=== PATIENT | female | born 1960 | race Caucasian/White ===

== ENCOUNTER 2023-06-07 20:03 | Emergency (ER) | payer OTHER, SELFPAY ==
[2023-06-07 20:15] VITALS: BP 122/72; PULSE 84; RESP 19; TEMP 36.7; O2SAT 98; BMI 25.2
--- NOTE | 2023-06-07 20:26 | PC.NURSE ---
Rounded on patient, no needs voiced at this time.
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
[2023-06-07] MEDS: CYCLOBENZAPRINE 10MG TABLET 5 MG PO (21:13)
[2023-06-07] MEDS: IBUPROFEN 600 MG TABLET PO (21:13)
[2023-06-07 21:16] VITALS: BP 128/77; PULSE 80; RESP 17; TEMP 36.7; O2SAT 99
== END 2023-06-07 21:20 | disposition home or self-care (01) ==
PROVIDERS: Emergency Provider Student in an Organized Health Care Education/Training Program
DX: S16.1XXA Strain of muscle, fascia and tendon at neck level, initial encounter (principal); M54.6 Pain in thoracic spine; S33.5XXA Sprain of ligaments of lumbar spine, initial encounter; V49.40XA Driver injured in collision with unspecified motor vehicles in traffic accident, initial encounter
CPT/HCPCS: 99283

== ENCOUNTER 2023-07-11 10:51 | Outpatient (RCR) | payer MEDICARE, MEDICAID, SELFPAY ==
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
== END 2023-07-11 12:00 | disposition home or self-care (01) ==
LOC: PT 10:51
PROVIDERS: Visit Provider Internal Medicine
DX: M54.6 Pain in thoracic spine (principal); M54.50 Low back pain, unspecified; R82.90 Unspecified abnormal findings in urine
CPT/HCPCS: 87086; 97163

== ENCOUNTER 2023-08-07 08:38 | Outpatient (CLI) | payer MEDICARE, MEDICAID, SELFPAY ==
--- NOTE | 2023-08-07 08:53 | CT_ITS ---
FINAL REPORT TECHNIQUE: Axial CT images of the chest were obtained without contrast. Low-dose protocol was utilized. This study was performed with techniques to keep radiation doses as low as reasonably achievable (ALARA). Individualized dose reduction techniques using automated exposure control or adjustment of mA and/or kV according to the patient's size were employed. CLINICAL HISTORY: lung cancer screening, smoker COMPARISON: None FINDINGS: CT CHEST WITHOUT, LOW DOSE SCREENING CT Di Vol: 2.90 mGy DLP: 92.73 mGy*cm There are multiple borderline sized mediastinal and axillary nodes which are nonspecific but favored to be reactive. The heart size is normal. There are mild coronary artery calcifications. There is no pleural or pericardial effusion. The lung windows show no suspicious mass or nodule. Limited images of the upper abdomen demonstrate a 4 mm pleural-based nodule in the posterior left lower lobe best seen on image 40. There is a calcified granuloma in the left lung base. There is mild emphysema and mild scarring. IMPRESSION: LR Category 2: 12 month follow-up low-dose chest CT is recommended. Reviewed, Interpreted and Dictated by Renan Qureshi III, MD Transcribed by Lauren Horvath Authenticated and [facility]
--- NOTE | 2023-08-07 08:53 | XR_ITS ---
FINAL REPORT CLINICAL HISTORY: Left foot pain COMPARISON: None FINDINGS: LEFT FOOT: Three views of the left foot were obtained. There is no acute fracture or dislocation. There is a moderate to severe hallux valgus deformity. There is mild degenerative change, greatest at the first MTP. Plantar calcaneal spur is noted. There is no soft tissue abnormality. IMPRESSION: Moderate to severe hallux valgus deformity and mild degenerative changes. No acute bony abnormality. Reviewed, Interpreted and Dictated by Renan Qureshi III, MD Transcribed by Lauren Horvath Authenticated and [facility]
--- NOTE | 2023-08-07 08:53 | XR_ITS ---
FINAL REPORT CLINICAL HISTORY: Back pain, restricted movement COMPARISON: None FINDINGS: LUMBOSACRAL SPINE SERIES Five views of the lumbosacral spine were obtained. There is no fracture present. There is no malalignment. There is moderate degenerative change. Multilevel osteophytes are noted. There is multilevel facet arthropathy. There is mild rightward curvature of the lumbosacral spine. IMPRESSION: Moderate degenerative change without acute process. Reviewed, Interpreted and Dictated by Renan Qureshi III, MD Transcribed by Lauren Horvath Authenticated and [facility]
--- NOTE | 2023-08-07 08:53 | XR_ITS ---
FINAL REPORT CLINICAL HISTORY: back pain, restricted range of motion COMPARISON: None FINDINGS: Two views of the thoracic spine were obtained. There is no fracture present. There is no malalignment. There is moderate degenerative change with multilevel osteophytes. IMPRESSION: Moderate degenerative changes without acute process. Reviewed, Interpreted and Dictated by Renan Qureshi III, MD Transcribed by Lauren Horvath Authenticated and . [facility]
--- NOTE | 2023-08-07 08:53 | XR_ITS ---
FINAL REPORT CLINICAL HISTORY: Right foot pain COMPARISON: None FINDINGS: RIGHT FOOT: Three views of the right foot were obtained. There is no acute fracture or dislocation. There is a moderate to severe hallux valgus deformity. There is mild degenerative change, greatest at the first MTP. Plantar calcaneal spur is noted. There is no soft tissue abnormality. IMPRESSION: Moderate severe hallux valgus deformity and mild degenerative changes. No acute bony abnormality. Reviewed, Interpreted and Dictated by Renan Qureshi III, MD Transcribed by Lauren Horvath Authenticated and . [facility]
== END 2023-08-07 23:59 ==
PROVIDERS: PCP Internal Medicine; Visit Provider Podiatrist
DX: M54.9 Dorsalgia, unspecified (principal); M79.671 Pain in right foot; M79.672 Pain in left foot; F17.210 Nicotine dependence, cigarettes, uncomplicated
CPT/HCPCS: 71271; 72070; 72100; 72110; 73630

== ENCOUNTER 2023-08-22 09:23 | Outpatient (CLI) | payer MEDICARE, MEDICAID, SELFPAY ==
--- NOTE | 2023-08-22 09:24 | XR_ITS ---
FINAL REPORT CLINICAL HISTORY: screening, post menopausal COMPARISON: None FINDINGS: Using L1-4, the bone mineral density of the spine is 1.108 g/cm2, corresponding to T-score of 0.6. Using the left hip, the bone mineral density of the femoral neck is 0.77 g/cm2, corresponding to a T-score of -0.7. Using the right hip, the bone mineral density of the femoral neck is 0.717 g/cm?, corresponding to a T-score of -1.2. NOTE: T-score: Standard deviation compared with peak bone mass of young adult mean. *Following the recommendations of the International Society of Bone densitometry, classification of hip BMD is based on the lower of two T-scores; total hip or femoral neck. IMPRESSION: Normal bone mineral density of the lumbar spine and left femoral neck. Low bone mineral density of the right femoral neck consistent with osteopenia. Reviewed, Interpreted and Dictated by Shun Gregorio MD Transcribed by Zahraa Farah Authenticated and [facility]
--- NOTE | 2023-08-22 09:24 | MM_ITS ---
PROCEDURE INFORMATION: Exam: MG Bilateral Screening 3D Mammography Exam date and time: 08/22/2023 9:30 AM Age: 63 years old Clinical indication: Screening examination TECHNIQUE: Imaging protocol: Bilateral Screening tomosynthesis and 2D mammography including computer-aided detection (CAD) when performed. COMPARISON: 1. MG DMSB DIG MAMM-SCREEN FABIO W/CAD 10/28/2016 6:03 PM 2. MG DMDXUAVR DIG MAMM-DX UNIL ADD VIEWS-RT 07/19/2012 2:58 PM FINDINGS: MAMMOGRAPHY: Breast composition: There are scattered areas of fibroglandular density. Mass: None. Architectural distortion: None. Calcifications: No suspicious calcifications. Asymmetric density: None. Skin thickening: None. Axillary adenopathy: None. IMPRESSION: No mammographic evidence of malignancy. Annual screening is recommended unless otherwise clinically indicated. ASSESSMENT: BI-RADS Category 1: Negative
== END 2023-08-22 23:59 | disposition home or self-care (01) ==
LOC: RAD 09:24
PROVIDERS: PCP Internal Medicine; Visit Provider Internal Medicine
DX: Z78.0 Asymptomatic menopausal state (principal); Z13.820 Encounter for screening for osteoporosis; Z12.31 Encounter for screening mammogram for malignant neoplasm of breast
CPT/HCPCS: 77063; 77067; 77080

== ENCOUNTER 2023-09-12 15:40 | Outpatient (CLI) | payer MEDICARE, MEDICAID, SELFPAY ==
--- NOTE | 2023-09-12 15:41 | MR_ITS ---
FINAL REPORT CLINICAL HISTORY: Metatarsalgia of right foot. FINDINGS: Multiplanar MR imaging of the right foot was performed without contrast. A hallux valgus deformity is seen. Second through fourth hammertoes are noted. There is bone marrow edema in the head of the second metatarsal of uncertain etiology and may be reactive. No well-defined fracture is identified. Soft tissue edema is seen adjacent to the head of the second metatarsal. The flexor and extensor tendons are intact. No ligamentous injury is identified. The musculature is intact. There is thickening of the posterior plantar aponeurosis with some adjacent soft tissue edema. No soft tissue mass or cyst is identified. IMPRESSION: Hallux valgus deformity with mild degenerative change. Bone marrow edema in the head of the second metatarsal with surrounding soft tissue edema of uncertain etiology. This may represent stress reaction, but early osteonecrosis is not entirely excluded. Follow-up MRI may be helpful. Authenticated and [facility]
== END 2023-09-12 23:59 | disposition home or self-care (01) ==
LOC: RAD 15:41
PROVIDERS: PCP Internal Medicine; Visit Provider Podiatrist
DX: M77.41 Metatarsalgia, right foot (principal); M77.42 Metatarsalgia, left foot; R09.89 Other specified symptoms and signs involving the circulatory and respiratory systems; S99.921S Unspecified injury of right foot, sequela
CPT/HCPCS: 73718

== ENCOUNTER 2023-09-14 10:09 | Outpatient (CLI) | payer MEDICARE, MEDICAID, SELFPAY ==
--- NOTE | 2023-09-14 10:14 | US_ITS ---
FINAL REPORT CLINICAL HISTORY: Decreased Pedal Pulses, Smoker, Pre-op clearance for left bunionectomy FINDINGS: BILATERAL ANKLE BRACHIAL INDICES Pressure indices are as follows are: RIGHT LOWER EXTREMITY Ankle brachial pressure index: 1.2 Toe brachial pressure index: 0.8 COMMENTS: Normal LEFT LOWER EXTREMITY Ankle brachial pressure index: 1.2 Toe brachial pressure index: 1.0 COMMENTS: Normal IMPRESSION: No evidence of significant obstructive peripheral vascular disease of the lower extremities. Reviewed, Interpreted and Dictated by Renan Qureshi III, MD Transcribed by Lissa Gibson Authenticated and [facility]
== END 2023-09-14 23:59 | disposition home or self-care (01) ==
LOC: RT 10:09
PROVIDERS: PCP Internal Medicine; Visit Provider Podiatrist
DX: R09.89 Other specified symptoms and signs involving the circulatory and respiratory systems (principal)
CPT/HCPCS: 93923

== ENCOUNTER 2024-01-26 15:12 | Outpatient (CLI) | payer MEDICARE, MEDICAID, SELFPAY ==
[2024-01-26 13:07] LABS: Basophils # 0.1 K/mm3 (0-0.2); Basophils % 0.7 % (0.1-2.0); Eosinophils # 0.1 K/mm3 (0.0-0.4); Eosinophils % 0.7 % (0.1-12.0); Hematocrit 42.7 % (37.0-47.0); Hemoglobin 13.9 g/dL (12.2-16.2); Lymphocytes # 5.8 K/mm3 (0.7-4.5); Lymphocytes % 52.2 % (10-50); Mean Corpuscular HGB Conc 32.7 g/dL (31.8-35.4); Mean Corpuscular Hemoglobin 31.2 pg (27.0-31.2); Mean Corpuscular Volume 95.7 fl (81-99); Monocytes # 0.8 K/mm3 (0.1-1.0); Monocytes % 6.8 % (1.7-9.3); Neutrophils # 4.4 K/mm3 (1.8-7.8); Neutrophils % 39.6 % (37.0-80.0); Platelet Count 414 K/mm3 (142-424); Red Blood Count 4.46 M/mm3 (4.20-5.40); Red Cell Distribution Width 13.8 % (11.5-17.5); White Blood Count 11.1 K/mm3 (4.8-10.8)
[2024-01-26 13:25] LABS: MANUAL DIFFERENTIAL MANUAL DIFFERENTIAL (MANUAL DIFF)
[2024-01-26 13:51] LABS: Hemoglobin A1C 5.7 % (4.0-6.0)
[2024-01-26 14:00] LABS: Alanine Aminotransferase 23 U/L (12-78); Albumin Level 4.4 g/dl (3.5-5.0); Albumin/Globulin Ratio 1.3 (1.1-1.8); Alkaline Phosphatase 63 U/L (38-126); Aspartate Amino Transferase 26 U/L (14-36); Bilirubin,Total 0.5 mg/dl (0.2-1.3); Blood Urea Nitrogen 18 mg/dl (7-17); Calcium 9.4 mg/dl (8.4-10.2); Carbon Dioxide 33 mmol/L (22.0-30.0); Chloride 100 mmol/L (98-107); Chol/HDL Ratio 4.1 (1-3.5); Cholesterol 210 mg/dl (140-200); Estimated Glomerular Filt Rate 72 ml/min (>60); GFR (African American) 87 ML/MIN (>60); Globulin 3.3 g/dL (1.3-3.2); Glucose 73 mg/dl (74-100); HDL Cholesterol 51 mg/dl (40-60); Sodium 135 mmol/L (136-145); Total Protein,Serum 7.7 g/dl (6.3-8.2); Triglycerides 155 mg/dl (30-150); VLDL Cholesterol 31 mg/dL (0-40)
[2024-01-26 14:11] LABS: Direct LDL Cholesterol 130.68 mg/dL (100-129)
[2024-01-26 14:17] LABS: 25-OH Vitamin D, Total 35.9 ng/mL (30-100); Free T4 (Free Thyroxine) 1.27 ng/dl (0.78-2.19)
[2024-01-26 14:25] LABS: Eosinophils % 2 % (0-3); Lymphocytes % 44 % (10-50); Monocytes % 5 % (2-9); Neutrophils % 49 % (42-76); Platelet Estimate Normal; Spherocytes 1+; Total Cells Counted 100
[2024-01-26 14:26] LABS: Polychromasia 1+; Target Cells 1+
[2024-01-26 14:34] LABS: HIV (1&2) Antibody Rapid NONREACTIVE (NONREACTIVE)
== END 2024-01-26 23:59 | disposition home or self-care (01) ==
LOC: LAB.DROPOF 15:12
PROVIDERS: PCP Internal Medicine; Visit Provider Internal Medicine
DX: R53.83 Other fatigue (principal); Z00.00 Encounter for general adult medical examination without abnormal findings; Z13.1 Encounter for screening for diabetes mellitus; Z13.29 Encounter for screening for other suspected endocrine disorder; M85.80 Other specified disorders of bone density and structure, unspecified site; Z13.21 Encounter for screening for nutritional disorder; Z11.59 Encounter for screening for other viral diseases; Z91.89 Other specified personal risk factors, not elsewhere classified; E78.5 Hyperlipidemia, unspecified; Z13.220 Encounter for screening for lipoid disorders; Z11.4 Encounter for screening for human immunodeficiency virus [HIV]
CPT/HCPCS: 80053; 80061; 82306; 83036; 84439; 84443; 85007; 85025; 85027; 87389

== ENCOUNTER 2024-01-30 11:11 | Outpatient (CLI) | payer MEDICARE, MEDICAID, SELFPAY ==
--- NOTE | 2024-01-30 11:15 | XR_ITS ---
FINAL REPORT TECHNIQUE: Chest PA & Lateral CLINICAL HISTORY: pre-operative exam, right foot at the end of january hx copd COMPARISON: None FINDINGS: 2 views of the chest were performed. The heart size is normal. The mediastinum is within normal limits. There is no acute cardiopulmonary process. There are no pleural effusions. There is no pneumothorax. The bony thorax appears intact. IMPRESSION: No acute cardiopulmonary process. Reviewed, Interpreted and Dictated by Shun Gregorio MD Transcribed by Ying Green Authenticated and [facility]
[2024-01-30 12:18] LABS: Basophils # 0.1 K/mm3 (0-0.2); Eosinophils # 0.1 K/mm3 (0.0-0.4); Eosinophils % 0.7 % (0.1-12.0); Hematocrit 42.5 % (37.0-47.0); Hemoglobin 13.9 g/dL (12.2-16.2); Lymphocytes # 6.2 K/mm3 (0.7-4.5); Lymphocytes % 56.1 % (10-50); Mean Corpuscular HGB Conc 32.7 g/dL (31.8-35.4); Mean Corpuscular Volume 97.9 fl (81-99); Mean Platelet Volume 7.1 fl (7.4-10.4); Monocytes # 0.6 K/mm3 (0.1-1.0); Monocytes % 5.9 % (1.7-9.3); Neutrophils % 36.3 % (37.0-80.0); Platelet Count 374 K/mm3 (142-424); Red Blood Count 4.35 M/mm3 (4.20-5.40); Red Cell Distribution Width 14.2 % (11.5-17.5)
[2024-01-30 12:19] LABS: MANUAL DIFFERENTIAL MANUAL DIFFERENTIAL (MANUAL DIFF)
--- NOTE | 2024-01-30 12:21 | ECG_ITS ---
APPROVED REPORT Exam: Resting ECG HR:73 bpm ECG Measurements Heart Rate 73 AXES MS 158 P 55 QRSd 87 QRS 42 QT 355 T 53 QTc 380 Conclusion SINUS RHYTHM NORMAL ECG UNCONFIRMED REPORT Electronically signed by : Markell Zamarripa MD 01/30/2024 20:48:15
[2024-01-30 12:40] LABS: Lymphocytes % 55 % (10-50); Monocytes % 7 % (2-9); Neutrophils % 37 % (42-76); Total Cells Counted 100
[2024-01-30 12:41] LABS: Platelet Estimate Normal; RBC Morphology Normal
[2024-01-30 13:40] LABS: Alanine Aminotransferase 25 U/L (12-78); Albumin Level 4.4 g/dl (3.5-5.0); Albumin/Globulin Ratio 1.3 (1.1-1.8); Alkaline Phosphatase 67 U/L (38-126); Anion Gap 7.4 mEq/L (5-15); Aspartate Amino Transferase 27 U/L (14-36); Bilirubin,Total 0.5 mg/dl (0.2-1.3); Blood Urea Nitrogen 20 mg/dl (7-17); Carbon Dioxide 34 mmol/L (22.0-30.0); Chloride 99 mmol/L (98-107); Estimated Glomerular Filt Rate 63 ml/min (>60); GFR (African American) 76 ML/MIN (>60); Globulin 3.3 g/dL (1.3-3.2); Glucose 108 mg/dl (74-100); Potassium 4.4 mmoL/L (3.5-5.1); Sodium 136 mmol/L (136-145); Total Protein,Serum 7.7 g/dl (6.3-8.2)
[2024-02-02 13:11] LABS: Nicotine 11.5 ng/mL (.)
[2024-02-19 02:09] LABS: 1,25 Dihydroxy Vitamin D 58 pg/mL (.); 1,25-Dihydroxy, Vitamin D-2 <10 pg/mL (.); 1,25-Dihydroxy, Vitamin D-3 58 pg/mL (.)
== END 2024-01-30 23:59 | disposition home or self-care (01) ==
LOC: LAB 11:13
PROVIDERS: PCP Internal Medicine; Visit Provider Podiatrist
DX: Z01.818 Encounter for other preprocedural examination (principal); F11.11 Opioid abuse, in remission
CPT/HCPCS: 36415; 71046; 80053; 80323; 82652; 85007; 85025; 85027; 93005; G0480

== ENCOUNTER 2024-02-21 08:30 | Day surgery (SDC) | payer MEDICARE, MEDICAID, SELFPAY ==
[2024-02-14 12:47] VITALS: BMI 26.5
[2024-02-21] VITALS (9 sets, daily range): BP systolic 113–152; BP diastolic 57–85; PULSE 69–87; RESP 15–18; TEMP 36.2–36.5; O2SAT 96–100
--- NOTE | 2024-02-21 08:48 | P.PNANES_ITS ---
[facility] Disclaimer: The information contained in this section may have been updated after the patient was seen, as this information can be updated by other users. Medical History Herpes zoster Encounter for hepatitis C virus screening test for high risk patient Opiate dependence Alcohol abuse Sleep trouble Acid reflux Gastritis Chronic constipation Bipolar disorder Depression Anxiety COPD (chronic obstructive pulmonary disease) Rheumatoid arthritis Surgical History History of eyelid surgery History of colonoscopy History of tubal ligation Family History Father Cancer Brother Cancer Other Family history of heart disease Social History (Updated 02/21/24 @ 08:47 by Denise Lezama RN) Smoking Status: Current every day smoker tobacco type: cigarettes packs per day: 1 alcohol intake: former year quit: 2009 substance use type: former substance user and opiates current occupational status: disabled Travel in the last 8 weeks: None [facility] Anesthesia Checklist Patient Identification Patient Identification: Arm Band, Family and Verbal (Name & ) Structural Data Admitted From: Home Planned Operative Procedure/s: RT. Bunionectomy + Consent for Planned Operative Procedure(s) Verified: Yes Verified Documents: Surgical Consent and History and Physical NPO Status Verified Time NPO: 23:45 Chart Verification Results Verified: CBC, BMP, ECG and Chest Xray Additional verifications Patient : No Anesthesia Reactions: No Cardiovascular Assessment Heart Sounds: S1 & S2 Pulse Rhythm: Irregular Peripheral Edema: No Airway Assessment Mallampati Score:: Class II C-Spine Mobility Assessed: Yes (FROM) Dentition: Dentures-good fit (Upper. Nothing loose per pt.) Neurological Assessment Level of Consciousness: Awake, Alert, Appropriate and Follows Commands Hx Seizures: No Numbness or tingling in extremities: No Anesthesia Plan Anesthesia Risk discussed: Yes Anesthesia Plan: Verified ASA Class: II Anesthesia Type: General w/block
[2024-02-21] MEDS: LACTATED RINGERS 1000ML 1,000 ML 25 ML IV (09:41)
[2024-02-21] MEDS: CEFAZOLIN SODIUM 2 GM in 0.9 % SODIUM CHLORIDE 100 ML IV (12:30)
--- NOTE | 2024-02-21 14:18 | XR_ITS ---
PROCEDURE INFORMATION: Exam: XR Right Foot Exam date and time: 02/21/2024 2:15 PM Age: 64 years old Clinical indication: Screening exam; Foot in or; Prior surgery; Surgery date: Post-operative (0-2 days); Surgery type: Right foot TECHNIQUE: Imaging protocol: Radiologic exam of the right foot. Views: 1 or 2 views. COMPARISON: SD XR FOOT RT 2V 02/21/2024 2:15 PM FINDINGS: Bones/joints: Intraoperative images of the right foot are obtained. K wires project in the 4th and 5th distal phalanges. Small screws project in the 2nd and 3rd distal phalanges. Plate and screw construct projects over the 1st MTP joint. No displaced osseous fracture is identified. Soft tissues: Normal. IMPRESSION: Intraoperative localization.
--- NOTE | 2024-02-21 14:43 | EXP.ANES.I ---
[facility] Anesthesia Record Part I Anesthesia Record I Intake, IV Amount: 1,600 Hydration: Adequate Estimated blood loss (mL): 30 Urine output (mL): 0 Blood Pressure: 113/57 SaO2: 98 Pulse Rate: 69 Airway Patency: Patent Respiratory Rate: 15 Temperature: 97.1 F Patient is:: Drowsy Stable to PACU at:: 14:40
--- NOTE | 2024-02-21 15:30 | XR_ITS ---
PROCEDURE INFORMATION: Exam: XR Right Foot Exam date and time: 02/21/2024 3:07 PM Age: 64 years old Clinical indication: Condition or disease; Other: Post op surgery; Prior surgery; Surgery date: Post-operative (0-2 days); Surgery type: RT foot surgery; Additional info: Post op 1st mpj fusion, ht repair TECHNIQUE: Imaging protocol: Radiologic exam of the right foot. Views: 3 or more views. COMPARISON: SD XR FOOT RT 2V 02/21/2024 2:15 PM FINDINGS: Bones/joints: No acute fracture or malalignment. K-wires are present and bridging the 4th and 5th proximal, intermediate, and distal phalanges. Also noted are bridging screws across the 2nd and 3rd PIP joints. Plate and screw construct of the 1st MTP joint. No evidence of hardware loosening or fracture. Moderate calcaneal enthesophyte. No worrisome lytic or blastic osseous lesion. No appreciable cortical erosion or periosteal reaction. Scattered mild osteoarthritic changes. Soft tissues: Postop dressing over the forefoot, limiting evaluation of fine bony and soft-tissue detail. IMPRESSION: 1. No acute fracture or malaligment. 2. Status post hardware placement in the forefoot.
--- NOTE | 2024-02-21 16:49 | EXP.OP.NOTE ---
Date of procedure: 02/21/24 Pre-op Diagnosis:: Right hallux valgus Hallux limitus/rigidus Hammertoes 2?5 MPJ capsulitis Metatarsalgia Fifth toe angular deformity, curly toe Tailor's bunionette Post-op Diagnosis:: Same Procedure performed:: Right 1st MTPJ arthrodesis Excision/curettage bone cyst 2-4th hammertoe repair Tailor's bunionectomy/5th metatarsal exostectomy 2nd MPJ capsulotomy Repair 5th angular toe deformity with partial excision phalanx Calcaneal autograft bone harvest Surgeon:: Shana Haas DPM STARS SPECIALIST:: Gloria Ramirez Anesthesia: GETA Estimated blood loss (mL): 30 Clinical Note:: Patient is a 64F who presents with bilateral foot pain, right worse than left. Patient has had recent testing including x-rays, DEXA scan, ABIs, right foot MRI. The patient has tried modification of shoe gear, taping, strapping, inserts, ice elevation, NSAIDs. After a long discussion with the patient in regards to the conservative versus surgical treatment for the bunion deformity, the patient has elected to proceed with surgery because they have failed conservative treatment and continue to have pain and worsening symptoms affecting daily activities. Discussed lapidus and midfoot arthrodesis, possible 1st MTPJ arthrodesis vs implant, 2-3rd hammertoe repair, MPJ capsulotomy, possible plantar plate repair. Due to her advanced imaging findings and social situation: lives alone, early to early WB 1st MTPJ AD would be easier recovery than lapidus. The patient has been instructed on the planned procedure, all risk versus benefits of the procedure to include bleeding, infection, nerve and blood vessel damage, need for further surgery, delay in healing of soft tissue or bone, gangrene secondary to smoking history, failure of bones to heal, non-union, mal-union, prolonged pain and recovery, prolonged swelling, CRPS/RSD, DVT/PE and anesthetic complications including . Discussed increased risk of delayed toe healing, although ABIs were normal. Explained slower healing especially to the toes because of her smoking history. Discussed increased risk of wound healing complications and infection due to smoking history. Smoking cessation given. Also discussed her risk of wound healing, infection and DVT/PE. Patient understands if there is wound complications, it could lead to infection warranting oral or IV antibiotics, gangrene necessitating toe amputation. Would recommend aspirin 81 mg postop. No guarantees were given. All questions answered. Patient verbalized understanding and agreed to proceed with surgery. Written consent obtained. Medical clearance and pain clinic clearance obtained. *Of note patient admitted to history of substance abuse and has been on Suboxone. [facility], her pain clinic did stop her Suboxone last week and gave clearance for me to take over immediate postoperative pain management. After the case, while discussing intraoperative findings with the family, they admitted to the patient recently using meth. Patient had denied this preoperatively. Had a long discussion with the family after surgery about pain control and realistic expectations for pain management given her substance abuse history. Discussed compliance with pain protocols in detail. Operative findings:: Right hallux rigidus with decreased range of motion in both dorsiflexion and plantarflexion. Upon opening the joint there was significant cartilage erosion greater than 70% of the joint involved. Significant synovitic tissue noted at the first MTPJ which was debrided. The articular cartilage was worn down. Cortical erosion and decreased cartilage to both the base of proximal phalanx and metatarsal head. There was a 2 mm round subchondral cyst in the base of the proximal phalanx after joint prep performed. This cystic defect was excised curettaged and then packed with calcaneal autograft bone graft. Preoperatively patient's vitamin D was 58. Plan to start vitamin D 50,000 units once weekly due to the poor bone quality intraoperatively. Minimal vessels were ligated or cauterized as there was some but minimal bleeding noted. The skin quality upon closure of the skin was very stiff and with the patient's history of smoking/substance abuse, decision made to use amniotic graft to help prevent scar tissue contracture and adhesions. Operative note:: On this date and time patient was deemed an appropriate surgical candidate. With informed consent signed, the patient was taken to the operating theater after regional popliteal nerve block by anesthesia. Patient was positioned supine. General anesthesia was induced. IV Ancef given. Tourniquet was applied to the right thigh @250mmHg. The right lower extremity was prepped and draped in normal sterile fashion. Right calcaneal autograft bone harvest: Attention was directed to the lateral calcaneus where small linear incision was mapped out. Dissection was carried down full-thickness to the heel. The bone graft harvest system utilized to take 3mm of bone from the calcaneus. Area was flushed. Nylon used to reapproximate the skin. Right proximal phalanx excision/curettage bone cyst: Once joint was prepared, a subchondral bone cyst was noted on proximal phalanx. It was excised curettage flushed. The calcaneal autograft bone was then packed into the defect prior to joint fusion. Right first MTPJ arthrodesis: Attention was directed to the 1st metatarsophalangeal joint (MPJ), where a dorsal linear incision was mapped out extending proximal from the HIPJ to proximal on the met shaft. The tourniquet was inflated at 250mmHg. Dissection was carried thru skin and subcutaneous tissue with care taken to maintain surgical hemostasis and safely retract neurovascular structures. Dissection was then carried through deep fascia linearly over the 1st MPJ, exposing the met head. There was severe arthritic changes noted with wearing down of the cartilage on both the metatarsal head and proximal phalanx. And there were several large joint osteophyte noted which was removed. Dorsal as well as medial, lateral spurring noted. Sesamoids were also noted to be arthritic. Soft tissue surrounding the first MPJ was released. A McGlamry elevator was used to pass underneath the metatarsal heads releasing more of the contracture. Utilizing hand instrumentation in the form of ronguer, the osteophytes were removed and some of the spurs were resected. Next utilizing reamers the base of the proximal phalanx and the metatarsal head were prepared. The remaining portion of the cartilage was removed. The subchondral plate was fenestrated utilizing 0.062 K wire. Joint was prepped down to the level of good healthy cancellous bleeding bone. Rasp was used to smooth the joint and remaining spurring. The wound was flushed with copious amounts of saline. The calcaneus bone graft was then inserted into the joint. At this point, the joint was reduced and temporary fixation inserted. Position was checked under intra-op fluoroscopy. A 4.0 mm compression lag screw was inserted from distal medial to proximal lateral. Adequate compression noted. Remaining bone graft was then inserted into the joint. Vilex 1st MPJ locking plate was inserted in standard technique. 2.7mm screws x 3 were inserted distally into the proximal phalanx. This was followed by a 2.7mm intra-fragmentary compression screw to the proximal metatarsal, followed by 2 x 2.7mm screws into the metatarsal. Good apposition and position was noted. X-ray confirmed position and hardware stable. 15 blade was used to resect the redundant tissue dorsal medial. A piece of 4x4cm amniotic graft was then inserted to prevent deep adhesions of soft tissue to the plate and try to prevent wound dehiscence. Vicryl was used to close deep and subcutaneous tissue in a running fashion. Nylon used to close skin. Skin cleansed. Right 2nd MPJ capsulotomy: An incision was mapped out over the second MPJ and full-thickness dissection down to level of the joint. Release of the medial and collateral ligaments on the metatarsal head. McGlamery elevator was used to pass under the second met head and plantar adhesions were released. Immediately there was reduction of the contracture at this level. The second metatarsal head was intact with no obvious cortical erosions so decision made not to do a partial metatarsal head resection or met head implant. Hammertoe repair 2?4: Attention was directed to the dorsal PIPJ's of 2?4 where hammertoe contracture noted. Dissection down to the level of the PIPJ. Transverse tenotomy performed releasing the extensor tendon. This did alleviate some contracture. Wound flushed. The head of the proximal phalanx and base of the middle phalanx were resected. The second and third toes were reduced and hammer fused toe implant was inserted in standard technique in accordance with manufacture guidelines. A 2.5 mm implant was utilized on the second toe and a 2.0 mm implant was used on the third toe. Due to the size of the fourth toe, the implant was too large so hammertoe was fixated with a 1.1 mm smooth K wire. 5th angular toe deformity correction: Attention was then directed to the fifth toe which had an angular curly toe adductovarus rotation deformity. A skin flap was removed from the PIPJ. Dissection then performed down to the level of the PIPJ. Transverse tenotomy performed. The head of the proximal phalanx was resected. The toe was derotated and a 1.1 mm smooth K wire was inserted to maintain toe alignment. All wounds were flushed with saline. Extensor tendon reapproximated with Vicryl. Skin reapproximated with nylon. Prior to closure, intraoperative fluoroscopy was utilized to take x-rays. Multiple fluoroscopy views showed adequate compression of the first MTPJ with hardware intact. Hammertoe implants and K wires intact to the 2nd through 5th digits with appropriate alignment and reduction of deformity. Tailor's bunionectomy/5th metatarsal head exostectomy: A separate incision was then made over the fifth metatarsal head dorsal laterally. Full-thickness dissection to the level of the bone. There was a bony prominence noted on the dorsal lateral aspect of the metatarsal head. A saw was used to transect the bone. Next rasp was used to smooth down the bony prominence. Wound flushed. Deep tissue reapproximated with Vicryl and skin reapproximated with nylon. The tourniquet was deflated after 110 mins and immediate hyperemic response was noted to the digits. The wounds were cleansed. Xeroform applied to incisions. Betadine soaked gauze used to splint the toes then a dry sterile dressing was then applied to the right foot. The patient was awoken from anesthesia and transferred to recovery with vital signs stable and neurovascular status intact. Patient appeared to tolerate procedure anesthesia well without complication. Materials: Vilex anatomic 1st MTPJ plate and 2.7mm locking screws x5, 2.7mm non locking screw x1, 4.0mm partially threaded compression screw x 1, Almniomaxx graft x1 (4x4cm), 1.1mm smooth K wire x 2, Vilex Hammerfuze implant x2 Discharge/Plan: D/C home today when ready and vital signs stable. Patient is to maintain dressing clean dry and intact. Ice top of right foot and elevate on two pillows. Polar pack behind knee. NWB to the RLE with fracture boot and walker. Recommend rolling knee scooter. Obtain post op films, right foot, 3 views. Follow up with me in 1 week. Tourniquet time (min): 110 Condition: stable Disposition: same day Complications:: None
--- NOTE | 2024-02-22 07:25 | P.PNANES_ITS ---
[facility] Anesthesia Record Part II Anesthesia Record Part II Discharge Time: 15:10 Destination: Surgical Day Care (OP Surgery) PACU nurse assessment reviewed?: Yes Patient Condition:: Good Anesthesia Complications:: None Swallowing reflex intact?: Yes Airway Patency: Patent Cyanosis?: No Blood Pressure: 150/83 SaO2: 100 Respiratory Rate: 16 Pulse Rate: 76 Temperature: 97.1 F Mental Status: Alert & Oriented Pain level:: 0 Nausea and/or vomitting:: None Intake, IV Amount: 0 Hydration: Adequate
[2024-02-22 07:26] VITALS: BP 150/83; PULSE 76; RESP 16; TEMP 36.2; O2SAT 100
== END 2024-02-21 15:47 | disposition home or self-care (01) ==
PROVIDERS: PCP Internal Medicine; Visit Provider Podiatrist
PROC: (CPT 28108; principal; 2024-02-21 10:15)
DX: M20.11 Hallux valgus (acquired), right foot (principal); M20.41 Other hammer toe(s) (acquired), right foot; M21.621 Bunionette of right foot; M20.5X1 Other deformities of toe(s) (acquired), right foot; M19.071 Primary osteoarthritis, right ankle and foot; M77.41 Metatarsalgia, right foot; F17.210 Nicotine dependence, cigarettes, uncomplicated; Z79.899 Other long term (current) drug therapy; M77.8 Other enthesopathies, not elsewhere classified; M85.471 Solitary bone cyst, right ankle and foot
CPT/HCPCS: 28108; 28285 ×3; 28308; 73620; 73630; 76000; 96374; C1713; C1776; C9144; J0690; J2250; J3010; J7120

== ENCOUNTER 2024-03-07 10:30 | Outpatient (CLI) | payer MEDICARE, MEDICAID, SELFPAY ==
--- NOTE | 2024-03-07 10:37 | CA_ITS ---
FINAL REPORT CLINICAL HISTORY: Resolved pedal edema 2 weeks post op Right foot. Patient denies current leg pain COMPARISON: None FINDINGS: Color Doppler, duplex Doppler and compression sonography of the bilateral lower extremities was performed. There is no evidence of deep venous thrombosis from the level of the groin to the calf. The deep veins are patent and compressible. IMPRESSION: No evidence of deep venous thrombosis bilateral lower extremities. Authenticated and ERN
--- NOTE | 2024-03-07 10:37 | XR_ITS ---
FINAL REPORT CLINICAL HISTORY: .pain COMPARISON: None FINDINGS: RIGHT FOOT: Three views of the right foot were obtained. There are postoperative changes in the right foot. There is an orthopedic plate and screws bridging a fusion of the first MTP joint. There are screws present in the second and third toes bridging the proximal and middle phalanges, and osteotomies appear to have been performed. A K wire bridges the phalanges of the fifth toe, and there appears to have been an osteotomy of the head of the proximal phalanx. There is slight deformity of the fourth digit suggesting prior surgery. There is no acute fracture or dislocation. The joint spaces are otherwise intact. A posterior calcaneal spur is present. IMPRESSION: Extensive postoperative change as described above, with no acute bony abnormality. Reviewed, Interpreted and Dictated by Renan Qureshi III, MD Transcribed by Zahraa Farah Authenticated and . [facility]
== END 2024-03-07 23:59 | disposition home or self-care (01) ==
LOC: RT 10:31
PROVIDERS: PCP Internal Medicine; Visit Provider Podiatrist
DX: I87.2 Venous insufficiency (chronic) (peripheral) (principal); M79.671 Pain in right foot
CPT/HCPCS: 73630; 93970

== ENCOUNTER 2024-03-21 09:57 | Outpatient (CLI) | payer MEDICARE, MEDICAID, SELFPAY ==
--- NOTE | 2024-03-21 10:03 | XR_ITS ---
FINAL REPORT CLINICAL HISTORY: s/p surgery COMPARISON: 03/07/2024 FINDINGS: RIGHT FOOT 3 views of the right foot were obtained. There is a sideplate and screws securing the 1st metatarsal phalangeal joint. An orthopedic screw is seen securing the 2nd and 3rd PIP joints. There is a K-wire securing the 5th phalanx. All hardware is unchanged in position compared to the prior study. There is a moderate plantar spur. Soft tissues are unremarkable. IMPRESSION: Stable exam. Reviewed, Interpreted and Dictated by Shun Gregorio MD Transcribed by Lauren Horvath Authenticated and . [facility]
== END 2024-03-21 23:59 | disposition home or self-care (01) ==
LOC: RAD 09:59
PROVIDERS: PCP Internal Medicine; Visit Provider Podiatrist
DX: Z98.890 Other specified postprocedural states (principal)
CPT/HCPCS: 73630

== ENCOUNTER 2024-04-08 17:59 | Emergency (ER) | payer MEDICARE, MEDICAID, SELFPAY ==
--- NOTE | 2024-04-08 16:59 | ECG_ITS ---
APPROVED REPORT Exam: Resting ECG HR:90 bpm ECG Measurements Heart Rate 90 AXES MT 142 P 77 QRSd 83 QRS 77 QT 332 T 77 QTc 379 Conclusion SINUS RHYTHM MODERATE ST DEPRESSION [0.05+ mV ST DEPRESSION] ABNORMAL ECG UNCONFIRMED REPORT Electronically signed by : FARHAN LOU, 04/09/2024 06:44:39
[2024-04-08 17:59] VITALS: BP 133/80; PULSE 98; RESP 20; TEMP 36.7; O2SAT 96; BMI 26.5
[2024-04-08 18:10] VITALS: PULSE 98
--- NOTE | 2024-04-08 18:12 | XR_ITS ---
PROCEDURE INFORMATION: Exam: XR Chest Exam date and time: 04/08/2024 6:09 PM Age: 64 years old Clinical indication: Other: Chest pain; Additional info: Cp TECHNIQUE: Imaging protocol: Radiologic exam of the chest. Views: 1 view. COMPARISON: CR XR CHEST 2V 01/30/2024 11:36 AM FINDINGS: Tubes, catheters and devices: None. Lungs: Linear density identified within bilateral lower lungs. The lungs appear otherwise clear. Pleural spaces: No pleural effusion. No pneumothorax. Heart/Mediastinum: Mediastinum and bree appear unremarkable. Vasculature: Mild atherosclerotic calcification demonstrated within the aorta. Bones/joints: Mild to moderate generalized bony degenerative changes. Bony structures appear otherwise unremarkable. Other findings: Limited evaluation with patient rotation. IMPRESSION: Linear bilateral lower chest pulmonary atelectasis, or scarring.
--- NOTE | 2024-04-08 18:19 | ED_ITS ---
Discharge Plan Disposition Patient Disposition: Home, Self-Care Condition: Good Prescriptions Prescriptions: No Action valacyclovir 1 gram tablet 1,000 mg PO Q8H Qty: 21 0RF gabapentin 300 mg capsule 300 mg PO TID PRN (Reason: nerve pain) 10 Days Qty: 30 2RF Enbrel SureClick 50 mg/mL (1 mL) pen injector 50 mg SQ WEEKLY Stiolto Respimat 2.5-2.5 mcg/actuation mist 2 inh inhalation DAILY Patient Comments: INHALE 2 PUFFS BY MOUTH DAILY propranolol 10 mg tablet 10 mg PO BID PRN (Reason: Anxiety) Patient Comments: TAKE 1 TABLET BY MOUTH TWICE DAILY. CAN ALSO TAKE 1 TABLET ONCE DAILY NEEDED FOR ANXIETY SYMPTOMS/PANIC ATTACKS. NO MORE THAN 3/DAY diclofenac sodium [Voltaren Arthritis Pain] 1 % gel 4 g topical QID PRN (Reason: pain) 30 Days Qty: 100 2RF Rx Instructions: apply to single knee, ankle, foot; for foot includes sole/toes/top of foot Vraylar 3 mg capsule 3 mg PO DAILY Qty: 90 1RF lamotrigine 150 mg tablet 150 mg PO BID Qty: 180 1RF trazodone 50 mg tablet 50 mg PO DAILY Qty: 90 1RF buprenorphine-naloxone 8-2 mg tablet, sublingual 2 tab sublingual DAILY prochlorperazine maleate 10 mg tablet 10 mg PO TID PRN (Reason: anxiety) Qty: 60 1RF doxycycline hyclate 100 mg capsule 100 mg PO BID 10 Days Qty: 20 0RF fluconazole [Diflucan] 200 mg tablet 200 mg PO DAILY PRN (Reason: yeast) 3 Days Qty: 3 0RF Rx Instructions: Take one tablet daily, max 3 days prn yeast infection oxycodone 5 mg tablet 5 mg PO Q6H PRN (Reason: post op pain) 7 Days Qty: 30 0RF calcium carbonate-vitamin D3 [Calcium 600 with Vitamin D3] 600 mg-12.5 mcg (500 unit) capsule 1 cap PO BID Qty: 60 6RF nystatin 100,000 unit/mL suspension 5 ml buccal QID 14 Days Qty: 280 0RF Rx Instructions: administer 1/2 of dose in each side of the mouth promethazine 25 mg tablet 25 mg PO Q4-6H PRN (Reason: nausea) Qty: 30 2RF cholecalciferol (vitamin D3) 1,250 mcg (50,000 unit) capsule 1,250 mcg PO WEEKLY 84 Days Qty: 12 1RF ibuprofen 600 mg tablet See Rx Instructions .ROUTE .COMPLEX Qty: 30 0RF Dose Instruction: TAKE ONE TABLET BY MOUTH EVERY 8 HOURS NEEDED FOR PAIN Rx Instructions: TAKE ONE TABLET BY MOUTH EVERY 8 HOURS NEEDED FOR PAIN Linzess 145 mcg capsule See Rx Instructions .ROUTE .COMPLEX Qty: 90 0RF Dose Instruction: TAKE ONE CAPSULE BY MOUTH EVERY DAY Rx Instructions: TAKE ONE CAPSULE BY MOUTH EVERY DAY Referrals Follow up/Referrals: Preston Man DO [Primary Care Provider] - See instructions Activity Restrictions/Add. Instructions Additional Instructions/Restrictions: Please follow-up with aircraft servicer and primary care provider return to the emergency department for any chest pain or shortness of breath, please continue with good oral intake with fluids and food. Return to the emergency department for any worsening signs or symptoms. Clinical Impressions Clinical Impression: Chest pain Instructions Patient Instructions: DI for Atypical Chest Pain Print Language Print Language: Frisian Discharge ED Provider: Donovan Campos HPI <MARICARMEN Nova - Last Filed: 04/08/24 22:01> General Chief Complaint: Chest Pain Stated Complaint: Chest Pain Time Seen by Provider: 04/08/24 18:06 Mode of Arrival: Wheelchair Source of Information: Patient and Relative Limitations: No Limitations Description of Symptoms (Recalled from ER Triage Doc. by RN): pt has chest pain that started at 1715 tonight and goes across the front of her chest and into neck, back, and jaw History of Present Illness HPI narrative: 64-year-old female presents to the emergency chest pain that started around 5 PM today, radiates to bilateral arms, at maximal was an 8 out of 10, currently a 6 out of 10, patient's family had a nitroglycerin tablet for which the patient took which provided some relief, she does complain of nausea and shortness of breath, she denies any fever chills, denies any sick contacts, cough or congestion, denies any real abdominal pain, denies urinary type symptomatology, constipation or diarrhea. She is a current everyday smoker, she is currently on Suboxone in Suboxone she admits to recent methamphetamine use yesterday snorted it other past medical history consistent with anxiety/depression, recent foot surgery for foot drop/metatarsalgia and hammertoes, on the right, approximately 6 weeks ago, osteopenia, patient is also taken ibuprofen today with little to no relief of her symptoms. Initial triage vitals are notable for tachycardia otherwise unremarkable. Related Data Home Medications ?Medication ?Instructions ?Recorded ?Confirmed etanercept 50 mg/mL (1 mL) 50 mg SQ WEEKLY 06/21/23 03/21/24 subcutaneous pen injector (Enbrel SureClick) propranolol 10 mg tablet 10 mg PO BID PRN Anxiety 06/21/23 03/21/24 tiotropium 2.5 mcg-olodaterol 2.5 2 inh inhalation DAILY 06/21/23 03/21/24 mcg/actuation mist for inhalation (Stiolto Respimat) buprenorphine 8 mg-naloxone 2 mg 2 tab sublingual DAILY 01/25/24 03/21/24 sublingual tablet Previous Rx's ?Medication ?Instructions ?Recorded trazodone 50 mg tablet 50 mg PO DAILY #90 tabs 07/28/23 diclofenac sodium 1 % topical gel 4 g topical QID PRN pain 30 days 08/22/23 (Voltaren Arthritis Pain) #100 grams calcium 600 mg (as 1 cap PO BID #60 caps 09/01/23 carbonate)-vitamin D3 12.5 mcg (500 unit) capsule (Calcium with Vit D3) cariprazine 3 mg capsule (Vraylar) 3 mg PO DAILY #90 caps 09/12/23 lamotrigine 150 mg tablet 150 mg PO BID #180 tabs 09/12/23 prochlorperazine maleate 10 mg 10 mg PO TID PRN anxiety #60 tabs 01/25/24 tablet valacyclovir 1 gram tablet 1,000 mg PO Q8H #21 tabs 01/31/24 nystatin 100,000 unit/mL oral 5 ml buccal QID 14 days #280 mL 02/08/24 suspension promethazine 25 mg tablet 25 mg PO Q4-6H PRN nausea #30 tabs 02/19/24 cholecalciferol (vitamin D3) 1,250 1,250 mcg PO WEEKLY vit D 12 weeks 02/21/24 mcg (50,000 unit) capsule #12 caps ibuprofen 600 mg tablet See Rx Instructions .Route 02/27/24 .COMPLEX #30 tabs gabapentin 300 mg capsule 300 mg PO TID PRN nerve pain 10 02/29/24 days #30 caps doxycycline hyclate 100 mg capsule 100 mg PO BID 10 days #20 caps 03/07/24 fluconazole 200 mg tablet 200 mg PO DAILY PRN yeast 3 days 03/07/24 (Diflucan) #3 tabs oxycodone 5 mg tablet 5 mg PO Q6H PRN post op pain 1 03/12/24 week #30 tabs linaclotide 145 mcg capsule See Rx Instructions .Route 03/19/24 (Linzess) .COMPLEX #90 caps Allergies Allergy/AdvReac Type Severity Reaction Status Date / Time clarithromycin Allergy Unknown NA-NAUSEA/V Verified 03/21/24 10:56 (CLARITHROMYCIN) OMITING codeine (CODEINE) Allergy Unknown I-ITCHING Verified 03/21/24 10:56 Sulfa (Sulfonamide Allergy Unknown NA-NAUSEA/V Verified 03/21/24 10:56 Antibiotics) (SULFA OMITING (SULFONAMIDE ANTIBIOTICS)) sulfamethoxazole (From Allergy Unknown I-ITCHING Verified 03/21/24 10:56 BACTRIM) trimethoprim (From BACTRIM) Allergy Unknown I-ITCHING Verified 03/21/24 10:56 [facility] <MARICARMEN Nova - Last Filed: 04/08/24 22:01> [facility] Disclaimer: The information contained in this section may have been updated after the patient was seen, as this information can be updated by other users. Medical History Herpes zoster Encounter for hepatitis C virus screening test for high risk patient Opiate dependence stopped in 2015 Alcohol abuse stopped in 2009 Sleep trouble Acid reflux Gastritis Chronic constipation Bipolar disorder Depression Anxiety COPD (chronic obstructive pulmonary disease) Rheumatoid arthritis Surgical History History of eyelid surgery History of colonoscopy History of tubal ligation Family History Father Cancer lung and spread to liver Brother Cancer prostate Other Family history of heart disease Social History (Updated 03/21/24 @ 13:10 by Shana Haas DPM) Smoking Status: Current every day smoker tobacco type: cigarettes packs per day: 1 alcohol intake: former year quit: 2009 substance use type: former substance user and opiates current occupational status: disabled Travel in the last 8 weeks: None Other Medical History Have you received the Pneumonia Vaccine: No <MARICARMEN Nova - Last Filed: 04/08/24 22:01> ROS Obtained: Yes All systems reviewed & no additional complaints except as documented Physical Exam <MARICARMEN Nova - Last Filed: 04/08/24 22:01> General General appearance: alert and in no apparent distress Head Head exam: atraumatic and normocephalic Eye Eye exam: Present normal appearance, PERRL and EOMI Neck Neck exam: Present full ROM; Absent meningismus Chest Chest inspection: Present normal inspection Respiratory Respiratory exam: Absent respiratory distress, wheezes, stridor, accessory muscle use or prolonged expiratory phase Cardiovascular Cardiovascular exam: Present normal rhythm, tachycardia and other (Pulses equal and symmetric in bilateral upper and lower extremities) Abdominal Exam Abdominal exam: Absent distention Extremities Exam Extremities exam: Absent edema Expanded Lower Extremity Exam Right: Foot/toe exam: Present swelling Comment: There is swelling that is observed mild soft tissue pulses intact, the right foot coincide the patient recent right foot surgery. Neurological Exam Neurological exam: Present alert Psychiatric Psychiatric exam: Present normal affect Skin Skin exam: Present warm and dry HEART Score <MARICARMEN Nova - Last Filed: 04/08/24 22:01> HEART Score HEART Score assessment performed?: Yes HEART Score: 3 <Donovan Campos MD - Last Filed: 04/08/24 22:33> HEART Score History (anamnesis): Moderately suspicious ECG: Normal Age: >65 years Risk factors: 3 or more risk factors Troponin: </= normal limit HEART Score: 5 Critical Care <MARICARMEN Nova - Last Filed: 04/08/24 22:01> Critical Care Time Critical Care Time: No Medical Decision Making <MARICARMEN Nova - Last Filed: 04/08/24 22:01> Medical Records Medical records reviewed: Yes I reviewed the patient's medical records. Hermelindo Inquiry Pt receiving controlled substance: No Hermelindo was queried for this patient: No Vital Signs Vital Signs: 04/08/24 17:59 04/08/24 18:10 04/08/24 18:30 Temperature 98.0 F Temperature Source Oral Pulse Rate 98 H 86 Pulse Rate [Left Radial] 98 H Respiratory Rate 20 16 Blood Pressure 112/61 Blood Pressure [Right Arm] 133/80 Blood Pressure Mean 81 Blood Pressure Mean [Right Arm] 97 Blood Pressure Source Blood Pressure Position 02 Sat by Pulse Oximetry 96 97 Oxygen Delivery Method Room Air 04/08/24 19:00 04/08/24 19:30 04/08/24 21:59 Temperature 98.0 F Temperature Source Oral Pulse Rate 96 H 91 H 85 Pulse Rate [Left Radial] Respiratory Rate 16 18 Blood Pressure 126/69 109/57 L 132/66 Blood Pressure [Right Arm] Blood Pressure Mean 88 Blood Pressure Mean [Right Arm] Blood Pressure Source Automatic Cuff Blood Pressure Position Sitting 02 Sat by Pulse Oximetry 97 95 Oxygen Delivery Method Room Air Lab Data Lab results reviewed: Yes I reviewed the patient's lab results. Labs: Lab Results 04/08/24 18:05: WBC 9.5, RBC 4.51, Hgb 14.2, Hct 41.0, MCV 90.8, MCH 31.4 H, MCHC 34.7, RDW 12.9, Plt Count 344, MPV 6.8 L, Neut % (Auto) 63.2, Lymph % (Auto) 28.2, Beauregard % (Auto) 6.2, Eos % (Auto) 1.5, Baso % (Auto) 1.0, Neut # (Auto) 6.0, Lymph # (Auto) 2.7, Beauregard # (Auto) 0.6, Eos # (Auto) 0.1, Baso # (Auto) 0.1, D-Dimer 0.59 H, Sodium 140, Potassium 3.1 L, Chloride 96 L, Carbon Dioxide 38 H, Anion Gap 9.1, BUN 28 H, Creatinine 1.50 H, Estimated Creat Clear 39, Estimated GFR 35 L, Est GFR ( Amer) 42 L, Glucose 107 H, Calcium 9.6, Magnesium 1.8, Total Bilirubin 0.4, AST 38 H, ALT 27, Alkaline Phosphatase 92, Total Creatine Kinase 123, Troponin I < 0.01, NT-Pro-B Natriuret Pep 33.9, Total Protein 8.1, Albumin 4.4, Globulin 3.7 H, Albumin/Globulin Ratio 1.2 04/08/24 21:06: Troponin I < 0.01 04/08/24 18:05 04/08/24 18:05 Response Orders (Tests/Meds): ED MEDICATIONS Discontinued Medications Generic Name Dose Route Start Last Admin Trade Name Sarah PRN Reason Stop Dose Admin Aspirin 325 mg 04/08/24 18:18 04/08/24 18:31 Aspirin 325mg Tablet PO 04/08/24 18:19 325 mg ONCE ONE Administration Sodium Chloride 1,000 mls @ 999 mls/hr 04/08/24 21:02 04/08/24 21:09 Sod Chlor 0.9% 1000ml Bag IV 04/08/24 22:02 999 mls/hr .Q1H1M ONE Administration Iopamidol 60 ml 04/08/24 19:13 04/08/24 19:15 Iopamidol-370 (76%);100ml Bottle IV 04/08/24 19:14 60 ml ONCE ONE Administration Ondansetron HCl 4 mg 04/08/24 18:19 04/08/24 18:31 Ondansetron 4mg/2ml Vial IV 04/08/24 18:20 4 mg ONCE ONE Administration Potassium Chloride 40 meq 04/08/24 19:04 04/08/24 19:12 Potassium Chloride 20meq Tab PO 04/08/24 19:05 40 meq ONCE ONE Administration Sodium Chloride 10 ml 04/08/24 19:13 04/08/24 19:14 Sodium Chloride 0.9% 10ml Syr (Rad Only) IV 04/08/24 19:14 10 ml ONCE ONE Administration Sodium Chloride 50 ml 04/08/24 19:13 04/08/24 19:14 0.9 % Sodium Chloride 50 Ml Vial IV 04/08/24 19:14 50 ml ONCE ONE Administration ORDERS Category Date Time Status CTA Chest [CT angio chest - dissection] Stat Cat Scan 04/08/24 18:45 Completed XR chest portable Stat Exams 04/08/24 18:12 Completed CK [Creatine Kinase] Stat Lab 04/08/24 18:05 Completed Complete Blood Count Auto Diff Stat Lab 04/08/24 18:05 Completed Comprehensive Metabolic Panel Stat Lab 04/08/24 18:05 Completed D-Dimer Stat Lab 04/08/24 18:05 Completed Magnesium Stat Lab 04/08/24 18:05 Completed NT Pro Brain Natriuretic Pep. Stat Lab 04/08/24 18:05 Completed Troponin I Q3H Lab 04/08/24 21:06 Completed Troponin I Stat Lab 04/08/24 18:05 Completed MDM Narrative Medical Decision Narrative: 64-year-old female presents to the emergency department with chest pain shortness of breath, differential diagnose include but limited to ACS, costochondritis, anxiety type reaction, panic attack, GERD, gastritis, pneumonia, PE, cardiac arrhythmia, electrolyte disturbance, COPD exacerbation. I discussed with attending physician Dr. Campos Obtain basic laboratory studies, troponin, proBNP, D-dimer, creatinine kinase, EKG, chest x-ray, will give 4 mg IV Zofran for nausea, will give 324 mg p.o. aspirin for pain. CBC is unremarkable D-dimer is mildly elevated at 0.59. Will add CTA chest with and without contrast for further evaluation of characterization. Reviewed the patient's chest x-ray along the corresponding radiologic report linear bilateral lower chest pulmonary atelectasis or scarring. CMP is notable for minimal hypokalemia at 3.1, BUN is elevated 28, creatinine is elevated at 1.5, opponent within normal notes, proBNP within normal limits, will give 1 L of IV NS for acute kidney injury. 40 mEq p.o. potassium for hypokalemia. I reviewed the patient's CTA chest without contrast along the corresponding radiologic report no visualized pulmonary embolus, linear bilateral lower chest pulmonary atelectasis or scarring no definitive evidence of acute abnormality, chronic findings. Examination of the patient at 9 PM, patient's chest pain is improved she is currently chest pain-free. Examination of the patient at 9:55 PM patient is still chest pain-free, like to be discharged home to self-care, patient given strict ED return precautions return to the the emergency for any worsening signs or symptoms. Patient voiced understanding agreement with current treatment plan/discharge plan. <Donovan Campos MD - Last Filed: 04/08/24 22:33> Vital Signs Vital Signs: 04/08/24 17:59 04/08/24 18:10 04/08/24 18:30 Temperature 98.0 F Temperature Source Oral Pulse Rate 98 H 86 Pulse Rate [Left Radial] 98 H Respiratory Rate 20 16 Blood Pressure 112/61 Blood Pressure [Right Arm] 133/80 Blood Pressure Mean 81 Blood Pressure Mean [Right Arm] 97 Blood Pressure Source Blood Pressure Position 02 Sat by Pulse Oximetry 96 97 Oxygen Delivery Method Room Air 04/08/24 19:00 04/08/24 19:30 04/08/24 21:59 Temperature 98.0 F Temperature Source Oral Pulse Rate 96 H 91 H 85 Pulse Rate [Left Radial] Respiratory Rate 16 18 Blood Pressure 126/69 109/57 L 132/66 Blood Pressure [Right Arm] Blood Pressure Mean 88 Blood Pressure Mean [Right Arm] Blood Pressure Source Automatic Cuff Blood Pressure Position Sitting 02 Sat by Pulse Oximetry 97 95 Oxygen Delivery Method Room Air Lab Data Labs: Lab Results 04/08/24 18:05: WBC 9.5, RBC 4.51, Hgb 14.2, Hct 41.0, MCV 90.8, MCH 31.4 H, MCHC 34.7, RDW 12.9, Plt Count 344, MPV 6.8 L, Neut % (Auto) 63.2, Lymph % (Auto) 28.2, Beauregard % (Auto) 6.2, Eos % (Auto) 1.5, Baso % (Auto) 1.0, Neut # (Auto) 6.0, Lymph # (Auto) 2.7, Beauregard # (Auto) 0.6, Eos # (Auto) 0.1, Baso # (Auto) 0.1, D-Dimer 0.59 H, Sodium 140, Potassium 3.1 L, Chloride 96 L, Carbon Dioxide 38 H, Anion Gap 9.1, BUN 28 H, Creatinine 1.50 H, Estimated Creat Clear 39, Estimated GFR 35 L, Est GFR ( Amer) 42 L, Glucose 107 H, Calcium 9.6, Magnesium 1.8, Total Bilirubin 0.4, AST 38 H, ALT 27, Alkaline Phosphatase 92, Total Creatine Kinase 123, Troponin I < 0.01, NT-Pro-B Natriuret Pep 33.9, Total Protein 8.1, Albumin 4.4, Globulin 3.7 H, Albumin/Globulin Ratio 1.2 04/08/24 21:06: Troponin I < 0.01 Response Orders (Tests/Meds): ED MEDICATIONS Discontinued Medications Generic Name Dose Route Start Last Admin Trade Name Freq PRN Reason Stop Dose Admin Aspirin 325 mg 04/08/24 18:18 04/08/24 18:31 Aspirin 325mg Tablet PO 04/08/24 18:19 325 mg ONCE ONE Administration Sodium Chloride 1,000 mls @ 999 mls/hr 04/08/24 21:02 04/08/24 21:09 Sod Chlor 0.9% 1000ml Bag IV 04/08/24 22:02 999 mls/hr .Q1H1M ONE Administration Iopamidol 60 ml 04/08/24 19:13 04/08/24 19:15 Iopamidol-370 (76%);100ml Bottle IV 04/08/24 19:14 60 ml ONCE ONE Administration Ondansetron HCl 4 mg 04/08/24 18:19 04/08/24 18:31 Ondansetron 4mg/2ml Vial IV 04/08/24 18:20 4 mg ONCE ONE Administration Potassium Chloride 40 meq 04/08/24 19:04 04/08/24 19:12 Potassium Chloride 20meq Tab PO 04/08/24 19:05 40 meq ONCE ONE Administration Sodium Chloride 10 ml 04/08/24 19:13 04/08/24 19:14 Sodium Chloride 0.9% 10ml Syr (Rad Only) IV 04/08/24 19:14 10 ml ONCE ONE Administration Sodium Chloride 50 ml 04/08/24 19:13 04/08/24 19:14 0.9 % Sodium Chloride 50 Ml Vial IV 04/08/24 19:14 50 ml ONCE ONE Administration ORDERS Category Date Time Status CTA Chest [CT angio chest - dissection] Stat Cat Scan 04/08/24 18:45 Completed XR chest portable Stat Exams 04/08/24 18:12 Completed CK [Creatine Kinase] Stat Lab 04/08/24 18:05 Completed Complete Blood Count Auto Diff Stat Lab 04/08/24 18:05 Completed Comprehensive Metabolic Panel Stat Lab 04/08/24 18:05 Completed D-Dimer Stat Lab 04/08/24 18:05 Completed Magnesium Stat Lab 04/08/24 18:05 Completed NT Pro Brain Natriuretic Pep. Stat Lab 04/08/24 18:05 Completed Troponin I Q3H Lab 04/08/24 21:06 Completed Troponin I Stat Lab 04/08/24 18:05 Completed ECG Data Tracing #1: Attestation: I reviewed this ECG and interpreted as documented below: (Sinus rhythm 90 bpm. Patient has mild ST depression inferior lateral leads without reciprocal elevations. ID [id number], QRS 83, QTc 379.) MDM Narrative Medical Decision Narrative: 64-year-old female presents to the emergency department with chest pain shortness of breath, differential diagnose include but limited to ACS, costochondritis, anxiety type reaction, panic attack, GERD, gastritis, pneumonia, PE, cardiac arrhythmia, electrolyte disturbance, COPD exacerbation. I discussed with attending physician Dr. Campos Obtain basic laboratory studies, troponin, proBNP, D-dimer, creatinine kinase, EKG, chest x-ray, will give 4 mg IV Zofran for nausea, will give 324 mg p.o. aspirin for pain. CBC is unremarkable D-dimer is mildly elevated at 0.59. Will add CTA chest with and without contrast for further evaluation of characterization. Reviewed the patient's chest x-ray along the corresponding radiologic report linear bilateral lower chest pulmonary atelectasis or scarring. CMP is notable for minimal hypokalemia at 3.1, BUN is elevated 28, creatinine is elevated at 1.5, opponent within normal notes, proBNP within normal limits, will give 1 L of IV NS for acute kidney injury. 40 mEq p.o. potassium for hypokalemia. I reviewed the patient's CTA chest without contrast along the corresponding radiologic report no visualized pulmonary embolus, linear bilateral lower chest pulmonary atelectasis or scarring no definitive evidence of acute abnormality, chronic findings. Examination of the patient at 9 PM, patient's chest pain is improved she is currently chest pain-free. Examination of the patient at 9:55 PM patient is still chest pain-free, like to be discharged home to self-care, patient given strict ED return precautions return to the the emergency for any worsening signs or symptoms. Patient voiced understanding agreement with current treatment plan/discharge plan. I was consulted by the ALEXI, and we discussed the complexity of the problems being addressed. I approved the treatment and management plan for this patient's care in the Emergency Department, thus performing a substantive portion of the medical decision making. Donovan Campos MD
[2024-04-08 18:22] LABS: Basophils # 0.1 K/mm3 (0-0.2); Eosinophils # 0.1 K/mm3 (0.0-0.4); Eosinophils % 1.5 % (0.1-12.0); Hemoglobin 14.2 g/dL (12.2-16.2); Lymphocytes # 2.7 K/mm3 (0.7-4.5); Lymphocytes % 28.2 % (10-50); Mean Corpuscular HGB Conc 34.7 g/dL (31.8-35.4); Mean Corpuscular Hemoglobin 31.4 pg (27.0-31.2); Mean Corpuscular Volume 90.8 fl (81-99); Mean Platelet Volume 6.8 fl (7.4-10.4); Monocytes # 0.6 K/mm3 (0.1-1.0); Monocytes % 6.2 % (1.7-9.3); Neutrophils % 63.2 % (37.0-80.0); Platelet Count 344 K/mm3 (142-424); Red Blood Count 4.51 M/mm3 (4.20-5.40); Red Cell Distribution Width 12.9 % (11.5-17.5); White Blood Count 9.5 K/mm3 (4.8-10.8)
[2024-04-08 18:30] VITALS: BP 112/61; PULSE 86; RESP 16; O2SAT 97
[2024-04-08] MEDS: ONDANSETRON 4MG/2ML VIAL 4 MG IV (18:31)
[2024-04-08] MEDS: ASPIRIN 325MG TABLET 325 MG PO (18:31)
[2024-04-08 18:34] LABS: Alanine Aminotransferase 27 U/L (12-78); Albumin Level 4.4 g/dl (3.5-5.0); Albumin/Globulin Ratio 1.2 (1.1-1.8); Alkaline Phosphatase 92 U/L (38-126); Anion Gap 9.1 mEq/L (5-15); Aspartate Amino Transferase 38 U/L (14-36); Bilirubin,Total 0.4 mg/dl (0.2-1.3); Blood Urea Nitrogen 28 mg/dl (7-17); Calcium 9.6 mg/dl (8.4-10.2); Carbon Dioxide 38 mmol/L (22.0-30.0); Chloride 96 mmol/L (98-107); Creatine Kinase 123 U/L (30-135); Creatinine Clearance Estimated 39 mL/min (50-200); Estimated Glomerular Filt Rate 35 ml/min (>60); GFR (African American) 42 ML/MIN (>60); Globulin 3.7 g/dL (1.3-3.2); Glucose 107 mg/dl (74-100); Magnesium 1.8 mg/dl (1.6-2.3); Potassium 3.1 mmoL/L (3.5-5.1); Sodium 140 mmol/L (136-145); Total Protein,Serum 8.1 g/dl (6.3-8.2)
[2024-04-08 18:39] LABS: D-Dimer 0.59 ug/mL (0.0-0.5)
[2024-04-08 18:45] LABS: NT Pro Brain Natriuretic Pep. 33.9 pg/mL (0-125)
--- NOTE | 2024-04-08 18:45 | CT_ITS ---
PROCEDURE INFORMATION: Exam: CTA Chest With Contrast Exam date and time: 04/08/2024 7:13 PM Age: 64 years old Clinical indication: Shortness of breath; Additional info: Chest pain, shortness of breath TECHNIQUE: Imaging protocol: Computed tomographic angiography of the chest with contrast. Exam focused on the arteries. 3D rendering (Not supervised by radiologist): MIP and/or 3D reconstructed images were created by the technologist. Radiation optimization: All CT scans at this facility use at least one of these dose optimization techniques: automated exposure control; mA and/or kV adjustment per patient size (includes targeted exams where dose is matched to clinical indication); or iterative reconstruction. Contrast material: ISOVUE 370; Contrast volume: 75 ml; Contrast route: INTRAVENOUS (IV); COMPARISON: CT LUNG SCREENING 08/07/2023 9:18 AM FINDINGS: Pulmonary arteries: No visualized pulmonary emboli. Great vessels off aortic arch: Unremarkable. Aorta: No aortic aneurysm or dissection. Veins: No pulmonary venous congestion is demonstrated within the lungs. Lungs: Evidence for calcified lung granuloma in the left chest. Linear density identified within bilateral lower lungs. Pleural and lung parenchymal linear scarring identified within bilateral apices. The lungs appear otherwise clear. No lung consolidation identified. Pleural spaces: No pleural effusion identified. No pneumothorax identified. Heart: The heart does not appear enlarged. No significant pericardial effusion. Lymph nodes: No evidence for enlarged lymphadenopathy. Spleen: Incidental calcifications noted within the spleen, compatible with old granulomatous disease. Bones/joints: Mild to moderate generalized bony degenerative changes. Bony structures appear otherwise unremarkable. Soft tissues: Unremarkable. Other findings: Limited study with motion artifact. IMPRESSION: 1. No visualized pulmonary embolus. 2. Linear bilateral lower chest pulmonary atelectasis, or scarring. 3. No definite evidence for acute abnormality. 4. Chronic findings.
[2024-04-08 18:58] LABS: Troponin I < 0.01 ng/ml (0.00-0.034)
[2024-04-08 19:00] VITALS: BP 126/69; PULSE 96; RESP 16; O2SAT 97
[2024-04-08] MEDS: POTASSIUM CHLORIDE 20MEQ TAB 40 MEQ PO (19:12)
[2024-04-08] MEDS: SODIUM CHLORIDE 0.9% 10ML SYR (RAD ONLY) 10 ML IV (19:14)
[2024-04-08] MEDS: 0.9 % SODIUM CHLORIDE 50 ML VIAL IV (19:14)
[2024-04-08] MEDS: IOPAMIDOL-370 (76%);100ML BOTTLE 60 ML IV (19:15)
[2024-04-08 19:30] VITALS: BP 109/57; PULSE 91; O2SAT 95
[2024-04-08] MEDS: 0.9 % SODIUM CHLORIDE 1000ML 1,000 ML 999 ML IV (21:09)
[2024-04-08 21:47] LABS: Troponin I < 0.01 ng/ml (0.00-0.034)
[2024-04-08 21:59] VITALS: BP 132/66; PULSE 85; RESP 18; TEMP 36.7; O2SAT 99
== END 2024-04-08 22:06 | disposition home or self-care (01) ==
PROVIDERS: Physician Assistant; Emergency Provider Emergency Medicine; PCP Internal Medicine
DX: R07.9 Chest pain, unspecified (principal); R06.02 Shortness of breath; R11.0 Nausea
CPT/HCPCS: 71045; 71275; 80053; 82550; 83735; 83880; 84484; 85025; 85378; 93005; 96361; 96374; 99285; J2405; J7030; Q9967

== ENCOUNTER 2024-04-18 09:26 | Outpatient (CLI) | payer MEDICARE, MEDICAID, SELFPAY ==
--- NOTE | 2024-04-18 09:34 | XR_ITS ---
FINAL REPORT CLINICAL HISTORY: s/p 1st MPJ surgery pt had callus on bottom of foot, marked with bb on 2nd lateral COMPARISON: 03/21/2024 FINDINGS: Right foot Three views were obtained. There has been interval removal of a pin within the fifth digit. Fixation screws are stable in the second and third digits. There are postoperative changes from fusion of the first digit. There is chronic bony destruction of the fifth metatarsal head. No new site of bony destruction is identified. IMPRESSION: Stable postoperative changes with the exception of removal of fifth digit pin. Reviewed, Interpreted and Dictated by Katina Chapman MD Transcribed by Rosey Cortez Authenticated and [facility]
== END 2024-04-18 23:59 | disposition home or self-care (01) ==
LOC: RAD 09:27
PROVIDERS: PCP Internal Medicine; Visit Provider Podiatrist
DX: Z98.890 Other specified postprocedural states (principal)
CPT/HCPCS: 73630

== ENCOUNTER 2024-04-18 10:30 | Outpatient (CLI) | payer MEDICARE, MEDICAID, SELFPAY | END 2024-04-18 23:59 | disposition home or self-care (01) | LOC: LAB.DROPOF 04-19 10:13 | PROVIDERS: PCP Podiatrist; Visit Provider Podiatrist | DX: L84 Corns and callosities (principal); L03.115 Cellulitis of right lower limb | CPT/HCPCS: 87070; 87077; 87186; 87205 ==

== ENCOUNTER 2024-05-02 15:34 | Outpatient (CLI) | payer MEDICARE, MEDICAID, SELFPAY ==
--- NOTE | 2024-05-02 15:37 | XR_ITS ---
FINAL REPORT CLINICAL HISTORY: Left knee pain FINDINGS: AP, lateral and oblique views of the left knee were obtained. There is no prior exam for comparison. There is no acute osseous abnormality of the left knee. There is tricompartmental degenerative change most pronounced in the medial compartment. The soft tissues are normal. There is a moderate joint effusion. IMPRESSION: Moderate joint effusion and degenerative disease. If symptoms persist, consider MRI. Reviewed, Interpreted and Dictated by Ynes Amezcua MD Transcribed by Lissa Gibson Authenticated and [facility]
== END 2024-05-02 23:59 | disposition home or self-care (01) ==
LOC: RAD 15:35
PROVIDERS: PCP Internal Medicine; Visit Provider Internal Medicine
DX: M25.562 Pain in left knee (principal)
CPT/HCPCS: 73562

== ENCOUNTER 2024-06-12 15:45 | Outpatient (CLI) | payer MEDICARE, MEDICAID, SELFPAY ==
[2024-06-12 16:53] LABS: Coronavirus 19, PCR Not Detected (NotDetected); Human Rhinovirus Not Detected (NotDetected); Influenza B, PCR Not Detected (NotDetected); Respiratory Syncytial Virus Not Detected (NotDetected)
[2024-06-13 00:47] LABS: Influenza A, PCR Detected (NotDetected)
== END 2024-06-12 23:59 | disposition home or self-care (01) ==
LOC: LAB.DROPOF 06-13 12:58
PROVIDERS: PCP Nurse Practitioner Family; Visit Provider Nurse Practitioner Family
DX: R05.9 Cough, unspecified (principal); R06.00 Dyspnea, unspecified
CPT/HCPCS: 87631

== ENCOUNTER 2024-06-20 16:00 | Outpatient (RCR) | payer MEDICARE, MEDICAID, SELFPAY ==
--- NOTE | 2024-06-04 12:01 | HMH.PTOPEV ---
PT Outpatient Evaluation Rehab PT Outpatient Evaluation Start: 06/04/24 10:56 Freq: Status: Active Protocol: Document 06/04/24 10:56 MARIELY (Rec: 06/04/24 12:01 MARIELY [id number]) E-signed By Pratibha Moulton, PT Outpatient Therapy Subjective History Subjective History Pt is a 64 y/o female who reports chronic LBP for years. Pt reports gradual worsening of pain over the last 6 months causing her to walk hunched over leading to mid back pain. Pt reports her back hurts when she tries to stand up straight. Pt also reports pain is aggravated by prolonged standing, prolonged walking, lifting, and housework such as sweeping, mopping and dishes. Pt denies recent imaging of her thoracic or lumbar spine. Pt reports pain mostly occurs across her central low back with tightness of the mid back . Pt denies distal LE symptoms , b/b dysfunction, or paresthesia. Pt does however report L knee pain and states she is scheduled to see an orthopedic doctor for this on . Medical History: Rheumatoid Arthritis, COPD, Acid reflux, Alcohol abuse (stopped in 2009 ), Anxiety, Bipolar disorder, Chronic constipation, Depression, Encounter for hepatitis C virus screening test for high risk patient, Gastritis, Herpes zoster, Opiate dependence (stopped in 2015) Special tests: Negative slump test New diagnosis of cancer in past 12 No months? Chief Complaint Pain,Stiff Symptom Type Ache,Burning Symptoms Relieved By Rest/Positioning Symptoms Aggravated By Standing,Bending/Stooping, Physical Activity,Walking, Lifting Current Functional Limitations Lifting,Housework,Dressing, Standing,Sitting,Squatting, Recreation Activity,Walking, Balance,Bending/Stooping Symptom Description Constant but Variable Level of pain today (0-10) 6 Pain scale - at its best (0-10) 4 Pain scale - at its worst (0-10) 10 Shoulder/Elbow Eval Shoulder Objective Measurements Shoulder MMT Bilateral Lower Trapezius Strength Grade 4- Good- Middle Trapezius Strength Grade 4- Good- Rhomboids Strength Grade 4- Good- Elbow Objective Measurements Lumbopelvic Eval Posture Thoracic Spine Posture Standing Position Increased Kyphosis Lumbar Spine Posture Standing Position Flexed Assistive device Assistive Devices None / NA Gait Observation General Gait Pattern Observation Wide Based Gait Palapation tenderness bilateral lumbar spinal tenderness Yes: L3-S1 paraspinal tenderness Yes: L thoracic PS, B lumbar PS buttock tenderness Yes: B gluteal mm Lumbar/Sacral Palpation Findings Tenderness Lumbar/Sacral Palpation Overall Comment 2/4 TTP Accessory Movement L-spine Vertebrae Accessory Movements Central P/A [place] that Elicit Symptoms L3 bilateral L4 bilateral L5 bilateral S1 bilateral Range of Motion Lumbar Spine Active Flexion Range of 50 Motion (degrees) Lumbar Spine Active Extension Range of 10 Motion (degrees) Left Lumbar Spine Lateral Flexion Active 10 Range of Motion (degrees) Right Lumbar Spine Lateral Flexion 10 Active Range of Motion (degrees) Manual Muscle Test Bilateral Knee Extension Strength Grade 5 Normal Knee Flexion Strength Grade 5 Normal Hip Flexion Strength Grade 4 Good Hip Abduction Strength Grade 4- Good- Hip Adduction Strength Grade 4- Good- Hip Extension Strength Grade 4- Good- Ankle Dorsiflexion Strength Grade 5 Normal Altered Sensation Comment equal and intact to light touch sensation bilaterally Special Tests Hip Juvencio (DESTINEE) Test Positive Left,Positive Right Sciatic Nerve Tension Test Negative Left,Negative Right Unilateral Straight Leg Raise (Lasegue) Negative Left,Negative Right Test Oswestry Index Section 1 Pain Intensity The pain comes and goes and is severe Section 2 Personal Care (Washing,Dresing) increase the pain, but I manage not to change my way of doing it Section 3 Lifting lifting heavy weights off the floor, but I can manage if they are Section 4 Walking I cannot walk more than one mile wihtout increasing pain Section 5 Sitting I can sit in my favorite chair for as long as I like Section 6 Standing I have some pain on standing, but it does not increase with time Section 7 Sleeping I get no pain in bed Section 8 Social Life Pain has restricted my social life and I do not go out often Section 9 Traveling I get extra pain while traveling, but it does not compel me to seek al Section 10 Changing Degreee of Pain My pain is gradually getting worse Score and Risk Level Oswestry Sc 22 Oswestry Risk Level Moderate Disability Outpatient Therapy Assessment Impairments Problems/Impairmments Palpation Tenderness,Impaired Range of Motion,Impaired Strength,Impaired Gait Pattern ,Impaired Walking,Impaired Standing,Impaired Lifting, Impaired Household Care, Impaired Bending,Impaired Balance,Subjective C/O Pain, Impaired Self Care/Self Management Prognosis Rehab Potential Good Clinical Impression Consistent with Diagnosis Yes Short Term Goals Number of Weeks 3 Increase Range of Motion Yes: Improve resting posture from 10 degrees of lumbar flexion to 5 or less Decrease Subjective C/O Pain Yes: Improve pain at worst to 8/10 to improve overall QOL Improve Self Care/Self Management Yes Patient to be Ind w/ HEP Yes Fire Fighting Equipment Specialist Goals Number of Weeks 6 Decreased Palpation Tenderness Yes: 0-1/4 TTP of thoracolumbar PS and L3-S1 SP Increase Range of Motion Yes: Improve lumbar AROM flex to at least 70, ext & LF to at least 15 Increase Strength Yes: Improve hip/scap strength to 4-4+/5 grossly to assist w function/posture Improve Ability For Household Care Yes: perform with pain 6/10 or less to assist with ADL performance Improve Oswestry Score Yes: Improve score to 17 or less to improve overall QOL Decrease Subjective C/O Pain Yes: Improve pain at worst to 6/10 to improve overall QOL Outpatient Therapy Plan of Care Treatment Plan May Include Therapeutic Exercise Including Home Yes Exercise Program Manual Therapy Techniques Yes Neuromuscular Re-education Yes Therapeutic Activities to Return to Yes Previous Functional/Work Level Gait Training Yes ADL/Self Care Education Yes Mechanical Traction Yes Dry Needling Yes Thermal Modalities Yes Electrical Stimulation Yes Ultrasound/Phonophoresis Yes Iontophoresis Yes Massage Yes Group Therapy for Medicare Yes Eval/Re-Eval Yes Frequency Times per week 2 Duration Number of Weeks 4-6 Addendums This patient is a candidate for social No or vocational rehab? Patient/Guardian verbally acknowledges Yes understanding of treatment program and consents to further treatment? Patient/Guardian verbally acknowledges Yes understanding of diagnosis, prognosis and goals for treatment? Eval Complexity PT Charges 24575 - Moderate Complexity PHYSICIAN CERTIFICATION: I certify the specified therapy services for Irlanda Sanon are required, authorized, and reviewed every 30 days.
== END 2024-06-20 23:59 | disposition home or self-care (01) ==
LOC: PT 16:00
PROVIDERS: Visit Provider Internal Medicine
DX: M54.6 Pain in thoracic spine (principal); M54.50 Low back pain, unspecified
CPT/HCPCS: 97014; 97110; 97163; 97530; G0283

== ENCOUNTER 2024-07-04 12:12 | Outpatient (CLI) | payer MEDICARE, MEDICAID, SELFPAY ==
--- NOTE | 2024-07-04 12:18 | XR_ITS ---
FINAL REPORT CLINICAL HISTORY: Postopertive f/u COMPARISON: 04/18/2024 FINDINGS: Three views of the right foot show extensive postoperative changes of the 1st MTP joint, 2nd and 3rd PIP joints, as well as the 5th digit. Osteopenia is noted. There is dorsal dislocation of the 5th PIP joint. No fracture is seen. Calcaneal spurring is noted. IMPRESSION: Extensive postoperative changes in the forefoot. Dorsal dislocation 5th PIP joint. Reviewed, Interpreted and Dictated by Katina Chapman MD Transcribed by Lauren Horvath Authenticated and [facility]
== END 2024-07-04 23:59 | disposition home or self-care (01) ==
LOC: RAD 12:15
PROVIDERS: PCP Internal Medicine; Visit Provider Podiatrist
DX: M79.671 Pain in right foot (principal)
CPT/HCPCS: 73630

== ENCOUNTER 2024-07-05 09:27 | Outpatient (CLI) | payer MEDICARE, MEDICAID, SELFPAY ==
--- NOTE | 2024-07-05 09:30 | XR_ITS ---
FINAL REPORT CLINICAL HISTORY: COPD, URI COMPARISON: 04/08/2024 FINDINGS: CHEST 2 VIEWS PA AND LATERAL The heart is normal in size. There is new airspace opacity in the right lung base obscuring the right diaphragm compatible with pneumonia. Small right effusion is identified. There is no pneumothorax. IMPRESSION: Right lower lobe pneumonia with small right effusion Reviewed, Interpreted and Dictated by Katina Chapman MD Transcribed by Rosey Cortez Authenticated and . [facility]
== END 2024-07-05 23:59 | disposition home or self-care (01) ==
LOC: RAD 09:28
PROVIDERS: PCP Internal Medicine; Visit Provider Internal Medicine
DX: J06.9 Acute upper respiratory infection, unspecified (principal)
CPT/HCPCS: 71046

== ENCOUNTER 2024-08-13 20:40 | Outpatient (CLI) | payer MEDICARE, MEDICAID, SELFPAY | END 2024-08-13 23:59 | disposition home or self-care (01) | LOC: LAB 20:42 | PROVIDERS: PCP Internal Medicine; Visit Provider Internal Medicine | DX: T14.8XXA Other injury of unspecified body region, initial encounter (principal) | CPT/HCPCS: 87070; 87077; 87186; 87205 ==

== ENCOUNTER 2024-08-26 10:54 | Outpatient (CLI) | payer MEDICARE, MEDICAID, SELFPAY ==
--- NOTE | 2024-08-26 11:00 | MM_ITS ---
PROCEDURE INFORMATION: Exam: MG Bilateral Screening 3D Mammography Exam date and time: 08/26/2024 10:58 AM Age: 64 years old Clinical indication: Screening. No family history of breast cancer. TECHNIQUE: Imaging protocol: Bilateral Screening tomosynthesis and 2D mammography including computer-aided detection (CAD) when performed. COMPARISON: 1. MG MM DIG SCREENING MAMM BI W/CAD 08/22/2023 9:30 AM 2. MG DMSB DIG MAMM-SCREEN FABIO W/CAD 10/28/2016 6:03 PM 3. MG DMDXUAVR DIG MAMM-DX UNIL ADD VIEWS-RT 07/19/2012 2:58 PM 4. MG DMSB DIGITAL MAMM-SCREEN BILATERAL 07/10/2012 12:59 PM FINDINGS: MAMMOGRAPHY: Breast composition: There are scattered areas of fibroglandular density. Mass: None. Architectural distortion: None. Calcifications: No suspicious calcifications. Asymmetric density: None. Skin thickening: None. Axillary adenopathy: None. IMPRESSION: No mammographic evidence of malignancy. Annual screening is recommended unless otherwise clinically indicated. ASSESSMENT: BI-RADS Category 1: Negative.
== END 2024-08-26 23:59 | disposition home or self-care (01) ==
LOC: RAD 10:55
PROVIDERS: PCP Internal Medicine; Visit Provider Internal Medicine
DX: Z12.31 Encounter for screening mammogram for malignant neoplasm of breast (principal)
CPT/HCPCS: 77063; 77067

== ENCOUNTER 2024-09-02 08:17 | Outpatient (CLI) | payer MEDICARE, MEDICAID, SELFPAY ==
[2024-09-02 08:48] LABS: Basophils % 0.5 % (0.1-2.0); Eosinophils # 0.2 Kmm3 (0.0-0.4); Eosinophils % 2.5 % (0.1-12.0); Hematocrit 36.9 % (37.0-47.0); Hemoglobin 12.3 g/dL (12.2-16.2); Lymphocytes % 39.3 % (10-50); Mean Corpuscular HGB Conc 33.3 g/dL (31.8-35.4); Mean Corpuscular Hemoglobin 30.8 pg (27.0-31.2); Mean Corpuscular Volume 92.3 fl (81-99); Mean Platelet Volume 8.6 fl (7.4-10.4); Monocytes # 0.9 K/mm3 (0.1-1.0); Neutrophils # 3.6 K/mm3 (1.8-7.8); Neutrophils % 46.4 % (37.0-80.0); Nucleated Red Blood Cells # 0 10^3/uL; Nucleated Red Blood Cells % 0 %; Platelet Count 306 K/mm3 (142-424); Red Cell Distribution Width 13.5 % (11.5-17.5); Red Cell Distribution Width-SD 46.2 fL; White Blood Count 7.7 K/mm3 (4.8-10.8)
[2024-09-02 09:04] LABS: Hemoglobin A1C 5.3 % (4.0-6.0)
[2024-09-02 09:15] LABS: Albumin Level 4.1 g/dl (3.5-5.0); Chloride 105 mmol/L (98-107); Potassium 4.5 mmoL/L (3.5-5.1); Sodium 137 mmol/L (136-145)
[2024-09-02 09:18] LABS: Alanine Aminotransferase 13 U/L (12-78); Albumin/Globulin Ratio 1.3 (1.1-1.8); Alkaline Phosphatase 85 U/L (38-126); Anion Gap 9.5 mEq/L (5-15); Aspartate Amino Transferase 19 U/L (14-36); Bilirubin,Total 0.2 mg/dl (0.2-1.3); Blood Urea Nitrogen 18 mg/dl (7-17); Carbon Dioxide 27 mmol/L (22.0-30.0); Cholesterol 149 mg/dl (140-200); Estimated Glomerular Filt Rate 56 ml/min (>60); GFR (African American) 67 ML/MIN (>60); Globulin 3.1 g/dL (1.3-3.2); Total Protein,Serum 7.2 g/dl (6.3-8.2); Triglycerides 93 mg/dl (30-150); VLDL Cholesterol 19 mg/dL (0-40)
[2024-09-02 09:19] LABS: Calcium 9.8 mg/dl (8.4-10.2); Chol/HDL Ratio 4.1 (1-3.5); Glucose 96 mg/dl (74-100); HDL Cholesterol 36 mg/dl (40-60)
[2024-09-02 09:30] LABS: Direct LDL Cholesterol 90.13 mg/dL (100-129)
[2024-09-02 09:49] LABS: Thyroid Stimulating Hormone 3.36 uIU/mL (0.465-4.68)
--- NOTE | 2024-09-02 10:30 | MR_ITS ---
FINAL REPORT TECHNIQUE: Multiplanar and multisequence imaging of the right knee was obtained without contrast. CLINICAL HISTORY: Lt Knee Pain pain anterior knee going down and behind knee locking up unbearable to walk on COMPARISON: None FINDINGS: Bones: There is no acute fracture. Subchondral edema is noted of the medial femoral condyle and medial tibial plateau, likely degenerative. Grade 2/3 cartilage defects of the medial compartment. Menisci: Tear posterior horn medial meniscus, likely radial type tear extending to involve the meniscal tibial root attachment. There may be a small fragment flipped into the medial gutter. Lateral meniscus intact. Ligaments: Cruciate ligaments intact. MCL sprain. Lateral collateral ligament intact.. Tendons/Muscles: The quadriceps and patellar tendons are within normal limits. The biceps femoris tendon and iliotibial tract are intact. The popliteus tendon is normal. Other: There is a large joint effusion. Popliteal cyst is noted. Mild prepatellar edema.. IMPRESSION: Complex tear medial meniscus with maybe a fragment flipped into the medial gutter. Degenerative joint disease with cartilage loss as above. MCL sprain. Reviewed, Interpreted and Dictated by Ynes Amezcua MD Transcribed by Lauren Horvath Authenticated and . [facility]
== END 2024-09-02 23:59 | disposition home or self-care (01) ==
PROVIDERS: PCP Internal Medicine; Visit Provider Orthopaedic Surgery
DX: M25.462 Effusion, left knee (principal); Z13.1 Encounter for screening for diabetes mellitus; Z13.29 Encounter for screening for other suspected endocrine disorder; Z13.220 Encounter for screening for lipoid disorders
CPT/HCPCS: 36415; 73721; 80053; 80061; 83036; 84443; 85025

== ENCOUNTER 2024-09-24 07:35 | Day surgery (SDC) | payer MEDICARE, MEDICAID, SELFPAY ==
[2024-09-20 11:26] VITALS: BMI 28.3
[2024-09-24] MEDS: PHENYLEPHRINE 2.5% OPHTH SOLN 2ML OP ×3 (08:50→09:00)
[2024-09-24] MEDS: CYCLOPENTOLATE 2% OPHTH SOLN 2ML BOTTLE OP ×3 (08:50→09:00)
[2024-09-24] MEDS: TETRACAINE 0.5% OPTH SOL 15ML OP ×3 (08:50→09:00)
[2024-09-24 09:01] VITALS: BP 142/78; PULSE 79; RESP 20; TEMP 36.3; O2SAT 98
[2024-09-24 09:46] VITALS: BP 134/68; PULSE 75; RESP 16; TEMP 36.6; O2SAT 98
[2024-09-24] MEDS: MIDAZOLAM 2MG/2ML VIAL 1 MG IV (09:46)
[2024-09-24 09:51] VITALS: BP 127/72; PULSE 80; RESP 16; TEMP 36.6; O2SAT 96
[2024-09-24] MEDS: TIMOLOL 0.5% OPTH SOLN 5ML OP (09:54)
[2024-09-24] MEDS: LIDOCAINE 1% PF 2ML AMPULE 2 ML IJ (09:55)
[2024-09-24] MEDS: TRI-MOXI 15MG/1MG/ML 1ML OPHTH VIAL 1 ML OP (09:55)
[2024-09-24 09:56] VITALS: BP 130/73; PULSE 78; RESP 16; TEMP 36.6; O2SAT 99
[2024-09-24] MEDS: SODIUM CHLORIDE 0.9% 10ML FLUSH SYRINGE 10 ML IV (09:56)
[2024-09-24 10:01] VITALS: BP 140/78; PULSE 78; RESP 16; TEMP 36.6; O2SAT 98
[2024-09-24 10:07] VITALS: BP 133/68; PULSE 78; RESP 18; O2SAT 99
--- NOTE | 2024-09-24 12:43 | HMH.PROCNOTE ---
[facility] Procedure Note Date: 09/24/24 Time: 12:43 Procedure Note:: Preoperative Diagnosis: Cataract combined NS Cortical Complex [Right] Eye Postop diagnosis: same Operation: Microscopic phacoemulsification with intraocular lens implant [Right] Eye Specimen: None Blood Loss: None The patient was examined in the office with a complaint of poor vision in the [right] eye. The patient reports that this interferes with ADLs such as reading, watching TV and/or driving or the vision is like looking through a foggy haze and is very troubling. The patient was examined and found to have a visually significant cataract with best corrected vision of [20/400] by refraction and/or glare testing. Treatment options, risks and benefits were explained and the patient elected to have cataract surgery in an attempt to improve their vision. The patient had the eye anesthetized with topical tetracaine, the eye ways prepped and draped in the usual fashion for cataract surgery. A paracentesis and a temporal keratotomy were made. 0.2cc of 1% lidocaine PF was placed into the anterior chamber. And aqueous/viscoelastic exchange was done and a 360 degree capsulorexis was performed. Through hydrodissection and delineation with BSS on a cannula was done. The lens nucleus was phecoemulsified with CDE of [6.79]. Residual cortical material was removed using automated I&A The capsular bag was deepened with viscoelastica and a PCIOL was placed in the capsular bag with good centration and stability. Residual viscoelastic was removed using automated I&A. The keratotomy incision was hydrated with BSS on a cannula. The wound were checked and found to be water tight. IOP was checked digitally and adjusted as needed so as not to be too high. 1 drop of timolol 0.5%, ofloxacin, prednisolone acetate and ketorolac was instilled and eye shield taped over the eye. The patient was taken to recovery in good condition and will be seen postoperatively.
== END 2024-09-24 10:17 | disposition home or self-care (01) ==
PROVIDERS: PCP Internal Medicine; Visit Provider Ophthalmology
PROC: (CPT 66984; principal; 2024-09-24 10:00)
DX: H25.811 Combined forms of age-related cataract, right eye (principal)
CPT/HCPCS: 66984; J2250; V2632

== ENCOUNTER 2024-10-08 07:42 | Day surgery (SDC) | payer MEDICARE, MEDICAID, SELFPAY ==
[2024-10-07 15:15] VITALS: BMI 29.9
[2024-10-08] VITALS (7 sets, daily range): BP systolic 85–139; BP diastolic 50–80; PULSE 76–80; RESP 16–17; TEMP 36.2–36.7; O2SAT 99–100
[2024-10-08] MEDS: TETRACAINE 0.5% OPTH SOL 15ML OP ×3 (08:22→08:30)
[2024-10-08] MEDS: CYCLOPENTOLATE 2% OPHTH SOLN 2ML BOTTLE OP ×3 (08:22→08:30)
[2024-10-08] MEDS: PHENYLEPHRINE 2.5% OPHTH SOLN 2ML OP ×3 (08:23→08:30)
[2024-10-08] MEDS: MIDAZOLAM 2MG/2ML VIAL 1 MG IV (09:34)
[2024-10-08] MEDS: SODIUM CHLORIDE 0.9% 10ML FLUSH SYRINGE 10 ML IV (09:34)
[2024-10-08] MEDS: LIDOCAINE 1% PF 2ML AMPULE 2 ML IJ (09:43)
[2024-10-08] MEDS: TIMOLOL 0.5% OPTH SOLN 5ML OP (09:43)
[2024-10-08] MEDS: TRI-MOXI 15MG/1MG/ML 1ML OPHTH VIAL 1 ML OP (09:44)
--- NOTE | 2024-10-08 10:52 | P.PCN_ITS ---
[facility] Procedure Note Date: 10/08/24 Time: 10:52 Procedure Note:: Preoperative Diagnosis: Complex Cataract combined NS Cortical Complex [Right/Left] Eye Postop diagnosis: same Operation: Complex Microscopic phacoemulsification with intraocular lens implant [Right/Left] Eye Specimen: None Blood Loss: None The patient was examined in the office with a complaint of poor vision in the [left/right] eye. The patient reports that this interferes with ADLs such as reading, watching TV and/or driving or the vision is like looking through a foggy haze and is very troubling. The patient was examined and found to have a visually significant cataract with best corrected vision of [20/400] by refraction and/or glare testing. Treatment options, risks and benefits were explained and the patient elected to have cataract surgery in an attempt to improve their vision. The patient had the eye anesthetized with topical tetracaine, the eye ways prepped and draped in the usual fashion for cataract surgery. A paracentesis and a temporal keratotomy were made. 0.2cc of 1% lidocaine PF was placed into the anterior chamber. And aqueous/viscoelastic exchange was done and a 360 degree capsulorexis was performed. Through hydrodissection and delineation with BSS on a cannula was done. The lens nucleus was phecoemulsified with CDE of [6.00]. Residual cortical material was removed using automated I&A. A 90 degree superior zonular dialysis developed. a capsular tension ring was placed to stabilize the capsule. The capsular bag was deepened with viscoelastic and a PCIOL was placed in the capsular bag with good centration and stability. Residual viscoelastic was removed using automated I&A. The keratotomy incision was hydrated with BSS on a cannula. The wound were checked and found to be water tight. IOP was checked digitally and adjusted as needed so as not to be too high. 1 drop of timolol 0.5%, ofloxacin, prednisolone acetate and ketorolac was instilled and eye shield taped over the eye. The patient was taken to recovery in good condition and will be seen postoperatively.
== END 2024-10-08 10:06 | disposition home or self-care (01) ==
PROVIDERS: PCP Internal Medicine; Visit Provider Ophthalmology
PROC: (CPT 66984; principal; 2024-10-08 09:30)
DX: H25.812 Combined forms of age-related cataract, left eye (principal); M19.90 Unspecified osteoarthritis, unspecified site; J44.9 Chronic obstructive pulmonary disease, unspecified; F32.A Depression, unspecified; Z96.1 Presence of intraocular lens; Z97.3 Presence of spectacles and contact lenses; F11.20 Opioid dependence, uncomplicated; Z88.2 Allergy status to sulfonamides; Z79.899 Other long term (current) drug therapy; F17.210 Nicotine dependence, cigarettes, uncomplicated; Z88.1 Allergy status to other antibiotic agents; Z88.5 Allergy status to narcotic agent; Z88.8 Allergy status to other drugs, medicaments and biological substances; Z79.51 Long term (current) use of inhaled steroids; Z98.41 Cataract extraction status, right eye
CPT/HCPCS: 66984; J2250; V2632

== ENCOUNTER 2024-10-17 15:03 | Outpatient (CLI) | payer MEDICARE, MEDICAID, SELFPAY ==
--- NOTE | 2024-10-17 15:07 | XR_ITS ---
FINAL REPORT TECHNIQUE: Chest PA & Lateral CLINICAL HISTORY: CP, shortness of breath COMPARISON: 07/05/2024 FINDINGS: 2 views of the chest were performed. The heart size is normal. The mediastinum is within normal limits. The previously noted basilar atelectasis has improved. Minimal chronic changes are noted in the lung bases. There are no pleural effusions. There is no pneumothorax. The bony thorax appears intact. IMPRESSION: Improved basilar atelectasis. Reviewed, Interpreted and Dictated by Shun Gregorio MD Transcribed by Lauren Horvath Authenticated and [facility]
--- OUTSIDE RECORDS SUMMARY | 2024-10-17 15:07 | XMS_ITS | Clinical Summary ---
Author Organization [facility] Address [address] [place] [address] Care Team Providers Care Admitting Officer Name Role Phone DonovanPreston yancey Briseyda JENKINS Primary Care Provider [phone] Allergies Active Allergy Reactions Criticality Noted Date Comments Clarithromycin Other - please docum ent in the comment field,Unknown - Patient states they do not know rxn details Low 07/29/2013 Codeine Itching Medium 02/21/2024 Sulfa Drugs Nausea 08/25/2022 Sulfacetamide Other - please docum ent in the comment field,Unknown - Patient states they do not know rxn details Low 07/29/2013 Medications METHADONE HCL PO 65 mg. Act gissell albuterol 108 (90 Base) MCG/ACT inhaler 1 puffs with spacer every 4 hours prn for wheezing and difficulty breathing. Active potassium chloride CR (Klor-Con) 8 MEQ ER tablet TK 1 T PO QD WHILE ON FUROSEMIDE Active lamoTRIgine (LaMICtal) 150 MG tablet Take 1 tablet (150 mg) by mouth 2 (two) times a day. 11/15/19 21 Active fluticasone (Flonase) 50 MCG/ACT nasal spray USE 1 SPRAY IN EACH NOSTRIL ONE TIME DAILY 32 g 1 01/04/20 21 Active furosemide (Lasix) 40 MG tablet if needed. 01/08/20 21 Active ibuprofen 800 MG tablet Take 1 tablet (800 mg) by mouth every 8 (eight) hours if needed. 10/08/19 22 Active pantoprazole (Protonix) 40 MG EC tablet Take 1 tablet (40 mg) by mouth 1 (one) time each day. 10/05/19 22 Active ondansetron ODT (Zofran-ODT) 4 MG disintegrating tablet Take 1 tablet (4 mg total) by mouth every 6 (six) hours if needed for nausea or vomiting. 90 tablet 3 07/15/19 23 Active hydrOXYzine HCl (Atarax) 25 MG tablet Take 1 to 2 tablets by mouth every 6 hours as needed for anxiety 112 tablet 3 07/15/19 23 Active armodafinil (Nuvigil) 50 MG tablet Take 1 tablet (50 mg) by mouth 1 (one) time each day. 08/10/19 23 Active tiotropium-olodate rol (Stiolto Respimat) 2.5-2.5 MCG/ACT aerosol solution inhalerIndications :Chronic obstructive pulmonary disease, unspecified COPD type (CMS/HCC) Inhale 2 Inhalation 1 (one) time each day. 12 g 3 08/25/19 23 Active cefuroxime (Ceftin) 500 MG tablet TAKE 1 TABLET BY MOUTH IN THE MORNING AND 1 TABLET BY MOUTH BEFORE BEDTIME FOR 5 DAYS 08/27/19 23 Active mupirocin (Bactroban) 2 % ointment APPLY 1 APPLICATION TOPICALLY IN THE MORNING AND 1 APPLICATION AT NOON AND 1 APPLICATION IN THE EVENING FOR 10 DAYS 08/27/19 23 Active armodafinil (Nuvigil) 150 MG tablet Take 1 tablet (150 mg) by mouth 1 (one) time each day. 10/19/19 23 Active traZODone (Desyrel) 50 MG tablet Take 1 tablet (50 mg) by mouth if needed. 02/19/20 23 Active doxycycline (Adoxa) 100 MG tablet Take 1 tablet (100 mg) by mouth 2 (two) times a day. 03/14/20 23 Active propranolol (Inderal) 10 MG tablet Take 1 tablet twice daily. Can also take 1 tablet once daily as needed for anxiety symptoms/panic attacks. Do not take more than 3 tablets in one day. 90 tablet 03/17/20 23 Active linaCLOtide (Linzess) 145 MCG capsule Take 1 capsule (145 mcg) by mouth 1 (one) time each day. 90 capsule 3 03/17/20 23 Active doxycycline (Vibra-Tabs) 100 MG tablet Take 1 tablet (100 mg) by mouth 2 (two) times a day. 08/10/19 24 Active methylPREDNISolone (Medrol Dospak) 4 MG tablets follow package directions 08/10/19 24 Active Buprenorphine HCl-Naloxone HCl (Suboxone) 8-2 MG SL film 05/24/19 25 Active Calcium Carb-Cholecalcifer ol 600-10 MG-MCG tablet Take 1 tablet by mouth 2 (two) times a day. 02/05/20 24 Active methocarbamol (Robaxin) 500 MG tablet 03/15/20 24 Active prochlorperazine (Compazine) 10 MG tablet 1 tablet (10 mg). 01/25/20 24 Active promethazine (Phenergan) 25 MG tablet TAKE ONE TABLET BY MOUTH EVERY 4 TO 6 HOURS NEEDED FOR NAUSEA MAY CAUSE DROWSINESS Active Vraylar 3 MG capsule Take 1 capsule (3 mg) by mouth 1 (one) time each day. 04/25/20 24 Active etanercept (Enbrel SureClick) 50 MG/ML injectionIndicatio ns:Seropositive rheumatoid arthritis of multiple sites (CMS/HCC) Inject 1 mL (50 mg) under the skin 1 (one) time per week. 4 mL 6 05/27/19 25 Active Active Problems Problem Noted Date Diagnosed Date Dyspnea on exertion 05/10/2023 Overview (05/10/2023): -most likely related to COPD as she does not have associated angina during exertion, although she is at increased risk of having CAD and an ACS event given her history of smoking and substance use disorder -advised patient to follow up with pulmonology -will obtain stress echo IBS (irritable bowel syndrome) 05/10/2023 Overview (05/10/2023): -increased linzess to 145 mcg daily to to continued constipation Chronic nausea 07/24/2022 Overview (07/24/2022): - Chronic, unclear etiology, has been on Zofran PRN per patient. - Refilled Zofran 06/2022, will discuss in more detail next visit (may need further work-up). Assessment & Plan (07/24/2022 8:43 PM EDT): - Chronic, unclear etiology, has been on Zofran PRN per patient. - Refilled Zofran 06/2022, will discuss in more detail next visit (may need further work-up). Substance use disorder 07/24/2022 Overview (07/24/2022): - In remission, on methadone. Patient intends to wean off methadone and switch to Sublocade in the near future. Alcohol use disorder in remission 07/24/2022 Overview (07/24/2022): - In remission, no cravings. Healthcare maintenance 07/24/2022 Overview (12/02/2022): Healthcare Maintenance Immunizations Immunization History Administered Date(s) Administered Hep A, Adult 10/11/2016, 11/22/2017 Hep A, Unspecified 10/11/2016 Influenza, injectable, MDCK, preservative free, quadrivalent 01/24/2020, 02/10/2022 Influenza, injectable, quadrivalent 02/13/2017 Influenza, injectable, quadrivalent, preservative free 01/18/2018, 01/16/2019 Influenza, seasonal, injectable 02/19/2020 Influenza, seasonal, injectable, preservative free 03/20/2014, 05/19/2016 [employer] COVID-19 Vaccine (Purple Cap) 12+ 06/30/2020, 07/21/2020 Pneumococcal 20-keyana Conj Vaccine 02/10/2022 Pneumococcal Polysaccharide PPV23 08/15/2017, 09/08/2021 Tdap 01/07/2009, 08/08/2018, 08/25/2022 Zoster, Recombinant 09/08/2021, 02/10/2022 Cancer Screenings ? Cervical cancer: Pap smear completed 10/2022 with negative cytology and HPV co-testing, repeat in 5 years (10/2027, can potentially be last pap smear). ? Breast cancer: Last mammogram 06/2021 with BIRADS 1, repeat overdue, scheduled 11/28/2022. ? Colon cancer: underwent colonoscopy 06/2020 with no polyps, repeat 06/2025. ? Lung cancer: Last CT in 08/2022 with LUNGRADS 2, repeat in 1 year (08/2023). Other Screenings ? DEXA: due at 64 Labs ASCVD: Last lipid panel 12/2019: The 10-year ASCVD risk score (Jacobo KOENIG, et al., 2019) is: 8.9% Values used to calculate the score: Age: 62 years Sex: Female Is Non- : No Diabetic: No Tobacco smoker: Yes Systolic Blood Pressure: 124 mmHg Is BP treated: No HDL Cholesterol: 38 mg/dL ? Total Cholesterol: 170 mg/dL ? A1c: Lab Results Component Value Date HGBA1C 5.9 01/20/2020 ? HIV: One time screen negative 05/2022. ? Hepatitis C: History of hepatitis C, PCR negative 05/2022. Referrals ? Dentist: ? Dermatology: ? Ophthalmology: Assessment & Plan (11/17/2022 9:46 AM EDT): Cancer Screenings ? Cervical cancer: Pap smear completed today 10/2022. Pending results. ? Breast cancer: Last mammogram 06/2021 with BIRADS 1, repeat overdue, scheduled 11/28/2022. ? Colon cancer: underwent colonoscopy 06/2020 with no polyps, repeat 06/2025. ? Lung cancer: Last CT in 08/2022 with LUNGRADS 2, repeat in 1 year (08/2023). Other Screenings ? DEXA: due at 64 Labs (Ordered annual labs: CMP, lipid panel, A1c). ASCVD: Last lipid panel 12/2019: The 10-year ASCVD risk score (Jacobo KOENIG, et al., 2019) is: 8.9% Values used to calculate the score: Age: 62 years Sex: Female Is Non- : No Diabetic: No Tobacco smoker: Yes Systolic Blood Pressure: 124 mmHg Is BP treated: No HDL Cholesterol: 38 mg/dL ? Total Cholesterol: 170 mg/dL ? A1c: Lab Results Component Value Date HGBA1C 5.9 01/20/2020 ? HIV: One time screen negative 05/2022. ? Hepatitis C: History of hepatitis C, PCR negative 05/2022. Tobacco use disorder 04/22/2021 Overview (07/24/2022): Ready to quit: No Counseling given: Yes Assessment & Plan (04/22/2021 12:41 PM EST): The patient has been counseled on tobacco cessation: Yes. ocean transportation intermediary effects of continued use such as but not limited to lung cancer, oral cavity cancer, CAD, PAD, ASCVD etc were discussed with the patient. Time spent in counseling was between 3-10 mins ([id number]). The following tobacco cessation resources were provided to patient: none. The following medications were prescribed/suggested to the patient: bupropion - patient previously failed nicotine replacement therapy and Chantix. - referral made to tobacco cessation counseling on 04/22/2021 Primary insomnia 04/22/2021 Overview (07/24/2022): - Chronic, uncontrolled, complicated by hypersomnia during the day and inability to stay asleep at night (wakes up every 1-2 hours at night and falls asleep during the day without warning). - Was started on a stimulant by psychiatrist however she had opposite effect (fell asleep). - Follows with sleep medicine team however patient would like second opinion; referred to [facility] 06/2022. Assessment & Plan (07/24/2022 8:48 PM EDT): - Chronic, uncontrolled, complicated by hypersomnia during the day and inability to stay asleep at night (wakes up every 1-2 hours at night and falls asleep during the day without warning). - Was started on a stimulant by psychiatrist however she had opposite effect (fell asleep). - Follows with [facility] team however patient would like second opinion; referred to [facility] 06/2022. Assessment & Plan (04/22/2021 12:38 PM EST): - patient notes chronic insomnia with approximately 1-2 hours of sleep - patient notes symptoms have been happening for years prior to clinical exam on 04/22/2021 - patient already has CPAP machine but does not follow with Sleep Clinic for adjustment in his settings Today's Plan: - Sleep Clinic referral order 04/22/2021 - consider additional medical management with melatonin/trazodone/doxepin after optimization with Sleep Clinic referral Bipolar disorder 01/17/2020 Overview (07/24/2022): - Chronic, currently in the process of medication adjustments with outside psychiatrist. - Current regimen: Vraylar (began 06/2022), Lamital, hydroxyzine PRN. - Patient is interested in establishing with new psychiatrist. Provided patient with several resources (including [employer]) to help find a new provider. Assessment & Plan (07/24/2022 8:42 PM EDT): - Chronic, currently in the process of medication adjustments with outside psychiatrist. - Current regimen: Vraylar (began 06/2022), Lamital, hydroxyzine PRN. - Patient is interested in establishing with new psychiatrist. Provided patient with several resources (including [employer]) to help find a new provider. TMJ (temporomandibular joint disorder) 0 Hepatic steatosis 04/16/2019 Overview (07/24/2022): - Per chart review, liver US in 2020: Mildly echogenic and coarse liver which could be due to hepatic steatosis and underlying parenchymal disease. Chronic venous insufficiency 03/01/2019 Overview (07/24/2022): - On Lasix chronically, I believe secondary to CVI based on chart review. Is also on potassium supplementation for hypokalemia due to Lasix use. Will discuss in more detail next visit. Chronic obstructive pulmonary disease 09/07/2018 Overview (07/24/2022): - Chronic, well controlled, follows with pulmonary team. Assessment & Plan (04/22/2021 12:35 PM EST): COPD is worsening. Discussed monitoring symptoms and use of quick-relief medications and contacting us early in the course of exacerbations. Warning signs of respiratory distress were reviewed with the patient. Counseled to avoid exposure to cigarette smoke. Current only using Albuterol PRN Plan: - repeat pulmonary function testing ordered 04/22/2021: Pending, previous resultant 2019 indicate obstructive picture with COPD diagnosis post pulmonology, but without FEV1/FVC criteria for gold stage I - consider LABA/LAMA or ICS/LABA with pulmonary function testing is concerning for uncontrolled COPD - stress ECG ordered to rule out cardiac cause of dyspnea on exertion with chest discomfort on 04/22/2021: Pending - echo ordered to rule out cardiac cause of dyspnea on exertion on 04/22/2021: Pending Pulmonary nodule, right 09/07/2018 Overview (07/24/2022): - Follows with pulmonary team. Obstructive sleep apnea 06/26/2018 Overview (07/24/2022): - Follows with sleep medicine at , referred to [facility] 06/2022. Seropositive rheumatoid arthritis of multiple rosie ints 04/27/2018 Overview (07/24/2022): - Seropositive RA: On Enbrel. Follows with rheumatology. Hepatitis C antibody test positive 07/07/2016 Overview (07/24/2022): - PCR negative 05/2022, cleared infection. Resolved Problems Problem Noted Date Diagnosed Date Resolved Date Fall (on) (from) other stair s and steps, subsequent encounter 04/22/2021 07/24/2022 Assessment & Plan (04/22/2021 12:37 PM EST): - notes that the fall on concrete stairs occurred on 04/05/2021 - presented to the emergency department who performed multiple CT scans, initially concerning for possible small intracranial bleed, although ruled out with repeat testing and with consultation with Neurosurgery - patient continues to note acute on chronic musculoskeletal pain following the injury - no concerning neurologic symptoms per history and physical exam requiring additional intracranial imaging Today's Plan: - physical therapy ordered 04/22/2021 - initiate 04/22/2021: Lidocaine transdermal patch for topical relief Immunizations Immunization Administration Dates Next Due Hep A, Adult 11/22/2017,10/11/2016 Hep A, Unspecified 10/11/2016 Influenza, injectable, MDCK, preservative free, quadrivalent 02/10/2022,01/24/2020 Influenza, injectable, quadrivalent 02/13/2017 Influenza, injectable, quadr ivalent, preservative free 03/17/2023,01/16/2019,01/18/2018 Influenza, seasonal, injectable 02/19/2020 Influenza, seasonal, injecta ble, preservative free 05/19/2016,03/20/2014 [employer] COVID-19 Vac cine (Purple Cap) 12+ 07/21/2020,06/30/2020 Pneumococcal 20-keyana Conj Vaccine 02/10/2022 Pneumococcal Polysaccharide PPV23 09/08/2021, Tdap 08/25/2022,08/08/2018,01/07/2009 Zoster, Recombinant 02/10/2022,09/08/2021 Family History Medical History Relation Name Comments Pancreatic cancer Brother Lung cancer Father Colon cancer Other 1 Hyperlipidemia Other 2 Hypertension Other 3 Relation Name Status Comments Brother Alive Father Alive Other 1 Other 2 Other 3 Social History Tobacco Use Types Packs/Day Years Used Date Smoking Tobacco: Every Day Cigarettes 1 50.5 Started: 1974 Passive Smoke Exposure: Past Smokeless Tobacco: Never Tobacco Cessation:Ready to Q uit: Not Asked; Counseling Given: Not Answered Comments:Now down to 1/2 ppd. Alcohol Use Standard Drinks/Week Comments Not Currently 0 (1 standard drink = 0.6 oz pur e alcohol) PHQ-2 Answer Date Recorded Patient Health Questionnaire-2 Score 0 05/27/2024 PHQ-2A Answer Date Recorded Patient Health Questionnaire-2 Score 0 03/17/2023 Comments No Sex and Gender Information Value Date Recorded Sex Assigned at Not on file Legal Sex Female 7:35 PM EDT Gender Identity Not on file Sexual Orientation Not on file Last Filed Vital Signs Vital Sign Reading Time Taken Comments Blood Pressure 124/78 05/27/2024 2:59 PM EST Pulse 86 05/27/2024 2:59 PM EST Temperature 36.3 C (97.4 F) 05/27/2024 2:59 PM EST Respiratory Rate 16 05/27/2024 2:59 PM EST Oxygen Saturation 96% 05/27/2024 2:59 PM EST Inhaled Oxygen Concentration - - Weight 69.5 kg (153 lb 3.5 oz) 05/27/2024 2:59 P M EST Height 158.8 cm (5' 2.5 ) 05/27/2024 2:59 PM EST Body Mass Index 27.58 05/27/2024 2:59 PM EST Plan of Treatment Upcoming Encounters Date Type Department Care Team (Late st Contact Info) Description 11/25/2024 2:00 PM EDT Office Visit [facility] [address] [place] [address] Fletcher, May R, SCALLOP SHUCKER [address] [place] [address] Health Maintenance Due Date Last Done Comments [facility]-Bone Density Scan 1959 [facility]-/Child/Adol SDOH Screenings 1960 [facility]- SDOH Screenings 1977 [facility]-Adult SDOH Screenings 1977 CT Colonography 02/07/2004 [facility]-DNA 02/07/2004 FIT 02/07/2004 FOBT 02/07/2004 Sigmoidoscopy 02/07/2004 [facility]-RSV Vaccine: 60+ Years or (1 - Risk 60-74 years 1-dose series) 2019 [facility]-Breast Cancer Screening 07/17/2023 07/16/2021, 0 07/16/2021 [facility]-Lung Cancer Screening 09/22/20232022, 08/06/2021, 11/20/2019, Additional history exists [facility]-Medicare Annual Wellness (AWV) 11/18/2023 11/17/2022 [id number] Vaccine ( season) 2023 07/21/2020, 06/30/2020 [facility]-Influenza Vaccine (Season Ended) 2024 03/17/2023, 02/10/2022, 02/19/2020, Additional history exists [facility]-Depression Screening 05/27/2025 05/27/2024, 06/30 Colonoscopy 07/24/2025 07/24/2020 [facility]-Colorectal Cancer Screening 07/24/2025 [facility]-Pap Smear 11/17/2025 11/17/2022 [facility]-Cervical Cancer Screening 11/18/2027 [facility]-HPV/Cotest 11/18/2027 11/17/2022 [facility]-DTaP,Tdap,and Td Vaccines (4 - Td or Tdap) 08/25/2032 08/25/2022, 08/08/2018, 01/07/2009 [facility]-Hepatitis A Vaccines Completed 018, 10/11/2016, 10/11/2016 [facility]-Pneumococcal Vaccine: 50+ Years Completed 02/10/2022, 09/08/2021, 08/15/2017 [facility]-Zoster Vaccines Completed 02/10/2022, [facility]-Hepatitis C Screening Completed 2022, 11/04/2018, 07/30/2018, Additional history exists [facility]-Diabetes: Hemoglobin A1C Discontinued 08/14/2023, 01/20/2020, 10/17/2019 [facility]-Obesity Intervention Completed 025, 08/14/2023, 03/17/2023, Additional history exists HPV Vaccines Aged Out No longer eligi ble based on patient's age to complete this topic [facility]-HIB Vaccines Aged Out No longer e ligible based on patient's age to complete this topic [facility]-IPV Vaccines Aged Out No longer e ligible based on patient's age to complete this topic [facility]-Rotavirus Vaccines Aged Out No lo nger eligible based on patient's age to complete this topic Procedures Procedure Name Priority Date/Time Associated Diagnosis Comments HEMOGLOBIN A1C Routine 08/14/2023 10:16 AM EDT Medicare annual wellness visit, subsequent Healthcare maintenance PAP TEST - CYTOLOGY Routine 11/17/2022 9 :27 AM EDT Medicare annual wellness visit, subsequent Healthcare maintenance Encounter for Papanicolaou smear for cervical cancer screening CT CHEST LUNG CANCER SCREENING Routine 09/21/2022 2:30 PM EDT Chronic obstructive pulmonary disease, unspecified COPD type (CMS/HCC) HEPATITIS C ANTIBODY - ED W/REFLEX TO HCV QUANT PCR STAT 05/24/2022 1:18 PM EST MAMMOGRAPHY BREAST SCREENING TOMOSYNTHESIS BILATERAL Routine 07/16/2021 8:13 AM EDT Breast cancer screening by mammogram COLONOSCOPY 07/24/2020 from Last 3 Months or Most Recently Relevant to Health Maintenance Results * (ABNORMAL) Hemoglobin A1c (08/14/2023 10:16 AM EDT) Hemoglobin A1c 5.7(H) <5.7 % 08/14/2023 12:51 PM EDT [facility] Blood Venous blood specimen / Unknown Venipuncture / Unknown 08/14/2023 10:16 AM EDT 08/14/2023 10:16 AM EDT Narrative [facility] - 08/14/2023 12:51 PM EDT HA1C Interpretive Data: Diagnosis of Diabetes: Diabetic > or = 6.5% Pre-diabetic 5.7 to 6.4% Non-diabetic < or = 5.6% Glycemic Targets for Type I and Type II Diabetics: Non- Adults <7.0% Adults <6.0% Children and Adolescents <7.5% Source: [place] [employer]. Standards of medical care in diabetes,2017. Diabetes Care.2017:40 (suppl 1):S1-S135. HbA1c assay performed by an ion-exchange chromatography method that is certified traceable to the DCCT. us Kristal Carpenter DO LAB BLOOD ORDERABLES Final Res [facility] [address] [place] [address] * Pap Test (11/17/2022 9:27 AM EDT) Case Report Cytology Case: [id number] Authorizing Provider: Kristal Carpenter DO Collected: 11/17/2022 0927 Ordering Location: [facility] Received: 11/18/2022 1109 Internal Medicine First Screen: Alberta Quiroz Specimen: ThinPrep Pap Test, Liquid-Based Cervical/Vaginal 11/29/2022 11:35 AM EDT [facility] Interpretation NEGATIVE FOR INTRAEPITHELIAL LESION OR MALIGNANCY 11/29/2022 11:35 AM EDT [facility] at 1135 EDT Specimen Adequacy Satisfactory for evaluation; endocervical/alcantar sformation zone component present. Slide scanned and imaged by ThinPrep Imaging System with manual review of all selected farah. 11/29/2022 11:35 AM EDT [facility] Cervical cytology is a screening test primarily for squamous cancers and precursors and has associated false negative and positive results. New technologies such as liquid based sampling may decrease but will not eliminate all false negative results. Regular screening and follow-up of unexplained clinical signs and symptoms are recommended to minimize false negative results. Please see the ASCCP website (www.asccp.org)fo r followup recommendations. If HPV testing was requested, correlation with the results is suggested (please call Microbiology at [phone] for results). 11/29/2022 11:35 AM EDT [facility] Menstrual Status Post-Menopausal 05/2022 11:35 AM EDT [facility] Contraceptive History Not Applicable 11/29/2022 11:35 AM EDT [facility] Screening Type Routine Screen 2022 11:35 AM EDT [facility] High Risk? No 11/29/2022 11:35 AM EDT [facility] HPV Testing Requested? Request HPV Testing Regardless of Pap Test Findings 11/29/2022 11:35 AM EDT [facility] Previous Cancer History No 11/29/2022 11:35 AM EDT [facility] Clinical Information Z00.00 - Medicare annual wellness visit, subsequent [ICD-10-CM] Z00.00 - Healthcare maintenance [ICD-10-CM] Z12.4 - Encounter for Papanicolaou smear for cervical cancer screening [ICD-10-CM] 11/29/2022 11:35 AM EDT [facility] Swab Vaginal and cervical cytologic material / Unknown Non-blood Collection / Unknown 11/17/2022 9:27 AM EDT 11/18/2022 11:09 AM EDT us Kristal Carpenter DO LAB CYTOLOGY ORDERABLES Final Result [facility] [address] [place] [id number] * CT Chest Lung Cancer Screening (09/21/2022 2:30 PM EDT) Anatomical Region Laterality Modality Chest Computed Tomogra phy Addenda Addendum by Markell Mary MD on 09/27/2022 8:25 AM EDT ADDENDUM: Please note there is a manager copy error in the original Recommendations section that should read as follows: LungRADS 2: Benign appearance or behavior: CT Chest Lung Cancer Screening recommended in 12 months. Modifier: None Drafted by Markell Mary MD on 09/27/2022 8:24 AM Final report signed by Markell Mary MD on 09/27/2022 8:25 AM Impressions 09/21/2022 3:46 PM EDT Negative screening examination. Recommendations: LungRADS 2: Benign appearance or behavior: CT Chest without contrast (low dose) recommended in 2 months. Modifier: None CRITICAL RESULT: No. COMMUNICATION: Per this written report. Drafted by Markell Mary MD on 09/21/2022 3:45 PM Final report signed by Markell Mary MD on 09/21/2022 3:46 PM Narrative 09/21/2022 3:46 PM EDT CLINICAL INDICATION: Lung cancer screening; personal history of tobacco use. TECHNIQUE: Multiple CT helical images were obtained from thoracic inlet through upper abdomen without contrast. A low radiation dose protocol was utilized. Total DLP (Dose-Length Product): 104.06 mGy.cm. Please note: The reported value represents the total of one or more individual components during the CT acquisition on this date and at this time, and as such, the same value may appear in more than one CT report depending on the interpreting/reporting physicians. COMPARISON: August 06, 2021 FINDINGS: Mediastinum and Pleura: No adenopathy. Coronary Calcium: No. Lungs: No suspicious pulmonary nodules. Several tiny nodules are stable. Upper Abdomen: No suspicious lesion in the partially visualized upper abdomen. Please note that the low dose technique utilized for this examination is optimized for pulmonary nodule evaluation and has limited sensitivity for detection of abdominal abnormalities. Musculoskeletal: Mild degenerative changes of the spine. Procedure Note Markell Mary MD - 09/21/2022 CLINICAL INDICATION: Lung cancer screening; personal history of tobacco use. TECHNIQUE: Multiple CT helical images were obtained from thoracic inlet through upperabdomen without contrast. A low radiation dose protocol was utilized. Total DLP (Dose-Length Product): 104.06 mGy.cm. Please note: The reportedvalue represents the total of one or more individual components during theCT acquisition on this date and at this time, and as such, the same valuemay appear in more than one CT report depending on theinterpreting/reporting physicians. COMPARISON: August 06, 2021 FINDINGS: Mediastinum and Pleura: No adenopathy. Coronary Calcium: No. Lungs: No suspicious pulmonary nodules. Several tiny nodules are stable. Upper Abdomen: No suspicious lesion in the partially visualized upperabdomen. Please note that the low dose technique utilized for thisexamination is optimized for pulmonary nodule evaluation and has limitedsensitivity for detection of abdominal abnormalities. Musculoskeletal: Mild degenerative changes of the spine. IMPRESSION: Negative screening examination. Recommendations: LungRADS 2: Benign appearance or behavior: CT Chest without contrast (lowdose) recommended in 2 months. Modifier: None CRITICAL RESULT: No. COMMUNICATION: Per this written report. Drafted by Markell Mary MD on 09/21/2022 3:45 PM Final report signed by Markell Mary MD on 09/21/2022 3:46 PM Anel Valadez MD IMG CT PROCEDURES Edited Result - Final * (ABNORMAL) Hepatitis C Antibody - ED (05/24/2022 1:18 PM EST) Hepatitis C Antibody Positive( A) Negative 05/24/2022 5:38 PM EST [facility] Comment:This specimen is leonel ng sent for confirmation by RT-PCR. Blood Venous blood specimen / Unknown Venipuncture / Unknown 05/24/2022 1:18 PM EST 05/24/2022 1:20 PM EST us Marlen Berry DO LAB BLOOD ORDERABLES Final Re sult [facility] [address] [place] [address] * Mammography Breast Screening Tomosynthesis Bilateral (07/16/2021 8:13 AM EDT) Anatomical Region Laterality Modality Breast Bilateral Mammography Impressions 07/21/2021 1:20 PM EDT No mammographic evidence of malignancy. BI-RADS CATEGORY: Overall: 1 - Negative RECOMMENDATION: - Routine Screening Mammogram in 1 Year. Patient Lifetime Risk Score of Breast Malignancy: 4.5 % This risk assessment is calculated using the Janet Risk Assessment model which may underestimate the lifetime risk of breast malignancy. COMMUNICATION: Computer-aided detection (CAD) and tomosynthesis were utilized by the radiologist in the interpretation of this examination. The results and recommendations will be sent to the patient in a printed lay language version of the imaging report. Narrative 07/21/2021 1:20 PM EDT EXAM: Mammography Breast Screening Tomosynthesis Bilateral REASON FOR EXAM: Screening Mammogram HISTORY: Patient is 61 y.o. Family medical history includes colon cancer in other. COMPARISON STUDIES: Compared to: 01/21/2010 Mammography Outside Images Upload at [facility] 01/27/2011 Mammography Outside Images U[facility] 07/10/2012 Mammography Outside Images U[facility] 07/19/2012 Mammography Outside Images U[facility] 10/28/2016 Mammography Outside Images U[facility] BREAST COMPOSITION: The breasts are almost entirely fatty. FINDINGS: There are no suspicious masses, calcifications, or areas of architectural distortion in either breast. Natalie Anaya MD IMG BI PROCEDURES Final Re sult * COLONOSCOPY (07/24/2020) Anatomical Region Laterality Modality Endoscopy Narrative 07/24/2020 Ordered by an unspecified provider. Historical Provider GI PROCEDURE ORDERABLES F inal Result from Last 3 Months or Most Recently Relevant to Health Maintenance Insurance ANTH MEDICARE [employer] MEDICARE Care Teams Admitting Officer Relationship Specialty Start Date End Date Preston Man DO [address] [place] [address] [place] [address] PCP - General 05/27/24
--- OUTSIDE RECORDS SUMMARY | 2024-10-17 15:07 | XMS_ITS | Encounter Summary ---
Author Organization [facility] Address [address] [place] [address] Care Team Providers Care Intermediate Designer Name Role Phone Sofia Nguyen MD Primary Care Provider [phone] Tk Garg MD Primary Care Provider [phone] Lisseth Palacios APRN Primary Care Provider + Kristal Carpenter DO Primary Care Provider [phone] Preston Man DO Primary Care Provider [phone] Preston Man DO Primary Care Provider Reason for Visit * Reason Onset Date Comments Appointment 10/10/2020 Patient difficul t to keep awake. Encounter Details Date Type Department Care Team (Late st Contact Info) Description 10/10/2020 Refill [facility] [address] , [address] [place] [address] Marlen Owens MD [address] [place] [address] Social History Tobacco Use Types Packs/Day Years Used Date Smoking Tobacco: Every Day Alcohol Use Standard Drinks/Week Comments Yes 0 (1 standard drink = 0.6 oz pur e alcohol) Comments Unknown Sex and Gender Information Value Date Recorded Sex Assigned at Not on file Legal Sex Female 7:35 PM EDT Gender Identity Not on file Sexual Orientation Not on file documented as of this encounter Miscellaneous Notes * Telephone Encounter - Sofia Nguyen - 10/15/2020 3:44 PM EDT Thank you for the update. Please have her go to the ED for evaluation. Thank you * Telephone Encounter - Sophia Alegria LPN - 10/15/2020 3:33 PM EDT Caregiver with the patient in the car coming to an appointment to see Dr. Nguyen stated that the patient was started on a new medicaton and for the past 4-41/2 hours the patient keeps drifting in andout of sleep. forestry professor did not know the name of the medication. Informed the caregiver if the patient is unable to be awake and come in to her appointment she should go to the ER for assistance. The patient came awake and asked why she could not see Dr. Nguyen. Patient was told that if she was not able to come inside the building she should go to the ER. Stated that she would get in the building somehow. Spoke with Dr. Monterroso nurse Carol Dallas LPN and informed her of the situation. * Telephone Encounter - Sofia Nguyen - 10/15/2020 8:06 AM EDT She needs an appointment for further refills. Thank you * Telephone Encounter - Sarkis Wilson - 10/14/2020 8:14 AM EDT Med not on protocol. Per note from pharmacy, med has been d/c'ed. Please review and advise. documented in this encounter Plan of Treatment Upcoming Encounters Date Type Department Care Team (Late st Contact Info) Description 11/25/2024 2:00 PM EDT Office Visit [facility] [address] [place] [address] Hemalatha Bynum R, SENIOR NET ARCHITECT [address] [place] [address] documented as of this encounter Visit Diagnoses Not on filedocumented in this encounter Additional Health Concerns Infection Onset Date Last Indicated Resolved Time COVID-19 Rule-Out 03/27/2021 03/27/2021 03/27/2021 11:29 AM EST COVID-19 Rule-Out 05/24/2022 05/24/2022 05/24/2022 2:20 PM EST COVID 19 (Confirmed) 05/24/2022 05/24/2022 023 5:23 AM EST documented as of this encounter Care Teams Intermediate Designer Relationship Specialty Start Date End Date Sofia Nguyen MD [address] [place] [address] [address] [place] [address] PCP - General 09/11/20 10/15/20 Tk Garg MD [address] [place] [address] PCP - General Family Medicine 10/16/20 03/27/22 Lisseth Palacios, SENIOR NET ARCHITECT [address] [place] [address] PCP - General 03/28/22 07/13/22 Kristal Carpenter DO [address] [place] [id number] PCP - General Internal Medicine 07/14/22 08/13/23 Preston Man DO [address] [place] [address] PCP - General 08/14/23 10/26/23 Preston Man DO [address] [place] [address] PCP - General 05/27/24 documented as of this encounter
--- OUTSIDE RECORDS SUMMARY | 2024-10-17 16:06 | XMS_ITS | CCD ---
Author Name Beny BLANTON, Marci Address [address] [place] [address] Phone Organization [facility] Phone Care Team Providers Care Gusset Maker Name Role Phone Unavailable Primary Care Provider Unavailabl e Unavailable Chronic Care Management Unavaila ble Summary Purpose DataExchange Insurance Providers Payer name Policy type / Coverage type Covered alliance party ID Effective Begin Date Effective End Date ELEVANCE BCBS [facility] [id number] Unknown Unknown Family history Father Diagnosis Age At Onset Cancer Unknown Mother Diagnosis Age At Onset CAD (Coronary Artery Disease) Unknown Social History Social History Element Codes Description Effec tive Dates Marital status Unknown 12/19/2023 Number of children Unknown 2 Living arrangements Unknown Apartment/Condo 12/18 Number of children in household Unknown 0 12/19/2023 Number of adults in household Unknown 1 12/19/2023 Education level Unknown High School Graduate 11/30 Employment 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 Tobacco history Unknown Current User (Co mplete cessation counseling) 12/19/[address]: [id number] Never drinks alco hol 12/19/2023 Illegal/Recreational drug history Unknown *Has never used illegal/recreational drugs 12/19/2023 DNR Order/ Advanced Directive Unknown Full Code 12/19/2023 Allergies, Adverse Reactions, Alerts Substance Reaction Codes Entered Date Inactivated Date Status SULFA(SULFONAMIDE ANTIBIOTICS) Unknown 07/29/2013 No Inactive Date Active *No known food allergies Unknown 12/19/2023 No Inactive Date Active Seasonal *other reaction (specify in notes), Unknown 12/19/2023 No Inactive Date Active Biaxin RxNorm: 843788 07/29/2013 No Inactive Da te Active Problems Condition Codes Effective Dates Condition St atus Patient not seen ICD-10: UXZ.01 ICD-9: UXZ.01 12/22/2023 Active Encounter for general adult medical examination without abnormal findings ICD-10: Z00.00 ICD-9: V70.9 12/19/2023 Active Other ICD-10: U00.00 ICD-9: U00.00 12/25/2023 Active Bipolar 2 disorder ICD-10: F31.81 ICD-9: 296.89 12/19/2023 Active Chronic obstructive pulmonar y disease, unspecified COPD type ICD-10: J44.9 ICD-9: 496 12/19/2023 Active Generalized anxiety disorder ICD-10: F41 .1 ICD-9: 300.02 12/19/2023 Active Opioid dependence in remission ICD-10: F 11.21 ICD-9: 304.03 12/19/2023 Active Osteopenia, unspecified location ICD-10: M85.80 ICD-9: 733.90 12/19/2023 Active Rheumatoid arthritis with po sitive rheumatoid factor, involving unspecified site ICD-10: M05.9 ICD-9: 714.0 12/19/2023 Active Medications Medication Codes Instructions Start Date Stop Date Status Fill Instructions Suboxone 8 mg-2 mg sublingual film RxNorm: 8245604 Take 1 Tablet(s) Sublingual every day 4 01/17/20 24 Inactive Stiolto Respimat 2.5 mcg-2.5 mcg/actuation solution for inhalation RxNorm: 4516842 Inhale 2 Puff(s) Inhalation every day 4 03/17/20 24 Inactive Vraylar 3 mg capsule RxNorm: 7066866 Administer 1 Capsule(s) Oral every day 4 03/17/20 24 Inactive Enbrel 50 mg/mL (1 mL) subcutaneous syringe RxNorm: 869959 Inject 1 Unit(s) Subcutaneous 1 time a week 4 01/17/20 24 Inactive calcium 600 mg-D3 20 mcg-magnesium 40 ij-ppuwez-zcoz-z inc chew tablet RxNorm: Take 1 Tablet(s) Oral two times a day 4 03/17/20 24 Inactive fluticasone (FLONASE) 50 MCG/ACT nasal spray RxNorm: 8715880 nasl 2 No Stop Date Active Ventolin HFA 108 (90 Base) MCG/ACT inhaler RxNorm: 703132 inhl 1 No Stop Date Active lamoTRIgine (LaMICtal) 150 MG tablet RxNorm: 803393 oral 1 No Stop Date Active ibuprofen (ADVIL,MOTRIN) 800 MG tablet RxNorm: 519663 Take 1,600 mg by mouth 2 (Two) Times a Day. 1 No Stop Date Active Medication Administered No Medication Administered data Results Observation Observation Code Item Item Code Result Date Service Location No Orders UA NoOrdersUA NO ORDERS UA 0.00 26/06 024 [facility] [address] [place] [address] Urine Culture and Sensitivity Reflexed from [facility] Urine Culture & Sensitivity SEE COMMENT 024 [facility] [address] [place] [address] URINALYSIS AUTO W/SCOPE 48051 Glucose 2345-7 Negative mg/dL 024 [facility] [address] [place] [address] URINALYSIS AUTO W/SCOPE 68296 Protein Negative mg/dL 024 [facility] [address] [place] [address] URINALYSIS AUTO W/SCOPE 83767 Bilirubin Negative mg/dL 024 [facility] [address] [place] [address] URINALYSIS AUTO W/SCOPE 22001 Urobilinogen Negative mg/dL 024 [facility] [address] [place] [address] URINALYSIS AUTO W/SCOPE 65919 Ph 6.50 024 [facility] [address] [place] [address] URINALYSIS AUTO W/SCOPE 69509 Blood Negative mg/dL 024 [facility] [address] [place] [address] URINALYSIS AUTO W/SCOPE 38117 Ketones Negative mg/dL 024 [facility] [address] [place] [address] URINALYSIS AUTO W/SCOPE 01746 Nitrite Negative 024 [facility] [address] [place] [address] URINALYSIS AUTO W/SCOPE 40960 Leukocytes Negative Praneeth/uL 024 [facility] [address] [place] [address] URINALYSIS AUTO W/SCOPE 14022 Clarity Clear 024 [facility] [address] [place] [address] URINALYSIS AUTO W/SCOPE 30409 Specific Angie 1.019 024 [facility] [address] [place] [address] URINALYSIS AUTO W/SCOPE 83113 Color Light-Yello w 024 [facility] [address] [place] [address] URINALYSIS AUTO W/SCOPE 08444 Red Blood Cell <1 /HPF #/HPF 024 [facility] [address] [place] [address] URINALYSIS AUTO W/SCOPE 84283 SQUAMOUS EPITHELIAL <1 /HPF #/HPF 024 [facility] [address] [place] [address] URINALYSIS AUTO W/SCOPE 20632 White Blood Cell 3 /HPF #/HPF 024 [facility] [address] [place] [address] URINALYSIS AUTO W/SCOPE 22249 Bacteria Trace graded/HPF 024 [facility] [address] [place] [address] URINALYSIS AUTO W/SCOPE 90915 Calcium Oxalate Crystal MANY graded/HPF 024 [facility] [address] [place] [address] URINALYSIS AUTO W/SCOPE 96017 Mucous RARE grades/LPF 024 [facility] [address] [place] [address] Manual Diff MDIFF Neutrophils 07163-9 64.0 % 024 [facility] [address] [place] [address] Manual Diff MDIFF Lymphocytes 17290-5 30.0 % 024 [facility] [address] [place] [address] Manual Diff MDIFF Monocytes 46496-7 3.0 % 024 [facility] [address] [place] [address] Manual Diff MDIFF Eosinophils 91553-0 2.0 % 024 [facility] [address] [place] [address] Manual Diff MDIFF Basophils 25007-3 1.0 % 024 [facility] [address] [place] [address] Manual Diff MDIFF Absolute Neut 40468-2 4416 /ul 11/30 07/31 024 [facility] [address] [place] [address] Manual Diff MDIFF Absolute Lymph 23607-0 2070 /ul 24/06 024 [facility] [address] [place] [address] Manual Diff MDIFF Absolute Bell 21271-3 207 /ul 08/07/31 024 [facility] [address] [place] [address] Manual Diff MDIFF Platelet Estimate 9317-9 Normal 024 [facility] [address] [place] [address] Manual Diff MDIFF Absolute Eos 24241-2 138 /ul 12/22 024 [facility] [address] [place] [address] Manual Diff MDIFF Echinocytes 7790-9 2+ 024 [facility] [address] [place] [address] Manual Diff MDIFF Poikilocytosis 779-9 2+ 24/06 024 [facility] [address] [place] [address] Manual Diff MDIFF Absolute Baso 10389-7 69 /ul 11/30 07/31 024 [facility] [address] [place] [address] COMPLETE CBC W/ DIFF WBC 44049 WBC 6690-2 6.9 K/ul 024 [facility] [address] [place] [address] COMPLETE CBC W/ DIFF WBC 68230 RBC 789-8 4.29 M/uL 024 [facility] [address] [place] [address] COMPLETE CBC W/ DIFF WBC 78440 Hemoglobin 718-7 13.3 g/dL 024 [facility] [address] [place] [address] COMPLETE CBC W/ DIFF WBC 24819 Hematocrit 4544-3 41.0 % 024 [facility] [address] [place] [address] COMPLETE CBC W/ DIFF WBC 87226 MCV 787-2 95.7 fL 024 [facility] [address] [place] [address] COMPLETE CBC W/ DIFF WBC 34674 MCH 785-6 31.1 pg 024 [facility] [address] [place] [address] COMPLETE CBC W/ DIFF WBC 47524 MCHC 786-4 32.5 g/dL 024 [facility] [address] [place] [address] COMPLETE CBC W/ DIFF WBC 84048 RDW 788-0 14.2 % 024 [facility] [address] [place] [address]700 COMPLETE CBC W/ DIFF WBC 18034 Platelet Count 777-3 311 K/uL 024 [facility] [address] [place] [address] 27108 COMPLETE CBC W/ DIFF WBC 95809 MPV 37566-4 8.0 fL 024 [facility] [address] [place] [address] 27096 No Orders No Orders No Orders 0 024 [facility] [address] [place] [address] TRIGLYCERIDES 66755 Triglycerides 2571-8 173 mg/dL 024 [facility] [address] [place] [address]641 TRIGLYCERIDES 74496 VLDL 98434-2 35 mg/dL 0[address] [facility] [address] [place] [address] 14406 VITAMIN D 03577 Vitamin D 87937-9 27.0 ng/mL 0[address] [facility] [address] [place] [address] 41163 MICROALBUMIN (URINE) 59266 Microalbumin 18132-8 2.1 mg/dL 024 [facility] [address] [place] [address] 76694 MICROALBUMIN (URINE) 52180 Microalbumin/Crea tinine Ratio 98414-5 27 MCG/MGCREAT 024 [facility] [address] [place] [address] 89360 MICROALBUMIN (URINE) 81738 Urine Creatinine 2161-8 77.70 mg/dL 024 [facility] [address] [place] [address] 75625 CHOLESTEROL 08652 Cholesterol 2093-3 165 mg/dL 024 [facility] [address] [place] [address] 60524 Direct LDL 10127 LDL-Direct 17100-6 96 mg/dL 024 [facility] [address] [place] [address] 12686 FREE T-4 64365 FT4 3024-7 1.05 ng/dL 024 [facility] [address] [place] [address] 20137 HDL - CHOL 44837 HDL 2085-9 41 mg/dL 024 [facility] [address] [place] [address] 66629 HDL - CHOL 45690 [facility] 72649-6 25 % 024 [facility] [address] [place] [address] U[facility] and [facility] Urine Culture & Sensitivity SEE COMMENT 024 [facility] [address] [place] [address] FREE T-3 70511 FT3 3051-0 2.78 pg/mL 024 [facility] [address] [place] [address] URINALYSIS AUTO W/SCOPE 52933 Glucose 2345-7 NO SPECIMEN RECEIVED mg/dL 024 [facility] [address] [place] [address] URINALYSIS AUTO W/SCOPE 55195 Protein NO SPECIMEN RECEIVED mg/dL 024 [facility] [address] [place] [address] URINALYSIS AUTO W/SCOPE 51225 Bilirubin NO SPECIMEN RECEIVED mg/dL 024 [facility] [address] [place] [address]106 URINALYSIS AUTO W/SCOPE 98268 Urobilinogen NO SPECIMEN RECEIVED mg/dL 024 [facility] [address] [place] [address] 47214 URINALYSIS AUTO W/SCOPE 88981 Ph NO SPECIMEN RECEIVED 024 [facility] [address] [place] [address] 22065 URINALYSIS AUTO W/SCOPE 78710 Blood NO SPECIMEN RECEIVED mg/dL 024 [facility] [address] [place] [address] 13258 URINALYSIS AUTO W/SCOPE 58083 Ketones NO SPECIMEN RECEIVED mg/dL 024 [facility] [address] [place] [address] 66872 URINALYSIS AUTO W/SCOPE 77291 Nitrite NO SPECIMEN RECEIVED 024 [facility] [address] [place] [address] 09349 URINALYSIS AUTO W/SCOPE 87190 Leukocytes NO SPECIMEN RECEIVED Praneeth/uL 024 [facility] [address] [place] [address] 89804 URINALYSIS AUTO W/SCOPE 45087 Clarity NO SPECIMEN RECEIVED 024 [facility] [address] [place] [address] 49685 URINALYSIS AUTO W/SCOPE 10882 Specific Angie NO SPECIMEN RECEIVED 024 [facility] [address] [place] [address] 34280 URINALYSIS AUTO W/SCOPE 38406 Color NO SPECIMEN RECEIVED [facility] [address] [place] [address] 14583 CHEM 14 (METABOLIC PANEL) 14426 Glucose 2345-7 144 mg/dL [facility] [address] [place] [address] 31530 CHEM 14 (METABOLIC PANEL) 93478 BUN 3094-0 13 mg/dL 024 [facility] [address] [place] [address] 35907 CHEM 14 (METABOLIC PANEL) 68393 Creatinine 2160-0 0.9 mg/dL [facility] [address] [place] [address] 51872 CHEM 14 (METABOLIC PANEL) 93575 BUN/Creat Ratio 3097-3 14.1 [facility] [address] [place] [address] 99266 CHEM 14 (METABOLIC PANEL) 71946 GFR Estimated 86979-4 69 mL/min/1.73 m2 [facility] [address] [place] [address] 39187 CHEM 14 (METABOLIC PANEL) 38192 Sodium 2951-2 139 mmol/L [facility] [address] [place] [address] 45390 CHEM 14 (METABOLIC PANEL) 27890 Potassium 2823-3 4.0 mmol/L [facility] [address] [place] [address] 34154 CHEM 14 (METABOLIC PANEL) 66478 Chloride 2075-0 104 mmol/L [facility] [address] [place] [address] 95601 CHEM 14 (METABOLIC PANEL) 21521 Total CO2 2028-9 30 mmol/L [facility] [address] [place] [address] 96382 CHEM 14 (METABOLIC PANEL) 29045 Anion Gap 1863-0 9.0 mEq/L [facility] [address] [place] [address] 61778 CHEM 14 (METABOLIC PANEL) 92936 Calculated Serum Osmolality 55358-9 291 mOsm/kg [facility] [address] [place] [address] 89397 CHEM 14 (METABOLIC PANEL) 73996 Albumin 40597-6 4.0 g/dL [facility] [address] [place] [address] 81059 CHEM 14 (METABOLIC PANEL) 31506 Total Protein 2885-2 7.9 g/dL 024 [facility] [address] [place] [address] CHEM 14 (METABOLIC PANEL) 48701 Globulin 2336-6 3.9 g/dL 024 [facility] [address] [place] [address] CHEM 14 (METABOLIC PANEL) 06131 Albumin/Globulin Ratio 1759-0 1.0 024 [facility] [address] [place] [address] CHEM 14 (METABOLIC PANEL) 22500 ALK PHOS 6768-6 80.00 U/L 024 [facility] [address] [place] [address] CHEM 14 (METABOLIC PANEL) 95006 SGOT/AST 1920-8 17 U/L 024 [facility] [address] [place] [address] CHEM 14 (METABOLIC PANEL) 92072 SGPT/ALT 1743-4 24 U/L 024 [facility] [address] [place] [address] 40186 CHEM 14 (METABOLIC PANEL) 85548 Total Bilirubin 1975-2 0.3 mg/dL 024 [facility] [address] [place] [address] 24340 CHEM 14 (METABOLIC PANEL) 24520 Calcium 05115-5 9.2 mg/dL 024 [facility] [address] [place] [address] CHEM 14 (METABOLIC PANEL) 93766 Corrected Calcium 45254-3 9.4 mg/dL 024 [facility] [address] [place] [address] [id number] BIN 4548-4 Glyco HGB A1C 04013-8 5.7 % 024 [facility] [address] [place] [address] 00714 [id number] BIN 4548-4 eAG 32611-8 117 mg/dL 024 [facility] [address] [place] [address] TSH 18159 TSH 45489-5 2.760 uIU/mL 024 [facility] [address] [place] [address] Procedures Procedure Codes Date Most recent A1c < 7.0% CPT-4: 3044F 5 Most recent A1c < 7.0% CPT-4: 3044F 4 Most recent A1c < 7.0% CPT-4: 3044F 4 MED LIST DOCD IN [facility] CPT-4: 1159F 12/19/2023 RVW MEDS BY RX/DR IN [facility] CPT-4: 1160F 2023 Amnt pain noted; pain prsnt CPT-4: 1125F 11/30 LOW RISK FOR RETINOPATHY CPT-4: 3072F 024 Screening for clinical depre ssion is negative, follow-up plan not required CPT-4: G8510 12/19/2023 [id number] CPT-4: 65984 Unknown Vital Signs Date Vital 12/19/2023 Blood Pressure 1: 120/79 Code: 8480-6 BMI: 25.6 Code: 66272-4 Heart Rate 1: 76 bpm Height: 5'2 Code: 8302-2 Respiratory Rate: 16 bpm SpO2: 95% Temperature: 36.7 (C) / 98.0 (F) Weight: 140 lbs 2 oz Code: 13243-8 Reason For Visit Reason For Visit Effective Dates Notes new patient welcome visit 12/19/2023 Encounters Encounter Performer Location Location Address Codes Date ([id number]) Other Reason/Patient not seen Diagnosis: Patient not seen[ICD10: UXZ.01] [facility] Office [facility] [place] [address] CPT-4: 00225 05/23/2024 (55271) No answer/Patient not seen Diagnosis: Patient not seen[ICD10: UXZ.01] [facility] Office [address] [place] [address] CPT-4: 37428 04/19/2024 (IND) Independent Lab Draw Diagnosis: Patient not seen[ICD10: UXZ.01] [facility] [place] [address] CPT-4: IND 12/22/2023 (02299) Home or Residence Visit HOUSE MOVER - Moderate Level, 60 mins Diagnosis: Encounter for general adult medical examination without abnormal findings[ICD10: Z00.00] Diagnosis: Bipolar 2 disorder[ICD10: F31.81] Diagnosis: Chronic obstructive pulmonary disease, unspecified COPD type[ICD10: J44.9] Diagnosis: Generalized anxiety disorder[ICD10: F41.1] Diagnosis: Opioid dependence in remission[ICD10: F11.21] Diagnosis: Osteopenia, unspecified location[ICD10: M85.80] Diagnosis: Rheumatoid arthritis with positive rheumatoid factor, involving unspecified site[ICD10: M05.9] Marci Hilldeena [facility] [address] [address] CPT-4: 46644 12/19/2023 Plan of Care Planned Activity Notes Codes Status Date Appointment: Marci Swan WPtel: [address] [place], [place] [id number] 05/23/2024 Patient Education: Patient Medication Summary Completed 05/23/2024 Appointment: Beny Marci WPtel: [address] [place], [place] [id number] 04/19/2024 Patient Education: Patient Medication Summary Completed 04/19/2024 Appointment: TERESA, NOTE Follow Up Appointment: TERESA, NOTE [facility] - [facility]erra 12/25/2023 Appointment: TERESA, NOTE Phone Call Patient Education: Patient Medication Summary Completed 12/25/2023 Patient Education: Patient Medication Summary Completed 12/25/2023 Appointment: Office, [place] [address] 12/22/2023 Patient Education: Patient Medication Summary Completed 12/22/2023 Visit Plan: Z00.00-V70.9 Encount er for general adult medical examination without abnormal findings F31.81-296.89 Bipolar 2 disorder J44.9-496 Chronic obstructive pulmonary disease, unspecified COPD type F41.1-300.02 Generalized anxiety disorder F11.21-304.03 Opioid dependence in remission M85.80-733.90 Osteopenia, unspecified location M05.9-714.0 Rheumatoid arthritis with positive rheumatoid factor, involving unspecified site This is a pleasant 63 year old female that presents for her welcome visit. Patient reports that she has a long standing history of bipolar and arthritis. Patent reports that she is having a hammertoe fixed next month. It is causing her some ambilation issues. Her sister is her payer and manages her money. She states that she usually runs out of money by the end of the monthand has issues with purchasing food. She does use a saboxone clinic as she had an opiod addiction in the past. She has found suboxone works the best for her. She has no desire to quit using the subone. She has been using her moedications as prescribed. She does not have a pyschiatrist that she shes for her bipolar. She is asking us to make a referral today for a psychatirist. She also wonders if she can have someone help her with a deep clean of her house. We did draw labs today. We will conact her with the results. We will make a referal to psychiatry for evauatoin of her bipolar and treatments. We did offer a private aid referal but due to possibilty of cost patient is declining at this time. We will reacess at next visit. Patient will take all her medications as prescribed. We did advise patient to contact us with any issues prior to her next exam. Patient verbalized understanding and agreeable to plan of care. 12/19/2023 Appointment: Marci Swan WPtel: [address] [place], [place] [phone] [facility]23 Patient Education: Patient Medication Summary Completed 12/19/2023 Patient Education: Obesity Completed 12/19/2023 Care Plan: eGFR KHE Pending Care Plan: Microalbumin (Urine) KHE Pending 12/19/2023 Referral: Food Insecurity Referral Initiated Referral: [facility] WPtel: [address] [place] [address] Counseling & Psychiatry [address] [place] [address] Order Faxed Instructions Comment Date v. Encounter for general adult medical examination without abnormal findings F31.81-296.89 Bipolar 2 disorder J44.9-496 Chronic obstructive pulmonary disease, unspecified COPD type F41.1-300.02 Generalized anxiety disorder F11.21-304.03 Opioid dependence in remission M85.80-733.90 Osteopenia, unspecified location M05.9-714.0 Rheumatoid arthritis with positive rheumatoid factor, involving unspecified site This is a pleasant 63 year old female that presents for her welcome visit. Patient reports that she has a long standing history of bipolar and arthritis. Patent reports that she is having a hammertoe fixed next month. It is causing her some ambilation issues. Her sister is her payer and manages her money. She states that she usually runs out of money by the end of the monthand has issues with purchasing food. She does use a saboxone clinic as she had an opiod addiction in the past. She has found suboxone works the best for her. She has no desire to quit using the subone. She has been using her moedications as prescribed. She does not have a pyschiatrist that she shes for her bipolar. She is asking us to make a referral today for a psychatirist. She also wonders if she can have someone help her with a deep clean of her house. We did draw labs today. We will conact her with the results. We will make a referal to psychiatry for evauatoin of her bipolar and treatments. We did offer a private aid referal but due to possibilty of cost patient is declining at this time. We will reacess at next visit. Patient will take all her medications as prescribed. We did advise patient to contact us with any issues prior to her next exam. Patient verbalized understanding and agreeable to plan of care. 12/19/2023 Medical Equipment No Medical Equipment data Advance Directives No Advance Directive data
--- OUTSIDE RECORDS SUMMARY | 2024-10-17 16:06 | XMS_ITS | CCD ---
Author Name Beny BLANTON, Marci Address [address] [facility] [address] [place] [address] Phone Organization [facility] Phone Care Team Providers Care Rent Control Office Manager Name Role Phone Unavailable Primary Care Provider Unavailabl e Unavailable Chronic Care Management Unavaila ble Summary Purpose DataExchange Insurance Providers Payer name Policy type / Coverage type Covered constitution party ID Effective Begin Date Effective End Date [employer] [facility] [id number] Unknown Unknown Family history Father Diagnosis Age [...] cessation counseling) 12/19/[address]: 926157337 Never drinks alco hol 12/19/2023 Illegal/Recreational drug [...] 12/19/2023 No Inactive Date Active Biaxin RxNorm: 286852 07/29/2013 No Inactive Da te Active Problems [...] Suboxone 8 mg-2 mg sublingual film RxNorm: 2830305 Take 1 Tablet(s) Sublingual every day 4 01/17/20 24 Inactive Stiolto Respimat 2.5 mcg-2.5 mcg/actuation solution for inhalation RxNorm: 0001156 Inhale 2 Puff(s) Inhalation every day 4 03/17/20 24 Inactive Vraylar 3 mg capsule RxNorm: 4256314 Administer 1 Capsule(s) Oral every day 4 03/17/20 24 Inactive Enbrel 50 mg/mL (1 mL) subcutaneous syringe RxNorm: 303399 Inject 1 Unit(s) Subcutaneous 1 time a week 4 01/17/20 24 Inactive calcium 600 mg-D3 20 mcg-magnesium 40 id-[id number] inc chew tablet RxNorm: Take 1 Tablet(s) Oral two times a day 4 03/17/20 24 Inactive fluticasone (FLONASE) 50 MCG/ACT nasal spray RxNorm: 8359494 nasl 2 No Stop Date Active Ventolin HFA 108 (90 Base) MCG/ACT inhaler RxNorm: 437124 inhl 1 No Stop Date Active lamoTRIgine (LaMICtal) 150 MG tablet RxNorm: 648881 oral 1 No Stop Date Active ibuprofen (ADVIL,MOTRIN) 800 MG tablet RxNorm: 896479 Take 1,600 mg by mouth 2 (Two) Times a Day. 1 No Stop Date Active Medication Administered No Medication Administered data Results Observation Observation Code Item Item Code Result Date Service Location No Orders UA NoOrdersUA NO ORDERS UA 0.00 26/06 024 [facility] [address] [place] [address] URINALYSIS AUTO W/SCOPE 39447 Glucose 2345-7 Negative mg/dL 024 [facility] [address] [place] [address] URINALYSIS AUTO W/SCOPE 04688 Protein Negative mg/dL 024 [facility] [address] [place] [address] URINALYSIS AUTO W/SCOPE 36749 Bilirubin Negative mg/dL 024 [facility] [address] [place] [address] URINALYSIS AUTO W/SCOPE 44839 Urobilinogen Negative mg/dL 024 [facility] [address] [place] [address] URINALYSIS AUTO W/SCOPE 61063 Ph 6.50 024 [facility] [address] [place] [address] 31016 URINALYSIS AUTO W/SCOPE 02431 Blood Negative mg/dL 024 [facility] [address] [place] [address] URINALYSIS AUTO W/SCOPE 59772 Ketones Negative mg/dL 024 [facility] [address] [place] [address] URINALYSIS AUTO W/SCOPE 42669 Nitrite Negative 024 [facility] [address] [place] [address] URINALYSIS AUTO W/SCOPE 92097 Leukocytes Negative Praneeth/uL 024 [facility] [address] [place] [address] 35883 URINALYSIS AUTO W/SCOPE 08767 Clarity Clear 024 [facility] [address] [place] [address] URINALYSIS AUTO W/SCOPE 78374 Specific [place] 1.019 024 [facility] [address] [place] [address] URINALYSIS AUTO W/SCOPE 82299 Color Light-Yello w 024 [facility] [address] [place] [address] URINALYSIS AUTO W/SCOPE 14464 Red Blood Cell <1 /HPF #/HPF 024 [facility] [address] [place] [address] URINALYSIS AUTO W/SCOPE 84878 SQUAMOUS EPITHELIAL <1 /HPF #/HPF 024 [facility] [address] [place] [address] URINALYSIS AUTO W/SCOPE 27620 White Blood Cell 3 /HPF #/HPF 024 [facility] [address] [place] [address] URINALYSIS AUTO W/SCOPE 51564 Bacteria Trace graded/HPF 024 [facility] [address] [place] [address] URINALYSIS AUTO W/SCOPE 33866 Calcium Oxalate Crystal MANY graded/HPF 024 [facility] [address] [place] [address] URINALYSIS AUTO W/SCOPE 14890 Mucous RARE grades/LPF 024 [facility] [address] [place] [address] Urine Culture and Sensitivity Reflexed from [facility] Urine Culture & Sensitivity SEE COMMENT 024 [facility] [address] [place] [address] Manual Diff MDIFF Neutrophils 70538-7 64.0 % 024 [facility] [address] [place] [address] Manual Diff MDIFF Lymphocytes 16461-6 30.0 % 024 [facility] [address] [place] [address] Manual Diff MDIFF Monocytes 05061-9 3.0 % 024 [facility] [address] [place] [address] Manual Diff MDIFF Eosinophils 27311-4 2.0 % 024 [facility] [address] [place] [address] Manual Diff MDIFF Basophils 43477-4 1.0 % 024 [facility] [address] [place] [address] Manual Diff MDIFF Absolute Neut 97885-8 4416 /ul 11/30 07/31 024 [facility] [address] [place] [address] Manual Diff MDIFF Absolute Lymph 61381-5 2070 /ul 24/06 024 [facility] [address] [place] [address] Manual Diff MDIFF Absolute [place] 87939-3 207 /ul 08/07/31 024 [facility] [address] [place] [address] Manual Diff MDIFF Platelet Estimate 9317-9 Normal 024 [facility] [address] [place] [address] Manual Diff MDIFF Absolute Eos 46571-4 138 /ul 12/22 024 [facility] [address] [place] [address] Manual Diff MDIFF Echinocytes 7790-9 2+ 024 [facility] [address] [place] [address] Manual Diff MDIFF Poikilocytosis 779-9 2+ 24/06 024 [facility] [address] [place] [address] Manual Diff MDIFF Absolute Baso 01355-3 69 /ul 11/30 07/31 024 [facility] [address] [place] [address] COMPLETE CBC W/ DIFF WBC 54280 WBC 6690-2 6.9 K/ul 024 [facility] [address] [place] [address] COMPLETE CBC W/ DIFF WBC 68244 RBC 789-8 4.29 M/uL 024 [facility] [address] [place] [address] COMPLETE CBC W/ DIFF WBC 14390 Hemoglobin 718-7 13.3 g/dL 024 [facility] [address] [place] [address] COMPLETE CBC W/ DIFF WBC 30488 Hematocrit 4544-3 41.0 % 024 [facility] [address] [place] [address] COMPLETE CBC W/ DIFF WBC 74160 MCV 787-2 95.7 fL 024 [facility] [address] [place] [address] COMPLETE CBC W/ DIFF WBC 73041 MCH 785-6 31.1 pg 024 [facility] [address] [place] [address] COMPLETE CBC W/ DIFF WBC 54763 MCHC 786-4 32.5 g/dL 024 [facility] [address] [place] [address] COMPLETE CBC W/ DIFF WBC 67547 RDW 788-0 14.2 % 024 [facility] [address] [place] [address] COMPLETE CBC W/ DIFF WBC 96615 Platelet Count 777-3 311 K/uL 024 [facility] [address] [place] [address] COMPLETE CBC W/ DIFF WBC 78781 MPV 51633-0 8.0 fL 024 [facility] [address] [place] [address] 909[address] No Orders No Orders No Orders 0 024 [facility] [address] [place] [address] TRIGLYCERIDES 92820 Triglycerides 2571-8 173 mg/dL 024 [facility] [address] [place] [address] TRIGLYCERIDES 87332 VLDL 03369-1 35 mg/dL 024 [facility] [address] [place] [address] VITAMIN D 29681 Vitamin D 36688-8 27.0 ng/mL 0[address] [facility] [address] [place] [address] 21519 MICROALBUMIN (URINE) 13956 Microalbumin 39328-4 2.1 mg/dL 024 [facility] [address] [place] [address] 55735 MICROALBUMIN (URINE) 92181 Microalbumin/Crea tinine Ratio 83809-1 27 MCG/MGCREAT 024 [facility] [address] [place] [address] 88190 MICROALBUMIN (URINE) 91398 Urine Creatinine 2161-8 77.70 mg/dL 024 [facility] [address] [place] [address] 12661 CHOLESTEROL 67314 Cholesterol 2093-3 165 mg/dL 024 [facility] [address] [place] [address] 73722 Direct LDL 87213 LDL-Direct 92209-3 96 mg/dL 024 [facility] [address] [place] [address] 59568 FREE T-4 13712 FT4 3024-7 1.05 ng/dL 024 [facility] [address] [place] [address] 08713 HDL - CHOL 45911 HDL 2085-9 41 mg/dL 024 [facility] [address] [place] [address] 02781 HDL - CHOL 90178 [facility] 88074-3 25 % 024 [facility] [address] [place] [address] Urine Culture and Sensitivity Reflexed from [facility] Urine Culture & Sensitivity SEE COMMENT 024 [facility] [address] [place] [address] FREE T-3 54393 FT3 3051-0 2.78 pg/mL 024 [facility] [address] [place] [address] URINALYSIS AUTO W/SCOPE 66966 Glucose 2345-7 NO SPECIMEN RECEIVED mg/dL 024 [facility] [address] [place] [address] URINALYSIS AUTO W/SCOPE 98685 Protein NO SPECIMEN RECEIVED mg/dL 024 [facility] [address] [place] [address] URINALYSIS AUTO W/SCOPE 12270 Bilirubin NO SPECIMEN RECEIVED mg/dL 024 [facility] [address] [place] [address] URINALYSIS AUTO W/SCOPE 19237 Urobilinogen NO SPECIMEN RECEIVED mg/dL 024 [facility] [address] [place] [address] 470[address] URINALYSIS AUTO W/SCOPE 37198 Ph NO SPECIMEN RECEIVED 024 [facility] [address] [place] [address] 48457 URINALYSIS AUTO W/SCOPE 86557 Blood NO SPECIMEN RECEIVED mg/dL 024 [facility] [address] [place] [address] 56187 URINALYSIS AUTO W/SCOPE 41133 Ketones NO SPECIMEN RECEIVED mg/dL 024 [facility] [address] [place] [address]702 URINALYSIS AUTO W/SCOPE 48228 Nitrite NO SPECIMEN RECEIVED 024 [facility] [address] [place] [address] 17814 URINALYSIS AUTO W/SCOPE 14529 Leukocytes NO SPECIMEN RECEIVED Praneeth/uL 024 [facility] [address] [place] [address]79[address] URINALYSIS AUTO W/SCOPE 80723 Clarity NO SPECIMEN RECEIVED 024 [facility] [address] [place] [address] URINALYSIS AUTO W/SCOPE 51668 Specific [place] NO SPECIMEN RECEIVED 024 [facility] [address] [place] [address] URINALYSIS AUTO W/SCOPE 36455 Color NO SPECIMEN RECEIVED [facility] [address] [place] [address] 79594 CHEM 14 (METABOLIC PANEL) 09975 Glucose 2345-7 144 mg/dL [facility] [address] [place] [address] 32198 CHEM 14 (METABOLIC PANEL) 69052 BUN 3094-0 13 mg/dL 024 [facility] [address] [place] [address] 59427 CHEM 14 (METABOLIC PANEL) 70181 Creatinine 2160-0 0.9 mg/dL [facility] [address] [place] [address] 31480 CHEM 14 (METABOLIC PANEL) 89468 BUN/Creat Ratio 3097-3 14.1 [facility] [address] [place] [address] 22660 CHEM 14 (METABOLIC PANEL) 90265 GFR Estimated 85134-0 69 mL/min/1.73 m2 [facility] [address] [place] [address] 17360 CHEM 14 (METABOLIC PANEL) 51343 Sodium 2951-2 139 mmol/L [facility] [address] [place] [address] 85697 CHEM 14 (METABOLIC PANEL) 19945 Potassium 2823-3 4.0 mmol/L [facility] [address] [place] [address] 47900 CHEM 14 (METABOLIC PANEL) 13016 Chloride 2075-0 104 mmol/L [facility] [address] [place] [address] 00657 CHEM 14 (METABOLIC PANEL) 47818 Total CO2 2028-9 30 mmol/L [facility] [address] [place] [address] 33803 CHEM 14 (METABOLIC PANEL) 34225 Anion Gap 1863-0 9.0 mEq/L [facility] [address] [place] [address] 80050 CHEM 14 (METABOLIC PANEL) 24865 Calculated Serum Osmolality 02768-6 291 mOsm/kg [facility] [address] [place] [address] 76897 CHEM 14 (METABOLIC PANEL) 98632 Albumin 32187-6 4.0 g/dL [facility] [address] [place] [address] 95319 CHEM 14 (METABOLIC PANEL) 51987 Total Protein 2885-2 7.9 g/dL 024 [facility] [address] [place] [address] CHEM 14 (METABOLIC PANEL) 11470 Globulin 2336-6 3.9 g/dL 024 [facility] [address] [place] [address] CHEM 14 (METABOLIC PANEL) 63965 Albumin/Globulin Ratio 1759-0 1.0 024 [facility] [address] [place] [address] CHEM 14 (METABOLIC PANEL) 58708 ALK PHOS 6768-6 80.00 U/L 024 [facility] [address] [place] [address] CHEM 14 (METABOLIC PANEL) 31137 SGOT/AST 1920-8 17 U/L 024 [facility] [address] [place] [address] CHEM 14 (METABOLIC PANEL) 81448 SGPT/ALT 1743-4 24 U/L 024 [facility] [address] [place] [address] 11604 CHEM 14 (METABOLIC PANEL) 89585 Total Bilirubin 1975-2 0.3 mg/dL 024 [facility] [address] [place] [address] 47887 CHEM 14 (METABOLIC PANEL) 91600 Calcium 98055-6 9.2 mg/dL 024 [facility] [address] [place] [address] CHEM 14 (METABOLIC PANEL) 59992 Corrected Calcium 47142-6 9.4 mg/dL 024 [facility] [address] [place] [address] [id number] BIN 4548-4 Glyco HGB A1C 18645-7 5.7 % 024 [facility] [address] [place] [address] 76616 [id number] BIN 4548-4 eAG 12067-1 117 mg/dL 024 [facility] [address] [place] [address] TSH 28482 TSH 86909-5 2.760 uIU/mL 024 [facility] [address] [place] [address] Procedures Procedure Codes Date Most recent A1c < 7.0% CPT-4: 3044F 5 Most recent A1c < 7.0% CPT-4: 3044F 4 Most recent A1c < 7.0% CPT-4: 3044F 4 MED LIST DOCD IN [facility] CPT-4: 1159F 12/19/2023 RVW MEDS BY RX/DR IN [facility] CPT-4: 1160F 2023 Amnt pain noted; pain prsnt CPT-4: 1125F 11/30 LOW RISK FOR RETINOPATHY CPT-4: 3072F 024 Screening for clinical depre ssion is negative, follow-up plan not required CPT-4: G8510 12/19/2023 [id number] CPT-4: 66065 Unknown Vital Signs Date Vital 12/19/2023 Blood Pressure 1: 120/79 Code: 8480-6 BMI: 25.6 Code: 07961-7 Heart Rate 1: 76 bpm Height: 5'2 Code: 8302-2 Respiratory Rate: 16 bpm SpO2: 95% Temperature: 36.7 (C) / 98.0 (F) Weight: 140 lbs 2 oz Code: 42104-1 Reason For Visit Reason For Visit Effective Dates Notes new patient welcome visit 12/19/2023 Encounters Encounter Performer Location Location Address Codes Date (42265) Other Reason/Patient not seen Diagnosis: Patient not seen[ICD10: UXZ.01] [facility] Office [facility] [place] [address] CPT-4: 29142 05/23/2024 (83850) No answer/Patient not seen Diagnosis: Patient not seen[ICD10: UXZ.01] [facility] Office [address] [place] [address] CPT-4: 07896 04/19/2024 (IND) Independent Lab Draw Diagnosis: Patient not seen[ICD10: UXZ.01] [place] [facility] [place] [facility] [place] [address] CPT-4: IND 12/22/2023 (78157) Home or Residence Visit ARCHITECTURAL MODELER - Moderate Level, 60 mins Diagnosis: Encounter for general adult medical examination without abnormal findings[ICD10: Z00.00] Diagnosis: Bipolar 2 disorder[ICD10: F31.81] Diagnosis: Chronic obstructive pulmonary disease, unspecified COPD type[ICD10: J44.9] Diagnosis: Generalized anxiety disorder[ICD10: F41.1] Diagnosis: Opioid dependence in remission[ICD10: F11.21] Diagnosis: Osteopenia, unspecified location[ICD10: M85.80] Diagnosis: Rheumatoid arthritis with positive rheumatoid factor, involving unspecified site[ICD10: M05.9] Marci Hilldeena [place] [facility] [address] [address] CPT-4: 86703 12/19/2023 Plan of Care Planned Activity Notes Codes Status Date Appointment: Marci Swan WPtel: [address] [place], [place] [id number] 05/23/2024 Patient Education: Patient Medication Summary Completed 05/23/2024 Appointment: Beny Marci WPtel: [address] [place], [place] [id number] 04/19/2024 Patient Education: Patient Medication Summary Completed 04/19/2024 Appointment: TERESA, NOTE Follow Up Appointment: TERESA, NOTE CHW - Referra 12/25/2023 Appointment: TERESA, NOTE Phone Call Patient Education: Patient Medication Summary Completed 12/25/2023 Patient Education: Patient Medication Summary Completed 12/25/2023 Appointment: Office, [place] [address] 12/22/2023 Patient Education: Patient Medication Summary Completed [...] of care. 12/19/2023 Appointment: Marci Swan WPtel: [address] [place], [place] [phone] [facility] 12/19/2023 Patient Education: Patient Medication Summary Completed 12/19/2023 Patient Education: Obesity Completed 12/19/2023 Care Plan: eGFR KHE Pending Care Plan: Microalbumin (Urine) KHE Pending 12/19/2023 Referral: Food Insecurity Referral Initiated Referral: [facility] WPtel: [address] [place] [address] Counseling & Psychiatry [address] [place] [address] Order Faxed Instructions Comment Date v. Encounter [...]
[2024-10-17 16:10] LABS: Basophils % 0.3 % (0.1-2.0); Eosinophils # 0.1 Kmm3 (0.0-0.4); Eosinophils % 1.1 % (0.1-12.0); Hemoglobin 13.1 g/dL (12.2-16.2); Immature Granulocytes # 0.01 10^3uL; Immature Granulocytes % 0.1 %; Lymphocytes # 3.8 K/mm3 (0.7-4.5); Lymphocytes % 41.5 % (10-50); Mean Corpuscular HGB Conc 32.8 g/dL (31.8-35.4); Mean Corpuscular Volume 91.5 fl (81-99); Mean Platelet Volume 8.5 fl (7.4-10.4); Monocytes # 0.8 K/mm3 (0.1-1.0); Neutrophils # 4.4 K/mm3 (1.8-7.8); Nucleated Red Blood Cells # 0 10^3/uL; Nucleated Red Blood Cells % 0 %; Platelet Count 340 K/mm3 (142-424); Red Blood Count 4.37 M/mm3 (4.20-5.40); Red Cell Distribution Width 12.5 % (11.5-17.5); Red Cell Distribution Width-SD 41.9 fL; White Blood Count 9.3 K/mm3 (4.8-10.8)
[2024-10-17 16:19] LABS: D-Dimer 0.57 ug/mL (0.0-0.5)
[2024-10-17 16:26] LABS: Alanine Aminotransferase 17 U/L (12-78); Albumin Level 4.2 g/dl (3.5-5.0); Albumin/Globulin Ratio 1.2 (1.1-1.8); Alkaline Phosphatase 82 U/L (38-126); Anion Gap 7.8 mEq/L (5-15); Aspartate Amino Transferase 24 U/L (14-36); Bilirubin,Total 0.3 mg/dl (0.2-1.3); Blood Urea Nitrogen 16 mg/dl (7-17); Calcium 10.4 mg/dl (8.4-10.2); Carbon Dioxide 30 mmol/L (22.0-30.0); Chloride 101 mmol/L (98-107); Estimated Glomerular Filt Rate 72 ml/min (>60); GFR (African American) 87 ML/MIN (>60); Globulin 3.4 g/dL (1.3-3.2); Glucose 88 mg/dl (74-100); Phosphorous 3.7 mg/dl (2.5-4.5); Potassium 4.8 mmoL/L (3.5-5.1); Sodium 134 mmol/L (136-145); Total Protein,Serum 7.6 g/dl (6.3-8.2)
[2024-10-17 16:42] LABS: 25-OH Vitamin D, Total 48.5 ng/mL (30-100)
[2024-10-17 17:02] LABS: Ferritin 36.4 ng/ml (11.1-264)
[2024-10-17 17:16] LABS: Vitamin B12 397 pg/mL (239-931)
[2024-10-17 17:55] LABS: Iron 72 ug/dL (37-170)
[2024-10-17 18:04] LABS: Total Iron Binding Capacity 366 ug/dL (265-497)
== END 2024-10-17 23:59 | disposition home or self-care (01) ==
LOC: LAB 15:04
PROVIDERS: PCP Internal Medicine; Visit Provider Nurse Practitioner Family
DX: J98.11 Atelectasis (principal); D64.9 Anemia, unspecified; H93.299 Other abnormal auditory perceptions, unspecified ear; Q82.8 Other specified congenital malformations of skin; R41.3 Other amnesia
CPT/HCPCS: 36415; 71046; 80053; 82306; 82607; 82728; 82746; 83540; 83550; 83735; 84100; 85025; 85378

== ENCOUNTER 2024-10-21 13:41 | Outpatient (CLI) | payer MEDICARE, MEDICAID, SELFPAY ==
--- NOTE | 2024-10-21 13:45 | CT_ITS ---
FINAL REPORT TECHNIQUE: Postcontrast axial images of the chest were performed in a CTA protocol. This study was performed with techniques to keep radiation doses as low as reasonably achievable, (ALARA). Individualized dose reduction technique using automated exposure control or adjustment of mA and/or kV according to the patient's size were employed. CLINICAL HISTORY: elevated d-dimer, chest pain COMPARISON: 04/08/2024 FINDINGS: The heart is normal in size. No adenopathy is identified. No pleural or pericardial effusion is identified. The thoracic aorta is normal in caliber with no focal aneurysm or dissection identified. There is no filling defect to suggest pulmonary embolism. No lung infiltrate or mass is identified. The images of the upper abdomen are unremarkable. IMPRESSION: No evidence for PE on this exam. Reviewed, Interpreted and Dictated by Katina Chapman MD Transcribed by She Mayen Authenticated and [facility]
--- OUTSIDE RECORDS SUMMARY | 2024-10-21 13:45 | XMS_ITS | Clinical Summary ---
Author Organization [facility] Address [address] [place] [address] Care Team Providers Care Dowel Pin Man Name Role Phone DonovanPreston yancey Briseyda JENKINS Primary Care Provider [phone] Allergies Active Allergy Reactions Criticality Noted Date [...] Influenza, seasonal, injectable, preservative free 03/20/2014, 05/19/2016 Kongregate COVID-19 Vaccine (Purple Cap) 12+ 06/30/2020, 07/21/2020 [...] has been counseled on tobacco cessation: Yes. rib stiffener and heel dipper effects of continued use such as but not limited to lung cancer, oral cavity cancer, CAD, PAD, ASCVD etc were discussed with the patient. Time spent in counseling was between 3-10 mins (00262). The following tobacco cessation resources were provided [...] patient would like second opinion; referred to [facility] 06/2022. Assessment & Plan (07/24/2022 [...] patient would like second opinion; referred to [facility] 06/2022. Assessment & Plan (04/22/2021 [...] with sleep medicine at , referred to [facility] 06/2022. Seropositive rheumatoid arthritis of multiple rosie [...] Influenza, seasonal, injecta ble, preservative free 05/19/2016,03/20/2014 Kongregate COVID-19 Vac cine (Purple Cap) 12+ 07/21/2020,06/30/2020 [...] Description 11/25/2024 2:00 PM EDT Office Visit [facility] [address] [place] [address] Fletcher, May R, OVERLOCK OPERATOR [address] [place] [address] Health Maintenance Due Date Last [...] exists [facility]-Medicare Annual Wellness (AWV) 11/18/2023 11/17/2022 LGN-WHRII-14 Vaccine ( season) 2023 07/21/2020, 06/30/2020 [facility]-Influenza [...] Adults <6.0% Children and Adolescents <7.5% Source: [place] [employer]. Standards of medical care in diabetes,2017. Diabetes Care.2017:40 (suppl 1):S1-S135. HbA1c assay performed by an ion-exchange chromatography method that is certified traceable to the DCCT. us Kristal Carpenter DO LAB BLOOD ORDERABLES Final Res [facility] [address] [place] [address] * Pap Test (11/17/2022 9:27 AM EDT) Case Report Cytology Case: [id number] Authorizing Provider: Kristal Carpenter DO Collected: 11/17/2022 0927 Ordering Location: [facility] Received: 11/18/2022 1109 Internal Medicine First Screen: Alberta Quiroz Specimen: ThinPrep Pap Test, Liquid-Based Cervical/Vaginal 11/29/2022 11:35 AM EDT [facility] Interpretation NEGATIVE FOR INTRAEPITHELIAL LESION OR MALIGNANCY 11/29/2022 11:35 AM EDT [facility] at 1135 EDT Specimen Adequacy Satisfactory for evaluation; endocervical/alcantar sformation zone component present. Slide scanned and imaged by ThinPrep Imaging System with manual review of all selected farah. 11/29/2022 11:35 AM EDT [facility] Cervical cytology is a screening [...] results is suggested (please call Microbiology at [phone] for results). 11/29/2022 11:35 AM EDT [facility] Menstrual Status Post-Menopausal 05/2022 11:35 AM EDT [facility] Contraceptive History Not Applicable 11/29/2022 11:35 AM EDT [facility] Screening Type Routine Screen 2022 11:35 AM EDT [facility] High Risk? No 11/29/2022 11:35 AM EDT [facility] HPV Testing Requested? Request HPV Testing Regardless of Pap Test Findings 11/29/2022 11:35 AM EDT [facility] Previous Cancer History No 11/29/2022 11:35 AM EDT [facility] Clinical Information Z00.00 - Medicare annual wellness visit, subsequent [ICD-10-CM] Z00.00 - Healthcare maintenance [ICD-10-CM] Z12.4 - Encounter for Papanicolaou smear for cervical cancer screening [ICD-10-CM] 11/29/2022 11:35 AM EDT [facility] Swab Vaginal and cervical cytologic material / Unknown Non-blood Collection / Unknown 11/17/2022 9:27 AM EDT 11/18/2022 11:09 AM EDT us Kristal Carpenter DO LAB CYTOLOGY ORDERABLES Final Result [facility] [address] [place] [address] * CT Chest Lung Cancer Screening (09/21/2022 2:30 PM EDT) Anatomical Region Laterality Modality Chest Computed Tomogra phy Addenda Addendum by Markell Mary MD on 09/27/2022 8:25 AM EDT ADDENDUM: Please note there is a rim buster error in the original Recommendations section that [...] A) Negative 05/24/2022 5:38 PM EST [facility] Comment:This specimen is leonel ng sent for confirmation by RT-PCR. Blood Venous blood specimen / Unknown Venipuncture / Unknown 05/24/2022 1:18 PM EST 05/24/2022 1:20 PM EST us Marlen Berry DO LAB BLOOD ORDERABLES Final Re sult [facility] [address] [place] [address] * Mammography Breast Screening Tomosynthesis Bilateral (07/16/2021 [...] to: 01/21/2010 Mammography Outside Images Upload at [facility] 01/27/2011 Mammography Outside Images Upload at [facility] 07/10/2012 Mammography Outside Images Upload at [facility] 07/19/2012 Mammography Outside Images Upload at [facility] 10/28/2016 Mammography Outside Images Upload at [facility] BREAST COMPOSITION: The breasts are almost entirely [...] Insurance ANTH MEDICARE AETNA MEDICARE Care Teams Dowel Pin Man Relationship Specialty Start Date End Date Preston Man DO [address] [place] [address] [place] [id number] PCP - General 05/27/24
--- OUTSIDE RECORDS SUMMARY | 2024-10-21 13:46 | XMS_ITS | Encounter Summary ---
Author Organization [facility] Address [address] [place] [address] Care Team Providers Care 7Th Grade Teacher Name Role Phone Sofia Nguyen MD Primary Care Provider [phone] Tk Garg MD Primary Care Provider Lisseth Palacios APRN Primary Care Provider + Kristal Carpenter DO Primary Care Provider [phone] Preston Man DO Primary Care Provider [phone] Preston Man DO Primary Care Provider [phone] Reason for Visit * Reason Onset Date Comments Appointment 10/10/2020 Patient difficul t to keep awake. Encounter Details Date Type Department Care Team (Late st Contact Info) Description 10/10/2020 Refill [facility] [address] [place] [address] Marlen Owens MD [address] [place] [address] Social History Tobacco Use Types [...] patient keeps drifting in andout of sleep. 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 did not know the name of the [...] Description 11/25/2024 2:00 PM EDT Office Visit [facility] [address] [place] [address] Hemalatha Bynum R, OPTIMIZATION CONSULTANT [address] [place] [address] documented as of this encounter Visit Diagnoses Not on filedocumented in this encounter Additional Health Concerns Infection Onset Date Last Indicated Resolved Time COVID-19 Rule-Out 03/27/2021 03/27/2021 03/27/2021 11:29 AM EST COVID-19 Rule-Out 05/24/2022 05/24/2022 05/24/2022 2:20 PM EST COVID 19 (Confirmed) 05/24/2022 05/24/2022 023 5:23 AM EST documented as of this encounter Care Teams 7Th Grade Teacher Relationship Specialty Start Date End Date Sofia Nguyen MD [address] [place] [address] [address] [place] [address] PCP - General 09/11/20 10/15/20 Tk Garg MD [address] [place] [address] PCP - General Family Medicine 10/16/20 03/27/22 Lisseth Palacios, OPTIMIZATION CONSULTANT [address] [place] [address] PCP - General 03/28/22 07/13/22 Kristal Carpenter DO [address] [place] [id number] PCP - General Internal Medicine 07/14/22 08/13/23 Preston Man DO [address] [place] [address] [place] [address] PCP - General 08/14/23 10/26/23 Preston Man DO [address] [place] [address] PCP - General 05/27/24 documented as of this encounter
[2024-10-21] MEDS: 0.9 % SODIUM CHLORIDE 50 ML VIAL IV (14:10)
[2024-10-21] MEDS: SODIUM CHLORIDE 0.9% 10ML SYR (RAD ONLY) 10 ML IV (14:10)
[2024-10-21] MEDS: IOPAMIDOL-370 (76%);100ML BOTTLE 85 ML IV (14:10)
--- OUTSIDE RECORDS SUMMARY | 2024-10-21 14:45 | XMS_ITS | CCD ---
Author Name Beny BLANTON, Marci Address [address] [facility] [address] [place] [address] Phone Organization [facility] Phone Care Team Providers Care Major Account Manager Name Role Phone Unavailable Primary Care Provider Unavailabl e Unavailable Chronic Care Management Unavaila ble Summary Purpose DataExchange Insurance Providers Payer name Policy type / Coverage type Covered libertarian ID Effective Begin Date Effective End Date [employer] [facility] [id number] Unknown Unknown Family history Father Diagnosis Age [...] cessation counseling) 12/19/[address]: [id number] Never drinks alco hol 12/19/2023 Illegal/Recreational drug [...] 12/19/2023 No Inactive Date Active Biaxin RxNorm: 873521 07/29/2013 No Inactive Da te Active Problems [...] Suboxone 8 mg-2 mg sublingual film RxNorm: 3772494 Take 1 Tablet(s) Sublingual every day 4 01/17/20 24 Inactive Stiolto Respimat 2.5 mcg-2.5 mcg/actuation solution for inhalation RxNorm: 3806798 Inhale 2 Puff(s) Inhalation every day 4 03/17/20 24 Inactive Vraylar 3 mg capsule RxNorm: 7495220 Administer 1 Capsule(s) Oral every day 4 03/17/20 24 Inactive Enbrel 50 mg/mL (1 mL) subcutaneous syringe RxNorm: 457786 Inject 1 Unit(s) Subcutaneous 1 time a week 4 01/17/20 24 Inactive calcium 600 mg-D3 20 mcg-magnesium 40 go-nadaiz-zrpu-z inc chew tablet RxNorm: Take 1 Tablet(s) Oral two times a day 4 03/17/20 24 Inactive fluticasone (FLONASE) 50 MCG/ACT nasal spray RxNorm: 7202459 nasl 2 No Stop Date Active Ventolin HFA 108 (90 Base) MCG/ACT inhaler RxNorm: 318425 inhl 1 No Stop Date Active lamoTRIgine (LaMICtal) 150 MG tablet RxNorm: 818931 oral 1 No Stop Date Active ibuprofen (ADVIL,MOTRIN) 800 MG tablet RxNorm: 396484 Take 1,600 mg by mouth 2 (Two) Times a Day. 1 No Stop Date Active Medication Administered No Medication Administered data Results Observation Observation Code Item Item Code Result Date Service Location No Orders UA NoOrdersUA NO ORDERS UA 0.00 26/06 024 [facility] [address] [place] [address] Urine Culture and Sensitivity Reflexed from [facility] Urine Culture & Sensitivity SEE COMMENT 024 [facility] [address] [place] [address] URINALYSIS AUTO W/SCOPE 75340 Glucose 2345-7 Negative mg/dL 024 [facility] [address] [place] [address] URINALYSIS AUTO W/SCOPE 13992 Protein Negative mg/dL 024 [facility] [address] [place] [address] URINALYSIS AUTO W/SCOPE 67050 Bilirubin Negative mg/dL 024 [facility] [address] [place] [address] URINALYSIS AUTO W/SCOPE 43303 Urobilinogen Negative mg/dL 024 [facility] [address] [place] [address] URINALYSIS AUTO W/SCOPE 41155 Ph 6.50 024 [facility] [address] [place] [address] URINALYSIS AUTO W/SCOPE 91879 Blood Negative mg/dL 024 [facility] [address] [place] [address] URINALYSIS AUTO W/SCOPE 57295 Ketones Negative mg/dL 024 [facility] [address] [place] [address] URINALYSIS AUTO W/SCOPE 58787 Nitrite Negative 024 [facility] [address] [place] [address] URINALYSIS AUTO W/SCOPE 70803 Leukocytes Negative Praneeth/uL 024 [facility] [address] [place] [address] URINALYSIS AUTO W/SCOPE 17734 Clarity Clear 024 [facility] [address] [place] [address] URINALYSIS AUTO W/SCOPE 36906 Specific [place] 1.019 024 [facility] [address] [place] [address] URINALYSIS AUTO W/SCOPE 43117 Color Light-Yello w 024 [facility] [address] [place] [address] URINALYSIS AUTO W/SCOPE 28934 Red Blood Cell <1 /HPF #/HPF 024 [facility] [address] [place] [address] URINALYSIS AUTO W/SCOPE 06481 SQUAMOUS EPITHELIAL <1 /HPF #/HPF 024 [facility] [address] [place] [address] URINALYSIS AUTO W/SCOPE 72062 White Blood Cell 3 /HPF #/HPF 024 [facility] [address] [place] [address] URINALYSIS AUTO W/SCOPE 45735 Bacteria Trace graded/HPF 024 [facility] [address] [place] [address] URINALYSIS AUTO W/SCOPE 85255 Calcium Oxalate Crystal MANY graded/HPF 024 [facility] [address] [place] [address] URINALYSIS AUTO W/SCOPE 51376 Mucous RARE grades/LPF 024 [facility] [address] [place] [address] Manual Diff MDIFF Neutrophils 03556-9 64.0 % 024 [facility] [address] [place] [address] Manual Diff MDIFF Lymphocytes 75349-2 30.0 % 024 [facility] [address] [place] [address] Manual Diff MDIFF Monocytes 41653-4 3.0 % 024 [facility] [address] [place] [address] Manual Diff MDIFF Eosinophils 77947-2 2.0 % 024 [facility] [address] [place] [address] Manual Diff MDIFF Basophils 03777-9 1.0 % 024 [facility] [address] [place] [address] Manual Diff MDIFF Absolute Neut 30528-8 4416 /ul 11/30 07/31 024 [facility] [address] [place] [address] Manual Diff MDIFF Absolute Lymph 39920-8 2070 /ul 24/06 024 [facility] [address] [place] [address] Manual Diff MDIFF Absolute [place] 47319-5 207 /ul 08/07/31 024 [facility] [address] [place] [address] Manual Diff MDIFF Platelet Estimate 9317-9 Normal 024 [facility] [address] [place] [address] Manual Diff MDIFF Absolute Eos 48903-7 138 /ul 12/22 024 [facility] [address] [place] [address] Manual Diff MDIFF Echinocytes 7790-9 2+ 024 [facility] [address] [place] [address] Manual Diff MDIFF Poikilocytosis 779-9 2+ 24/06 024 [facility] [address] [place] [address] Manual Diff MDIFF Absolute Baso 04146-9 69 /ul 11/30 07/31 024 [facility] [address] [place] [address] COMPLETE CBC W/ DIFF WBC 08258 WBC 6690-2 6.9 K/ul 024 [facility] [address] [place] [address] COMPLETE CBC W/ DIFF WBC 39029 RBC 789-8 4.29 M/uL 024 [facility] [address] [place] [address] COMPLETE CBC W/ DIFF WBC 61399 Hemoglobin 718-7 13.3 g/dL 024 [facility] [address] [place] [address] COMPLETE CBC W/ DIFF WBC 14858 Hematocrit 4544-3 41.0 % 024 [facility] [address] [place] [address] COMPLETE CBC W/ DIFF WBC 25162 MCV 787-2 95.7 fL 024 [facility] [address] [place] [address] COMPLETE CBC W/ DIFF WBC 70867 MCH 785-6 31.1 pg 024 [facility] [address] [place] [address] COMPLETE CBC W/ DIFF WBC 03860 MCHC 786-4 32.5 g/dL 024 [facility] [address] [place] [address] COMPLETE CBC W/ DIFF WBC 23440 RDW 788-0 14.2 % 024 [facility] [address] [place] [address] COMPLETE CBC W/ DIFF WBC 41605 Platelet Count 777-3 311 K/uL 024 [facility] [address] [place] [address] COMPLETE CBC W/ DIFF WBC 58097 MPV 82255-0 8.0 fL 024 [facility] [address] [place] [address] No Orders No Orders No Orders 0 024 [facility] [address] [place] [address] VITAMIN D 56842 Vitamin D 36007-4 27.0 ng/mL 024 [facility] [address] [place] [address] 23323 CHOLESTEROL 05981 Cholesterol 2093-3 165 mg/dL 024 [facility] [address] [place] [address] [facility] Urine Culture & Sensitivity SEE COMMENT 024 [facility] [address] [place] [address] 28019 [id number] BIN 4548-4 Glyco HGB A1C 10050-5 5.7 % 024 [facility] [address] [place] [address] 60093 [id number] BIN 4548-4 eAG 99603-9 117 mg/dL 024 [facility] [address] [place] [address] 78132 MICROALBUMIN (URINE) 33924 Microalbumin 76902-5 2.1 mg/dL 024 [facility] [address] [place] [address] 65173 MICROALBUMIN (URINE) 40937 Microalbumin/Crea tinine Ratio 14883-3 27 MCG/MGCREAT 024 [facility] [address] [place] [address] 14994 MICROALBUMIN (URINE) 07704 Urine Creatinine 2161-8 77.70 mg/dL 024 [facility] [address] [place] [address] 27418 TRIGLYCERIDES 31070 Triglycerides 2571-8 173 mg/dL 024 [facility] [address] [place] [address] 85343 TRIGLYCERIDES 74160 VLDL 41419-0 35 mg/dL 024 [facility] [address] [place] [address] TSH 81392 TSH 03297-1 2.760 uIU/mL [facility] [address] [place] [address] 60082 CHEM 14 (METABOLIC PANEL) 19068 Glucose 2345-7 144 mg/dL 024 [facility] [address] [place] [address] 04010 CHEM 14 (METABOLIC PANEL) 49359 BUN 3094-0 13 mg/dL [facility] [address] [place] [address] 65334 CHEM 14 (METABOLIC PANEL) 41188 Creatinine 2160-0 0.9 mg/dL [facility] [address] [place] [address] CHEM 14 (METABOLIC PANEL) 35163 BUN/Creat Ratio 3097-3 14.1 024 [facility] [address] [place] [address] 29510 CHEM 14 (METABOLIC PANEL) 30262 GFR Estimated 82084-1 69 mL/min/1.73 m2 [facility] [address] [place] [address] 02263 CHEM 14 (METABOLIC PANEL) 53300 Sodium 2951-2 139 mmol/L [facility] [address] [place] [address] 18189 CHEM 14 (METABOLIC PANEL) 78765 Potassium 2823-3 4.0 mmol/L [facility] [address] [place] [address] 18383 CHEM 14 (METABOLIC PANEL) 20905 Chloride 2075-0 104 mmol/L [facility] [address] [place] [address] 85337 CHEM 14 (METABOLIC PANEL) 20661 Total CO2 2028-9 30 mmol/L 024 [facility] [address] [place] [address] 79126 CHEM 14 (METABOLIC PANEL) 72537 Anion Gap 1863-0 9.0 mEq/L [facility] [address] [place] [address] 85513 CHEM 14 (METABOLIC PANEL) 44827 Calculated Serum Osmolality 45609-4 291 mOsm/kg 024 [facility] [address] [place] [address] 89457 CHEM 14 (METABOLIC PANEL) 74031 Albumin 64594-5 4.0 g/dL 024 [facility] [address] [place] [address] 06385 CHEM 14 (METABOLIC PANEL) 48838 Total Protein 2885-2 7.9 g/dL 024 [facility] [address] [place] [address] 81310 CHEM 14 (METABOLIC PANEL) 76636 Globulin 2336-6 3.9 g/dL 024 [facility] [address] [place] [address] 88407 CHEM 14 (METABOLIC PANEL) 75749 Albumin/Globulin Ratio 1759-0 1.0 024 [facility] [address] [place] [address] 35530 CHEM 14 (METABOLIC PANEL) 74927 ALK PHOS 6768-6 80.00 U/L 024 [facility] [address] [place] [address] 07701 CHEM 14 (METABOLIC PANEL) 34999 SGOT/AST 1920-8 17 U/L 024 [facility] [address] [place] [address] 55865 CHEM 14 (METABOLIC PANEL) 20219 SGPT/ALT 1743-4 24 U/L 024 [facility] [address] [place] [address] 61786 CHEM 14 (METABOLIC PANEL) 54150 Total Bilirubin 1975-2 0.3 mg/dL 024 [facility] [address] [place] [address] 15212 CHEM 14 (METABOLIC PANEL) 67760 Calcium 50029-5 9.2 mg/dL 024 [facility] [address] [place] [address] 78316 CHEM 14 (METABOLIC PANEL) 63828 Corrected Calcium 56202-2 9.4 mg/dL 024 [facility] [address] [place] [address] 76547 URINALYSIS AUTO W/SCOPE 40692 Glucose 2345-7 NO SPECIMEN RECEIVED mg/dL 024 [facility] [address] [place] [address] 73587 URINALYSIS AUTO W/SCOPE 17076 Protein NO SPECIMEN RECEIVED mg/dL 024 [facility] [address] [place] [address] 43805 URINALYSIS AUTO W/SCOPE 16129 Bilirubin NO SPECIMEN RECEIVED mg/dL 024 [facility] [address] [place] [address] 41920 URINALYSIS AUTO W/SCOPE 31870 Urobilinogen NO SPECIMEN RECEIVED mg/dL 024 [facility] [address] [place] [address] 29750 URINALYSIS AUTO W/SCOPE 12188 Ph NO SPECIMEN RECEIVED 024 [facility] [address] [place] [address] URINALYSIS AUTO W/SCOPE 81632 Blood NO SPECIMEN RECEIVED mg/dL 024 [facility] [address] [place] [address] URINALYSIS AUTO W/SCOPE 06663 Ketones NO SPECIMEN RECEIVED mg/dL 024 [facility] [address] [place] [address] URINALYSIS AUTO W/SCOPE 00571 Nitrite NO SPECIMEN RECEIVED 024 [facility] [address] [place] [address] URINALYSIS AUTO W/SCOPE 76688 Leukocytes NO SPECIMEN RECEIVED Praneeth/uL 024 [facility] [address] [place] [address] URINALYSIS AUTO W/SCOPE 46562 Clarity NO SPECIMEN RECEIVED 024 [facility] [address] [place] [address] URINALYSIS AUTO W/SCOPE 48803 Specific [place] NO SPECIMEN RECEIVED 024 [facility] [address] [place] [address] 22704 URINALYSIS AUTO W/SCOPE 65902 Color NO SPECIMEN RECEIVED 024 [facility] [address] [place] [address] 51155 FREE T-3 23685 FT3 3051-0 2.78 pg/mL 024 [facility] [address] [place] [address] 92521 HDL - CHOL 57172 HDL 2085-9 41 mg/dL 024 [facility] [address] [place] [address] 17038 HDL - CHOL 62445 CHD 12219-8 25 % 024 [facility] [address] [place] [address] 23229 FREE T-4 40151 FT4 3024-7 1.05 ng/dL 024 [facility] [address] [place] [address] 21348 Direct LDL 89875 LDL-Direct 02980-9 96 mg/dL 024 [facility] [address] [place] [address] 31857 Procedures Procedure Codes Date Most recent A1c < 7.0% CPT-4: 3044F 5 Most recent A1c < 7.0% CPT-4: 3044F 4 Most recent A1c < 7.0% CPT-4: 3044F 4 MED LIST DOCD IN [facility] CPT-4: 1159F 12/19/2023 RVW MEDS BY RX/DR IN [facility] CPT-4: 1160F 2023 Amnt pain noted; pain prsnt CPT-4: 1125F 11/30 LOW RISK FOR RETINOPATHY CPT-4: 3072F 024 Screening for clinical depre ssion is negative, follow-up plan not required CPT-4: G8510 12/19/2023 [id number] CPT-4: 41217 Unknown Vital Signs Date Vital 12/19/2023 Blood Pressure 1: 120/79 Code: 8480-6 BMI: 25.6 Code: 51020-1 Heart Rate 1: 76 bpm Height: 5'2 Code: 8302-2 Respiratory Rate: 16 bpm SpO2: 95% Temperature: 36.7 (C) / 98.0 (F) Weight: 140 lbs 2 oz Code: 83800-5 Reason For Visit Reason For Visit Effective Dates Notes new patient welcome visit 12/19/2023 Encounters Encounter Performer Location Location Address Codes Date (34034) Other Reason/Patient not seen Diagnosis: Patient not seen[ICD10: UXZ.01] [facility] Office [facility] [place] [address] CPT-4: 12824 05/23/2024 (60645) No answer/Patient not seen Diagnosis: Patient not seen[ICD10: UXZ.01] [facility] Office [address] [place] [address] CPT-4: 75041 04/19/2024 (IND) Independent Lab Draw Diagnosis: Patient not seen[ICD10: UXZ.01] [facility] [place] [address] CPT-4: IND 12/22/2023 (47487) Home or Residence Visit PASSENGER AGENT - Moderate Level, 60 mins Diagnosis: Encounter for general adult medical examination without abnormal findings[ICD10: Z00.00] Diagnosis: Bipolar 2 disorder[ICD10: F31.81] Diagnosis: Chronic obstructive pulmonary disease, unspecified COPD type[ICD10: J44.9] Diagnosis: Generalized anxiety disorder[ICD10: F41.1] Diagnosis: Opioid dependence in remission[ICD10: F11.21] Diagnosis: Osteopenia, unspecified location[ICD10: M85.80] Diagnosis: Rheumatoid arthritis with positive rheumatoid factor, involving unspecified site[ICD10: M05.9] Marci Hilldeena [facility] [address] [address] CPT-4: 80697 12/19/2023 Plan of Care Planned Activity Notes Codes Status Date Appointment: Marci Swan WPtel: [address] [place], [place] [id number] E031 05/23/2024 Patient Education: Patient Medication Summary Completed 05/23/2024 Appointment: Beny Marci WPtel: [address] [place], [place] [id number] E031 04/19/2024 Patient Education: Patient Medication Summary Completed 04/19/2024 Appointment: TERESA, NOTE Follow Up Appointment: TERESA, NOTE CHW - Referra 12/25/2023 Appointment: TERESA, NOTE Phone Call Patient Education: Patient Medication Summary Completed 12/25/2023 Patient Education: Patient Medication Summary Completed 12/25/2023 Appointment: Office, [place] [id number] 12/22/2023 Patient Education: Patient Medication Summary Completed [...] of care. 12/19/2023 Appointment: Marci Swan WPtel: [address] [place], [place] [id number] [facility] 12/19/2023 Patient Education: Patient Medication Summary Completed 12/19/2023 Patient Education: Obesity Completed 12/19/2023 Care Plan: eGFR KHE Pending Care Plan: Microalbumin (Urine) KHE Pending 12/19/2023 Referral: Food Insecurity Referral Initiated Referral: [facility] WPtel: [address] [place] [address] Counseling & Psychiatry [address] [place] [address] Order Faxed Instructions Comment Date v. Encounter [...]
--- OUTSIDE RECORDS SUMMARY | 2024-10-21 14:46 | XMS_ITS | CCD ---
Author Name Beny BLANTON, Marci Address [address] [facility] [address] [place] [address] Phone Organization [facility] Phone Care Team Providers Care Sales Apprentice Name Role Phone Unavailable Primary Care Provider Unavailabl e Unavailable Chronic Care Management Unavaila ble Summary Purpose DataExchange Insurance Providers Payer name Policy type / Coverage type Covered libertarian ID Effective Begin Date Effective End Date [employer] [facility] [id number] Unknown Unknown Family history Father Diagnosis Age [...] cessation counseling) 12/19/[address]: [id number] Never drinks alco hol 12/19/2023 Illegal/Recreational drug [...] 12/19/2023 No Inactive Date Active Biaxin RxNorm: 421103 07/29/2013 No Inactive Da te Active Problems [...] Suboxone 8 mg-2 mg sublingual film RxNorm: 7499789 Take 1 Tablet(s) Sublingual every day 4 01/17/20 24 Inactive Stiolto Respimat 2.5 mcg-2.5 mcg/actuation solution for inhalation RxNorm: 4119664 Inhale 2 Puff(s) Inhalation every day 4 03/17/20 24 Inactive Vraylar 3 mg capsule RxNorm: 3160444 Administer 1 Capsule(s) Oral every day 4 03/17/20 24 Inactive Enbrel 50 mg/mL (1 mL) subcutaneous syringe RxNorm: 077140 Inject 1 Unit(s) Subcutaneous 1 time a week 4 01/17/20 24 Inactive calcium 600 mg-D3 20 mcg-magnesium 40 lo-bycsme-ihpq-z inc chew tablet RxNorm: Take 1 Tablet(s) Oral two times a day 4 03/17/20 24 Inactive fluticasone (FLONASE) 50 MCG/ACT nasal spray RxNorm: 5475721 nasl 2 No Stop Date Active Ventolin HFA 108 (90 Base) MCG/ACT inhaler RxNorm: 596959 inhl 1 No Stop Date Active lamoTRIgine (LaMICtal) 150 MG tablet RxNorm: 085264 oral 1 No Stop Date Active ibuprofen (ADVIL,MOTRIN) 800 MG tablet RxNorm: 963195 Take 1,600 mg by mouth 2 (Two) Times a Day. 1 No Stop Date Active Medication Administered No Medication Administered data Results Observation Observation Code Item Item Code Result Date Service Location No Orders UA NoOrdersUA NO ORDERS UA 0.00 26/06 024 [facility] [address] [place] [address] URINALYSIS AUTO W/SCOPE 70050 Glucose 2345-7 Negative mg/dL 024 [facility] [address] [place] [address] URINALYSIS AUTO W/SCOPE 79207 Protein Negative mg/dL 024 [facility] [address] [place] [address] URINALYSIS AUTO W/SCOPE 04192 Bilirubin Negative mg/dL 024 [facility] [address] [place] [address] URINALYSIS AUTO W/SCOPE 22751 Urobilinogen Negative mg/dL 024 [facility] [address] [place] [address] URINALYSIS AUTO W/SCOPE 67613 Ph 6.50 024 [facility] [address] [place] [address] URINALYSIS AUTO W/SCOPE 48900 Blood Negative mg/dL 024 [facility] [address] [place] [address] URINALYSIS AUTO W/SCOPE 26660 Ketones Negative mg/dL 024 [facility] [address] [place] [address] URINALYSIS AUTO W/SCOPE 96398 Nitrite Negative 024 [facility] [address] [place] [address] URINALYSIS AUTO W/SCOPE 78508 Leukocytes Negative Praneeth/uL 024 [facility] [address] [place] [address] URINALYSIS AUTO W/SCOPE 34629 Clarity Clear 024 [facility] [address] [place] [address] URINALYSIS AUTO W/SCOPE 62634 Specific Adell 1.019 024 [facility] [address] [place] [address] URINALYSIS AUTO W/SCOPE 18306 Color Light-Yello w 024 [facility] [address] [place] [address] URINALYSIS AUTO W/SCOPE 40834 Red Blood Cell <1 /HPF #/HPF 024 [facility] [address] [place] [address] URINALYSIS AUTO W/SCOPE 59443 SQUAMOUS EPITHELIAL <1 /HPF #/HPF 024 [facility] [address] [place] [address] URINALYSIS AUTO W/SCOPE 30152 White Blood Cell 3 /HPF #/HPF 024 [facility] [address] [place] [address] URINALYSIS AUTO W/SCOPE 01381 Bacteria Trace graded/HPF 024 [facility] [address] [place] [address] URINALYSIS AUTO W/SCOPE 70937 Calcium Oxalate Crystal MANY graded/HPF 024 [facility] [address] [place] [address] URINALYSIS AUTO W/SCOPE 70135 Mucous RARE grades/LPF 024 [facility] [address] [place] [address] Urine Culture and Sensitivity Reflexed from [facility]R Urine Culture & Sensitivity SEE COMMENT 024 [facility] [address] [place] [address] Manual Diff MDIFF Neutrophils 12133-1 64.0 % 024 [facility] [address] [place] [address] Manual Diff MDIFF Lymphocytes 13445-2 30.0 % 024 [facility] [address] [place] [address] Manual Diff MDIFF Monocytes 30386-8 3.0 % 024 [facility] [address] [place] [address] Manual Diff MDIFF Eosinophils 27945-0 2.0 % 024 [facility] [address] [place] [address] Manual Diff MDIFF Basophils 71418-4 1.0 % 024 [facility] [address] [place] [address] Manual Diff MDIFF Absolute Neut 85771-9 4416 /ul 11/30 07/31 024 [facility] [address] [place] [address] Manual Diff MDIFF Absolute Lymph 16276-3 2070 /ul 24/06 024 [facility] [address] [place] [address] Manual Diff MDIFF Absolute [place] 74700-4 207 /ul 08/07/31 024 [facility] [address] [place] [address] Manual Diff MDIFF Platelet Estimate 9317-9 Normal 024 [facility] [address] [place] [address] Manual Diff MDIFF Absolute Eos 30776-2 138 /ul 12/22 024 [facility] [address] [place] [address] Manual Diff MDIFF Echinocytes 7790-9 2+ 024 [facility] [address] [place] [address] Manual Diff MDIFF Poikilocytosis 779-9 2+ 24/06 024 [facility] [address] [place] [address] Manual Diff MDIFF Absolute Baso 97779-4 69 /ul 11/30 07/31 024 [facility] [address] [place] [address] COMPLETE CBC W/ DIFF WBC 50340 WBC 6690-2 6.9 K/ul 024 [facility] [address] [place] [address] COMPLETE CBC W/ DIFF WBC 79989 RBC 789-8 4.29 M/uL 024 [facility] [address] [place] [address] COMPLETE CBC W/ DIFF WBC 84069 Hemoglobin 718-7 13.3 g/dL 024 [facility] [address] [place] [address] COMPLETE CBC W/ DIFF WBC 31714 Hematocrit 4544-3 41.0 % 024 [facility] [address] [place] [address] COMPLETE CBC W/ DIFF WBC 97925 MCV 787-2 95.7 fL 024 [facility] [address] [place] [address] COMPLETE CBC W/ DIFF WBC 46984 MCH 785-6 31.1 pg 024 [facility] [address] [place] [address] COMPLETE CBC W/ DIFF WBC 27615 MCHC 786-4 32.5 g/dL 024 [facility] [address] [place] [address] COMPLETE CBC W/ DIFF WBC 38942 RDW 788-0 14.2 % 024 [facility] [address] [place] [address] 13566 COMPLETE CBC W/ DIFF WBC 03714 Platelet Count 777-3 311 K/uL 024 [facility] [address] [place] [address] COMPLETE CBC W/ DIFF WBC 78069 MPV 91349-6 8.0 fL 024 [facility] [address] [place] [address] No Orders No Orders No Orders 0 024 [facility] [address] [place] [address] TRIGLYCERIDES 06027 Triglycerides 2571-8 173 mg/dL 024 [facility] [address] [place] [address] TRIGLYCERIDES 71497 VLDL 60201-5 35 mg/dL 024 [facility] [address] [place] [address] VITAMIN D 66875 Vitamin D 34859-0 27.0 ng/mL 024 [facility] [address] [place] [address] 21625 MICROALBUMIN (URINE) 16172 Microalbumin 55015-1 2.1 mg/dL 024 [facility] [address] [place] [address] 80343 MICROALBUMIN (URINE) 07501 Microalbumin/Crea tinine Ratio 34388-8 27 MCG/MGCREAT 024 [facility] [address] [place] [address]7921 MICROALBUMIN (URINE) 10085 Urine Creatinine 2161-8 77.70 mg/dL 024 [facility] [address] [place] [address] 24276 CHOLESTEROL 55174 Cholesterol 2093-3 165 mg/dL 024 [facility] [address] [place] [address]2019 Direct LDL 95171 LDL-Direct 44002-8 96 mg/dL 024 [facility] [address] [place] [address] 16484 FREE T-4 14237 FT4 3024-7 1.05 ng/dL 024 [facility] [address] [place] [address] 25124 HDL - CHOL 31391 HDL 2085-9 41 mg/dL 024 [facility] [address] [place] [address] 10797 HDL - CHOL [address] [facility] 11498-5 25 % 024 [facility] [address] [place] [address] Urine Culture and Sensitivity Reflexed from [facility]R Urine Culture & Sensitivity SEE COMMENT 024 [facility] [address] [place] [address] FREE T-3 18194 FT3 3051-0 2.78 pg/mL 024 [facility] [address] [place] [address] URINALYSIS AUTO W/SCOPE 36953 Glucose 2345-7 NO SPECIMEN RECEIVED mg/dL 024 [facility] [address] [place] [address] URINALYSIS AUTO W/SCOPE 76058 Protein NO SPECIMEN RECEIVED mg/dL 024 [facility] [address] [place] [address] URINALYSIS AUTO W/SCOPE 83180 Bilirubin NO SPECIMEN RECEIVED mg/dL 024 [facility] [address] [place] [address] URINALYSIS AUTO W/SCOPE 37149 Urobilinogen NO SPECIMEN RECEIVED mg/dL 024 [facility] [address] [place] [address] URINALYSIS AUTO W/SCOPE 99994 Ph NO SPECIMEN RECEIVED 024 [facility] [address] [place] [address]67[address] URINALYSIS AUTO W/SCOPE 12086 Blood NO SPECIMEN RECEIVED mg/dL 024 [facility] [address] [place] [address] URINALYSIS AUTO W/SCOPE 53774 Ketones NO SPECIMEN RECEIVED mg/dL 024 [facility] [address] [place] [address]279 URINALYSIS AUTO W/SCOPE 51270 Nitrite NO SPECIMEN RECEIVED 024 [facility] [address] [place] [address] 20765 URINALYSIS AUTO W/SCOPE 17214 Leukocytes NO SPECIMEN RECEIVED Praneeth/uL 024 [facility] [address] [place] [address] URINALYSIS AUTO W/SCOPE 79384 Clarity NO SPECIMEN RECEIVED 024 [facility] [address] [place] [address] URINALYSIS AUTO W/SCOPE 64753 Specific Adell NO SPECIMEN RECEIVED 024 [facility] [address] [place] [address] URINALYSIS AUTO W/SCOPE 58637 Color NO SPECIMEN RECEIVED [facility] [address] [place] [address] 41112 CHEM 14 (METABOLIC PANEL) 98776 Glucose 2345-7 144 mg/dL [facility] [address] [place] [address] 13191 CHEM 14 (METABOLIC PANEL) 85132 BUN 3094-0 13 mg/dL 024 [facility] [address] [place] [address] 62038 CHEM 14 (METABOLIC PANEL) 71428 Creatinine 2160-0 0.9 mg/dL [facility] [address] [place] [address] 43513 CHEM 14 (METABOLIC PANEL) 01175 BUN/Creat Ratio 3097-3 14.1 [facility] [address] [place] [address] 03666 CHEM 14 (METABOLIC PANEL) 02153 GFR Estimated 33207-6 69 mL/min/1.73 m2 [facility] [address] [place] [address] 03238 CHEM 14 (METABOLIC PANEL) 40318 Sodium 2951-2 139 mmol/L [facility] [address] [place] [address] 56661 CHEM 14 (METABOLIC PANEL) 08271 Potassium 2823-3 4.0 mmol/L [facility] [address] [place] [address] 31871 CHEM 14 (METABOLIC PANEL) 32636 Chloride 2075-0 104 mmol/L [facility] [address] [place] [address] 39031 CHEM 14 (METABOLIC PANEL) 13453 Total CO2 2028-9 30 mmol/L [facility] [address] [place] [address] 52962 CHEM 14 (METABOLIC PANEL) 85366 Anion Gap 1863-0 9.0 mEq/L [facility] [address] [place] [address] 53036 CHEM 14 (METABOLIC PANEL) 15658 Calculated Serum Osmolality 72899-5 291 mOsm/kg [facility] [address] [place] [address] 10650 CHEM 14 (METABOLIC PANEL) 40542 Albumin 81129-5 4.0 g/dL [facility] [address] [place] [address] 21087 CHEM 14 (METABOLIC PANEL) 40731 Total Protein 2885-2 7.9 g/dL 024 [facility] [address] [place] [address] CHEM 14 (METABOLIC PANEL) 21727 Globulin 2336-6 3.9 g/dL 024 [facility] [address] [place] [address] CHEM 14 (METABOLIC PANEL) 35396 Albumin/Globulin Ratio 1759-0 1.0 024 [facility] [address] [place] [address] CHEM 14 (METABOLIC PANEL) 09456 ALK PHOS 6768-6 80.00 U/L 024 [facility] [address] [place] [address] CHEM 14 (METABOLIC PANEL) 55320 SGOT/AST 1920-8 17 U/L 024 [facility] [address] [place] [address] CHEM 14 (METABOLIC PANEL) 12927 SGPT/ALT 1743-4 24 U/L 024 [facility] [address] [place] [address] 06102 CHEM 14 (METABOLIC PANEL) 07091 Total Bilirubin 1975-2 0.3 mg/dL 024 [facility] [address] [place] [address] 84063 CHEM 14 (METABOLIC PANEL) 13950 Calcium 15322-7 9.2 mg/dL 024 [facility] [address] [place] [address] CHEM 14 (METABOLIC PANEL) 63494 Corrected Calcium 25413-3 9.4 mg/dL 024 [facility] [address] [place] [address] [id number] BIN 4548-4 Glyco HGB A1C 60736-3 5.7 % 024 [facility] [address] [place] [address] 95129 [id number] BIN 4548-4 eAG 96554-7 117 mg/dL 024 [facility] [address] [place] [address] TSH 38603 TSH 22527-4 2.760 uIU/mL 024 [facility] [address] [place] [address] Procedures Procedure Codes Date Most recent A1c < 7.0% CPT-4: 3044F 5 Most recent A1c < 7.0% CPT-4: 3044F 4 Most recent A1c < 7.0% CPT-4: 3044F 4 MED LIST DOCD IN [facility] CPT-4: 1159F 12/19/2023 RVW MEDS BY RX/DR IN [facility] CPT-4: 1160F 2023 Amnt pain noted; pain prsnt CPT-4: 1125F 11/30 LOW RISK FOR RETINOPATHY CPT-4: 3072F 024 Screening for clinical depre ssion is negative, follow-up plan not required CPT-4: G8510 12/19/2023 [id number] CPT-4: 87894 Unknown Vital Signs Date Vital 12/19/2023 Blood Pressure 1: 120/79 Code: 8480-6 BMI: 25.6 Code: 13830-9 Heart Rate 1: 76 bpm Height: 5'2 Code: 8302-2 Respiratory Rate: 16 bpm SpO2: 95% Temperature: 36.7 (C) / 98.0 (F) Weight: 140 lbs 2 oz Code: 43945-7 Reason For Visit Reason For Visit Effective Dates Notes new patient welcome visit 12/19/2023 Encounters Encounter Performer Location Location Address Codes Date ([id number]) Other Reason/Patient not seen Diagnosis: Patient not seen[ICD10: UXZ.01] [facility] [place] [address] CPT-4: 64031 05/23/2024 ([id number]) No answer/Patient not seen Diagnosis: Patient not seen[ICD10: UXZ.01] [facility] [address] [place] [address] CPT-4: 01891 04/19/2024 (IND) Independent Lab Draw Diagnosis: Patient not seen[ICD10: UXZ.01] [facility] [place] [address] CPT-4: IND 12/22/2023 ([id number]) Home or Residence Visit AQUATIC BIOLOGIST - Moderate Level, 60 mins Diagnosis: Encounter for general adult medical examination without abnormal findings[ICD10: Z00.00] Diagnosis: Bipolar 2 disorder[ICD10: F31.81] Diagnosis: Chronic obstructive pulmonary disease, unspecified COPD type[ICD10: J44.9] Diagnosis: Generalized anxiety disorder[ICD10: F41.1] Diagnosis: Opioid dependence in remission[ICD10: F11.21] Diagnosis: Osteopenia, unspecified location[ICD10: M85.80] Diagnosis: Rheumatoid arthritis with positive rheumatoid factor, involving unspecified site[ICD10: M05.9] Marci Hilldeena [facility] [address] [address] CPT-4: 04586 12/19/2023 Plan of Care Planned Activity Notes Codes Status Date Appointment: Marci Swan WPtel: [address] [place], [place] [id number] 05/23/2024 Patient Education: Patient Medication Summary Completed 05/23/2024 Appointment: Beny Marci WPtel: [address] [place], [place] [id number] 04/19/2024 Patient Education: Patient Medication Summary Completed 04/19/2024 Appointment: TERESA, NOTE Follow Up Appointment: TERESA, NOTE CHW - Referra 12/25/2023 Appointment: TERESA, NOTE Phone Call Patient Education: Patient Medication Summary Completed 12/25/2023 Patient Education: Patient Medication Summary Completed 12/25/2023 Appointment: Office, [place] [address] 12/22/2023 Patient Education: Patient Medication Summary Completed [...] of care. 12/19/2023 Appointment: Marci Swan WPtel: [address] [place], [place] [phone] [facility] 12/19/2023 Patient Education: Patient Medication Summary Completed 12/19/2023 Patient Education: Obesity Completed 12/19/2023 Care Plan: eGFR KHE Pending Care Plan: Microalbumin (Urine) KHE Pending 12/19/2023 Referral: Food Insecurity Referral Initiated Referral: [facility] WPtel: [address] [place] [address] Counseling [address] Psychiatry [address] [place] [address] Order Faxed Instructions Comment Date v. Encounter [...]
== END 2024-10-21 23:59 | disposition home or self-care (01) ==
LOC: RAD 13:42
PROVIDERS: PCP Internal Medicine; Visit Provider Nurse Practitioner Family
DX: R06.00 Dyspnea, unspecified (principal); R07.9 Chest pain, unspecified; R79.89 Other specified abnormal findings of blood chemistry
CPT/HCPCS: 71275; Q9967

== ENCOUNTER 2024-10-30 09:19 | Day surgery (SDC) | payer MEDICARE, MEDICAID, SELFPAY ==
[2024-10-23 15:11] VITALS: BMI 28.7
[2024-10-30 10:22] VITALS: BP 128/68; PULSE 85; RESP 16; TEMP 36.1; O2SAT 98
[2024-10-30] MEDS: LACTATED RINGERS 1000ML 1,000 ML 25 ML IV (10:27)
--- NOTE | 2024-10-30 10:58 | EXP.ANES.CKL ---
[facility] Disclaimer: The information contained in this section may have been updated after the patient was seen, as this information can be updated by other users. Medical History Dysacousis Left otitis media Influenza A URI (upper respiratory infection) Open wound of skin Cataract Herpes zoster Encounter for hepatitis C virus screening test for high risk patient Opiate dependence stopped in 2015 Alcohol abuse stopped in 2009 Sleep trouble Acid reflux Gastritis Chronic constipation Bipolar disorder Depression Anxiety COPD (chronic obstructive pulmonary disease) Rheumatoid arthritis Surgical History Hx of foot surgery RIGHT History of eyelid surgery History of colonoscopy History of tubal ligation Family History Father Cancer lung and spread to liver Brother Cancer prostate Other Family history of heart disease Social History Smoking Status: Current every day smoker tobacco type: cigarettes packs per day: 1 alcohol intake: former year quit: 2009 substance use type: former substance user and opiates current occupational status: disabled Travel in the last 8 weeks?: None caffeine: Yes Have you lived/traveled outside US in past 30 days?: No Contact w/someone who lives/traveled outside US past 30 days?: No Exposure to someone with infectious disease in past 14 days?: No Do you have a fever (greater than 100.4 F or 38 C)?: No Have you tested positive for COVID-19?: No Exposed to someone with COVID-19 in past 14 days?: No Do you have a sore throat?: No Do you have a cough?: No Do you have any weakness?: No Do you have any diarrhea?: No Are you experiencing any unusual bleeding?: No Do you have any muscle aches/pain?: No Do you have any abdominal pain?: No Are you experiencing loss of taste or smell?: No [facility] Anesthesia Checklist Patient Identification Patient Identification: Arm Band Structural Data Admitted From: Home Planned Operative Procedure/s: Colonoscopy Consent for Planned Operative Procedure(s) Verified: Yes Verified Documents: Surgical Consent and History and Physical NPO Status Verified Time NPO: 07:00 (finished prep) Additional verifications Anesthesia Reactions: No Hx Blood Transfusions: No Blood Transfusion Reaction: No Airway Assessment Mallampati Score:: Class II C-Spine Mobility Assessed: Yes TMJ Mobility Assessed: Yes Dentition: Edentulous Neurological Assessment Level of Consciousness: Awake, Alert and Appropriate Anesthesia Plan Anesthesia Risk discussed: Yes Anesthesia Plan: Verified ASA Class: II Anesthesia Type: MAC
--- NOTE | 2024-10-30 11:38 | EXP.HP ---
History of Present Illness *Admission Date: 10/30/24 *Reason for visit:: Screening/personal history of colon polyps *History of present illness: Mrs. Sanon is a 64-year-old female who is here for screening/surveillance colonoscopy secondary to a personal history of colon polyps (unspecified). Her last colonoscopy was 10 years ago. The examination is deemed medically necessary for screening colonoscopy. The patient has been seen, interviewed and examined prior to the procedure by both myself and the anesthesia provider. [facility] Disclaimer: The information contained in this section may have been updated after the patient was seen, as this information can be updated by other users. Medical History Dysacousis Left otitis media Influenza A URI (upper respiratory infection) Open wound of skin Cataract Herpes zoster Encounter for hepatitis C virus screening test for high risk patient Opiate dependence stopped in 2015 Alcohol abuse stopped in 2009 Sleep trouble Acid reflux Gastritis Chronic constipation Bipolar disorder Depression Anxiety COPD (chronic obstructive pulmonary disease) Rheumatoid arthritis Surgical History Hx of foot surgery RIGHT History of eyelid surgery History of colonoscopy History of tubal ligation Family History Father Cancer lung and spread to liver Brother Cancer prostate Other Family history of heart disease Social History Smoking Status: Current every day smoker tobacco type: cigarettes packs per day: 1 alcohol intake: former year quit: 2009 substance use type: former substance user and opiates current occupational status: disabled Travel in the last 8 weeks?: None caffeine: Yes Have you lived/traveled outside US in past 30 days?: No Contact w/someone who lives/traveled outside [place] past 30 days?: No Exposure to someone with infectious disease in past 14 days?: No Do you have a fever (greater than 100.4 F or 38 C)?: No Have you tested positive for COVID-19?: No Exposed to someone with COVID-19 in past 14 days?: No Do you have a sore throat?: No Do you have a cough?: No Do you have any weakness?: No Do you have any diarrhea?: No Are you experiencing any unusual bleeding?: No Do you have any muscle aches/pain?: No Do you have any abdominal pain?: No Are you experiencing loss of taste or smell?: No Other Medical History Have you received the Pneumonia Vaccine: Yes Review of Systems Review of Systems Review of systems (narrative): Negative *Cardiovascular Comments: Negative *Gastrointestinal Comments: Negative *Genitourinary Comments: Negative *Musculoskeletal Comments: Negative *Neurologic Comments: Negative Meds Home Medications and Allergies Home Medications ?Medication ?Instructions ?Recorded ?Confirmed ?Type etanercept 50 mg/mL (1 mL) 50 mg SQ WEEKLY 06/21/23 10/23/24 History subcutaneous pen injector (Enbrel SureClick) propranolol 10 mg tablet 10 mg PO BID PRN Anxiety 06/21/23 10/23/24 History buprenorphine 8 mg-naloxone 2 mg 2 tab sublingual DAILY 01/25/24 10/23/24 History sublingual tablet cariprazine 3 mg capsule (Vraylar) 3 mg PO DAILY #90 caps 07/04/24 10/23/24 Rx lamotrigine 150 mg tablet 150 mg PO BID #180 tabs 07/04/24 10/23/24 Rx trazodone 50 mg tablet 50 mg PO DAILY #90 tabs 07/04/24 10/23/24 Rx albuterol sulfate 90 mcg/actuation 1 inh inhalation QID PRN shortness 07/05/24 10/23/24 Rx aerosol inhaler of breath or wheezing #8.5 grams linaclotide 145 mcg capsule See Rx Instructions .Route 09/27/24 10/23/24 Rx (Linzess) .COMPLEX #90 caps buspirone 10 mg tablet 10 mg PO BID #180 tabs 10/17/24 10/23/24 Rx ibuprofen 800 mg tablet 800 mg PO Q8H #30 tabs 10/17/24 10/23/24 Rx vilazodone 20 mg tablet 20 mg PO DAILY #30 tabs 10/23/24 10/23/24 Rx New Prescriptions to Start Prescriptions: Allergies Allergy/AdvReac Type Severity Reaction Status Date / Time clarithromycin Allergy Unknown NA-NAUSEA/V Verified 10/30/24 10:20 (CLARITHROMYCIN) OMITING codeine (CODEINE) Allergy Unknown I-ITCHING Verified 10/30/24 10:20 Sulfa (Sulfonamide Allergy Unknown NA-NAUSEA/V Verified 10/30/24 10:20 Antibiotics) (SULFA OMITING (SULFONAMIDE ANTIBIOTICS)) sulfamethoxazole (From Allergy Unknown I-ITCHING Verified 10/30/24 10:20 BACTRIM) trimethoprim (From BACTRIM) Allergy Unknown I-ITCHING Verified 10/30/24 10:20 bupropion (From Wellbutrin) AdvReac Severe suicidal Verified 10/30/24 10:20 ideation, nightmares Exam Data for Last 24 hours Vital signs and Labs for Last 24 Hours: Temp Pulse Resp BP Pulse Ox O2 Del Method 97 F L 85 16 128/68 98 Room Air 10/30/24 10:22 10/30/24 10:22 10/30/24 10:22 10/30/24 10:22 10/30/24 10:22 10/30/24 10:22 *Routine HEENT Exam Head: Present normocephalic Eye: Present EOMI and PERRL ENT: Present mucous membranes moist *Routine Neck Exam Neck: Present supple *Routine Respiratory Exam Respiratory: Present CTA bilaterally *Routine Cardiovascular Exam Cardiovascular: Present RRR *Routine Abdominal Exam Abdominal: Present soft and normoactive bowel sounds; Absent tenderness *Routine Rectal Exam Rectal:: deferred *Routine Genitalia Exam Genitalia:: deferred *Routine Extremities Exam Extremities: Absent cyanosis, clubbing or edema *Routine Skin Exam Skin: Present warm; Absent rash *Routine Neurological Exam Neurological: Present alert and oriented X3 Assessment and Plan *Assessment and plan (1) Personal history of colon polyps, unspecified: Status: Acute Category: Medical Code(s): Z86.0100 - Personal history of colon polyps, unspecified (2) Family history of colon cancer: Status: Acute Category: Medical Code(s): Z80.0 - Family history of malignant neoplasm of digestive organs Plan A/P: 1. Personal history of colon polyps (unspecified) and family history of colon cancer (both grandmothers) is the preprocedural diagnosis. Her last colonoscopy was 10 years ago. The patient will be anesthetized/sedated using MAC sedation. The patient has been seen and examined. Cardiac and lung assessment prior to the examination is stable. Proceed with planned screening/surveillance colonoscopy.
--- NOTE | 2024-10-30 11:51 | HMH.PROCNOTE ---
[facility] Procedure Note Date: 10/30/24 Time: 12:15 Procedure Note:: Colonoscopy Procedure Report: Colonoscopy Endoscopist: Checo Ace II, MD Referring physician: Preston Man DO Date of Procedure: October 30, 2024 Equipment: Olympus 190 variable stiffness pediatric colonoscope Sedation: MAC sedation Indication: Mrs. Sanon is a 64-year-old female who is here for screening/surveillance colonoscopy. Her last colonoscopy was approximately 10 years ago and she had polyps removed (unspecified). She does state that both grandmothers had colon cancer at an older age. She reports no rectal bleeding, weight loss or change in bowel habits. She does have some chronic constipation related to Suboxone. She does get some lower abdominal discomfort related to the constipation. Procedure: Prior to the procedure, a history and physical exam was performed, and patient's medications and allergies were reviewed. The risks, benefits and alternatives of the sedation and procedure were discussed with the patient. All questions were answered and informed consent was obtained. The patient was brought to the procedure room. Patient identification and proposed procedure were verified by the physician and the nurse. The patient was placed in a left lateral decubitus position and the scope was passed under direct vision. Throughout the procedure, the patient's blood pressure, pulse, and oxygen saturations were monitored continuously. The colonoscopy was accomplished without difficulty. The patient tolerated the procedure well. Findings: On digital rectal examination there was normal rectal tone. There were no external hemorrhoids. The colonoscope was introduced through the anal canal to the rectum and advanced to the cecum. The ileocecal valve and appendiceal orifice were identified. The scope was advanced a short distance into the ileum which appeared grossly normal. The scope was then withdrawn into the colon. The cecum, ascending and transverse colon and mucosa were grossly normal. There were scattered diverticuli throughout the descending and sigmoid colon (LEFT colon). The rectum itself was normal. Upon retroflexion within the rectum there were grade 1-2 internal hemorrhoids. The preparation was fair throughout with [place] Preparation Score of 7 out of 9. The cecal time was 11 minutes. Impression: 1. Left-sided diverticulosis 2. Grade 1-2 internal hemorrhoids Plan: The patient will not require surveillance colonoscopy again for 10 years by ACS guidelines. I do feel that she would benefit from treatment for her opioid induced chronic constipation (Relistor or Movantik).
[2024-10-30 12:15] VITALS: BP 93/57; PULSE 71; RESP 17; TEMP 36.6; O2SAT 99
[2024-10-30 12:25] VITALS: BP 115/56; PULSE 80; RESP 18; O2SAT 99
[2024-10-30 12:35] VITALS: BP 105/70; PULSE 81; RESP 16; O2SAT 97
[2024-10-30 12:45] VITALS: BP 121/75; PULSE 80; RESP 16; O2SAT 98
== END 2024-10-30 12:53 | disposition home or self-care (01) ==
PROVIDERS: PCP Internal Medicine; Visit Provider Internal Medicine Gastroenterology
PROC: 0DJD8ZZ Inspection of Lower Intestinal Tract, Via Natural or Artificial Opening Endoscopic (ICD-10-PCS; CPT 45378; principal; 2024-10-30 11:00)
DX: Z12.11 Encounter for screening for malignant neoplasm of colon (principal); K57.90 Diverticulosis of intestine, part unspecified, without perforation or abscess without bleeding; K64.0 First degree hemorrhoids; K64.1 Second degree hemorrhoids; K21.9 Gastro-esophageal reflux disease without esophagitis; M06.9 Rheumatoid arthritis, unspecified; F17.210 Nicotine dependence, cigarettes, uncomplicated; Z88.5 Allergy status to narcotic agent; Z88.2 Allergy status to sulfonamides; Z86.0100 Personal history of colon polyps, unspecified; Z80.0 Family history of malignant neoplasm of digestive organs; Z79.899 Other long term (current) drug therapy
CPT/HCPCS: 45378; J2003; J2704; J7120

== ENCOUNTER 2024-11-16 12:37 | Emergency (ER) | payer MEDICARE, MEDICAID, SELFPAY ==
[2024-11-16 12:47] VITALS: BP 122/71; PULSE 93; RESP 16; TEMP 36.8; O2SAT 98; BMI 28.0
--- NOTE | 2024-11-16 12:49 | HMH.EDGENADL ---
Discharge Plan Disposition Patient Disposition: Home, Self-Care Condition: Good Prescriptions Prescriptions: New clindamycin HCl 150 mg capsule 450 mg PO Q8H 5 Days Qty: 45 0RF No Action vilazodone 20 mg tablet 20 mg PO DAILY Qty: 30 2RF Rx Instructions: must administer with a meal/food Enbrel SureClick 50 mg/mL (1 mL) pen injector 50 mg SQ WEEKLY propranolol 10 mg tablet 10 mg PO BID PRN (Reason: Anxiety) Patient Comments: TAKE 1 TABLET BY MOUTH TWICE DAILY. CAN ALSO TAKE 1 TABLET ONCE DAILY NEEDED FOR ANXIETY SYMPTOMS/PANIC ATTACKS. NO MORE THAN 3/DAY buprenorphine-naloxone 8-2 mg tablet, sublingual 2 tab sublingual DAILY buspirone 10 mg tablet 10 mg PO BID Qty: 180 3RF trazodone 50 mg tablet 50 mg PO DAILY Qty: 90 1RF Trelegy Ellipta 100-62.5-25 mcg blister with device 2 inh inhalation DAILY 0RF albuterol sulfate 90 mcg/actuation HFA aerosol inhaler 1 inh inhalation QID PRN (Reason: shortness of breath or wheezing) Qty: 8.5 2RF Linzess 145 mcg capsule See Rx Instructions .ROUTE .COMPLEX Qty: 90 11RF Dose Instruction: TAKE ONE CAPSULE BY MOUTH EVERY DAY Rx Instructions: TAKE ONE CAPSULE BY MOUTH EVERY DAY Vraylar 3 mg capsule 3 mg PO DAILY Qty: 90 1RF ibuprofen 800 mg tablet 800 mg PO Q8H Qty: 30 1RF lamotrigine 150 mg tablet 150 mg PO BID Qty: 180 1RF Movantik 25 mg tablet 25 mg PO DAILY Qty: 30 12RF Rx Instructions: Please take 1 tablet p.o. daily and must be taken on empty stomach; no food 1 hr after or 2-3 hrs before dose Referrals Follow up/Referrals: Preston Man DO [Primary Care Provider, Family Practice] - See instructions Activity Restrictions/Add. Instructions Additional Instructions/Restrictions: Please follow-up with your family physician in the upcoming days, return to the emergency department with any worsening signs or symptoms to include fever chills, please take your antibiotic as prescribed with food. Clinical Impressions Clinical Impression: Cellulitis Instructions Patient Instructions: DI for Cellulitis -- Adult Print Language Print Language: Romansh Discharge ED Provider: Elijah Cleaning Adult HPI <MARICARMEN Nova - Last Filed: 11/16/24 14:54> General Chief complaint: Extremity Injury, Lower Stated complaint: Possible blood clot in L leg Time Seen by Provider: 11/16/24 12:42 Mode of Arrival: Ambulatory Source of Information: Patient Limitations: No Limitations History of Present Illness HPI narrative: 64-year-old female presents emergency department with a 4-day history of left lower extremity pain and swelling, as well as redness, patient denies any trauma or injury per history, does have ongoing left meniscal tear that is being treated conservatively, patient states has been going on for 6 months , patient denies any fever chills chest pain shortness of breath nausea, vomiting, does medicine constipation which somewhat chronic for her, last bowel movement several days ago, denies any urinary denies hematology, patient is currently a smoker, denies any alcohol or drug use, other past medical history consistent with hepatitis C, anemia, fatty liver disease, former drug abuse, in remission, MIGUELINA, MDD, rheumatoid arthritis, osteopenia. Initial triage vitals unremarkable. Onset (ago): day(s) Related Data Home Medications ?Medication ?Instructions ?Recorded ?Confirmed etanercept 50 mg/mL (1 mL) 50 mg SQ WEEKLY 06/21/23 11/12/24 subcutaneous pen injector (Enbrel SureClick) propranolol 10 mg tablet 10 mg PO BID PRN Anxiety 06/21/23 11/12/24 buprenorphine 8 mg-naloxone 2 mg 2 tab sublingual DAILY 01/25/24 11/12/24 sublingual tablet Previous Rx's ?Medication ?Instructions ?Recorded trazodone 50 mg tablet 50 mg PO DAILY #90 tabs 07/04/24 buspirone 10 mg tablet 10 mg PO BID #180 tabs 10/17/24 vilazodone 20 mg tablet 20 mg PO DAILY #30 tabs 10/23/24 Movantik 25 mg tablet (naloxegol) 25 mg PO DAILY #30 tabs 10/30/24 albuterol sulfate 90 mcg/actuation 1 inh inhalation QID PRN shortness 11/14/24 aerosol inhaler of breath or wheezing #8.5 grams cariprazine 3 mg capsule (Vraylar) 3 mg PO DAILY #90 caps 11/14/24 ibuprofen 800 mg tablet 800 mg PO Q8H #30 tabs 11/14/24 lamotrigine 150 mg tablet 150 mg PO BID #180 tabs 11/14/24 linaclotide 145 mcg capsule See Rx Instructions .Route 11/14/24 (Linzess) .COMPLEX #90 caps clindamycin HCl 150 mg capsule 450 mg (3 x 150 mg) PO Q8H 5 days 11/16/24 #45 caps Allergies Allergy/AdvReac Type Severity Reaction Status Date / Time clarithromycin Allergy Unknown NA-NAUSEA/V Verified 11/12/24 10:12 (CLARITHROMYCIN) OMITING codeine (CODEINE) Allergy Unknown I-ITCHING Verified 11/12/24 10:12 Sulfa (Sulfonamide Allergy Unknown NA-NAUSEA/V Verified 11/12/24 10:12 Antibiotics) (SULFA OMITING (SULFONAMIDE ANTIBIOTICS)) sulfamethoxazole (From Allergy Unknown I-ITCHING Verified 11/12/24 10:12 BACTRIM) trimethoprim (From BACTRIM) Allergy Unknown I-ITCHING Verified 11/12/24 10:12 bupropion (From Wellbutrin) AdvReac Severe suicidal Verified 11/12/24 10:12 ideation, nightmares [facility] <MARICARMEN Nova - Last Filed: 11/16/24 14:54> [facility] Disclaimer: The information contained in this section may have been updated after the patient was seen, as this information can be updated by other users. Medical History Dysacousis Left otitis media Influenza A URI (upper respiratory infection) Open wound of skin Cataract Herpes zoster Encounter for hepatitis C virus screening test for high risk patient Opiate dependence stopped in 2015 Alcohol abuse stopped in 2009 Sleep trouble Acid reflux Gastritis Chronic constipation Bipolar disorder Depression Anxiety COPD (chronic obstructive pulmonary disease) Rheumatoid arthritis Surgical History Hx of foot surgery RIGHT History of eyelid surgery History of colonoscopy History of tubal ligation Family History Father Cancer lung and spread to liver Brother Cancer prostate Other Family history of heart disease Social History Smoking Status: Current every day smoker tobacco type: cigarettes packs per day: 1 alcohol intake: former year quit: 2009 substance use type: former substance user and opiates current occupational status: disabled Travel in the last 8 weeks?: None caffeine: Yes Have you lived/traveled outside [place] in past 30 days?: No Contact w/someone who lives/traveled outside [place] past 30 days?: No Exposure to someone with infectious disease in past 14 days?: No Do you have a fever (greater than 100.4 F or 38 C)?: No Have you tested positive for COVID-19?: No Exposed to someone with COVID-19 in past 14 days?: No Do you have a sore throat?: No Do you have a cough?: No Do you have any weakness?: No Do you have any diarrhea?: No Are you experiencing any unusual bleeding?: No Do you have any muscle aches/pain?: No Do you have any abdominal pain?: No Are you experiencing loss of taste or smell?: No Other Medical History Have you received the Pneumonia Vaccine: Yes <MARICARMEN Nova - Last Filed: 11/16/24 14:54> ROS Obtained: Yes All systems reviewed & no additional complaints except as documented Physical Exam <MARICARMEN Nova - Last Filed: 11/16/24 14:54> General General appearance: alert and in no apparent distress Head Head exam: atraumatic and normocephalic Eye Eye exam: Present PERRL and EOMI ENT ENT exam: Present mucous membranes moist Neck Neck exam: Present normal inspection Chest Chest inspection: Present normal inspection and symmetric chest wall rise Respiratory Respiratory exam: Present normal lung sounds bilaterally; Absent respiratory distress Cardiovascular Cardiovascular exam: Present regular rate and normal rhythm Abdominal Exam Abdominal exam: Present soft; Absent tenderness Extremities Exam Extremities exam: Present normal inspection Neurological Exam Neurological exam: Present alert and oriented X3 Psychiatric Psychiatric exam: Present normal affect Skin Skin exam: Present warm, dry, erythema and other (Erythema and hot to touch sensation that is circumferential around the distal tib-fib region, patient is otherwise neurovascular intact, some pain to palpation of the area, no induration or fluctuance could be notable/concerning for abscess formation.) Medical Decision Making <MARICARMEN Nova - Last Filed: 11/16/24 14:54> Medical Records Medical records reviewed: Yes I reviewed the patient's medical records. Screening: Per USPSTF and CDC recommendations, given the prevalence of disease in our region, it is our hospital?s policy to screen for HIV and viral Hepatitis for all patients aged 18 and over and those with ongoing risk factors. [place] Inquiry Pt receiving controlled substance: No [place] was queried for this patient: No Vital Signs: 11/16/24 12:47 11/16/24 13:00 11/16/24 13:30 Temperature 98.2 F Temperature Source Oral Pulse Rate 89 80 Pulse Rate [Right Radial] 93 H Respiratory Rate 16 Blood Pressure 120/68 149/74 H Blood Pressure [Right Arm] 122/71 Blood Pressure Mean [Right Arm] 88 Blood Pressure Source Blood Pressure Source [Right Arm] Automatic Cuff Blood Pressure Position Blood Pressure Position [Right Arm] Supine 02 Sat by Pulse Oximetry 98 99 99 Oxygen Delivery Method Room Air Room Air 11/16/24 14:00 11/16/24 15:00 Temperature 98.2 F Temperature Source Oral Pulse Rate 76 70 Pulse Rate [Right Radial] Respiratory Rate 18 Blood Pressure 117/60 122/75 Blood Pressure [Right Arm] Blood Pressure Mean [Right Arm] Blood Pressure Source Automatic Cuff Blood Pressure Source [Right Arm] Blood Pressure Position Sitting Blood Pressure Position [Right Arm] 02 Sat by Pulse Oximetry 99 Oxygen Delivery Method Room Air Room Air Lab Data Lab results reviewed: Yes I reviewed the patient's lab results. Lab Results 11/16/24 12:48: WBC 6.9, RBC 4.13 L, Hgb 12.7, Hct 38.1, MCV 92.3, MCH 30.8, MCHC 33.3, RDW 12.4, Plt Count 327, MPV 8.4, Neut % (Auto) 45.9, Lymph % (Auto) 41.1, [place] % (Auto) 10.6 H, Eos % (Auto) 1.9, Baso % (Auto) 0.4, Neut # (Auto) 3.1, Lymph # (Auto) 2.8, [place] # (Auto) 0.7, Eos # (Auto) 0.1, Baso # (Auto) 0.0, Sodium 138, Potassium 4.4, Chloride 102, Carbon Dioxide 28, Anion Gap 12.4, BUN 19 H, Creatinine 0.70, Estimated Creat Clear 61, Estimated GFR 84, Est GFR ( Amer) 102, Glucose 109 H, Calcium 10.3 H, Total Bilirubin 0.4, AST 31, ALT 23, Alkaline Phosphatase 79, NT-Pro-B Natriuret Pep < 20.0, Total Protein 8.1, Albumin 4.6, Globulin 3.5 H, Albumin/Globulin Ratio 1.3 11/16/24 12:48 11/16/24 12:48 Orders (Tests/Meds): ORDERS Category Date Time Status Complete Blood Count Auto Diff Stat Lab 11/16/24 12:48 Completed Comprehensive Metabolic Panel Stat Lab 11/16/24 12:48 Completed NT Pro Brain Natriuretic Pep. Stat Lab 11/16/24 12:48 Completed CA venous doppler LE LT Stat Y 11/16/24 12:52 Completed Medical Decision Narrative: 64-year-old female presents emergency department with left lower extremity pain and swelling and redness, differential diagnosis include but not limited to cellulitis, chronic venous insufficiency, chronic venous stasis dermatitis, DVT among others I discussed this patient's case with the attending physician Will obtain basic laboratory studies, proBNP, Doppler ultrasound of the left lower extremity. CBC unremarkable there is no leukocytosis CMP is noted for minimal BUN elevation at 19, otherwise unremarkable I reviewed the patient's DVT/lower extremity duplex ultrasound, no evidence of DVT, however full radiology report is not yet available for my direct interrogation, discussed this with the patient family the bedside, patient's clinical history and clinical exam are concerning for cellulitis, less concerning for DVT with negative ultrasound per my read, patient be treated for cellulitis, will be discharged home to self-care, patient was given strict ED return precautions, prescribe the patient clindamycin 400 mg 3 times daily for 5 days, for cellulitis. Patient and family voiced understanding and agreement with current treatment plan/discharge plan. <Elijah Cleaning MD - Last Filed: 11/17/24 07:01> Vital Signs: 11/16/24 12:47 11/16/24 13:00 11/16/24 13:30 Temperature 98.2 F Temperature Source Oral Pulse Rate 89 80 Pulse Rate [Right Radial] 93 H Respiratory Rate 16 Blood Pressure 120/68 149/74 H Blood Pressure [Right Arm] 122/71 Blood Pressure Mean [Right Arm] 88 Blood Pressure Source Blood Pressure Source [Right Arm] Automatic Cuff Blood Pressure Position Blood Pressure Position [Right Arm] Supine 02 Sat by Pulse Oximetry 98 99 99 Oxygen Delivery Method Room Air Room Air 11/16/24 14:00 11/16/24 15:00 Temperature 98.2 F Temperature Source Oral Pulse Rate 76 70 Pulse Rate [Right Radial] Respiratory Rate 18 Blood Pressure 117/60 122/75 Blood Pressure [Right Arm] Blood Pressure Mean [Right Arm] Blood Pressure Source Automatic Cuff Blood Pressure Source [Right Arm] Blood Pressure Position Sitting Blood Pressure Position [Right Arm] 02 Sat by Pulse Oximetry 99 Oxygen Delivery Method Room Air Room Air Lab Data Lab Results 11/16/24 12:48: WBC 6.9, RBC 4.13 L, Hgb 12.7, Hct 38.1, MCV 92.3, MCH 30.8, MCHC 33.3, RDW 12.4, Plt Count 327, MPV 8.4, Neut % (Auto) 45.9, Lymph % (Auto) 41.1, [place] % (Auto) 10.6 H, Eos % (Auto) 1.9, Baso % (Auto) 0.4, Neut # (Auto) 3.1, Lymph # (Auto) 2.8, [place] # (Auto) 0.7, Eos # (Auto) 0.1, Baso # (Auto) 0.0, Sodium 138, Potassium 4.4, Chloride 102, Carbon Dioxide 28, Anion Gap 12.4, BUN 19 H, Creatinine 0.70, Estimated Creat Clear 61, Estimated GFR 84, Est GFR ( Amer) 102, Glucose 109 H, Calcium 10.3 H, Total Bilirubin 0.4, AST 31, ALT 23, Alkaline Phosphatase 79, NT-Pro-B Natriuret Pep < 20.0, Total Protein 8.1, Albumin 4.6, Globulin 3.5 H, Albumin/Globulin Ratio 1.3 Orders (Tests/Meds): ORDERS Category Date Time Status Complete Blood Count Auto Diff Stat Lab 11/16/24 12:48 Completed Comprehensive Metabolic Panel Stat Lab 11/16/24 12:48 Completed NT Pro Brain Natriuretic Pep. Stat Lab 11/16/24 12:48 Completed CA venous doppler LE LT Stat Y 11/16/24 12:52 Completed Medical Decision Narrative: 64-year-old female presents emergency department with left lower extremity pain and swelling and redness, differential diagnosis include but not limited to cellulitis, chronic venous insufficiency, chronic venous stasis dermatitis, DVT among others I discussed this patient's case with the attending physician Will obtain basic laboratory studies, proBNP, Doppler ultrasound of the left lower extremity. CBC unremarkable there is no leukocytosis CMP is noted for minimal BUN elevation at 19, otherwise unremarkable I reviewed the patient's DVT/lower extremity duplex ultrasound, no evidence of DVT, however full radiology report is not yet available for my direct interrogation, discussed this with the patient family the bedside, patient's clinical history and clinical exam are concerning for cellulitis, less concerning for DVT with negative ultrasound per my read, patient be treated for cellulitis, will be discharged home to self-care, patient was given strict ED return precautions, prescribe the patient clindamycin 400 mg 3 times daily for 5 days, for cellulitis. Patient and family voiced understanding and agreement with current treatment plan/discharge plan. I was consulted by the ALEXI, and we discussed the complexity of the problems being addressed. I approve the treatment and management plan for this patient's care in the emergency department, thus performing a substantive portion of the medical decision making. Elijah Cleaning MD Critical Care <MARICARMEN Nova - Last Filed: 11/16/24 14:54> Critical Care Time Critical Care Time: No
--- NOTE | 2024-11-16 12:52 | CA_ITS ---
FINAL REPORT TECHNIQUE: Compression villegas scale and Doppler evaluation CLINICAL HISTORY: Red, angry warm to touch LLE x 4 days Smoker, meniscal tear x 6months treated conservatively Enlarged groin lymph node. FINDINGS: Femoral and popliteal veins show normal compressibility and flow. Visualized portion of the calf veins are patent by Doppler exam. IMPRESSION: No evidence of left lower extremity deep venous thrombosis Reviewed, Interpreted and Dictated by Katina Chapman MD Transcribed by Rosey Cortez Authenticated and [facility]
--- NOTE | 2024-11-16 12:52 | PC.NURSE ---
RESPIRATORY NOTIFIED TO CALL IN LEARNING MANAGER FOR LEFT LOWER LEG DVT
--- OUTSIDE RECORDS SUMMARY | 2024-11-16 12:52 | XMS_ITS | Clinical Summary ---
Author Organization [facility] Address [address] [place] [address] Care Team Providers Care [employer] Supervisor Name Role Phone DonovanPreston yancey Briseyda JENKINS Primary Care Provider [phone] Allergies Active Allergy Reactions Criticality Noted Date [...] Influenza, seasonal, injectable, preservative free 03/20/2014, 05/19/2016 [employer] COVID-19 Vaccine (Purple Cap) 12+ 06/30/2020, 07/21/2020 [...] has been counseled on tobacco cessation: Yes. intermodal customer service effects of continued use such as but not limited to lung cancer, oral cavity cancer, CAD, PAD, ASCVD etc were discussed with the patient. Time spent in counseling was between 3-10 mins ([id number]). The following tobacco cessation resources were provided [...] patient would like second opinion; referred to [facility] 06/2022. Assessment & Plan (07/24/2022 [...] patient would like second opinion; referred to [facility] 06/2022. Assessment & Plan (04/22/2021 [...] with sleep medicine at , referred to [facility] 06/2022. Seropositive rheumatoid arthritis of multiple rosie [...] Influenza, seasonal, injecta ble, preservative free 05/19/2016,03/20/2014 [employer] COVID-19 Vac cine (Purple Cap) 12+ 07/21/2020,06/30/2020 [...] Description 11/25/2024 2:00 PM EDT [facility] [address] [place] [address] Fletcher, May R, MEDICAL ADVISOR [address] [place] [address] Health Maintenance Due Date Last [...] exists [facility]-Medicare Annual Wellness (AWV) 11/18/2023 11/17/2022 [id number] Vaccine ( season) 2023 07/21/2020, 06/30/2020 [facility]-Influenza Vaccine (#1) 12/30/202403/17, 02/10/2022, 02/19/2020, Additional history exists [facility]-Depression Screening [...] Adults <6.0% Children and Adolescents <7.5% Source: [place] [employer]. Standards of medical care in diabetes,2017. Diabetes Care.2017:40 (suppl 1):S1-S135. HbA1c assay performed by an ion-exchange chromatography method that is certified traceable to the DCCT. us Kristal Carpenter DO LAB BLOOD ORDERABLES Final Res [facility] [address] [place] [address] * Pap Test (11/17/2022 9:27 AM EDT) Case Report Cytology Case: [id number] Authorizing Provider: Kristal Carpenter DO Collected: 11/17/2022 0927 Ordering Location: [facility] Received: 11/18/2022 1109 Internal Medicine First Screen: Alberta Quiroz Specimen: ThinPrep Pap Test, Liquid-Based Cervical/Vaginal 11/29/2022 11:35 AM EDT [facility] Interpretation NEGATIVE FOR INTRAEPITHELIAL LESION OR MALIGNANCY 11/29/2022 11:35 AM EDT [facility] at 1135 EDT Specimen Adequacy Satisfactory for evaluation; endocervical/alcantar sformation zone component present. Slide scanned and imaged by ThinPrep Imaging System with manual review of all selected farah. 11/29/2022 11:35 AM EDT [facility] Cervical cytology is a screening test [...] results is suggested (please call Microbiology at [phone] for results). 11/29/2022 11:35 AM EDT [facility] Menstrual Status Post-Menopausal 05/2022 11:35 AM EDT [facility] Contraceptive History Not Applicable 11/29/2022 11:35 AM EDT [facility] Screening Type Routine Screen 2022 11:35 AM EDT [facility] High Risk? No 11/29/2022 11:35 AM EDT [facility] HPV Testing Requested? Request HPV Testing Regardless of Pap Test Findings 11/29/2022 11:35 AM EDT [facility] Previous Cancer History No 11/29/2022 11:35 AM EDT [facility] Clinical Information Z00.00 - Medicare annual wellness visit, subsequent [ICD-10-CM] Z00.00 - Healthcare maintenance [ICD-10-CM] Z12.4 - Encounter for Papanicolaou smear for cervical cancer screening [ICD-10-CM] 11/29/2022 11:35 AM EDT [facility] Swab Vaginal and cervical cytologic material / Unknown Non-blood Collection / Unknown 11/17/2022 9:27 AM EDT 11/18/2022 11:09 AM EDT us Kristal Carpenter DO LAB CYTOLOGY ORDERABLES Final Result [facility] [address] [place] [id number] * CT Chest Lung Cancer Screening (09/21/2022 2:30 PM EDT) Anatomical Region Laterality Modality Chest Computed Tomogra phy Addenda Addendum by Markell Mary MD on 09/27/2022 8:25 AM EDT ADDENDUM: Please note there is a expenditure requisition clerk error in the original Recommendations section that [...] A) Negative 05/24/2022 5:38 PM EST [facility] Comment:This specimen is leonel ng sent for confirmation by RT-PCR. Blood Venous blood specimen / Unknown Venipuncture / Unknown 05/24/2022 1:18 PM EST 05/24/2022 1:20 PM EST us Marlen Berry DO LAB BLOOD ORDERABLES Final Re sult [facility] [address] [place] [address] * Mammography Breast Screening Tomosynthesis Bilateral (07/16/2021 [...] to: 01/21/2010 Mammography Outside Images Upload at [employer] 01/27/2011 Mammography Outside Images Upload at [employer] [facility] 07/10/2012 Mammography Outside Images Upload at [employer] [facility] 07/19/2012 Mammography Outside Images Upload at [employer] [facility] 10/28/2016 Mammography Outside Images Upload at [employer] [facility] BREAST COMPOSITION: The breasts are almost entirely [...] Most Recently Relevant to Health Maintenance Insurance [employer] MEDICARE Care Teams [employer] Supervisor Relationship Specialty Start Date End Date Preston Man DO [address] [place] [address] [place] [id number] PCP - General 05/27/24
--- OUTSIDE RECORDS SUMMARY | 2024-11-16 12:52 | XMS_ITS | Encounter Summary ---
Author Organization [facility] Address [address] [place] [address] Care Team Providers Care Manager Basketball Name Role Phone Sofia Nguyen MD Primary Care Provider [phone] Tk Garg MD Primary Care Provider [phone] Lisseth Palacios APRN Primary Care Provider + Kristal Carpenter DO Primary Care Provider [phone] Preston Man DO Primary Care Provider [phone] Preston Man DO Primary Care Provider [phone] Reason for Visit * Reason Onset Date Comments Appointment 10/10/2020 Patient difficul t to keep awake. Encounter Details Date Type Department Care Team (Late st Contact Info) Description 10/10/2020 Refill [facility] Medicine [address] , [address] [place] [address] Marlen Owens MD [address] [place] [address] Social History Tobacco Use Types [...] patient keeps drifting in andout of sleep. 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 [...] Description 11/25/2024 2:00 PM EDT Office Visit [facility] [address] [place] [address] Hemalatha Bynum R, CLINICAL LAB SCIENTIST [address] [place] [address] documented as of this encounter Visit Diagnoses Not on filedocumented in this encounter Additional Health Concerns Infection Onset Date Last Indicated Resolved Time COVID-19 Rule-Out 03/27/2021 03/27/2021 03/27/2021 11:29 AM EST COVID-19 Rule-Out 05/24/2022 05/24/2022 05/24/2022 2:20 PM EST COVID 19 (Confirmed) 05/24/2022 05/24/2022 023 5:23 AM EST documented as of this encounter Care Teams Manager Basketball Relationship Specialty Start Date End Date Sofia Nguyen MD [address] [place] [address] [address] [place] [address] PCP - General 09/11/20 10/15/20 Tk Garg MD [address] [place] [address] PCP - General Family Medicine 10/16/20 03/27/22 Lisseth Palacios, CLINICAL LAB SCIENTIST [address] [place] [address] PCP - General 03/28/22 07/13/22 Kristal Carpenter DO [address] [place] [id number] PCP - General Internal Medicine 07/14/22 08/13/23 Preston Man DO [address] [place] [address] [place] [address] PCP - General 08/14/23 10/26/23 Preston Man DO [address] [place] [address] [place] [address] PCP - General 05/27/24 documented as of this encounter
--- OUTSIDE RECORDS SUMMARY | 2024-11-16 12:52 | XMS_ITS | Clinical Summary ---
Author Organization [facility] Address [address] [place] [address] Care Team Providers Care Estate Planning Counselor Name Role Phone System, Provider Not In Primary Care Provider Un available Allergies Active Allergy Reactions Criticality Noted Date Comments Clarithromycin Other (See Comments) ,Unknown (See Comments) Low 07/29/2013 Sulfacetamide Other (See Comments) ,Unknown (See Comments) Low 07/29/2013 Medications venlafaxine 37.5 MG tablet sustained-release 24 hour 24 hr tablet 1 Active Ventolin HFA 108 (90 Base) MCG/ACT inhaler 1 Active Enbrel SureClick 50 MG/ML solution auto-injector 2 Active fluticasone (FLONASE) 50 MCG/ACT nasal spray 05/05/19 2 2 Active furosemide (LASIX) 40 MG tablet 1 Active hydrOXYzine (ATARAX) 25 MG tablet 1 Active ibuprofen (ADVIL,MOTRIN) 800 MG tablet Take 1,600 mg by mouth 2 (Two) Times a Day. 1 Active lamoTRIgine (LaMICtal) 150 MG tablet 1 Active pantoprazole (PROTONIX) 40 MG EC tablet 1 Active Spiriva Respimat 2.5 MCG/ACT aerosol solution inhaler INHALE 2 PUFFS INTO THE LUNGS DAILY 2 Active Lurasidone HCl (LATUDA) 80 MG tablet tablet Take 80 mg by mouth Daily. Active methadone (DOLOPHINE) 10 MG/5ML solution Take by mouth Every 6 (Six) Hours As Needed for Moderate Pain . 50mg in the morning, 25mg at night. Active potassium chloride (K-DUR,KLOR-CON) 20 MEQ CR tablet Take 20 mEq by mouth Daily As Needed. 2 Active ondansetron ODT (ZOFRAN-ODT) 4 MG disintegrating tablet DISSOLVE 1 TABLET ON THE TONGUE EVERY 6 HOURS NEEDED 2 Active ARIPiprazole (ABILIFY) 2 MG tablet Take 2 mg by mouth Daily. 2 Active Social History Tobacco Use Types Packs/Day Years Used Date Smoking Tobacco: Every Day Cigarettes Smokeless Tobacco: Never Comments:40+ years Alcohol Use Standard Drinks/Week Comments Not Currently 0 (1 standard drink = 0.6 oz pur e alcohol) former, quit 6 years ago Abuse Screen Answer Date Recorded Unsafe at Home or Work/School Not on file Feels Threatened by Someone? Not on file 12/2022 Does Anyone Keep You from Co ntacting Others or Doint Things Outside the Home? Not on file 2023 Physical Sign of Abuse Present Not on file 1 Housing Stability Answer Date Recorded Current Living Arrangements Not on file 12/2022 Potentially Unsafe Housing Conditions Not on julia e 2023 Family and Community Support Answer Alejandro e Recorded Help with Day-to-Day Activities Not on file 2023 Lonely or Isolated Not on file 2023 Employment Answer Date Recorded Do you want help finding or keeping work or a rosie b? Not on file 2023 Disabilities Answer Date Recorded Concentrating, Remembering, or Making Decisions Difficulty Not on file 2023 Doing Errands Independently Difficulty Not on fi le 2023 Education Answer Date Recorded Help with school or training? Not on file Preferred Language Not on file 2023 Comments No Sex and Gender Information Value Date Recorded Sex Assigned at Not on file Legal Sex Female 12:14 PM EDT Gender Identity Not on file Sexual Orientation Not on file Last Filed Vital Signs Vital Sign Reading Time Taken Comments Blood Pressure 110/60 09/20/2021 1:05 PM EDT Pulse 80 09/20/2021 1:05 PM EDT Temperature - - Respiratory Rate 16 09/20/2021 1:05 PM EDT Oxygen Saturation 94% 09/20/2021 1:05 PM EDT Inhaled Oxygen Concentration - - Weight 73.9 kg (163 lb) 09/20/2021 1:05 PM EDT Height 157.5 cm (5' 2 ) 09/20/2021 1:05 PM EDT Body Mass Index 29.81 09/20/2021 1:05 PM EDT Plan of Treatment Health Maintenance Due Date Last Done Comments DXA SCAN 1959 COLOGUARD 02/07/2004 COLON CANCER SCREENING 5 YEA R SIGMOIDOSCOPY 02/07/2004 CT COLONOGRAPHY 02/07/2004 FECAL OCCULT BLOOD TEST 02/07/2004 FIT Testing (1 year) 02/07/2004 ANNUAL PHYSICAL 10/25/2016 HEPATITIS C SCREENING 10/25/2016 PT PLAN OF CARE 01/23/2017 10/25/2016 ZOSTER VACCINE (2 of 2) 11/03/2021 09/08/2021 Pneumococcal Vaccine 50+ (2 of 2 - PCV) 09/08/2022 09/08/2021, 08/15/2017 MAMMOGRAM 07/17/2023 07/16/2021, 07/16/2021 COVID-19 Vaccine (3 - 2023-2 5 season) 2023 07/21/2020, 06/30/2020 INFLUENZA VACCINE 01/29/2025 02/19/2020, , 01/16/2019, Additional history exists TDAP/TD VACCINES (3 - Td or Tdap) 08/08/2028 019, 01/07/2009 COLONOSCOPY 07/24/2030 07/24/2020 COLORECTAL CANCER SCREENING 07/24/2030 Insurance MEDICAID [place] [facility] MEDICARE ADVANTAGE Care Teams Estate Planning Counselor Relationship Specialty Start Date End Date System, [place] [address] PCP - General 05/25/21
--- NOTE | 2024-11-16 12:57 | PC.NURSE ---
PT UPDATED ON PLAN OF CARE. CALL LIGHT WITHIN REACH
[2024-11-16 13:00] VITALS: BP 120/68; PULSE 89; O2SAT 99
[2024-11-16 13:08] LABS: Hematocrit 38.1 % (37.0-47.0); Hemoglobin 12.7 g/dL (12.2-16.2); Immature Granulocytes % 0.1 %; Mean Corpuscular HGB Conc 33.3 g/dL (31.8-35.4); Mean Corpuscular Hemoglobin 30.8 pg (27.0-31.2); Mean Corpuscular Volume 92.3 fl (81-99); Nucleated Red Blood Cells % 0 %; Platelet Count 327 K/mm3 (142-424); Red Blood Count 4.13 M/mm3 (4.20-5.40); Red Cell Distribution Width-SD 41.8 fL; White Blood Count 6.9 K/mm3 (4.8-10.8)
[2024-11-16 13:13] LABS: Alanine Aminotransferase 23 U/L (12-78); Albumin Level 4.6 g/dl (3.5-5.0); Albumin/Globulin Ratio 1.3 (1.1-1.8); Alkaline Phosphatase 79 U/L (38-126); Anion Gap 12.4 mEq/L (5-15); Aspartate Amino Transferase 31 U/L (14-36); Bilirubin,Total 0.4 mg/dl (0.2-1.3); Blood Urea Nitrogen 19 mg/dl (7-17); Calcium 10.3 mg/dl (8.4-10.2); Carbon Dioxide 28 mmol/L (22.0-30.0); Chloride 102 mmol/L (98-107); Creatinine Clearance Estimated 61 mL/min (50-200); Creatinine,Serum 0.70 mg/dl (0.52-1.04); Estimated Glomerular Filt Rate 84 ml/min (>60); GFR (African American) 102 ML/MIN (>60); Globulin 3.5 g/dL (1.3-3.2); Glucose 109 mg/dl (74-100); Potassium 4.4 mmoL/L (3.5-5.1); Sodium 138 mmol/L (136-145); Total Protein,Serum 8.1 g/dl (6.3-8.2)
[2024-11-16 13:22] LABS: NT Pro Brain Natriuretic Pep. < 20.0 pg/mL (0-125)
[2024-11-16 13:30] VITALS: BP 149/74; PULSE 80; O2SAT 99
--- NOTE | 2024-11-16 13:50 | PC.NURSE ---
ROUNDED ON PT, NO NEEDS AT THIS TIME
--- OUTSIDE RECORDS SUMMARY | 2024-11-16 13:51 | XMS_ITS | CCD ---
Author Name Beny BLANTON, Marci Address [address] [facility] [address] [place] [address] Phone Organization [facility] Phone Care Team Providers Care Sanding Machine Operator Name Role Phone Unavailable Primary Care Provider Unavailabl e Unavailable Chronic Care Management Unavaila ble Summary Purpose DataExchange Insurance Providers Payer name Policy type / Coverage type Covered alliance party ID Effective Begin Date Effective End Date [employer] [facility] [id number] Unknown Unknown Family history Father Diagnosis Age [...] cessation counseling) 12/19/[address]: [id number] Never drinks alco hol 12/19/2023 Illegal/Recreational drug [...] 12/19/2023 No Inactive Date Active Biaxin RxNorm: 799911 07/29/2013 No Inactive Da te Active Problems [...] Suboxone 8 mg-2 mg sublingual film RxNorm: 5314493 Take 1 Tablet(s) Sublingual every day 4 01/17/20 24 Inactive Stiolto Respimat 2.5 mcg-2.5 mcg/actuation solution for inhalation RxNorm: 2412101 Inhale 2 Puff(s) Inhalation every day 4 03/17/20 24 Inactive Vraylar 3 mg capsule RxNorm: 3685226 Administer 1 Capsule(s) Oral every day 4 03/17/20 24 Inactive Enbrel 50 mg/mL (1 mL) subcutaneous syringe RxNorm: 227866 Inject 1 Unit(s) Subcutaneous 1 time a week 4 01/17/20 24 Inactive calcium 600 mg-D3 20 mcg-magnesium 40 vj-femkrs-beov-z inc chew tablet RxNorm: Take 1 Tablet(s) Oral two times a day 4 03/17/20 24 Inactive fluticasone (FLONASE) 50 MCG/ACT nasal spray RxNorm: 8140449 nasl 2 No Stop Date Active Ventolin HFA 108 (90 Base) MCG/ACT inhaler RxNorm: 072782 inhl 1 No Stop Date Active lamoTRIgine (LaMICtal) 150 MG tablet RxNorm: 511990 oral 1 No Stop Date Active ibuprofen (ADVIL,MOTRIN) 800 MG tablet RxNorm: 776909 Take 1,600 mg by mouth 2 (Two) Times a Day. 1 No Stop Date Active Medication Administered No Medication Administered data Results Observation Observation Code Item Item Code Result Date Service Location No Orders UA NoOrdersUA NO ORDERS UA 0.00 26/06 024 [facility] [address] [place] [address] URINALYSIS AUTO W/SCOPE 25835 Glucose 2345-7 Negative mg/dL 024 [facility] [address] [place] [address] URINALYSIS AUTO W/SCOPE 05101 Protein Negative mg/dL 024 [facility] [address] [place] [address] URINALYSIS AUTO W/SCOPE 29237 Bilirubin Negative mg/dL 024 [facility] [address] [place] [address] URINALYSIS AUTO W/SCOPE 97341 Urobilinogen Negative mg/dL 024 [facility] [address] [place] [address] URINALYSIS AUTO W/SCOPE 79051 Ph 6.50 024 [facility] [address] [place] [address] 11194 URINALYSIS AUTO W/SCOPE 98666 Blood Negative mg/dL 024 [facility] [address] [place] [address] URINALYSIS AUTO W/SCOPE 79723 Ketones Negative mg/dL 024 [facility] [address] [place] [address] URINALYSIS AUTO W/SCOPE 73658 Nitrite Negative 024 [facility] [address] [place] [address] URINALYSIS AUTO W/SCOPE 20610 Leukocytes Negative Praneeth/uL 024 [facility] [address] [place] [address] URINALYSIS AUTO W/SCOPE 52539 Clarity Clear 024 [facility] [address] [place] [address] URINALYSIS AUTO W/SCOPE 92457 Specific Bronte 1.019 024 [facility] [address] [place] [address] URINALYSIS AUTO W/SCOPE 14900 Color Light-Yello w 024 [facility] [address] [place] [address] URINALYSIS AUTO W/SCOPE 02853 Red Blood Cell <1 /HPF #/HPF 024 [facility] [address] [place] [address] URINALYSIS AUTO W/SCOPE 96297 SQUAMOUS EPITHELIAL <1 /HPF #/HPF 024 [facility] [address] [place] [address] URINALYSIS AUTO W/SCOPE 76118 White Blood Cell 3 /HPF #/HPF 024 [facility] [address] [place] [address] URINALYSIS AUTO W/SCOPE 68418 Bacteria Trace graded/HPF 024 [facility] [address] [place] [address] URINALYSIS AUTO W/SCOPE 09064 Calcium Oxalate Crystal MANY graded/HPF 024 [facility] [address] [place] [address] URINALYSIS AUTO W/SCOPE 09477 Mucous RARE grades/LPF 024 [facility] [address] [place] [address] [facility] and [facility] Culture & Sensitivity SEE COMMENT 024 [facility] [address] [place] [address] Manual Diff MDIFF Neutrophils 48249-2 64.0 % 024 [facility] [address] [place] [address] Manual Diff MDIFF Lymphocytes 86263-5 30.0 % 024 [facility] [address] [place] [address] Manual Diff MDIFF Monocytes 59833-5 3.0 % 024 [facility] [address] [place] [address] Manual Diff MDIFF Eosinophils 10720-9 2.0 % 024 [facility] [address] [place] [address] Manual Diff MDIFF Basophils 38583-1 1.0 % 024 [facility] [address] [place] [address] Manual Diff MDIFF Absolute Neut 02904-5 4416 /ul 11/30 07/31 024 [facility] [address] [place] [address] Manual Diff MDIFF Absolute Lymph 09755-6 2070 /ul 24/06 024 [facility] [address] [place] [address] Manual Diff MDIFF Absolute Beadle 87269-0 207 /ul 08/07/31 024 [facility] [address] [place] [address] Manual Diff MDIFF Platelet Estimate 9317-9 Normal 024 [facility] [address] [place] [address] Manual Diff MDIFF Absolute Eos 88185-6 138 /ul 12/22 024 [facility] [address] [place] [address] Manual Diff MDIFF Echinocytes 7790-9 2+ 024 [facility] [address] [place] [address] Manual Diff MDIFF Poikilocytosis 779-9 2+ 24/06 024 [facility] [address] [place] [address] Manual Diff MDIFF Absolute Baso 92889-0 69 /ul 11/30 07/31 024 [facility] [address] [place] [address] COMPLETE CBC W/ DIFF WBC 22723 WBC 6690-2 6.9 K/ul 024 [facility] [address] [place] [address] COMPLETE CBC W/ DIFF WBC 12791 RBC 789-8 4.29 M/uL 024 [facility] [address] [place] [address] COMPLETE CBC W/ DIFF WBC 77377 Hemoglobin 718-7 13.3 g/dL 024 [facility] [address] [place] [address] COMPLETE CBC W/ DIFF WBC 64266 Hematocrit 4544-3 41.0 % 024 [facility] [address] [place] [address] COMPLETE CBC W/ DIFF WBC 72050 MCV 787-2 95.7 fL 024 [facility] [address] [place] [address] COMPLETE CBC W/ DIFF WBC 29498 MCH 785-6 31.1 pg 024 [facility] [address] [place] [address] COMPLETE CBC W/ DIFF WBC 09445 MCHC 786-4 32.5 g/dL 024 [facility] [address] [place] [address] COMPLETE CBC W/ DIFF WBC 03063 RDW 788-0 14.2 % 024 [facility] [address] [place] [address] COMPLETE CBC W/ DIFF WBC 70161 Platelet Count 777-3 311 K/uL 024 [facility] [address] [place] [address] COMPLETE CBC W/ DIFF WBC 12184 MPV 43173-7 8.0 fL 024 [facility] [address] [place] [address] No Orders No Orders No Orders 0 024 [facility] [address] [place] [address] VITAMIN D 85608 Vitamin D 01615-3 27.0 ng/mL 024 [facility] [address] [place] [address]4931 Direct LDL 23099 LDL-Direct 00718-1 96 mg/dL 024 [facility] [address] [place] [address] 91262 HDL - CHOL 93255 HDL 2085-9 41 mg/dL 024 [facility] [address] [place] [address] 56788 HDL - CHOL 39822 CHD 06051-2 25 % 024 [facility] [address] [place] [address] 41843 Urine Culture and Sensitivity Reflexed from [facility] Urine Culture & Sensitivity SEE COMMENT 024 [facility] [address] [place] [address] 93123 FREE T-3 24479 FT3 3051-0 2.78 pg/mL 024 [facility] [address] [place] [address] 40201 [id number] BIN 4548-4 Glyco HGB A1C 84209-7 5.7 % 024 [facility] [address] [place] [address] 20375 [id number] BIN 4548-4 eAG 68314-1 117 mg/dL 024 [facility] [address] [place] [address] 36234 TSH 99036 TSH 02298-9 2.760 uIU/mL 024 [facility] [address] [place] [address] CHEM 14 (METABOLIC PANEL) 08990 Glucose 2345-7 144 mg/dL 024 [facility] [address] [place] [address]679 CHEM 14 (METABOLIC PANEL) 08807 BUN 3094-0 13 mg/dL [facility] [address] [place] [address] 33453 CHEM 14 (METABOLIC PANEL) 00419 Creatinine 2160-0 0.9 mg/dL 024 [facility] [address] [place] [address] CHEM 14 (METABOLIC PANEL) 58928 BUN/Creat Ratio 3097-3 14.1 024 [facility] [address] [place] [address] CHEM 14 (METABOLIC PANEL) 97529 GFR Estimated 65209-2 69 mL/min/1.73 m2 024 [facility] [address] [place] [address] CHEM 14 (METABOLIC PANEL) 71150 Sodium 2951-2 139 mmol/L 024 [facility] [address] [place] [address] 39991 CHEM 14 (METABOLIC PANEL) 99302 Potassium 2823-3 4.0 mmol/L 024 [facility] [address] [place] [address] 65395 CHEM 14 (METABOLIC PANEL) 28398 Chloride 2075-0 104 mmol/L 024 [facility] [address] [place] [address] 52479 CHEM 14 (METABOLIC PANEL) 00943 Total CO2 2028-9 30 mmol/L 024 [facility] [address] [place] [address] 03592 CHEM 14 (METABOLIC PANEL) 44592 Anion Gap 1863-0 9.0 mEq/L 024 [facility] [address] [place] [address] 03135 CHEM 14 (METABOLIC PANEL) 76192 Calculated Serum Osmolality 17877-2 291 mOsm/kg 024 [facility] [address] [place] [address] 06879 CHEM 14 (METABOLIC PANEL) 81127 Albumin 36109-2 4.0 g/dL 024 [facility] [address] [place] [address] 02800 CHEM 14 (METABOLIC PANEL) 89837 Total Protein 2885-2 7.9 g/dL 024 [facility] [address] [place] [address] 40835 CHEM 14 (METABOLIC PANEL) 66572 Globulin 2336-6 3.9 g/dL 024 [facility] [address] [place] [address] 31292 CHEM 14 (METABOLIC PANEL) 13912 Albumin/Globulin Ratio 1759-0 1.0 024 [facility] [address] [place] [address] 56309 CHEM 14 (METABOLIC PANEL) 61359 ALK PHOS 6768-6 80.00 U/L 024 [facility] [address] [place] [address] 87258 CHEM 14 (METABOLIC PANEL) 58461 SGOT/AST 1920-8 17 U/L 024 [facility] [address] [place] [address] CHEM 14 (METABOLIC PANEL) 44637 SGPT/ALT 1743-4 24 U/L 024 [facility] [address] [place] [address] 09120 CHEM 14 (METABOLIC PANEL) 86440 Total Bilirubin 1975-2 0.3 mg/dL 024 [facility] [address] [place] [address] 43390 CHEM 14 (METABOLIC PANEL) 21804 Calcium 74122-0 9.2 mg/dL 024 [facility] [address] [place] [address] 43122 CHEM 14 (METABOLIC PANEL) 91447 Corrected Calcium 66209-9 9.4 mg/dL 024 [facility] [address] [place] [address] 29870 URINALYSIS AUTO W/SCOPE 51323 Glucose 2345-7 NO SPECIMEN RECEIVED mg/dL 024 [facility] [address] [place] [address] 22006 URINALYSIS AUTO W/SCOPE 83451 Protein NO SPECIMEN RECEIVED mg/dL 024 [facility] [address] [place] [address] 61069 URINALYSIS AUTO W/SCOPE 70712 Bilirubin NO SPECIMEN RECEIVED mg/dL 024 [facility] [address] [place] [address] 12819 URINALYSIS AUTO W/SCOPE 93101 Urobilinogen NO SPECIMEN RECEIVED mg/dL 024 [facility] [address] [place] [address] 44602 URINALYSIS AUTO W/SCOPE 64015 Ph NO SPECIMEN RECEIVED 024 [facility] [address] [place] [address] 50644 URINALYSIS AUTO W/SCOPE 03904 Blood NO SPECIMEN RECEIVED mg/dL 024 [facility] [address] [place] [address] 83664 URINALYSIS AUTO W/SCOPE 25604 Ketones NO SPECIMEN RECEIVED mg/dL 024 [facility] [address] [place] [address] URINALYSIS AUTO W/SCOPE 03756 Nitrite NO SPECIMEN RECEIVED 024 [facility] [address] [place] [address] URINALYSIS AUTO W/SCOPE 66622 Leukocytes NO SPECIMEN RECEIVED Praneeth/uL 024 [facility] [address] [place] [address] URINALYSIS AUTO W/SCOPE 77007 Clarity NO SPECIMEN RECEIVED 024 [facility] [address] [place] [address] URINALYSIS AUTO W/SCOPE 51842 Specific Bronte NO SPECIMEN RECEIVED 024 [facility] [address] [place] [address] URINALYSIS AUTO W/SCOPE 50325 Color NO SPECIMEN RECEIVED 024 [facility] [address] [place] [address] 44987 FREE T-4 44881 FT4 3024-7 1.05 ng/dL 024 [facility] [address] [place] [address] 63472 CHOLESTEROL 80052 Cholesterol 2093-3 165 mg/dL 024 [facility] [address] [place] [address] 22379 MICROALBUMIN (URINE) 71249 Microalbumin 37045-4 2.1 mg/dL 024 [facility] [address] [place] [address] 75639 MICROALBUMIN (URINE) 39004 Microalbumin/Crea tinine Ratio 84747-2 27 MCG/MGCREAT 024 [facility] [address] [place] [address] 49906 MICROALBUMIN (URINE) 27227 Urine Creatinine 2161-8 77.70 mg/dL 024 [facility] [address] [place] [address] 62277 TRIGLYCERIDES 69321 Triglycerides 2571-8 173 mg/dL 024 [facility] [address] [place] [address] 24231 TRIGLYCERIDES 90984 VLDL 59720-7 35 mg/dL 024 [facility] [address] [place] [address] 89407 Procedures Procedure Codes Date Most recent A1c < 7.0% CPT-4: 3044F 5 Most recent A1c < 7.0% CPT-4: 3044F 4 Most recent A1c < 7.0% CPT-4: 3044F 4 MED LIST DOCD IN [facility] CPT-4: 1159F 12/19/2023 RVW MEDS BY RX/DR IN [facility] CPT-4: 1160F 2023 Amnt pain noted; pain prsnt CPT-4: 1125F 11/30 LOW RISK FOR RETINOPATHY CPT-4: 3072F 024 Screening for clinical depre ssion is negative, follow-up plan not required CPT-4: G8510 12/19/2023 [id number] CPT-4: 70538 Unknown Vital Signs Date Vital 12/19/2023 Blood Pressure 1: 120/79 Code: 8480-6 BMI: 25.6 Code: 49929-0 Heart Rate 1: 76 bpm Height: 5'2 Code: 8302-2 Respiratory Rate: 16 bpm SpO2: 95% Temperature: 36.7 (C) / 98.0 (F) Weight: 140 lbs 2 oz Code: 52502-4 Reason For Visit Reason For Visit Effective Dates Notes new patient welcome visit 12/19/2023 Encounters Encounter Performer Location Location Address Codes Date (46154) Other Reason/Patient not seen Diagnosis: Patient not seen[ICD10: UXZ.01] [facility] [place] [address] CPT-4: 08194 05/23/2024 (32800) No answer/Patient not seen Diagnosis: Patient not seen[ICD10: UXZ.01] [facility] Office [address] [place] [address] CPT-4: 53449 04/19/2024 (IND) Independent Lab Draw Diagnosis: Patient not seen[ICD10: UXZ.01] [place] [facility] [place] [facility] [place] [address] CPT-4: IND 12/22/2023 (20494) Home or Residence Visit [employer] - Moderate Level, 60 mins Diagnosis: Encounter for general adult medical examination without abnormal findings[ICD10: Z00.00] Diagnosis: Bipolar 2 disorder[ICD10: F31.81] Diagnosis: Chronic obstructive pulmonary disease, unspecified COPD type[ICD10: J44.9] Diagnosis: Generalized anxiety disorder[ICD10: F41.1] Diagnosis: Opioid dependence in remission[ICD10: F11.21] Diagnosis: Osteopenia, unspecified location[ICD10: M85.80] Diagnosis: Rheumatoid arthritis with positive rheumatoid factor, involving unspecified site[ICD10: M05.9] Marci Hilldeena [place] [facility] [address] [address] CPT-4: 12165 12/19/2023 Plan of Care Planned Activity Notes Codes Status Date Appointment: Marci Swan WPtel: [address] [place], [place] [id number] 05/23/2024 Patient Education: Patient Medication Summary Completed 05/23/2024 Appointment: Beny Marci WPtel: [address] [place], [place] [id number] 04/19/2024 Patient Education: Patient Medication Summary Completed 04/19/2024 Appointment: TERESA, NOTE Follow Up Appointment: TERESA, NOTE CHW - Referra 12/25/2023 Appointment: TERESA, NOTE Phone Call Patient Education: Patient Medication Summary Completed 12/25/2023 Patient Education: Patient Medication Summary Completed 12/25/2023 Appointment: Office, [place] [address] 12/22/2023 Patient Education: Patient Medication Summary Completed [...] of care. 12/19/2023 Appointment: Marci Swan WPtel: [address] [place], [place] [phone] [facility] 12/19/2023 Patient Education: Patient Medication Summary Completed 12/19/2023 Patient Education: Obesity Completed 12/19/2023 Care Plan: eGFR KHE Pending Care Plan: Microalbumin (Urine) KHE Pending 12/19/2023 Referral: Food Insecurity Referral Initiated Referral: [facility] WPtel: [address] [place] [address] [facility] [address] [place] [address] Order Faxed Instructions Comment Date v. Encounter [...]
--- OUTSIDE RECORDS SUMMARY | 2024-11-16 13:52 | XMS_ITS | CCD ---
Author Name Bney BLANTON, Marci Address [address] [facility] [address] [place] [address] Phone Organization [facility] Phone Care Team Providers Care Supervisor Publications Name Role Phone Unavailable Primary Care Provider Unavailabl e Unavailable Chronic Care Management Unavaila ble Summary Purpose DataExchange Insurance Providers Payer name Policy type / Coverage type Covered libertarian ID Effective Begin Date Effective End Date [employer] BC[employer] [facility] [id number] Unknown Unknown Family history Father Diagnosis Age [...] cessation counseling) 12/19/[address]: 637785772 Never drinks alco hol 12/19/2023 Illegal/Recreational drug [...] 12/19/2023 No Inactive Date Active Biaxin RxNorm: 820957 07/29/2013 No Inactive Da te Active Problems [...] Suboxone 8 mg-2 mg sublingual film RxNorm: 5893266 Take 1 Tablet(s) Sublingual every day 4 01/17/20 24 Inactive Stiolto Respimat 2.5 mcg-2.5 mcg/actuation solution for inhalation RxNorm: 3663487 Inhale 2 Puff(s) Inhalation every day 4 03/17/20 24 Inactive Vraylar 3 mg capsule RxNorm: 8898818 Administer 1 Capsule(s) Oral every day 4 03/17/20 24 Inactive Enbrel 50 mg/mL (1 mL) subcutaneous syringe RxNorm: 756296 Inject 1 Unit(s) Subcutaneous 1 time a week 4 01/17/20 24 Inactive calcium 600 mg-D3 20 mcg-magnesium 40 ph-tddkxz-vrpu-[id number] inc chew tablet RxNorm: Take 1 Tablet(s) Oral two times a day 4 03/17/20 24 Inactive fluticasone (FLONASE) 50 MCG/ACT nasal spray RxNorm: 8829957 nasl 2 No Stop Date Active Ventolin HFA 108 (90 Base) MCG/ACT inhaler RxNorm: 673734 inhl 1 No Stop Date Active lamoTRIgine (LaMICtal) 150 MG tablet RxNorm: 794136 oral 1 No Stop Date Active ibuprofen (ADVIL,MOTRIN) 800 MG tablet RxNorm: 029806 Take 1,600 mg by mouth 2 (Two) Times a Day. 1 No Stop Date Active Medication Administered No Medication Administered data Results Observation Observation Code Item Item Code Result Date Service Location No Orders UA NoOrdersUA NO ORDERS UA 0.00 26/06 024 [facility] [address] [place] [address] URINALYSIS AUTO W/SCOPE 90093 Glucose 2345-7 Negative mg/dL 024 [facility] [address] [place] [address] URINALYSIS AUTO W/SCOPE 37424 Protein Negative mg/dL 024 [facility] [address] [place] [address] URINALYSIS AUTO W/SCOPE 51805 Bilirubin Negative mg/dL 024 [facility] [address] [place] [address] URINALYSIS AUTO W/SCOPE 11206 Urobilinogen Negative mg/dL 024 [facility] [address] [place] [address] URINALYSIS AUTO W/SCOPE 84623 Ph 6.50 024 [facility] [address] [place] [address] URINALYSIS AUTO W/SCOPE 54884 Blood Negative mg/dL 024 [facility] [address] [place] [address] URINALYSIS AUTO W/SCOPE 10781 Ketones Negative mg/dL 024 [facility] [address] [place] [address] URINALYSIS AUTO W/SCOPE 74684 Nitrite Negative 024 [facility] [address] [place] [address] URINALYSIS AUTO W/SCOPE 75153 Leukocytes Negative Praneeth/uL 024 [facility] [address] [place] [address] 26[address] URINALYSIS AUTO W/SCOPE 41577 Clarity Clear 024 [facility] [address] [place] [address] URINALYSIS AUTO W/SCOPE 96860 Specific [place] 1.019 024 [facility] [address] [place] [address] URINALYSIS AUTO W/SCOPE 20986 Color Light-Yello w 024 [facility] [address] [place] [address] URINALYSIS AUTO W/SCOPE 12943 Red Blood Cell <1 /HPF #/HPF 024 [facility] [address] [place] [address] URINALYSIS AUTO W/SCOPE 02606 SQUAMOUS EPITHELIAL <1 /HPF #/HPF 024 [facility] [address] [place] [address] URINALYSIS AUTO W/SCOPE 26469 White Blood Cell 3 /HPF #/HPF 024 [facility] [address] [place] [address] URINALYSIS AUTO W/SCOPE 17148 Bacteria Trace graded/HPF 024 [facility] [address] [place] [address] URINALYSIS AUTO W/SCOPE 83129 Calcium Oxalate Crystal MANY graded/HPF 024 [facility] [address] [place] [address] URINALYSIS AUTO W/SCOPE 07181 Mucous RARE grades/LPF 024 [facility] [address] [place] [address] Urine Culture and Sensitivity [facility] Urine Culture & Sensitivity SEE COMMENT 024 [facility] [address] [place] [address] Manual Diff MDIFF Neutrophils 68930-4 64.0 % 024 [facility] [address] [place] [address] Manual Diff MDIFF Lymphocytes 17127-0 30.0 % 024 [facility] [address] [place] [address] Manual Diff MDIFF Monocytes 32627-2 3.0 % 024 [facility] [address] [place] [address] Manual Diff MDIFF Eosinophils 64383-4 2.0 % 024 [facility] [address] [place] [address] Manual Diff MDIFF Basophils 78878-1 1.0 % 024 [facility] [address] [place] [address] Manual Diff MDIFF Absolute Neut 85735-2 4416 /ul 11/30 07/31 024 [facility] [address] [place] [address] Manual Diff MDIFF Absolute Lymph 69734-5 2070 /ul 24/06 024 [facility] [address] [place] [address] Manual Diff MDIFF Absolute Hendricks 39120-5 207 /ul 08/07/31 024 [facility] [address] [place] [address] Manual Diff MD[facility] Platelet Estimate 9317-9 Normal 024 [facility] [address] [place] [address] Manual Diff [facility] Absolute Eos 45972-1 138 /ul 12/22 024 [facility] [address] [place] [address] Manual Diff [facility] Echinocytes 7790-9 2+ 024 [facility] [address] [place] [address] Manual Diff MDIFF Poikilocytosis 779-9 2+ 24/06 024 [facility] [address] [place] [address] Manual Diff MDIFF Absolute Baso 74827-1 69 /ul 11/30 07/31 024 [facility] [address] [place] [address] COMPLETE CBC W/ DIFF WBC 66252 WBC 6690-2 6.9 K/ul 024 [facility] [address] [place] [address] COMPLETE CBC W/ DIFF WBC 80210 RBC 789-8 4.29 M/uL 024 [facility] [address] [place] [address] COMPLETE CBC W/ DIFF WBC 13729 Hemoglobin 718-7 13.3 g/dL 024 [facility] [address] [place] [address] COMPLETE CBC W/ DIFF WBC 01755 Hematocrit 4544-3 41.0 % 024 [facility] [address] [place] [address] COMPLETE CBC W/ DIFF WBC 08812 MCV 787-2 95.7 fL 024 [facility] [address] [place] [address] COMPLETE CBC W/ DIFF WBC 70658 MCH 785-6 31.1 pg 024 [facility] [address] [place] [address] COMPLETE CBC W/ DIFF WBC 58296 MCHC 786-4 32.5 g/dL 024 [facility] [address] [place] [address] COMPLETE CBC W/ DIFF WBC 81466 RDW 788-0 14.2 % 024 [facility] [address] [place] [address] COMPLETE CBC W/ DIFF WBC 69172 Platelet Count 777-3 311 K/uL 024 [facility] [address] [place] [address]247 COMPLETE CBC W/ DIFF WBC 48038 MPV 97089-6 8.0 fL 024 [facility] [address] [place] [address] 49353 No Orders No Orders No Orders 0 024 [facility] [address] [place] [address] TRIGLYCERIDES 02643 Triglycerides 2571-8 173 mg/dL 024 [facility] [address] [place] [address] TRIGLYCERIDES 09471 VLDL 10577-3 35 mg/dL 024 [facility] [address] [place] [address]6713 VITAMIN D 08824 Vitamin D 88001-8 27.0 ng/mL 024 [facility] [address] [place] [address] 19884 MICROALBUMIN (URINE) 59266 Microalbumin 22502-2 2.1 mg/dL 024 [facility] [address] [place] [address] 07470 MICROALBUMIN (URINE) 86957 Microalbumin/Crea tinine Ratio 30094-7 27 MCG/MGCREAT 024 [facility] [address] [place] [address] 64110 MICROALBUMIN (URINE) 78935 Urine Creatinine 2161-8 77.70 mg/dL 024 [facility] [address] [place] [address] 01475 CHOLESTEROL 12733 Cholesterol 2093-3 165 mg/dL 024 [facility] [address] [place] [address] 25038 Direct LDL 04976 LDL-Direct 78392-1 96 mg/dL 0[address] [facility] [address] [place] [address] 86736 FREE T-4 92086 FT4 3024-7 1.05 ng/dL 024 [facility] [address] [place] [address] 79532 HDL - CHOL 60849 HDL 2085-9 41 mg/dL 024 [facility] [address] [place] [address] 82668 HDL - CHOL 59206 [facility] 54127-8 25 % 024 [facility] [address] [place] [address] Urine Culture and Sensitivity [facility] Urine Culture & Sensitivity SEE COMMENT 024 [facility] [address] [place] [address] FREE T-3 77939 FT3 3051-0 2.78 pg/mL 024 [facility] [address] [place] [address] URINALYSIS AUTO W/SCOPE 32380 Glucose 2345-7 NO SPECIMEN RECEIVED mg/dL 024 [facility] [address] [place] [address] URINALYSIS AUTO W/SCOPE 14434 Protein NO SPECIMEN RECEIVED mg/dL 024 [facility] [address] [place] [address] URINALYSIS AUTO W/SCOPE 52384 Bilirubin NO SPECIMEN RECEIVED mg/dL 024 [facility] [address] [place] [address] URINALYSIS AUTO W/SCOPE 33864 Urobilinogen NO SPECIMEN RECEIVED mg/dL 024 [facility] [address] [place] [address] 91707 URINALYSIS AUTO W/SCOPE 88667 Ph NO SPECIMEN RECEIVED 024 [facility] [address] [place] [address] 08832 URINALYSIS AUTO W/SCOPE 20840 Blood NO SPECIMEN RECEIVED mg/dL 024 [facility] [address] [place] [address] 69051 URINALYSIS AUTO W/SCOPE 60134 Ketones NO SPECIMEN RECEIVED mg/dL 024 [facility] [address] [place] [address] 49835 URINALYSIS AUTO W/SCOPE 94654 Nitrite NO SPECIMEN RECEIVED 024 [facility] [address] [place] [address] 31932 URINALYSIS AUTO W/SCOPE 69241 Leukocytes NO SPECIMEN RECEIVED Praneeth/uL 024 [facility] [address] [place] [address] 11381 URINALYSIS AUTO W/SCOPE 48928 Clarity NO SPECIMEN RECEIVED 024 [facility] [address] [place] [address] 85259 URINALYSIS AUTO W/SCOPE 13033 Specific [place] NO SPECIMEN RECEIVED 0[address] [facility] [address] [place] [address] 63315 URINALYSIS AUTO W/SCOPE 39285 Color NO SPECIMEN RECEIVED [facility] [address] [place] [address] 99782 CHEM 14 (METABOLIC PANEL) 49138 Glucose 2345-7 144 mg/dL [facility] [address] [place] [address] 95947 CHEM 14 (METABOLIC PANEL) 88924 BUN 3094-0 13 mg/dL 024 [facility] [address] [place] [address] 15687 CHEM 14 (METABOLIC PANEL) 53133 Creatinine 2160-0 0.9 mg/dL [facility] [address] [place] [address] 86908 CHEM 14 (METABOLIC PANEL) 57925 BUN/Creat Ratio 3097-3 14.1 [facility] [address] [place] [address] 95662 CHEM 14 (METABOLIC PANEL) 93752 GFR Estimated 43577-9 69 mL/min/1.73 m2 [facility] [address] [place] [address] 19084 CHEM 14 (METABOLIC PANEL) 17472 Sodium 2951-2 139 mmol/L [facility] [address] [place] [address] 48597 CHEM 14 (METABOLIC PANEL) 95170 Potassium 2823-3 4.0 mmol/L [facility] [address] [place] [address] 06159 CHEM 14 (METABOLIC PANEL) 60051 Chloride 2075-0 104 mmol/L [facility] [address] [place] [address] 38103 CHEM 14 (METABOLIC PANEL) 99697 Total CO2 2028-9 30 mmol/L [facility] [address] [place] [address] 21019 CHEM 14 (METABOLIC PANEL) 63277 Anion Gap 1863-0 9.0 mEq/L [facility] [address] [place] [address] 76779 CHEM 14 (METABOLIC PANEL) 35506 Calculated Serum Osmolality 16000-5 291 mOsm/kg [facility] [address] [place] [address] 21946 CHEM 14 (METABOLIC PANEL) 90348 Albumin 84703-4 4.0 g/dL [facility] [address] [place] [address] 58267 CHEM 14 (METABOLIC PANEL) 87074 Total Protein 2885-2 7.9 g/dL 024 [facility] [address] [place] [address] CHEM 14 (METABOLIC PANEL) 93701 Globulin 2336-6 3.9 g/dL 024 [facility] [address] [place] [address] CHEM 14 (METABOLIC PANEL) 05016 Albumin/Globulin Ratio 1759-0 1.0 024 [facility] [address] [place] [address] CHEM 14 (METABOLIC PANEL) 84567 ALK PHOS 6768-6 80.00 U/L 024 [facility] [address] [place] [address] CHEM 14 (METABOLIC PANEL) 57100 SGOT/AST 1920-8 17 U/L 024 [facility] [address] [place] [address] CHEM 14 (METABOLIC PANEL) 42642 SGPT/ALT 1743-4 24 U/L 024 [facility] [address] [place] [address] 04517 CHEM 14 (METABOLIC PANEL) 77104 Total Bilirubin 1975-2 0.3 mg/dL 024 [facility] [address] [place] [address] 63379 CHEM 14 (METABOLIC PANEL) 94301 Calcium 35471-3 9.2 mg/dL 024 [facility] [address] [place] [address] CHEM 14 (METABOLIC PANEL) 18490 Corrected Calcium 63678-8 9.4 mg/dL 024 [facility] [address] [place] [address] [id number] BIN 4548-4 Glyco HGB A1C 45955-1 5.7 % 024 [facility] [address] [place] [address] 60644 [id number] BIN 4548-4 eAG 23128-6 117 mg/dL 024 [facility] [address] [place] [address] TSH 29710 TSH 52452-3 2.760 uIU/mL 024 [facility] [address] [place] [address] Procedures Procedure Codes Date Most recent A1c < 7.0% CPT-4: 3044F 5 Most recent A1c < 7.0% CPT-4: 3044F 4 Most recent A1c < 7.0% CPT-4: 3044F 4 MED LIST DOCD IN [facility] CPT-4: 1159F 12/19/2023 RVW MEDS BY RX/DR IN [facility] CPT-4: 1160F 2023 Amnt pain noted; pain prsnt CPT-4: 1125F 11/30 LOW RISK FOR RETINOPATHY CPT-4: 3072F 024 Screening for clinical depre ssion is negative, follow-up plan not required CPT-4: G8510 12/19/2023 [id number] CPT-4: 98122 Unknown Vital Signs Date Vital 12/19/2023 Blood Pressure 1: 120/79 Code: 8480-6 BMI: 25.6 Code: 01954-7 Heart Rate 1: 76 bpm Height: 5'2 Code: 8302-2 Respiratory Rate: 16 bpm SpO2: 95% Temperature: 36.7 (C) / 98.0 (F) Weight: 140 lbs 2 oz Code: 84552-1 Reason For Visit Reason For Visit Effective Dates Notes new patient welcome visit 12/19/2023 Encounters Encounter Performer Location Location Address Codes Date (04084) Other Reason/Patient not seen Diagnosis: Patient not seen[ICD10: UXZ.01] [facility] [place] [address] CPT-4: 81213 05/23/2024 (91168) No answer/Patient not seen Diagnosis: Patient not seen[ICD10: UXZ.01] [facility] Office [address] [place] [address] CPT-4: 94050 04/19/2024 (IND) Independent Lab Draw Diagnosis: Patient not seen[ICD10: UXZ.01] [facility] [place] [address] CPT-4: IND 12/22/2023 ([id number]) Home or Residence Visit CHIP SEPARATOR - Moderate Level, 60 mins Diagnosis: Encounter for general adult medical examination without abnormal findings[ICD10: Z00.00] Diagnosis: Bipolar 2 disorder[ICD10: F31.81] Diagnosis: Chronic obstructive pulmonary disease, unspecified COPD type[ICD10: J44.9] Diagnosis: Generalized anxiety disorder[ICD10: F41.1] Diagnosis: Opioid dependence in remission[ICD10: F11.21] Diagnosis: Osteopenia, unspecified location[ICD10: M85.80] Diagnosis: Rheumatoid arthritis with positive rheumatoid factor, involving unspecified site[ICD10: M05.9] [facility] [address] [address] CPT-4: 69707 12/19/2023 Plan of Care Planned Activity Notes Codes Status Date Appointment: Marci Swan WPtel: [address] [place], [place] [id number] 05/23/2024 Patient Education: Patient Medication Summary Completed 05/23/2024 Appointment: Beny Marci WPtel: [address] [place], [place] [id number] 04/19/2024 Patient Education: Patient Medication Summary Completed 04/19/2024 Appointment: TERESA, NOTE Follow Up Appointment: TERESA, NOTE CHW - Referra 12/25/2023 Appointment: TERESA, NOTE Phone Call Patient Education: Patient Medication Summary Completed 12/25/2023 Patient Education: Patient Medication Summary Completed 12/25/2023 Appointment: Office, [place] [address] 12/22/2023 Patient Education: Patient Medication Summary Completed [...] of care. 12/19/2023 Appointment: Marci Swan WPtel: [address] [place], [place] [phone] [facility] 12/19/2023 Patient Education: Patient Medication Summary Completed 12/19/2023 Patient Education: Obesity Completed 12/19/2023 Care Plan: eGFR KHE Pending Care Plan: Microalbumin (Urine) KHE Pending 12/19/2023 Referral: Food Insecurity Referral Initiated Referral: [facility] WPtel: [address] [place] [address] Counseling & Psychiatry [address] [place] [address] Order Faxed Instructions Comment Date v. Encounter [...]
[2024-11-16 14:00] VITALS: BP 117/60; PULSE 76; O2SAT 99
--- NOTE | 2024-11-16 14:32 | PC.NURSE ---
PT TO DOPPLER AT THIS TIME
--- NOTE | 2024-11-16 14:34 | PC.NURSE ---
PT TO CT
[2024-11-16 15:00] VITALS: BP 122/75; PULSE 70; RESP 18; TEMP 36.8; O2SAT 99
== END 2024-11-16 15:00 | disposition home or self-care (01) ==
PROVIDERS: Physician Assistant; Emergency Provider Student in an Organized Health Care Education/Training Program; PCP Internal Medicine
DX: L03.116 Cellulitis of left lower limb (principal); F17.210 Nicotine dependence, cigarettes, uncomplicated
CPT/HCPCS: 80053; 83880; 85025; 93971; 99284

== ENCOUNTER 2024-12-26 10:49 | Outpatient (RCR) | payer MEDICARE, MEDICAID, SELFPAY ==
--- NOTE | 2024-12-26 11:54 | HMH.OPLYMPH ---
Rehab Lymphedema Evaluation Rehab Lymphedema Evaluation Start: 12/26/24 10:56 Freq: Status: Active Protocol: Document 12/26/24 11:44 MISAEL (Rec: 12/26/24 11:54 PHORCHANO [id number]) E-signed By Néstor Cerda, PT Subjective/History History History This is the initial PT lymphedema eval for Irlanda Sanon, 64 yowf who presents with c/o increased L LE edema x ~ 2 mos with insidious onset of symptoms. She reports being diagnosed with cellulitis at the outset of her symptoms and receiving oral abx. She reports symptoms are significantly decreased, but she does continue to have some mild edema and tenderness to touch remaining. She reports PMH of L knee meniscus tear, RA, COPD. Subjective Subjective Current pain is 1/10 in the L lower leg. 2/4 TTP and MODERATE blanchable erythema noted in the L LE gaiter area. 1+ pitting edema noted to L lower leg. Pt does have compression stockings at home currently. Lymphedema Eval Classification of Lymphedema Secondary Lymphedema Yes: CVI and recent cellulitis Stemmer's sign Stemmer's Sign no Stage of Lymphedema Lymphedema stages Stage I (Pitting edema, reduces w/ elevation, no fibrosis) Skin Changes Dry Skin Yes Redness Yes Discoloration of Yes Skin Other Changes Yes Pain Scale Pain Scale (0-10) 1 Affected Extremities Areas Affected by Left Lower Extremity Lymphedema/Edema Lower Extremity Measurements Left MTP Measurement (cm) 21.0 Heel Measurement (cm 30.2 ) 10 cm Proximal to 27.5 Lateral Malleoli Measurement (cm) 20 cm Proximal to 37.0 Lateral Malleoli Measurement (cm) 30 cm Proximal to 41.2 Lateral Malleoli Measurement (cm) 40 cm Proximal to 0 Lateral Malleoli Measurement (cm) 50 cm Proximal to 0 Lateral Malleoli Measurement (cm) 60 cm Proximal to 0 Lateral Malleoli Measurement (cm) Lower Extremity 156.9 Measurement Total ( cm) Wound Problems/Impairments Impairments Problems/ Palpation Tenderness,Impaired Walking,Impaired Impairmments Recreational Activities,Increased Edema,Lymphedema Present,Subjective C/O Pain,Impaired Self Care/Self Management Prognosis Rehab Potential Good Comment Skilled therapy is indicated to aid reduction of overall edema throughout pts L LE in order to aid improved QOL. Clinical Impression Consistent with Yes Diagnosis Lymphedema Patient Goals Lymphedema Patient Goals Lymphedema Short In 2 wks pt will: Term Patient Goals 1) Decrease edema to NO pitting in L lower leg 2) Decrease pain in L LE to 0/10 Lymphedema Technical Adjuster In 4 wks Pt will: Patient Goals 1) Be independent with home lymphedema management via HEP. 2) Show MINIMAL erythema noted to L lower leg Outpatient Therapy Plan of Care Treatment Plan May Include Therapeutic Exercise Yes Including Home Exercise Program Manual Therapy Yes Techniques Neuromuscular Re- Yes education Therapeutic Yes Activities to Return to Previous Functional/Work Level ADL/Self Care Yes Education Orthotics/Bracing/ Yes Splinting Manual Lymphatic Yes Drainage Eval/Re-Eval Yes Frequency Times per week 2 Duration Number of Weeks 4 Addendums This patient is a No candidate for social or vocational rehab ? Patient/Guardian Yes verbally acknowledges understanding of treatment program and consents to further treatment? Patient/Guardian Yes verbally acknowledges understanding of diagnosis, prognosis and goals for treatment? Eval Complexity PT Charges 24369 - Moderate Complexity PHYSICIAN CERTIFICATION: I certify the specified therapy services for Irlanda Sanon are required, authorized, and reviewed every 30 days.
== END 2024-12-26 23:59 | disposition home or self-care (01) ==
LOC: PT 10:49
PROVIDERS: Visit Provider Internal Medicine
DX: I89.0 Lymphedema, not elsewhere classified (principal)
CPT/HCPCS: 97162

== ENCOUNTER 2025-01-24 14:45 | Outpatient (RCR) | payer MEDICARE, MEDICAID, SELFPAY | END 2025-01-24 23:59 | disposition home or self-care (01) | LOC: PT 14:45 | PROVIDERS: Visit Provider Internal Medicine | DX: I89.0 Lymphedema, not elsewhere classified (principal) | CPT/HCPCS: 97140 ==

== ENCOUNTER 2025-02-10 15:36 | Outpatient (CLI) | payer MEDICARE, MEDICAID, SELFPAY ==
--- OUTSIDE RECORDS SUMMARY | 2024-12-11 10:31 | XMS_ITS | Encounter Summary ---
Author Organization Healthcare Address [address] [address] Care Team Providers Care Proof Operator Name Role Phone DonovanPreston yancey Briseyda JENKINS Primary Care Provider [phone] Encounter Details Date Type Department Care Team (Latest Contact Info) Description 12/11/2024 10:31 AM EDT - 12/11/2024 11:59 PM EDT Hospital Encounter [facility] [address], [address] [place] [address] Acute pain of left knee Discharge Disposition: Home or Self Care Social History Tobacco Use Types Packs/Day Years Used Date Smoking Tobacco: Every Day Cigarettes 1 50.8 Started: 1974 Passive Smoke Exposure: Past Smokeless Tobacco: Never Comments:Now down to 1/2 ppd . Alcohol Use Standard Drinks/Week Comments Not Currently 0 (1 standard drink = 0.6 oz pur e alcohol) PHQ-2 Answer Date Recorded Patient Health Questionnaire-2 Score 0 11/25/2024 AUDIT-C Answer Date Recorded Frequency of Alcohol Consumption Not on file 11/25/2024 Q2: How many drinks containi ng alcohol do you have on a typical day when you are drinking? Patient does not drink Frequency of Binge Drinking Not on file 10/30 PHQ-2A Answer Date Recorded Patient Health Questionnaire-2 Score 0 03/17/2023 Comments No Sex and Gender Information Value Date Recorded Sex Assigned at Not on file Legal Sex Female 7:35 PM EDT Gender Identity Not on file Sexual Orientation Not on file documented as of this encounter Medications at Time of Discharge albuterol 108 (90 Base) MCG/ACT inhaler 1 puffs with spacer every 4 hours prn for wheezing and difficulty breathing. armodafinil (Nuvigil) 150 MG tablet Take 1 tablet (150 mg) by mouth 1 (one) time each day. 10/18/2022 armodafinil (Nuvigil) 50 MG tablet Take 1 tablet (50 mg) by mouth 1 (one) time each day. 08/09/2022 Buprenorphine HCl-Naloxone HCl (Suboxone) 8-2 MG SL film 05/24/2024 busPIRone (Buspar) 10 MG tablet Take 1 tablet by mouth 2 times a day. 10/17/2024 Calcium Carb-Cholecalcifero l 600-10 MG-MCG tablet Take 1 tablet by mouth 2 (two) times a day. 02/05/2024 cefuroxime (Ceftin) 500 MG tablet TAKE 1 TABLET BY MOUTH IN THE MORNING AND 1 TABLET BY MOUTH BEFORE BEDTIME FOR 5 DAYS 08/26/2022 clindamycin (Cleocin) 150 MG capsule TAKE THREE CAPSULES BY MOUTH EVERY 8 HOURS FOR 5 DAYS -- FINISH ALL MEDICINE -- 11/16/2024 doxycycline (Adoxa) 100 MG tablet Take 1 tablet (100 mg) by mouth 2 (two) times a day. 03/14/2023 doxycycline (Vibra-Tabs) 100 MG tablet Take 1 tablet (100 mg) by mouth 2 (two) times a day. 08/10/2023 etanercept (Enbrel SureClick) 50 MG/ML injectionIndication s:Seropositive rheumatoid arthritis of multiple sites (CMS/HCC) Inject 1 mL under the skin 1 time per week. 4 mL 6 11/25/2024 fluticasone (Flonase) 50 MCG/ACT nasal spray USE 1 SPRAY IN EACH NOSTRIL ONE TIME DAILY 32 g 1 01/03/2021 furosemide (Lasix) 40 MG tablet if needed. 01/07/2021 hydrOXYzine HCl (Atarax) 25 MG tablet Take 1 to 2 tablets by mouth every 6 hours as needed for anxiety 112 tablet 3 07/14/2022 ibuprofen 800 MG tablet Take 1 tablet (800 mg) by mouth every 8 (eight) hours if needed. 10/07/2021 lamoTRIgine (LaMICtal) 150 MG tablet Take 1 tablet (150 mg) by mouth 2 (two) times a day. 11/14/2020 linaCLOtide (Linzess) 145 MCG capsule Take 1 capsule (145 mcg) by mouth 1 (one) time each day. 90 capsule 3 03/17/2023 METHADONE HCL PO 65 mg. methocarbamol (Robaxin) 500 MG tablet 03/15/2024 methylPREDNISolone (Medrol Dospak) 4 MG tablets follow package directions 08/10/2023 mupirocin (Bactroban) 2 % ointment APPLY 1 APPLICATION TOPICALLY IN THE MORNING AND 1 APPLICATION AT NOON AND 1 APPLICATION IN THE EVENING FOR 10 DAYS 08/26/2022 ondansetron ODT (Zofran-ODT) 4 MG disintegrating tablet Take 1 tablet (4 mg total) by mouth every 6 (six) hours if needed for nausea or vomiting. 90 tablet 3 07/14/2022 pantoprazole (Protonix) 40 MG EC tablet Take 1 tablet (40 mg) by mouth 1 (one) time each day. 10/04/2021 potassium chloride CR (Klor-Con) 8 MEQ ER tablet TK 1 T PO QD WHILE ON FUROSEMIDE prochlorperazine (Compazine) 10 MG tablet 1 tablet (10 mg). 01/25/2024 promethazine (Phenergan) 25 MG tablet TAKE ONE TABLET BY MOUTH EVERY 4 TO 6 HOURS NEEDED FOR NAUSEA MAY CAUSE DROWSINESS propranolol (Inderal) 10 MG tablet Take 1 tablet twice daily. Can also take 1 tablet once daily as needed for anxiety symptoms/panic attacks. Do not take more than 3 tablets in one day. 90 tablet 03/17/2023 tiotropium-olodater ol (Stiolto Respimat) 2.5-2.5 MCG/ACT aerosol solution inhalerIndications: Chronic obstructive pulmonary disease, unspecified COPD type (CMS/HCC) Inhale 2 Inhalation 1 (one) time each day. 12 g 3 08/24/2022 traZODone (Desyrel) 50 MG tablet Take 1 tablet (50 mg) by mouth if needed. 02/18/2023 vilazodone (Viibryd) 20 MG tablet TAKE ONE TABLET BY MOUTH EVERY DAY --TAKE WITH MEALS/FOOD-- 10/23/2024 Vraylar 3 MG capsule Take 1 capsule (3 mg) by mouth 1 (one) time each day. 04/25/2024 documented as of this encounter Plan of Treatment Upcoming Encounters Date Type Department Care Team (Late st Contact Info) Description 05/26/2025 2:00 PM EST Office Visit [facility] [address] [place] [address] Fletcher, May R, HOME IMPROVEMENT INSTALLER [address] [place] [address] documented as of this encounter Procedures Procedure Name Priority Date/Time Associated Diagnosis Comments XR KNEE RIGHT 3 VIEWS Routine 12/11/2024 10:44 AM EDT Acute pain of left knee XR KNEE LEFT 3 VIEWS Routine 12/11/2024 10:44 AM EDT Acute pain of left knee documented in this encounter Results * XR Knee Left 3 Views (12/11/2024 10:44 AM EDT) Anatomical Region Laterality Modality Lower Extremities, Knee Left Digital Radiography Impressions 12/11/2024 11:31 AM EDT 1. Severe osteoarthritis of the left knee. 2. Mild degenerative changes of the right patellofemoral joint. CRITICAL RESULT: No. COMMUNICATION: Per this written report. Drafted by Bartolo Pitt MD on 12/11/2024 11:30 AM Final report signed by Bartolo Pitt MD on 12/11/2024 11:31 AM Narrative 12/11/2024 11:31 AM EDT CLINICAL INDICATION: Left knee pain and right knee for comparison TECHNIQUE: XR KNEE RIGHT 3 VIEWS, XR KNEE LEFT 3 VIEWS COMPARISON: None. FINDINGS: 3 views of the right knee show chondrocalcinosis. Mild degenerative changes of the patellofemoral joint with normal joint space and alignment. No fracture or osteonecrosis. No effusion. 3 views of the left knee show medial compartment joint space narrowing with [id number] articulation and tricompartmental osteophyte formation. Chondrocalcinosis. Moderate effusion. No fracture or osteonecrosis. Procedure Note Bartolo Pitt MD - 12/11/2024 CLINICAL INDICATION: Left knee pain and right knee for comparison TECHNIQUE: XR KNEE RIGHT 3 VIEWS, XR KNEE LEFT 3 VIEWS COMPARISON: None. FINDINGS: 3 views of the right knee show chondrocalcinosis. Mild degenerativechanges of the patellofemoral joint with normal joint space and alignment.No fracture or osteonecrosis. No effusion. 3 views of the left knee show medial compartment joint space narrowingwith [id number] articulation and tricompartmental osteophyte formation.Chondrocalcinosis. Moderate effusion. No fracture or osteonecrosis. IMPRESSION: 1.Severe osteoarthritis of the left knee. 2.Mild degenerative changes of the right patellofemoral joint. CRITICAL RESULT: No. COMMUNICATION: Per this written report. Drafted by Bartolo Pitt MD on 12/11/2024 11:30 AM Final report signed by Bartolo Pitt MD on 12/11/2024 11:31 AM Yoana Whitney MD IMG XR PROCEDURES Final Result * XR Knee Right 3 Views (12/11/2024 10:44 AM EDT) Anatomical Region Laterality Modality Lower Extremities, Knee Right Digital Radiography Impressions 12/11/2024 11:31 AM EDT 1. Severe osteoarthritis of the left knee. 2. Mild degenerative changes of the right patellofemoral joint. CRITICAL RESULT: No. COMMUNICATION: Per this written report. Drafted by Bartolo Pitt MD on 12/11/2024 11:30 AM Final report signed by Bartolo Pitt MD on 12/11/2024 11:31 AM Narrative 12/11/2024 11:31 AM EDT CLINICAL INDICATION: Left knee pain and right knee for comparison TECHNIQUE: XR KNEE RIGHT 3 VIEWS, XR KNEE LEFT 3 VIEWS COMPARISON: None. FINDINGS: 3 views of the right knee show chondrocalcinosis. Mild degenerative changes of the patellofemoral joint with normal joint space and alignment. No fracture or osteonecrosis. No effusion. 3 views of the left knee show medial compartment joint space narrowing with [id number] articulation and tricompartmental osteophyte formation. Chondrocalcinosis. Moderate effusion. No fracture or osteonecrosis. Procedure Note Bartolo Pitt MD - 12/11/2024 CLINICAL INDICATION: Left knee pain and right knee for comparison TECHNIQUE: XR KNEE RIGHT 3 VIEWS, XR KNEE LEFT 3 VIEWS COMPARISON: None. FINDINGS: 3 views of the right knee show chondrocalcinosis. Mild degenerativechanges of the patellofemoral joint with normal joint space and alignment.No fracture or osteonecrosis. No effusion. 3 views of the left knee show medial compartment joint space narrowingwith [id number]-[id number] articulation and tricompartmental osteophyte formation.Chondrocalcinosis. Moderate effusion. No fracture or osteonecrosis. IMPRESSION: 1.Severe osteoarthritis of the left knee. 2.Mild degenerative changes of the right patellofemoral joint. CRITICAL RESULT: No. COMMUNICATION: Per this written report. Drafted by Bartolo Pitt MD on 12/11/2024 11:30 AM Final report signed by Bartolo Pitt MD on 12/11/2024 11:31 AM Yoana Whitney MD IMG XR PROCEDURES Final Result documented in this encounter Visit Diagnoses Diagnosis Acute pain of left knee documented in this encounter Additional Health Concerns Assessment Noted Time A fall risk assessment has been complete d for the patient 12/11/2024 10:26 AM EDT A Body Mass Index follow-up plan has been documented for the patient 12/11/2024 11:47 AM EDT documented as of this encounter Care Teams Proof Operator Relationship Specialty Start Date End Date Preston Man DO [address] [place] [address] [place] [address] PCP - General 05/27/24 documented as of this encounter
--- NOTE | 2025-02-10 15:38 | XR_ITS ---
FINAL REPORT CLINICAL HISTORY: dyspnea COMPARISON: 10/17/2024 FINDINGS: 2 views of the chest were obtained . The heart is normal in size. The mediastinum is within normal limits. There is a vague right upper lobe nodular density. Lungs are otherwise clear. There is no pneumothorax. Osseous structures are unremarkable. IMPRESSION: Right upper lobe nodular density. Consider CT for further evaluation. Reviewed, Interpreted and Dictated by Ynes Amezcua MD Transcribed by She Mayen Authenticated and [facility]
--- OUTSIDE RECORDS SUMMARY | 2025-02-10 15:39 | XMS_ITS | Clinical Summary ---
Author Organization [facility] Address [address] [place] [address] Care Team Providers Care Public Housing Manager Name Role Phone System, Provider Not In [...] 09/08/2022 09/08/2021, 08/15/2017 MAMMOGRAM 07/17/2023 07/16/2021, 07/16/2021 INFLUENZA VACCINE 11/29/2024 02/19/2020, , 01/16/2019, Additional history exists COVID-19 Vaccine (3 - 2024-2 6 season) 2024 07/21/2020, 06/30/2020 TDAP/TD VACCINES (3 - Td or Tdap) 08/08/2028 019, 01/07/2009 COLONOSCOPY 07/24/2030 07/24/2020 COLORECTAL CANCER SCREENING 07/24/2030 Insurance MEDICAID [place] [facility] MEDICARE ADVANTAGE Care Teams Public Housing Manager Relationship Specialty Start Date End Date System, [place] [address] PCP - General 05/25/21
--- OUTSIDE RECORDS SUMMARY | 2025-02-10 15:39 | XMS_ITS | Clinical Summary ---
Author Organization [facility] Address [address] [place] [address] Care Team Providers Care Frit Maker Name Role Phone Preston Man Primary Care Provider [phone] Allergies Active Allergy Reactions Criticality Noted Date [...] every 8 (eight) hours if needed. 10/08/19 Active pantoprazole (Protonix) 40 MG EC tablet Take 1 tablet (40 mg) by mouth 1 (one) time each day. 10/05/19 Active ondansetron ODT (Zofran-ODT) 4 MG disintegrating tablet Take 1 tablet (4 mg total) by mouth every 6 (six) hours if needed for nausea or vomiting. 90 tablet 3 07/15/19 Active hydrOXYzine HCl (Atarax) 25 MG tablet Take 1 to 2 tablets by mouth every 6 hours as needed for anxiety 112 tablet 3 07/15/19 Active armodafinil (Nuvigil) 50 MG tablet Take 1 tablet (50 mg) by mouth 1 (one) time each day. 08/10/19 Active tiotropium-olodate rol (Stiolto Respimat) 2.5-2.5 MCG/ACT aerosol solution inhalerIndications :Chronic obstructive pulmonary disease, unspecified COPD type (CMS/HCC) Inhale 2 Inhalation 1 (one) time each day. 12 g 3 08/25/19 Active cefuroxime (Ceftin) 500 MG tablet TAKE 1 TABLET BY MOUTH IN THE MORNING AND 1 TABLET BY MOUTH BEFORE BEDTIME FOR 5 DAYS 08/27/19 Active mupirocin (Bactroban) 2 % ointment APPLY 1 APPLICATION TOPICALLY IN THE MORNING AND 1 APPLICATION AT NOON AND 1 APPLICATION IN THE EVENING FOR 10 DAYS 08/27/19 Active armodafinil (Nuvigil) 150 MG tablet Take 1 tablet (150 mg) by mouth 1 (one) time each day. 10/19/19 Active traZODone (Desyrel) 50 MG tablet Take 1 tablet (50 mg) by mouth if needed. 02/19/20 Active doxycycline (Adoxa) 100 MG tablet Take 1 tablet (100 mg) by mouth 2 (two) times a day. 03/14/20 Active propranolol (Inderal) 10 MG tablet Take 1 tablet twice daily. Can also take 1 tablet once daily as needed for anxiety symptoms/panic attacks. Do not take more than 3 tablets in one day. 90 tablet 03/17/20 Active linaCLOtide (Linzess) 145 MCG capsule Take 1 capsule (145 mcg) by mouth 1 (one) time each day. 90 capsule 3 11/17/20 23 Active doxycycline (Vibra-Tabs) 100 MG tablet [...] (one) time each day. 04/25/20 24 Active busPIRone (Buspar) 10 MG tablet Take 1 tablet by mouth 2 times a day. 10/18/19 25 Active clindamycin (Cleocin) 150 MG capsule TAKE THREE CAPSULES BY MOUTH EVERY 8 HOURS FOR 5 DAYS -- FINISH ALL MEDICINE -- 11/17/19 25 Active vilazodone (Viibryd) 20 MG tablet TAKE ONE TABLET BY MOUTH EVERY DAY --TAKE WITH MEALS/FOOD-- 10/24/19 25 Active etanercept (Enbrel SureClick) 50 MG/ML injectionIndicatio ns:Seropositive rheumatoid arthritis of multiple sites (CMS/HCC) Inject 1 mL under the skin 1 time per week. 4 mL 6 11/26/19 25 Active Active Problems Problem Noted Date [...] Influenza, seasonal, injectable, preservative free 03/20/2014, 05/19/2016 [facility] COVID-19 Vaccine (Purple Cap) 12+ 06/30/2020, 07/21/2020 [...] spent in counseling was between 3-10 mins (53070). The following tobacco cessation resources were provided [...] 04/22/2021: Lidocaine transdermal patch for topical relief Encounters Date Type Department Care Team Description 12/11/2024 10:31 AM EDT - 12/11/2024 11:59 PM EDT Hospital Encounter [facility] [address] [facility], [address] [place] [address] Acute pain of left knee Discharge Disposition: Home or Self Care 12/11/2024 10:20 AM EDT Office Visit [facility] [address] [facility], [address] [place] [id number] Yoana Whitney MD Acute pain of left knee (Primary Dx) 12/11/2024 Travel 12/04/2024 Travel 11/25/2024 3:02 PM EDT - 11/25/2024 11:59 PM EDT Hospital Encounter [facility] [address] [place] [address] Seropositive rheumatoid arthritis of multiple sites ([facility]/HCC) Discharge Disposition: Home or Self Care 11/25/2024 2:00 PM EDT Office Visit [facility] Specialties [address] [place] [address] Hemalatha Bynum R, FURNACE COMBINATION ANALYST Seropositive rheumatoid arthritis of multiple sites ([facility]) (Primary Dx); High risk medication use; Chronic pain of left knee 11/25/2024 Refill [facility] Medicine Specialties [address] [place] [address] Sandor Guzmán, PharmD Seropositive rheumatoid arthritis of multiple sites ([facility]/HCC) (Primary Dx) 11/25/2024 Travel from Last 3 Months Immunizations Immunization Administration Dates Next Due Hep A, Adult 11/22/2017,10/11/2016 Hep A, Unspecified 10/11/2016 Influenza, injectable, MDCK, preservative free, quadrivalent 02/10/2022,01/24/2020 Influenza, injectable, quadrivalent 02/13/2017 Influenza, injectable, quadr ivalent, preservative free 03/17/2023,01/16/2019,01/18/2018 Influenza, seasonal, injectable 02/19/2020 Influenza, seasonal, injecta ble, preservative free 05/19/2016,03/20/2014 [facility] COVID-19 Vac cine (Purple Cap) 12+ 07/21/2020,06/30/2020 [...] Sign Reading Time Taken Comments Blood Pressure 125/75 12/11/2024 10:27 AM EDT Pulse 91 11/25/2024 1:50 PM EDT Temperature 36.4 C (97.6 F) 11/25/2024 1:50 PM EDT Respiratory Rate 16 11/25/2024 1:50 PM EDT Oxygen Saturation 99% 11/25/2024 1:50 PM EDT Inhaled Oxygen Concentration - - Weight 76.2 kg (168 lb) 12/11/2024 10:27 AM EDT Height 158.8 cm (5' 2.5 ) 12/11/2024 10:27 AM ED T Body Mass Index 30.24 12/11/2024 10:27 AM EDT Plan of Treatment Upcoming Encounters Date Type Department Care Team (Late st Contact Info) Description 05/26/2025 2:00 PM EST Office Visit [facility] [address] [place] [address] Fletcher, May R, [employer]NACE COM[employer] ANALYST [address] [place] [address] Health Maintenance Due Date Last [...] exists [facility]-Medicare Annual Wellness (AWV) 11/18/2023 11/17/2022 [id number] Vaccine ( season) 2024 07/21/2020, 06/30/2020 [facility]-Influenza Vaccine (#1) 12/30/202403/17, 02/10/2022, 02/19/2020, Additional history exists Colonoscopy 07/24/2025 07/24/2020 [facility]-Colorectal Cancer Screening 07/24/2025 [facility]-Depression Screening 11/25/2025 11/25/2024, 06/30 [facility]-DTaP,Tdap,and Td Vaccines (4 - Td or Tdap) 08/25/2032 08/25/2022, 08/08/2018, 01/07/2009 [facility]-Hepatitis A Vaccines Completed 018, 10/11/2016, 10/11/2016 [facility]-Pneumococcal Vaccine: 50+ Years Completed 02/10/2022, 09/08/2021, 08/15/2017 [facility]-Zoster Vaccines Completed 02/10/2022, [facility]-Hepatitis C Screening Completed 2022, 11/04/2018, 07/30/2018, Additional history exists [facility]-Cervical Cancer Screening Discontinued [facility]HPV/Cotest Discontinued 11/17/2022 [facility]-Pap Smear Discontinued 11/17/2022 [facility]-Diabetes: Hemoglobin A1C Discontinued 05/23/2024, 04/19/2024, 12/25/2023, Additional history exists [facility]-Obesity Intervention Completed 025, 11/25/2024, 05/27/2024, Additional history exists HPV Vaccines Aged Out [...] Priority Date/Time Associated Diagnosis Comments XR KNEE LEFT 3 VIEWS Routine 12/11/2024 10:44 AM EDT Acute pain of left knee XR KNEE RIGHT 3 VIEWS Routine 12/11/2024 10:44 AM EDT Acute pain of left knee XR FOOT LEFT 3+ VIEWS Routine 11/25/2024 3:24 PM EDT Seropositive rheumatoid arthritis of multiple sites (CMS/HCC) XR FOOT RIGHT 3+ VIEWS Routine 11/25/2024 3:24 PM EDT Seropositive rheumatoid arthritis of multiple sites (CMS/HCC) XR HAND WRIST BILATERAL 2 VIEWS Routine 11/25/2024 3:24 PM EDT Seropositive rheumatoid arthritis of multiple sites (CMS/HCC) CBC WITH AUTO DIFFERENTIAL Routine 11/25/2024 2:59 PM EDT High risk medication use CREATININE, PLASMA Routine 11/25/2024 2: 59 PM EDT High risk medication use HEPATIC FUNCTION PANEL Routine 11/25/2024 2:59 PM EDT High risk medication use C-REACTIVE PROTEIN, PLASMA Routine 11/25/2024 2:59 PM EDT High risk medication use HEMOGLOBIN A1C Routine 08/14/2023 10:16 AM EDT [...] Recently Relevant to Health Maintenance Results * XR Knee Right 3 Views (12/11/2024 [...] show medial compartment joint space narrowing with [id number]-[id number] articulation and tricompartmental osteophyte formation. Chondrocalcinosis. Moderate [...] knee show medial compartment joint space narrowingwith gcwz-[id number] articulation and tricompartmental osteophyte formation.Chondrocalcinosis. Moderate effusion. [...] XR PROCEDURES Final Result * XR Knee Left 3 Views (12/11/2024 [...] show medial compartment joint space narrowing with hgal-wi-arvm articulation and tricompartmental osteophyte formation. Chondrocalcinosis. Moderate [...] knee show medial compartment joint space narrowingwith mjvl-wr-epmj articulation and tricompartmental osteophyte formation.Chondrocalcinosis. Moderate effusion. [...] IMG XR PROCEDURES Final Result * XR Hand and Wrist Bilateral 2 Views (11/25/2024 3:24 PM EDT) Anatomical Region Laterality Modality Hand, Wrist Bilateral Digital Radiogra phy Impressions 11/25/2024 3:52 PM EDT 1. 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 2. Instrumented mature arthrodesis of the right first MTP joint, hammertoe corrections of the right second and third digit and bunionette resection of the distal lateral aspect of the fifth metatarsal. 3. Left hallux valgus with osseous bunion and hammertoe deformity of the left second through fourth digit. CRITICAL RESULT: No. COMMUNICATION: Per this written report. Drafted by Bartolo Pitt MD on 11/25/2024 3:45 PM Final report signed by Bartolo Pitt MD on 11/25/2024 3:52 PM Narrative 11/25/2024 3:52 PM EDT CLINICAL INDICATION: bilateral foot pain, evaluation for inflammatory changes. TECHNIQUE: XR FOOT RIGHT 3+ VIEWS, XR HAND WRIST BILATERAL 2 VIEWS, XR FOOT LEFT 3+ VIEWS COMPARISON: None. FINDINGS: 2 views of the hand show moderate osteoarthritis of the bilateral triscaphe joint. Degenerative carpal lucency in the bilateral scaphoid waist. Mild degenerative changes of the bilateral first carpometacarpal joint and right index finger DIP joint. No erosive changes. No inflammatory soft tissue swelling. 3 views of the right foot show mature arthrodesis of the first MTP joint spanned by dorsal plate and screw. Intramedullary screw fixation of mature arthrodesis of the second and third toe PIP joint. Findings of bunionette resection in the distal lateral aspect of the fifth metatarsal. Midfoot and hindfoot joint space and alignment are normal. Degenerative plantar calcaneal spur and bone formation in the distal Achilles tendon. No inflammatory bone formation. 3 views of the left foot show hallux valgus with associated osseous bunion. Hammertoe deformity of the second through fourth toe. No erosive changes. Midfoot and hindfoot joint space and alignment are normal. Degenerative plantar calcaneal spur. Procedure Note Bartolo Pitt MD - 11/25/2024 CLINICAL INDICATION: bilateral foot pain, evaluation for inflammatory changes. TECHNIQUE: XR FOOT RIGHT 3+ VIEWS, XR HAND WRIST BILATERAL 2 VIEWS, XR FOOT LEFT 3+VIEWS COMPARISON: None. FINDINGS: 2 views of the hand show moderate osteoarthritis of the bilateraltriscaphe joint. Degenerative carpal lucency in the bilateral scaphoidwaist. Mild degenerative changes of the bilateral first carpometacarpaljoint and right index finger DIP joint. No erosive changes. Noinflammatory soft tissue swelling. 3 views of the right foot show mature arthrodesis of the first MTP jointspanned by dorsal plate and screw. Intramedullary screw fixation of maturearthrodesis of the second and third toe PIP joint. Findings of bunionetteresection in the distal lateral aspect of the fifth metatarsal. Midfootand hindfoot joint space and alignment are normal. Degenerative plantarcalcaneal spur and bone formation in the distal Achilles tendon. Noinflammatory bone formation. 3 views of the left foot show hallux valgus with associated osseousbunion. Hammertoe deformity of the second through fourth toe. No erosivechanges. Midfoot and hindfoot joint space and alignment are normal.Degenerative plantar calcaneal spur. 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 2.Instrumented mature arthrodesis of the right first MTP joint, hammertoecorrections of the right second and third digit and bunionette resectionof the distal lateral aspect of the fifth metatarsal. 3.Left hallux valgus with osseous bunion and hammertoe deformity of theleft second through fourth digit. CRITICAL RESULT: No. COMMUNICATION: Per this written report. Drafted by Bartolo Pitt MD on 11/25/2024 3:45 PM Final report signed by Bartolo Pitt MD on 11/25/2024 3:52 PM May R Fletcher FURNACE COMBINATION ANALYST IMG XR PROCEDURES Final Res ult * XR Foot Right 3+ Views (11/25/2024 3:24 PM EDT) Anatomical Region Laterality Modality Lower Extremities, Foot Right Digital Radiography Impressions 11/25/2024 3:52 PM EDT 1. 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 2. Instrumented mature arthrodesis of the right first MTP joint, hammertoe corrections of the right second and third digit and bunionette resection of the distal lateral aspect of the fifth metatarsal. 3. Left hallux valgus with osseous bunion and hammertoe deformity of the left second through fourth digit. CRITICAL RESULT: No. COMMUNICATION: Per this written report. Drafted by Bartolo Pitt MD on 11/25/2024 3:45 PM Final report signed by Bartolo Pitt MD on 11/25/2024 3:52 PM Narrative 11/25/2024 3:52 PM EDT CLINICAL INDICATION: bilateral foot pain, evaluation for inflammatory changes. TECHNIQUE: XR FOOT RIGHT 3+ VIEWS, XR HAND WRIST BILATERAL 2 VIEWS, XR FOOT LEFT 3+ VIEWS COMPARISON: None. FINDINGS: 2 views of the hand show moderate osteoarthritis of the bilateral triscaphe joint. Degenerative carpal lucency in the bilateral scaphoid waist. Mild degenerative changes of the bilateral first carpometacarpal joint and right index finger DIP joint. No erosive changes. No inflammatory soft tissue swelling. 3 views of the right foot show mature arthrodesis of the first MTP joint spanned by dorsal plate and screw. Intramedullary screw fixation of mature arthrodesis of the second and third toe PIP joint. Findings of bunionette resection in the distal lateral aspect of the fifth metatarsal. Midfoot and hindfoot joint space and alignment are normal. Degenerative plantar calcaneal spur and bone formation in the distal Achilles tendon. No inflammatory bone formation. 3 views of the left foot show hallux valgus with associated osseous bunion. Hammertoe deformity of the second through fourth toe. No erosive changes. Midfoot and hindfoot joint space and alignment are normal. Degenerative plantar calcaneal spur. Procedure Note Bartolo Pitt MD - 11/25/2024 CLINICAL INDICATION: bilateral foot pain, evaluation for inflammatory changes. TECHNIQUE: XR FOOT RIGHT 3+ VIEWS, XR HAND WRIST BILATERAL 2 VIEWS, XR FOOT LEFT 3+VIEWS COMPARISON: None. FINDINGS: 2 views of the hand show moderate osteoarthritis of the bilateraltriscaphe joint. Degenerative carpal lucency in the bilateral scaphoidwaist. Mild degenerative changes of the bilateral first carpometacarpaljoint and right index finger DIP joint. No erosive changes. Noinflammatory soft tissue swelling. 3 views of the right foot show mature arthrodesis of the first MTP jointspanned by dorsal plate and screw. Intramedullary screw fixation of maturearthrodesis of the second and third toe PIP joint. Findings of bunionetteresection in the distal lateral aspect of the fifth metatarsal. Midfootand hindfoot joint space and alignment are normal. Degenerative plantarcalcaneal spur and bone formation in the distal Achilles tendon. Noinflammatory bone formation. 3 views of the left foot show hallux valgus with associated osseousbunion. Hammertoe deformity of the second through fourth toe. No erosivechanges. Midfoot and hindfoot joint space and alignment are normal.Degenerative plantar calcaneal spur. 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 2.Instrumented mature arthrodesis of the right first MTP joint, hammertoecorrections of the right second and third digit and bunionette resectionof the distal lateral aspect of the fifth metatarsal. 3.Left hallux valgus with osseous bunion and hammertoe deformity of theleft second through fourth digit. CRITICAL RESULT: No. COMMUNICATION: Per this written report. Drafted by Bartolo Pitt MD on 11/25/2024 3:45 PM Final report signed by Bartolo Pitt MD on 11/25/2024 3:52 PM May R Fletcher FURNACE COMBINATION ANALYST IMG XR PROCEDURES Final Res ult * XR Foot Left 3+ Views (11/25/2024 3:24 PM EDT) Anatomical Region Laterality Modality Lower Extremities, Foot Left Digital Radiography Impressions 11/25/2024 3:52 PM EDT 1. 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 2. Instrumented mature arthrodesis of the right first MTP joint, hammertoe corrections of the right second and third digit and bunionette resection of the distal lateral aspect of the fifth metatarsal. 3. Left hallux valgus with osseous bunion and hammertoe deformity of the left second through fourth digit. CRITICAL RESULT: No. COMMUNICATION: Per this written report. Drafted by Bartolo Pitt MD on 11/25/2024 3:45 PM Final report signed by Bartolo Pitt MD on 11/25/2024 3:52 PM Narrative 11/25/2024 3:52 PM EDT CLINICAL INDICATION: bilateral foot pain, evaluation for inflammatory changes. TECHNIQUE: XR FOOT RIGHT 3+ VIEWS, XR HAND WRIST BILATERAL 2 VIEWS, XR FOOT LEFT 3+ VIEWS COMPARISON: None. FINDINGS: 2 views of the hand show moderate osteoarthritis of the bilateral triscaphe joint. Degenerative carpal lucency in the bilateral scaphoid waist. Mild degenerative changes of the bilateral first carpometacarpal joint and right index finger DIP joint. No erosive changes. No inflammatory soft tissue swelling. 3 views of the right foot show mature arthrodesis of the first MTP joint spanned by dorsal plate and screw. Intramedullary screw fixation of mature arthrodesis of the second and third toe PIP joint. Findings of bunionette resection in the distal lateral aspect of the fifth metatarsal. Midfoot and hindfoot joint space and alignment are normal. Degenerative plantar calcaneal spur and bone formation in the distal Achilles tendon. No inflammatory bone formation. 3 views of the left foot show hallux valgus with associated osseous bunion. Hammertoe deformity of the second through fourth toe. No erosive changes. Midfoot and hindfoot joint space and alignment are normal. Degenerative plantar calcaneal spur. Procedure Note Bartolo Pitt MD - 11/25/2024 CLINICAL INDICATION: bilateral foot pain, evaluation for inflammatory changes. TECHNIQUE: XR FOOT RIGHT 3+ VIEWS, XR HAND WRIST BILATERAL 2 VIEWS, XR FOOT LEFT 3+VIEWS COMPARISON: None. FINDINGS: 2 views of the hand show moderate osteoarthritis of the bilateraltriscaphe joint. Degenerative carpal lucency in the bilateral scaphoidwaist. Mild degenerative changes of the bilateral first carpometacarpaljoint and right index finger DIP joint. No erosive changes. Noinflammatory soft tissue swelling. 3 views of the right foot show mature arthrodesis of the first MTP jointspanned by dorsal plate and screw. Intramedullary screw fixation of maturearthrodesis of the second and third toe PIP joint. Findings of bunionetteresection in the distal lateral aspect of the fifth metatarsal. Midfootand hindfoot joint space and alignment are normal. Degenerative plantarcalcaneal spur and bone formation in the distal Achilles tendon. Noinflammatory bone formation. 3 views of the left foot show hallux valgus with associated osseousbunion. Hammertoe deformity of the second through fourth toe. No erosivechanges. Midfoot and hindfoot joint space and alignment are normal.Degenerative plantar calcaneal spur. 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 2.Instrumented mature arthrodesis of the right first MTP joint, hammertoecorrections of the right second and third digit and bunionette resectionof the distal lateral aspect of the fifth metatarsal. 3.Left hallux valgus with osseous bunion and hammertoe deformity of theleft second through fourth digit. CRITICAL RESULT: No. COMMUNICATION: Per this written report. Drafted by Bartolo Pitt MD on 11/25/2024 3:45 PM Final report signed by Bartolo Pitt MD on 11/25/2024 3:52 PM May R Fletcher FRAZIER IMG XR PROCEDURES Final Res ult * Creatinine, Plasma (11/25/2024 2:59 PM EDT) Creatinine, Plasma 0.77 0.60 - 1.10 mg/dL 11/25/2024 5:01 PM EDT [facility] eGFRcr 85.7 mL/min/1.7 3m*2 11/25/2024 5:01 PM EDT [facility] Comment:Reported eGFRcr in m L/min/1.73m2 is based the CKD-EPI 2020 equation that does not use a race coefficient. Blood Venous blood specimen / Unknown Venipuncture / Unknown 11/25/2024 2:59 PM EDT 11/25/2024 3:00 PM EDT May R Fletcher FRAZIER LAB BLOOD ORDERABLES Final Result [facility] [address] [place] [address] * (ABNORMAL) CBC and Differential (11/25/2024 2:59 PM EDT) [facility] [address] WBC Count 8.15 3.70 - 10.30 10*3/uL LAB HEMATOLOGY METHOD 11/25/2024 4:05 PM EDT [facility] RBC Count 4.30 3.90 - 5.20 10*6/uL LAB HEMATOLOGY METHOD 11/25/2024 4:05 PM EDT [facility] HGB 13.3 11.2 - 15.7 g/dL LAB HEMATOLOGY METHOD 11/25/2024 4:05 PM EDT [facility] HCT 39.0 34.0 - 45.0 % LAB HEMATOLOGY METHOD 11/25/2024 4:05 PM EDT [facility] Platelet Count 360 155 - 369 10*3/uL LAB HEMATOLOGY METHOD 11/25/2024 4:05 PM EDT [facility] MCV 91 79 - 98 fL LAB HEMATOLOGY METHOD 11/25/2024 4:05 PM EDT [facility] MCH 30.9 26.0 - 32.0 pg LAB HEMATOLOGY METHOD 11/25/2024 4:05 PM EDT [facility] MCHC 34.1 30.7 - 35.5 g/dL LAB HEMATOLOGY METHOD 11/25/2024 4:05 PM EDT [facility] RDW 12.5 11.5 - 14.5 % LAB HEMATOLOGY METHOD 11/25/2024 4:05 PM EDT [facility] MPV 8.7(L) 8.8 - 12.5 fL LAB HEMATOLOGY METHOD 11/25/2024 4:05 PM EDT [facility] nRBC 0.0 <=0.0 per 100 WBCs LAB HEMATOLOGY METHOD 11/25/2024 4:05 PM EDT [facility] Differential Type Automated LAB HEMATOLOGY METHOD 11/25/2024 4:05 PM EDT [facility] Neutrophils % 46 % LAB HEMATOLOGY METHOD 11/25/2024 4:05 PM EDT [facility] Lymphocytes % 43 % LAB HEMATOLOGY METHOD 11/25/2024 4:05 PM EDT [facility] Monocytes % 10 % LAB HEMATOLOGY METHOD 11/25/2024 4:05 PM EDT [facility] Eosinophils % 1 % LAB HEMATOLOGY METHOD 11/25/2024 4:05 PM EDT [facility] Basophils % 0 % LAB HEMATOLOGY METHOD 11/25/2024 4:05 PM EDT [facility] Immature Granulocytes % 0 % LAB HEMATOLOGY METHOD 11/25/2024 4:05 PM EDT [facility] Neutrophils Absolute 3.75 1.60 - 6.10 10*3/uL LAB HEMATOLOGY METHOD 11/25/2024 4:05 PM EDT [facility] Lymphocytes Absolute 3.50 1.20 - 3.90 10*3/uL LAB HEMATOLOGY METHOD 11/25/2024 4:05 PM EDT [facility] Monocytes Absolute 0.78 0.30 - 0.90 10*3/uL LAB HEMATOLOGY METHOD 11/25/2024 4:05 PM EDT [facility] Eosinophils Absolute 0.07 0.00 - 0.50 10*3/uL LAB HEMATOLOGY METHOD 11/25/2024 4:05 PM EDT [facility] Basophils Absolute 0.03 0.00 - 0.10 10*3/uL LAB HEMATOLOGY METHOD 11/25/2024 4:05 PM EDT [facility] Immature Granulocytes Absolute 0.02 0.00 - 0.06 10*3/uL LAB HEMATOLOGY METHOD 11/25/2024 4:05 PM EDT [facility] [facility] Blood Venous blood specimen / Unknown Venipuncture / Unknown 11/25/2024 2:59 PM EDT 11/25/2024 3:00 PM EDT Narrative [facility] - 11/25/2024 4:05 PM EDT Therapeutic decision making should be based on absolute values, rather than percentages. may Fletcher WATERSN LAB BLOOD ORDERABLES Final Result [facility] [address] [place] [address] * C-Reactive Protein, Plasma (11/25/2024 2:59 PM EDT) Pathologist [facility] CRP, Plasma <3.0 <=8.0 mg/L 11/25/2024 5:01 PM EDT [facility] Blood Venous blood specimen / Unknown Venipuncture / Unknown 11/25/2024 2:59 PM EDT 11/25/2024 3:00 PM EDT Narrative [facility] - 11/25/2024 5:01 PM EDT This CRP test is appropriate for assessment of infection, systemic inflammation and/or tissue injury. To assess cardiovascular disease risk order high sensitivity CRP (CRPH). us May Fletcher FURNACE COMBINATION ANALYST LAB BLOOD ORDERABLES Final Result Performing Organization Address City/[facility]/ZIP Co de Phone Number [facility] [address] [place] [address] * (ABNORMAL) Hepatic Function Panel (11/25/2024 2:59 PM EDT) Direct Bilirubin, Plasma <0.2 <=0.3 mg/dL 11/25/2024 5:01 PM EDT [facility] Alkaline Phosphatase, Plasma 102 46 - 142 U/L 11/25/2024 5:01 PM EDT [facility] Total Bilirubin, Plasma 0.2 0.2 - 1.1 mg/dL 11/25/2024 5:01 PM EDT [facility] Albumin, Plasma 4.2 3.5 - 5.2 g/dL 11/25/2024 5:01 PM EDT [facility] Total Protein 8.1(H) 6.3 - 7.9 g/dL 11/25/2024 5:01 PM EDT [facility] ALT, Plasma 18 10 - 35 U/L 11/25/2024 5:01 PM EDT [facility] AST, Plasma 20 10 - 35 U/L 11/25/2024 5:01 PM EDT [facility] Blood Venous blood specimen / Unknown Venipuncture / Unknown 11/25/2024 2:59 PM EDT 11/25/2024 3:00 PM EDT us May Fletcher FURNACE COMBINATION ANALYST LAB BLOOD ORDERABLES Final Result Performing Organization Address City/[facility]/ZIP Co de Phone Number [facility] [address] [place] [address] * (ABNORMAL) Hemoglobin A1c (08/14/2023 10:16 AM EDT) Hemoglobin A1c 5.7(H) <5.7 % 08/14/2023 12:51 PM EDT [facility] Blood Venous blood specimen / Unknown Venipuncture / Unknown 08/14/2023 10:16 AM EDT 08/14/2023 10:16 AM EDT Narrative [facility] - 08/14/2023 12:51 PM EDT HA1C Interpretive Data: Diagnosis of Diabetes: Diabetic > or = 6.5% Pre-diabetic 5.7 to 6.4% Non-diabetic < or = 5.6% Glycemic Targets for Type I and Type II Diabetics: Non- Adults <7.0% Adults <6.0% Children and Adolescents <7.5% Source: [place] [employer]. Standards of medical care in diabetes,2017. Diabetes Care.2017:40 (suppl 1):S1-S135. HbA1c assay performed by an ion-exchange chromatography method that is certified traceable to the DCCT. us Kristal Carpenter DO LAB BLOOD ORDERABLES Final Res ult [facility] [address] [place] [address] * Pap Test (11/17/2022 9:27 AM EDT) Case Report Cytology Case: [id number] Authorizing Provider: Kristal Carpenter DO Collected: 11/17/2022 0927 Ordering Location: [facility] Received: 11/18/2022 1109 Internal Medicine First Screen: Alberta Quiroz Specimen: ThinPrep Pap Test, Liquid-Based Cervical/Vaginal 11/29/2022 11:35 AM EDT [facility] Interpretation NEGATIVE FOR INTRAEPITHELIAL LESION OR MALIGNANCY 11/29/2022 11:35 AM EDT [facility] at 1135 EDT Specimen Adequacy Satisfactory for evaluation; endocervical/alcantar sformation zone component present. Slide scanned and imaged by ThinPrep Imaging System with manual review of all selected farah. 11/29/2022 11:35 AM EDT [facility] Cervical cytology is a screening test [...] results is suggested (please call Microbiology at [phone] for results). 11/29/2022 11:35 AM EDT [facility] Menstrual Status Post-Menopausal 05/2022 11:35 AM EDT [facility] Contraceptive History Not Applicable 11/29/2022 11:35 AM EDT [facility] Screening Type Routine Screen 2022 11:35 AM EDT [facility] High Risk? No 11/29/2022 11:35 AM EDT [facility] HPV Testing Requested? Request HPV Testing Regardless of Pap Test Findings 11/29/2022 11:35 AM EDT [facility] Previous Cancer History No 11/29/2022 11:35 AM EDT [facility] Clinical Information Z00.00 - Medicare annual wellness visit, subsequent [ICD-10-CM] Z00.00 - Healthcare maintenance [ICD-10-CM] Z12.4 - Encounter for Papanicolaou smear for cervical cancer screening [ICD-10-CM] 11/29/2022 11:35 AM EDT [facility] Swab Vaginal and cervical cytologic material / Unknown Non-blood Collection / Unknown 11/17/2022 9:27 AM EDT 11/18/2022 11:09 AM EDT Kristal Carpenter DO LAB CYTOLOGY ORDERABLES Final Result [facility] [address] [place] [address] * CT Chest Lung Cancer Screening (09/21/2022 2:30 PM EDT) Anatomical Region Laterality Modality Chest Computed Tomogra phy Addenda Addendum by Markell Mary MD on 09/27/2022 8:25 AM EDT ADDENDUM: Please note there is a marketing strategist error in the original Recommendations section that [...] Positive( A) Negative 05/24/2022 5:38 PM EST [facility] Comment:This specimen is leonel ng sent for confirmation by RT-PCR. Blood Venous blood specimen / Unknown Venipuncture / Unknown 05/24/2022 1:18 PM EST 05/24/2022 1:20 PM EST us Marlen Berry DO LAB BLOOD ORDERABLES Final Re sult [facility] [address] [place] [id number] * Mammography Breast Screening Tomosynthesis Bilateral (07/16/2021 [...] to: 01/21/2010 Mammography Outside Images Upload at [facility] 01/27/2011 Mammography Outside Images Upload at [facility] 07/10/2012 Mammography Outside Images Upload at [facility] 07/19/2012 Mammography Outside Images Upload at [facility] 10/28/2016 Mammography Outside Images Upload at [facility] BREAST COMPOSITION: The breasts are almost entirely fatty. FINDINGS: There are no suspicious masses, calcifications, or areas of architectural distortion in either breast. Natalie Anaya MD IMG BI PROCEDURES Final Re sult * COLONOSCOPY (07/24/2020) Anatomical Region Laterality Modality Endoscopy Narrative 07/24/2020 Ordered by an unspecified provider. Historical Provider GI PROCEDURE ORDERABLES Anastasia l Result from Last 3 Months or Most Recently Relevant to Health Maintenance Insurance MEDICAID-[place] AET[place] MEDICARE Care Teams Frit Maker Relationship Specialty Start Date End Date Preston Man DO [address] [place] [address] [place] [address] PCP - General 05/27/24
--- OUTSIDE RECORDS SUMMARY | 2025-02-10 15:39 | XMS_ITS | Encounter Summary ---
Author Organization [facility] Address [address] [place] [address] Care Team Providers Care Working Manager Name Role Phone Sofia Nguyen MD Primary Care Provider [phone] Tk Garg MD Primary Care Provider [phone] Lisseth Palacios APRN Primary Care Provider + Kristal Carpenter DO Primary Care Provider [phone] Preston Man DO Primary Care Provider [phone] Preston Man DO Primary Care Provider [phone] Reason for Visit * Reason Onset Date Comments Appointment 10/10/2020 Patient difficul t to keep awake. Encounter Details Date Type Department Care Team (Late st Contact Info) Description 10/10/2020 [facility] [address] , [address] [place] [address] Marlen Owens MD [address] [place] [address] Social History Tobacco Use Types [...] patient keeps drifting in andout of sleep. manager export did not know the name of the [...] Description 05/26/2025 2:00 PM EST Office Visit [facility] [address] [place] [address] Fletcher, May R, PHARMACOLOGIST [address] [place] [address] documented as of this encounter Visit Diagnoses Not on filedocumented in this encounter Additional Health Concerns Infection Onset Date Last Indicated Resolved Time COVID-19 Rule-Out 03/27/2021 03/27/2021 03/27/2021 11:29 AM EST COVID-19 Rule-Out 05/24/2022 05/24/2022 05/24/2022 2:20 PM EST COVID 19 (Confirmed) 05/24/2022 05/24/2022 023 5:23 AM EST documented as of this encounter Care Teams Working Manager Relationship Specialty Start Date End Date Sofia Nguyen MD [address] [facility] [address] [place] [address] PCP - General 09/11/20 10/15/20 Tk Garg MD [address] [place] [address] [address] [place], [place] [id number] PCP - General Family Medicine 10/16/20 03/27/22 Lisseth Palacios S, PHARMACOLOGIST [facility] [place] [address] PCP - General 03/28/22 07/13/22 Kristal Carpenter DO [address] [place] [address] PCP - General Internal Medicine 07/14/22 08/13/23 Preston Man DO [address] [place], [place] [address] PCP - General 08/14/23 10/26/23 Preston Man DO [address] [place] [address] [place], [place] [address] PCP - General 05/27/24 documented as of this encounter
--- OUTSIDE RECORDS SUMMARY | 2025-02-10 15:40 | XMS_ITS | Encounter Summary ---
Author Organization Healthcare Address [address] [place] [address] Care Team Providers Care Train System Operator Name Role Phone DonovanPreston yancey Briseyda JENKINS Primary Care Provider [phone] Encounter Details Date Type Department Care Team (Late Contact Info) Description 09/02/2024 Orders Only External Location [address] [place] [address] Jonas Roper, DO [address] [place] [address] [place] [address] Social History Tobacco Use Types Packs/Day Years [...] on file documented as of this encounter Plan of Treatment Upcoming Encounters Date Type Department Care Team (Late Contact Info) Description 05/26/2025 2:00 PM EST Office Visit [place] [facility] [address] [place] [address] Fletcher, May R, ANTHROPOLOGY DEPARTMENT CHAIR [address] [place] [address] documented as of this encounter Procedures Procedure Name Priority Date/Time Associated Diagnosis Comments MR [facility]K OUTSIDE IMAGES 09/02/2024 10:23 AM EDT documented in this encounter Results * MR [facility]K OUTSIDE IMAGES (09/02/2024 10:23 AM EDT) Anatomical Region Laterality Modality Magnetic Resonan ce 09/02/2024 10:2 3 AM EDT Jonas Roper DO IMG MRI PROCEDURES Final Result documented in this encounter Visit Diagnoses Not on filedocumented in this encounter Additional Health Concerns Assessment Noted Time A fall risk assessment has been complete d for the patient 05/27/2024 3:09 PM EST A Body Mass Index follow-up plan has been documented for the patient 05/27/2024 3:42 PM EST documented as of this encounter Care Teams Train System Operator Relationship Specialty Start Date End Date Preston Man DO [address] [place] [address] PCP - General 05/27/24 documented as of this encounter
--- OUTSIDE RECORDS SUMMARY | 2025-02-10 16:39 | XMS_ITS | CCD ---
Author Name Beny BLANTON, Marci Address [address] [facility] [address] [place] [address] Phone Organization [facility] Phone Care Team Providers Care Riverboat Captain Name Role Phone Unavailable Primary Care Provider Unavailabl e Unavailable Chronic Care Management Unavaila ble Summary Purpose DataExchange Insurance Providers Payer name Policy type / Coverage type Covered republican ID Effective Begin Date Effective End Date [employer] [facility] [id number] Unknown Unknown Family history Father Diagnosis Age [...] cessation counseling) 12/19/[address]: 610274244 Never drinks alco hol 12/19/2023 Illegal/Recreational drug [...] 12/19/2023 No Inactive Date Active Biaxin RxNorm: 196957 07/29/2013 No Inactive Da te Active Problems [...] Suboxone 8 mg-2 mg sublingual film RxNorm: 9842214 Take 1 Tablet(s) Sublingual every day 4 01/17/20 24 Inactive Stiolto Respimat 2.5 mcg-2.5 mcg/actuation solution for inhalation RxNorm: 1677292 Inhale 2 Puff(s) Inhalation every day 4 03/17/20 24 Inactive Vraylar 3 mg capsule RxNorm: 5648508 Administer 1 Capsule(s) Oral every day 4 03/17/20 24 Inactive Enbrel 50 mg/mL (1 mL) subcutaneous syringe RxNorm: 608366 Inject 1 Unit(s) Subcutaneous 1 time a week 4 01/17/20 24 Inactive calcium 600 mg-D3 20 mcg-magnesium 40 [id number]-[id number] inc chew tablet RxNorm: Take 1 Tablet(s) Oral two times a day 4 03/17/20 24 Inactive fluticasone (FLONASE) 50 MCG/ACT nasal spray RxNorm: 2371279 nasl 2 No Stop Date Active Ventolin HFA 108 (90 Base) MCG/ACT inhaler RxNorm: 310655 inhl 1 No Stop Date Active lamoTRIgine (LaMICtal) 150 MG tablet RxNorm: 855061 oral 1 No Stop Date Active ibuprofen (ADVIL,MOTRIN) 800 MG tablet RxNorm: 644104 Take 1,600 mg by mouth 2 (Two) Times a Day. 1 No Stop Date Active Medication Administered No Medication Administered data Results Observation Observation Code Item Item Code Result Date Service Location No Orders UA NoOrdersUA NO ORDERS UA 0.00 26/06 024 [facility] [address] [place] [address] URINALYSIS AUTO W/SCOPE 26262 Glucose 2345-7 Negative mg/dL 024 [facility] [address] [place] [address] URINALYSIS AUTO W/SCOPE 54740 Protein Negative mg/dL 024 [facility] [address] [place] [address] URINALYSIS AUTO W/SCOPE 41739 Bilirubin Negative mg/dL 024 [facility] [address] [place] [address] URINALYSIS AUTO W/SCOPE 63056 Urobilinogen Negative mg/dL 024 [facility] [address] [place] [address] URINALYSIS AUTO W/SCOPE 85604 Ph 6.50 024 [facility] [address] [place] [address] URINALYSIS AUTO W/SCOPE 22847 Blood Negative mg/dL 024 [facility] [address] [place] [address] URINALYSIS AUTO W/SCOPE 09544 Ketones Negative mg/dL 024 [facility] [address] [place] [address] URINALYSIS AUTO W/SCOPE 19619 Nitrite Negative 024 [facility] [address] [place] [address] URINALYSIS AUTO W/SCOPE 00188 Leukocytes Negative Praneeth/uL 024 [facility] [address] [place] [address] URINALYSIS AUTO W/SCOPE 51741 Clarity Clear 024 [facility] [address] [place] [address] URINALYSIS AUTO W/SCOPE 98242 Specific [place] 1.019 024 [facility] [address] [place] [address] URINALYSIS AUTO W/SCOPE 69325 Color Light-Yello w 024 [facility] [address] [place] [address] URINALYSIS AUTO W/SCOPE 53796 Red Blood Cell <1 /HPF #/HPF 024 [facility] [address] [place] [address] URINALYSIS AUTO W/SCOPE 76688 SQUAMOUS EPITHELIAL <1 /HPF #/HPF 024 [facility] [address] [place] [address] URINALYSIS AUTO W/SCOPE 90595 White Blood Cell 3 /HPF #/HPF 024 [facility] [address] [place] [address] URINALYSIS AUTO W/SCOPE 80590 Bacteria Trace graded/HPF 024 [facility] [address] [place] [address] URINALYSIS AUTO W/SCOPE 04570 Calcium Oxalate Crystal MANY graded/HPF 024 [facility] [address] [place] [address] URINALYSIS AUTO W/SCOPE 72499 Mucous RARE grades/LPF 024 [facility] [address] [place] [address] Urine Culture and [facility] Urine Culture & Sensitivity SEE COMMENT 024 [facility] [address] [place] [address] Manual Diff MDIFF Neutrophils 17440-2 64.0 % 024 [facility] [address] [place] [address] Manual Diff MDIFF Lymphocytes 04281-5 30.0 % 024 [facility] [address] [place] [address] Manual Diff MDIFF Monocytes 15231-9 3.0 % 024 [facility] [address] [place] [address] Manual Diff MDIFF Eosinophils 88724-2 2.0 % 024 [facility] [address] [place] [address] Manual Diff MDIFF Basophils 01115-9 1.0 % 024 [facility] [address] [place] [address] Manual Diff MDIFF Absolute Neut 60949-8 4416 /ul 11/30 07/31 024 [facility] [address] [place] [address] Manual Diff MDIFF Absolute Lymph 50407-2 2070 /ul 24/06 024 [facility] [address] [place] [address] Manual Diff MDIFF Absolute Posey 69900-9 207 /ul 11/30 07/31 024 [facility] [address] [place] [address] Manual Diff MDIFF Platelet Estimate 9317-9 Normal 024 [facility] [address] [place] [address] Manual Diff MD[facility] Absolute Eos 12835-7 138 /ul 12/22 024 [facility] [address] [place] [address] Manual Diff MDIFF Poikilocytosis 779-9 2+ 24/06 024 [facility] [address] [place] [address] Manual Diff MDIFF Echinocytes 7790-9 2+ 024 [facility] [address] [place] [address] Manual Diff MDIFF Absolute Baso 33107-6 69 /ul 11/30 07/31 024 [facility] [address] [place] [address] COMPLETE CBC W/ DIFF WBC 57707 WBC 6690-2 6.9 K/ul 024 [facility] [address] [place] [address] COMPLETE CBC W/ DIFF WBC 81305 RBC 789-8 4.29 M/uL 024 [facility] [address] [place] [address] COMPLETE CBC W/ DIFF WBC 35655 Hemoglobin 718-7 13.3 g/dL 024 [facility] [address] [place] [address] 34121 COMPLETE CBC W/ DIFF WBC 60549 Hematocrit 4544-3 41.0 % 024 [facility] [address] [place] [address] COMPLETE CBC W/ DIFF WBC 16738 MCV 787-2 95.7 fL 024 [facility] [address] [place] [address] COMPLETE CBC W/ DIFF WBC 74527 MCH 785-6 31.1 pg 024 [facility] [address] [place] [address] 76004 COMPLETE CBC W/ DIFF WBC 10590 MCHC 786-4 32.5 g/dL 024 [facility] [address] [place] [address]27 COMPLETE CBC W/ DIFF WBC 43260 RDW 788-0 14.2 % 024 [facility] [address] [place] [address] 91544 COMPLETE CBC W/ DIFF WBC 69564 Platelet Count 777-3 311 K/uL 024 [facility] [address] [place] [address] 61371 COMPLETE CBC W/ DIFF WBC 09209 MPV 88005-6 8.0 fL 024 [facility] [address] [place] [address] No Orders No Orders No Orders 0 024 [facility] [address] [place] [address] TRIGLYCERIDES 17905 Triglycerides 2571-8 173 mg/dL 024 [facility] [address] [place] [address] TRIGLYCERIDES 28480 VLDL 56585-5 35 mg/dL 024 [facility] [address] [place] [address] 76906 VITAMIN D 42331 Vitamin D 25482-6 27.0 ng/mL 024 [facility] [address] [place] [address]391 MICROALBUMIN (URINE) 27875 Microalbumin 56660-7 2.1 mg/dL 024 [facility] [address] [place] [address] 36211 MICROALBUMIN (URINE) 25042 Microalbumin/Crea tinine Ratio 75743-0 27 MCG/MGCREAT 024 [facility] [address] [place] [address] 98169 MICROALBUMIN (URINE) 54598 Urine Creatinine 2161-8 77.70 mg/dL 024 [facility] [address] [place] [address] 13910 CHOLESTEROL 16978 Cholesterol 2093-3 165 mg/dL 024 [facility] [address] [place] [address] 46432 Direct LDL 16024 LDL-Direct 72636-0 96 mg/dL 024 [facility] [address] [place] [address] 35236 FREE T-4 91896 FT4 3024-7 1.05 ng/dL 024 [facility] [address] [place] [address] 12989 HDL - CHOL 69951 HDL 2085-9 41 mg/dL 024 [facility] [address] [place] [address] 98020 HDL - CHOL [address] [facility] 48594-2 25 % 024 [facility] [address] [place] [address] Urine Culture and Sensitivity [facility] Urine Culture & Sensitivity SEE COMMENT 024 [facility] [address] [place] [address] FREE T-3 27388 FT3 3051-0 2.78 pg/mL 024 [facility] [address] [place] [address] URINALYSIS AUTO W/SCOPE 87161 Glucose 2345-7 NO SPECIMEN RECEIVED mg/dL 024 [facility] [address] [place] [address] URINALYSIS AUTO W/SCOPE 43406 Protein NO SPECIMEN RECEIVED mg/dL 024 [facility] [address] [place] [address] URINALYSIS AUTO W/SCOPE 44109 Bilirubin NO SPECIMEN RECEIVED mg/dL 024 [facility] [address] [place] [address] URINALYSIS AUTO W/SCOPE 86911 Urobilinogen NO SPECIMEN RECEIVED mg/dL 024 [facility] [address] [place] [address]281 URINALYSIS AUTO W/SCOPE 56386 Ph NO SPECIMEN RECEIVED 024 [facility] [address] [place] [address] 93205 URINALYSIS AUTO W/SCOPE 51069 Blood NO SPECIMEN RECEIVED mg/dL 024 [facility] [address] [place] [address] 14598 URINALYSIS AUTO W/SCOPE 91894 Ketones NO SPECIMEN RECEIVED mg/dL 024 [facility] [address] [place] [address] 84970 URINALYSIS AUTO W/SCOPE 81909 Nitrite NO SPECIMEN RECEIVED 024 [facility] [address] [place] [address] 58115 URINALYSIS AUTO W/SCOPE 83374 Leukocytes NO SPECIMEN RECEIVED Praneeth/uL 024 [facility] [address] [place] [address] URINALYSIS AUTO W/SCOPE 09006 Clarity NO SPECIMEN RECEIVED 024 [facility] [address] [place] [address] 29593 URINALYSIS AUTO W/SCOPE 84982 Specific [place] NO SPECIMEN RECEIVED 024 [facility] [address] [place] [address] 27987 URINALYSIS AUTO W/SCOPE 71063 Color NO SPECIMEN RECEIVED [facility] [address] [place] [address] 20287 CHEM 14 (METABOLIC PANEL) 06425 Glucose 2345-7 144 mg/dL [facility] [address] [place] [address] 50142 CHEM 14 (METABOLIC PANEL) 70671 BUN 3094-0 13 mg/dL 024 [facility] [address] [place] [address] 45521 CHEM 14 (METABOLIC PANEL) 41567 Creatinine 2160-0 0.9 mg/dL [facility] [address] [place] [address] 76039 CHEM 14 (METABOLIC PANEL) 15598 BUN/Creat Ratio 3097-3 14.1 [facility] [address] [place] [address] 09654 CHEM 14 (METABOLIC PANEL) 35823 GFR Estimated 43652-7 69 mL/min/1.73 m2 [facility] [address] [place] [address] 28114 CHEM 14 (METABOLIC PANEL) 90633 Sodium 2951-2 139 mmol/L [facility] [address] [place] [address] 35835 CHEM 14 (METABOLIC PANEL) 65475 Potassium 2823-3 4.0 mmol/L [facility] [address] [place] [address] 10923 CHEM 14 (METABOLIC PANEL) 54224 Chloride 2075-0 104 mmol/L [facility] [address] [place] [address] 53097 CHEM 14 (METABOLIC PANEL) 87046 Total CO2 2028-9 30 mmol/L [facility] [address] [place] [address] 15042 CHEM 14 (METABOLIC PANEL) 92364 Anion Gap 1863-0 9.0 mEq/L [facility] [address] [place] [address] 32530 CHEM 14 (METABOLIC PANEL) 07553 Calculated Serum Osmolality 18044-3 291 mOsm/kg [facility] [address] [place] [address] 58761 CHEM 14 (METABOLIC PANEL) 20411 Albumin 56555-2 4.0 g/dL [facility] [address] [place] [address] 51494 CHEM 14 (METABOLIC PANEL) 56147 Total Protein 2885-2 7.9 g/dL 024 [facility] [address] [place] [address] CHEM 14 (METABOLIC PANEL) 66966 Globulin 2336-6 3.9 g/dL 024 [facility] [address] [place] [address] CHEM 14 (METABOLIC PANEL) 10363 Albumin/Globulin Ratio 1759-0 1.0 024 [facility] [address] [place] [address] CHEM 14 (METABOLIC PANEL) 07347 ALK PHOS 6768-6 80.00 U/L 024 [facility] [address] [place] [address] CHEM 14 (METABOLIC PANEL) 38786 SGOT/AST 1920-8 17 U/L 024 [facility] [address] [place] [address] CHEM 14 (METABOLIC PANEL) 42052 SGPT/ALT 1743-4 24 U/L 024 [facility] [address] [place] [address] 34938 CHEM 14 (METABOLIC PANEL) 33946 Total Bilirubin 1975-2 0.3 mg/dL 024 [facility] [address] [place] [address] 00590 CHEM 14 (METABOLIC PANEL) 41081 Calcium 41215-4 9.2 mg/dL 024 [facility] [address] [place] [address] CHEM 14 (METABOLIC PANEL) 40336 Corrected Calcium 39259-5 9.4 mg/dL 024 [facility] [address] [place] [address] [id number] BIN 4548-4 Glyco HGB A1C 24720-3 5.7 % 024 [facility] [address] [place] [address] 10798 A0P-IOEBYYNQRISI BIN 4548-4 eAG 56609-1 117 mg/dL 024 [facility] [address] [place] [address] TSH 15168 TSH 19734-4 2.760 uIU/mL 024 [facility] [address] [place] [address] Procedures Procedure Codes Date Most recent A1c < 7.0% CPT-4: 3044F 5 Most recent A1c < 7.0% CPT-4: 3044F 4 Most recent A1c < 7.0% CPT-4: 3044F 4 MED LIST DOCD IN [facility] CPT-4: 1159F 12/19/2023 RVW MEDS BY RX/DR IN [facility] CPT-4: 1160F 2023 Amnt pain noted; pain prsnt CPT-4: 1125F 11/30 LOW RISK FOR RETINOPATHY CPT-4: 3072F 024 Screening for clinical depre ssion is negative, follow-up plan not required CPT-4: G8510 12/19/2023 [id number] CPT-4: 92400 Unknown Vital Signs Date Vital 12/19/2023 Blood Pressure 1: 120/79 Code: 8480-6 BMI: 25.6 Code: 13470-9 Heart Rate 1: 76 bpm Height: 5'2 Code: 8302-2 Respiratory Rate: 16 bpm SpO2: 95% Temperature: 36.7 (C) / 98.0 (F) Weight: 140 lbs 2 oz Code: 53613-1 Reason For Visit Reason For Visit Effective Dates Notes new patient welcome visit 12/19/2023 Encounters Encounter Performer Location Location Address Codes Date (08381) Other Reason/Patient not seen Diagnosis: Patient not seen[ICD10: UXZ.01] [facility] [place] [address] CPT-4: 11891 05/23/2024 (19126) No answer/Patient not seen Diagnosis: Patient not seen[ICD10: UXZ.01] [facility] [address] [place] [address] CPT-4: 28813 04/19/2024 (IND) Independent Lab Draw Diagnosis: Patient not seen[ICD10: UXZ.01] [facility] [place] [address] CPT-4: IND 12/22/2023 ([id number]) Home or Residence Visit IT TRAINER - Moderate Level, 60 mins Diagnosis: Encounter for general adult medical examination without abnormal findings[ICD10: Z00.00] Diagnosis: Bipolar 2 disorder[ICD10: F31.81] Diagnosis: Chronic obstructive pulmonary disease, unspecified COPD type[ICD10: J44.9] Diagnosis: Generalized anxiety disorder[ICD10: F41.1] Diagnosis: Opioid dependence in remission[ICD10: F11.21] Diagnosis: Osteopenia, unspecified location[ICD10: M85.80] Diagnosis: Rheumatoid arthritis with positive rheumatoid factor, involving unspecified site[ICD10: M05.9] [facility]ci Hilldeena [facility] [address] [address] CPT-4: 78843 12/19/2023 Plan of Care Planned Activity Notes Codes Status Date Appointment: Marci Swan WPtel: [address] [place], [place] [id number] 05/23/2024 Patient Education: Patient Medication Summary Completed 05/23/2024 Appointment: Beny Marci WPtel: [address] [place], [place] [id number] 04/19/2024 Patient Education: Patient Medication Summary Completed 04/19/2024 Appointment: TERESA, NOTE Follow Up Appointment: TERESA, NOTE CHW - Referra 12/25/2023 Appointment: TERESA, NOTE Phone Call Patient Education: Patient Medication Summary Completed 12/25/2023 Patient Education: Patient Medication Summary Completed 12/25/2023 Appointment: Office, [place] [phone] 12/22/2023 Patient Education: Patient Medication Summary Completed [...] care. 12/19/2023 Appointment: Marci Swan WPtel: [address] [place], [place] [phone] [facility] 12/19/2023 Patient Education: Patient Medication Summary Completed 12/19/2023 Patient Education: Obesity Completed 12/19/2023 Care Plan: eGFR KHE Pending Care Plan: Microalbumin (Urine) KHE Pending 12/19/2023 Referral: Food Insecurity Referral Initiated Referral: [facility] WPtel: [address] [place] [address] Counseling [facility] Psychiatry [address] [place] [address] Order Faxed Instructions Comment Date v. Encounter [...]
--- OUTSIDE RECORDS SUMMARY | 2025-02-10 16:39 | XMS_ITS | CCD ---
Author Name Beny BLANTON, Marci Address [address] [facility] [address] [place] [address] Phone Organization [facility] Phone Care Team Providers Care Clinical Cytogeneticist Scientist Name Role Phone Unavailable Primary Care Provider Unavailabl e Unavailable Chronic Care Management Unavaila ble Summary Purpose DataExchange Insurance Providers Payer name Policy type / Coverage type Covered constitution party ID Effective Begin Date Effective End Date [employer] [facility] [id number] Unknown Unknown Family history Father Diagnosis Age [...] cessation counseling) 12/19/[address]: [id number] Never drinks alco hol 12/19/2023 Illegal/Recreational drug [...] 12/19/2023 No Inactive Date Active Biaxin RxNorm: 216553 07/29/2013 No Inactive Da te Active Problems [...] Suboxone 8 mg-2 mg sublingual film RxNorm: 4422740 Take 1 Tablet(s) Sublingual every day 4 01/17/20 24 Inactive Stiolto Respimat 2.5 mcg-2.5 mcg/actuation solution for inhalation RxNorm: 0476978 Inhale 2 Puff(s) Inhalation every day 4 03/17/20 24 Inactive Vraylar 3 mg capsule RxNorm: 1823547 Administer 1 Capsule(s) Oral every day 4 03/17/20 24 Inactive Enbrel 50 mg/mL (1 mL) subcutaneous syringe RxNorm: 195604 Inject 1 Unit(s) Subcutaneous 1 time a week 4 01/17/20 24 Inactive calcium 600 mg-D3 20 mcg-magnesium 40 dy-ilkazc-zdfg-z inc chew tablet RxNorm: Take 1 Tablet(s) Oral two times a day 4 03/17/20 24 Inactive fluticasone (FLONASE) 50 MCG/ACT nasal spray RxNorm: 8849173 nasl 2 No Stop Date Active Ventolin HFA 108 (90 Base) MCG/ACT inhaler RxNorm: 828553 inhl 1 No Stop Date Active lamoTRIgine (LaMICtal) 150 MG tablet RxNorm: 821960 oral 1 No Stop Date Active ibuprofen (ADVIL,MOTRIN) 800 MG tablet RxNorm: 688595 Take 1,600 mg by mouth 2 (Two) Times a Day. 1 No Stop Date Active Medication Administered No Medication Administered data Results Observation Observation Code Item Item Code Result Date Service Location No Orders UA NoOrdersUA NO ORDERS UA 0.00 26/06 024 [facility] [address] [place] [address] URINALYSIS AUTO W/SCOPE 66490 Glucose 2345-7 Negative mg/dL 024 [facility] [address] [place] [address] URINALYSIS AUTO W/SCOPE 79052 Protein Negative mg/dL 024 [facility] [address] [place] [address] URINALYSIS AUTO W/SCOPE 55049 Bilirubin Negative mg/dL 024 [facility] [address] [place] [address] URINALYSIS AUTO W/SCOPE 83945 Urobilinogen Negative mg/dL 024 [facility] [address] [place] [address] URINALYSIS AUTO W/SCOPE 76956 Ph 6.50 024 [facility] [address] [place] [address] URINALYSIS AUTO W/SCOPE 00714 Blood Negative mg/dL 024 [facility] [address] [place] [address] URINALYSIS AUTO W/SCOPE 95957 Ketones Negative mg/dL 024 [facility] [address] [place] [address] URINALYSIS AUTO W/SCOPE 95381 Nitrite Negative 024 [facility] [address] [place] [address] URINALYSIS AUTO W/SCOPE 48264 Leukocytes Negative Praneeth/uL 024 [facility] [address] [place] [address] URINALYSIS AUTO W/SCOPE 17769 Clarity Clear 024 [facility] [address] [place] [address] URINALYSIS AUTO W/SCOPE 88504 Specific [place] 1.019 024 [facility] [address] [place] [address] URINALYSIS AUTO W/SCOPE 86955 Color Light-Yello w 024 [facility] [address] [place] [address] URINALYSIS AUTO W/SCOPE 31838 Red Blood Cell <1 /HPF #/HPF 024 [facility] [address] [place] [address] URINALYSIS AUTO W/SCOPE 83159 SQUAMOUS EPITHELIAL <1 /HPF #/HPF 024 [facility] [address] [place] [address] URINALYSIS AUTO W/SCOPE 04977 White Blood Cell 3 /HPF #/HPF 024 [facility] [address] [place] [address] URINALYSIS AUTO W/SCOPE 08766 Bacteria Trace graded/HPF 024 [facility] [address] [place] [address] URINALYSIS AUTO W/SCOPE 38284 Calcium Oxalate Crystal MANY graded/HPF 024 [facility] [address] [place] [address] URINALYSIS AUTO W/SCOPE 46562 Mucous RARE grades/LPF 024 [facility] [address] [place] [address] [facility] and [facility] Culture & Sensitivity SEE COMMENT 024 [facility] [address] [place] [address] Manual Diff MDIFF Neutrophils 33213-5 64.0 % 024 [facility] [address] [place] [address] Manual Diff MDIFF Lymphocytes 75374-3 30.0 % 024 [facility] [address] [place] [address] Manual Diff MDIFF Monocytes 78710-6 3.0 % 024 [facility] [address] [place] [address] Manual Diff MDIFF Eosinophils 16151-9 2.0 % 024 [facility] [address] [place] [address] Manual Diff MDIFF Basophils 10702-7 1.0 % 024 [facility] [address] [place] [address] Manual Diff MDIFF Absolute Neut 94708-3 4416 /ul 11/30 07/31 024 [facility] [address] [place] [address] Manual Diff MDIFF Absolute Lymph 17097-6 2070 /ul 24/06 024 [facility] [address] [place] [address] Manual Diff MDIFF Absolute Bay 83048-7 207 /ul 11/30 07/31 024 [facility] [address] [place] [address] Manual Diff MDIFF Platelet Estimate 9317-9 Normal 024 [facility] [address] [place] [address] Manual Diff MDIFF Absolute Eos 83114-0 138 /ul 12/22 024 [facility] [address] [place] [address] Manual Diff MDIFF Poikilocytosis 779-9 2+ 24/06 024 [facility] [address] [place] [address] Manual Diff MDIFF Echinocytes 7790-9 2+ 024 [facility] [address] [place] [address] Manual Diff MDIFF Absolute Baso 18025-3 69 /ul 11/30 07/31 024 [facility] [address] [place] [address] COMPLETE CBC W/ DIFF WBC 32164 WBC 6690-2 6.9 K/ul 024 [facility] [address] [place] [address]91 COMPLETE CBC W/ DIFF WBC 50165 RBC 789-8 4.29 M/uL 024 [facility] [address] [place] [address] COMPLETE CBC W/ DIFF WBC 01868 Hemoglobin 718-7 13.3 g/dL 024 [facility] [address] [place] [address]31 COMPLETE CBC W/ DIFF WBC 03974 Hematocrit 4544-3 41.0 % 024 [facility] [address] [place] [address] COMPLETE CBC W/ DIFF WBC 90978 MCV 787-2 95.7 fL 024 [facility] [address] [place] [address]65 COMPLETE CBC W/ DIFF WBC 43576 MCH 785-6 31.1 pg 024 [facility] [address] [place] [address] COMPLETE CBC W/ DIFF WBC 35112 MCHC 786-4 32.5 g/dL 024 [facility] [address] [place] [address] 10233 COMPLETE CBC W/ DIFF WBC 22241 RDW 788-0 14.2 % 024 [facility] [address] [place] [address] 38475 COMPLETE CBC W/ DIFF WBC 85868 Platelet Count 777-3 311 K/uL 024 [facility] [address] [place] [address] COMPLETE CBC W/ DIFF WBC 56673 MPV 18123-9 8.0 fL 024 [facility] [address] [place] [address]84[address] No Orders No Orders No Orders 0 024 [facility] [address] [place] [address] TRIGLYCERIDES 43777 Triglycerides 2571-8 173 mg/dL 024 [facility] [address] [place] [address]80[address] TRIGLYCERIDES 92682 VLDL 78143-3 35 mg/dL 024 [facility] [address] [place] [address] 88101 VITAMIN D 91223 Vitamin D 83871-7 27.0 ng/mL 024 [facility] [address] [place] [address]50 MICROALBUMIN (URINE) 90817 Microalbumin 02861-6 2.1 mg/dL 024 [facility] [address] [place] [address] 28010 MICROALBUMIN (URINE) 83803 Microalbumin/Crea tinine Ratio 41197-3 27 MCG/MGCREAT 024 [facility] [address] [place] [address] 47285 MICROALBUMIN (URINE) 70762 Urine Creatinine 2161-8 77.70 mg/dL 024 [facility] [address] [place] [address] 68618 CHOLESTEROL 91808 Cholesterol 2093-3 165 mg/dL 024 [facility] [address] [place] [address] 22437 Direct LDL 61184 LDL-Direct 65307-8 96 mg/dL 024 [facility] [address] [place] [address] 43320 FREE T-4 21663 FT4 3024-7 1.05 ng/dL 024 [facility] [address] [place] [address] 04214 HDL - CHOL 57417 HDL 2085-9 41 mg/dL 024 [facility] [address] [place] [address] 23046 HDL - CHOL 97545 [facility] 42734-7 25 % 024 [facility] [address] [place] [address] Urine Culture and Sensitivity [facility] Urine Culture & Sensitivity SEE COMMENT 024 [facility] [address] [place] [address] FREE T-3 60320 FT3 3051-0 2.78 pg/mL 024 [facility] [address] [place] [address] URINALYSIS AUTO W/SCOPE 15685 Glucose 2345-7 NO SPECIMEN RECEIVED mg/dL 024 [facility] [address] [place] [address] URINALYSIS AUTO W/SCOPE 01381 Protein NO SPECIMEN RECEIVED mg/dL 024 [facility] [address] [place] [address] URINALYSIS AUTO W/SCOPE 48399 Bilirubin NO SPECIMEN RECEIVED mg/dL 024 [facility] [address] [place] [address] URINALYSIS AUTO W/SCOPE 79931 Urobilinogen NO SPECIMEN RECEIVED mg/dL 024 [facility] [address] [place] [address] 99131 URINALYSIS AUTO W/SCOPE 10561 Ph NO SPECIMEN RECEIVED 024 [facility] [address] [place] [address] 57766 URINALYSIS AUTO W/SCOPE 23340 Blood NO SPECIMEN RECEIVED mg/dL 024 [facility] [address] [place] [address] 12761 URINALYSIS AUTO W/SCOPE 86852 Ketones NO SPECIMEN RECEIVED mg/dL 024 [facility] [address] [place] [address] 645[address] URINALYSIS AUTO W/SCOPE 71944 Nitrite NO SPECIMEN RECEIVED 024 [facility] [address] [place] [address] 16608 URINALYSIS AUTO W/SCOPE 47755 Leukocytes NO SPECIMEN RECEIVED Praneeth/uL 024 [facility] [address] [place] [address]129 URINALYSIS AUTO W/SCOPE 11093 Clarity NO SPECIMEN RECEIVED 024 [facility] [address] [place] [address] 01168 URINALYSIS AUTO W/SCOPE 04203 Specific [place] NO SPECIMEN RECEIVED 024 [facility] [address] [place] [address] 15726 URINALYSIS AUTO W/SCOPE 13757 Color NO SPECIMEN RECEIVED [facility] [address] [place] [address] 58958 CHEM 14 (METABOLIC PANEL) 65168 Glucose 2345-7 144 mg/dL [facility] [address] [place] [address] 74248 CHEM 14 (METABOLIC PANEL) 22186 BUN 3094-0 13 mg/dL 024 [facility] [address] [place] [address] 20645 CHEM 14 (METABOLIC PANEL) 28044 Creatinine 2160-0 0.9 mg/dL [facility] [address] [place] [address] 05436 CHEM 14 (METABOLIC PANEL) 98142 BUN/Creat Ratio 3097-3 14.1 [facility] [address] [place] [address] 62989 CHEM 14 (METABOLIC PANEL) 78162 GFR Estimated 55437-1 69 mL/min/1.73 m2 [facility] [address] [place] [address] 77517 CHEM 14 (METABOLIC PANEL) 54622 Sodium 2951-2 139 mmol/L [facility] [address] [place] [address] 76998 CHEM 14 (METABOLIC PANEL) 36217 Potassium 2823-3 4.0 mmol/L [facility] [address] [place] [address] 21117 CHEM 14 (METABOLIC PANEL) 68223 Chloride 2075-0 104 mmol/L [facility] [address] [place] [address] 63769 CHEM 14 (METABOLIC PANEL) 18104 Total CO2 2028-9 30 mmol/L [facility] [address] [place] [address] 72052 CHEM 14 (METABOLIC PANEL) 05029 Anion Gap 1863-0 9.0 mEq/L [facility] [address] [place] [address] 24603 CHEM 14 (METABOLIC PANEL) 28562 Calculated Serum Osmolality 92855-2 291 mOsm/kg [facility] [address] [place] [address] 23208 CHEM 14 (METABOLIC PANEL) 87973 Albumin 36582-9 4.0 g/dL [facility] [address] [place] [address] 56666 CHEM 14 (METABOLIC PANEL) 37577 Total Protein 2885-2 7.9 g/dL 024 [facility] [address] [place] [address] CHEM 14 (METABOLIC PANEL) 97887 Globulin 2336-6 3.9 g/dL 024 [facility] [address] [place] [address] CHEM 14 (METABOLIC PANEL) 75922 Albumin/Globulin Ratio 1759-0 1.0 024 [facility] [address] [place] [address] CHEM 14 (METABOLIC PANEL) 97852 ALK PHOS 6768-6 80.00 U/L 024 [facility] [address] [place] [address] CHEM 14 (METABOLIC PANEL) 48483 SGOT/AST 1920-8 17 U/L 024 [facility] [address] [place] [address] CHEM 14 (METABOLIC PANEL) 03318 SGPT/ALT 1743-4 24 U/L 024 [facility] [address] [place] [address] 22649 CHEM 14 (METABOLIC PANEL) 40608 Total Bilirubin 1975-2 0.3 mg/dL 024 [facility] [address] [place] [address] 72655 CHEM 14 (METABOLIC PANEL) 22559 Calcium 76959-9 9.2 mg/dL 024 [facility] [address] [place] [address] CHEM 14 (METABOLIC PANEL) 20531 Corrected Calcium 73367-0 9.4 mg/dL 024 [facility] [address] [place] [address] [id number] BIN 4548-4 Glyco HGB A1C 69835-8 5.7 % 024 [facility] [address] [place] [address] 20128 [id number] BIN 4548-4 eAG 76814-3 117 mg/dL 024 [facility] [address] [place] [address] TSH 54528 TSH 37720-8 2.760 uIU/mL 024 [facility] [address] [place] [address] Procedures Procedure Codes Date Most recent A1c < 7.0% CPT-4: 3044F 5 Most recent A1c < 7.0% CPT-4: 3044F 4 Most recent A1c < 7.0% CPT-4: 3044F 4 MED LIST DOCD IN [facility] CPT-4: 1159F 12/19/2023 RVW MEDS BY RX/DR IN [facility] CPT-4: 1160F 2023 Amnt pain noted; pain prsnt CPT-4: 1125F 11/30 LOW RISK FOR RETINOPATHY CPT-4: 3072F 024 Screening for clinical depre ssion is negative, follow-up plan not required CPT-4: G8510 12/19/2023 [id number] CPT-4: 53383 Unknown Vital Signs Date Vital 12/19/2023 Blood Pressure 1: 120/79 Code: 8480-6 BMI: 25.6 Code: 84161-6 Heart Rate 1: 76 bpm Height: 5'2 Code: 8302-2 Respiratory Rate: 16 bpm SpO2: 95% Temperature: 36.7 (C) / 98.0 (F) Weight: 140 lbs 2 oz Code: 75425-3 Reason For Visit Reason For Visit Effective Dates Notes new patient welcome visit 12/19/2023 Encounters Encounter Performer Location Location Address Codes Date (21128) Other Reason/Patient not seen Diagnosis: Patient not seen[ICD10: UXZ.01] [facility] [place] [address] CPT-4: 98677 05/23/2024 (50785) No answer/Patient not seen Diagnosis: Patient not seen[ICD10: UXZ.01] [facility] Office [address] [place] [address] CPT-4: 42779 04/19/2024 (IND) Independent Lab Draw Diagnosis: Patient not seen[ICD10: UXZ.01] [facility] [place] [address] CPT-4: IND 12/22/2023 (71817) Home or Residence Visit LEARNING SUPPORT SERVICES DIRECTOR - Moderate Level, 60 mins Diagnosis: Encounter for general adult medical examination without abnormal findings[ICD10: Z00.00] Diagnosis: Bipolar 2 disorder[ICD10: F31.81] Diagnosis: Chronic obstructive pulmonary disease, unspecified COPD type[ICD10: J44.9] Diagnosis: Generalized anxiety disorder[ICD10: F41.1] Diagnosis: Opioid dependence in remission[ICD10: F11.21] Diagnosis: Osteopenia, unspecified location[ICD10: M85.80] Diagnosis: Rheumatoid arthritis with positive rheumatoid factor, involving unspecified site[ICD10: M05.9] Marci Hilldeena [facility] [address] [address] CPT-4: 88601 12/19/2023 Plan of Care Planned Activity Notes Codes Status Date Appointment: Marci Swan WPtel: [address] [place], [place] [id number] 05/23/2024 Patient Education: Patient Medication Summary Completed 05/23/2024 Appointment: Beny Marci WPtel: [address] [place], [place] [id number] 04/19/2024 Patient Education: Patient Medication Summary Completed 04/19/2024 Appointment: TERESA, NOTE Follow Up Appointment: TERESA, NOTE CHW - Referra 12/25/2023 Appointment: TERESA, NOTE Phone Call Patient Education: Patient Medication Summary Completed 12/25/2023 Patient Education: Patient Medication Summary Completed 12/25/2023 Appointment: Office, [place] [id number] 12/22/2023 Patient Education: Patient Medication Summary Completed [...] of care. 12/19/2023 Appointment: Marci Swan WPtel: [address] [place], [place] [phone] [facility] 12/19/2023 Patient Education: Patient Medication Summary Completed 12/19/2023 Patient Education: Obesity Completed 12/19/2023 Care Plan: eGFR KHE Pending Care Plan: Microalbumin (Urine) KHE Pending 12/19/2023 Referral: Food Insecurity Referral Initiated Referral: [facility] WPtel: [address] [place] [address] Counseling & Psychiatry [address] [place] [address] Order Faxed Instructions Comment Date v. Encounter [...]
[2025-02-10 17:23] LABS: Coronavirus 19, PCR Not Detected (NotDetected); Influenza A, PCR Not Detected (NotDetected); Influenza B, PCR Not Detected (NotDetected)
== END 2025-02-10 23:59 | disposition home or self-care (01) ==
LOC: RAD 15:37
PROVIDERS: PCP Internal Medicine; Visit Provider Nurse Practitioner Family
DX: B34.8 Other viral infections of unspecified site (principal); R91.8 Other nonspecific abnormal finding of lung field
CPT/HCPCS: 71046; 87631

== ENCOUNTER 2025-02-12 10:30 | Outpatient (CLI) | payer MEDICARE, MEDICAID, SELFPAY ==
--- OUTSIDE RECORDS SUMMARY | 2025-02-13 09:25 | XMS_ITS | Encounter Summary ---
Author Organization [facility] Address [address] [place] [address] Care Team Providers Care Club Attendant Name Role Phone Sofia Nguyen MD Primary Care Provider [phone] Tk Garg MD Primary Care Provider [phone] Lisseth Palacios APRN Primary Care Provider + Kristal Carpenter DO Primary Care Provider [phone] Preston Man DO Primary Care Provider [phone] Preston Man DO Primary Care Provider [phone] Reason for Visit * Reason Onset Date Comments Appointment 10/10/2020 Patient difficul t to keep awake. Encounter Details Date Type Department Care Team (Late st Contact Info) Description 10/10/2020 [facility] [address] [place] [address] Marlen Owens MD [address] [place] [address] Social History Tobacco Use Types [...] patient keeps drifting in andout of sleep. ict teacher did not know the name of the [...] Description 05/26/2025 2:00 PM EST Office Visit [facility] [address] [place] [address] Fletcher, May R, TECHNOLOGY PROJECT MANAGER [address] [place] [address] documented as of this encounter Visit Diagnoses Not on filedocumented in this encounter Additional Health Concerns Infection Onset Date Last Indicated Resolved Time COVID-19 Rule-Out 03/27/2021 03/27/2021 03/27/2021 11:29 AM EST COVID-19 Rule-Out 05/24/2022 05/24/2022 05/24/2022 2:20 PM EST COVID 19 (Confirmed) 05/24/2022 05/24/2022 023 5:23 AM EST documented as of this encounter Care Teams Club Attendant Relationship Specialty Start Date End Date Sofia Nguyen MD [address] [facility] [address] [place] [address] PCP - General 09/11/20 10/15/20 Tk Garg MD [address] [place] [address] [address] [place], [place] [id number] PCP - General Family Medicine 10/16/20 03/27/22 Lisseth Palacios S, TECHNOLOGY PROJECT MANAGER [facility] [place] [address] PCP - General 03/28/22 07/13/22 Kristal Carpenter DO [address] [place] [address] PCP - General Internal Medicine 07/14/22 08/13/23 Preston Man DO [address] [place] [address] [place], [place] [address] PCP - General 08/14/23 10/26/23 Preston Man DO [address] [place] [address], [place] [address] PCP - General 05/27/24 documented as of this encounter
--- OUTSIDE RECORDS SUMMARY | 2025-02-13 09:25 | XMS_ITS | Clinical Summary ---
Author Organization [facility] Address [address] [place] [address] Care Team Providers Care Thermo Cementing Folder Operator Name Role Phone Preston Man Primary Care Provider [phone] Allergies Active Allergy Reactions Criticality Noted Date [...] Influenza, seasonal, injectable, preservative free 03/20/2014, 05/19/2016 [email or web address] COVID-19 Vaccine (Purple Cap) 12+ 06/30/2020, 07/21/2020 [...] has been counseled on tobacco cessation: Yes. predatory animal exterminator effects of continued use such as but not limited to lung cancer, oral cavity cancer, CAD, PAD, ASCVD etc were discussed with the patient. Time spent in counseling was between 3-10 mins (14620). The following tobacco cessation resources were provided [...] patient would like second opinion; referred to [facility] 06/2022. Assessment & Plan (07/24/2022 [...] patient would like second opinion; referred to [facility] 06/2022. Assessment & Plan (04/22/2021 [...] with sleep medicine at , [facility] to [facility]/20[facility]. Seropositive rheumatoid arthritis of multiple rosie [...] - 12/11/2024 11:59 PM EDT Hospital Encounter [facility] X-Ray [address], [address] [place] [address] Acute pain of left knee Discharge Disposition: Home or Self Care 12/11/2024 10:20 AM EDT Office Visit [facility] Orthopaedic Surgery & Sports Medicine [address], [address] [place] [id number] Yoana Whitney MD Acute pain of left knee (Primary Dx) 12/11/2024 Travel 12/04/2024 Travel 11/25/2024 3:02 PM EDT - 11/25/2024 11:59 PM EDT Hospital Encounter [facility] [address], [address] [place] [address] Seropositive rheumatoid arthritis of multiple sites ([facility]/HCC) Discharge Disposition: Home or Self Care 11/25/2024 2:00 PM EDT Office Visit [facility] Medicine Specialties [address], [address] [place] [address] Hemalatha Bynum R, SUBASSEMBLY SUPERVISOR Seropositive rheumatoid arthritis of multiple sites ([facility]) (Primary Dx); High risk medication use; Chronic pain of left knee 11/25/2024 Refill [facility] [address] [place] [address] Sandor Guzmán, PharmD Seropositive rheumatoid arthritis of multiple sites ([facility]/HCC) (Primary Dx) 11/25/2024 Travel from Last 3 Months Immunizations Immunization Administration Dates Next Due Hep A, Adult 11/22/2017,10/11/2016 Hep A, Unspecified 10/11/2016 Influenza, injectable, MDCK, preservative free, quadrivalent 02/10/2022,01/24/2020 Influenza, injectable, quadrivalent 02/13/2017 Influenza, injectable, quadr ivalent, preservative free 03/17/2023,01/16/2019,01/18/2018 Influenza, seasonal, injectable 02/19/2020 Influenza, seasonal, injecta ble, preservative free 05/19/2016,03/20/2014 [email or web address] COVID-19 Vac cine (Purple Cap) 12+ 07/21/2020,06/30/2020 [...] Visit [facility] [address] [place] [address] Fletcher, May R, SUBASSEMBLY SUPERVISOR [address] [place] [address] Health Maintenance Due Date Last [...] exists [facility] Annual Wellness (AWV) 11/18/2023 11/17/2022 [id number] Vaccine ( season) 2024 07/21/2020, 06/30/2020 [facility]-Influenza [...] show medial compartment joint space narrowing with [id number] articulation and tricompartmental osteophyte formation. Chondrocalcinosis. Moderate [...] knee show medial compartment joint space narrowingwith eksq-gj-epis articulation and tricompartmental osteophyte formation.Chondrocalcinosis. Moderate effusion. [...] show medial compartment joint space narrowing with [id number] articulation and tricompartmental osteophyte formation. Chondrocalcinosis. Moderate [...] knee show medial compartment joint space narrowingwith [id number]-pu-[id number] articulation and tricompartmental osteophyte formation.Chondrocalcinosis. Moderate effusion. [...] on 11/25/2024 3:52 PM May R Fletcher SUBASSEMBLY SUPERVISOR IMG XR PROCEDURES Final Res ult * [...] on 11/25/2024 3:52 PM May R Fletcher SUBASSEMBLY SUPERVISOR IMG XR PROCEDURES Final Res ult * [...] - 1.10 mg/dL 11/25/2024 5:01 PM EDT [facility] eGFRcr 85.7 mL/min/1.7 3m*2 11/25/2024 5:01 PM EDT [facility] Comment:Reported eGFRcr in m L/min/1.73m2 is based the CKD-EPI 2020 equation that does not use a race coefficient. Blood Venous blood specimen / Unknown Venipuncture / Unknown 11/25/2024 2:59 PM EDT 11/25/2024 3:00 PM EDT May R Fletcher RFAZIER LAB BLOOD ORDERABLES Final Result [facility] [address] [place] [address] * (ABNORMAL) CBC and Differential (11/25/2024 2:59 PM EDT) [facility] WBC Count 8.15 3.70 - 10.30 10*3/uL LAB HEMATOLOGY METHOD 11/25/2024 4:05 PM EDT [facility] RBC Count 4.30 3.90 - 5.20 10*6/uL LAB HEMATOLOGY METHOD 11/25/2024 4:05 PM EDT [facility] HGB 13.3 11.2 - 15.7 g/dL LAB HEMATOLOGY METHOD 11/25/2024 4:05 PM EDT [facility] HCT 39.0 34.0 - 45.0 % LAB HEMATOLOGY METHOD 11/25/2024 4:05 PM EDT [facility] Platelet Count 360 155 - 369 10*3/uL LAB HEMATOLOGY METHOD 11/25/2024 4:05 PM EDT [facility] MCV 91 79 - 98 fL LAB HEMATOLOGY METHOD 11/25/2024 4:05 PM EDT [facility] MCH 30.9 26.0 - 32.0 pg LAB HEMATOLOGY METHOD 11/25/2024 4:05 PM EDT [facility] MCHC 34.1 30.7 - 35.5 g/dL LAB HEMATOLOGY METHOD 11/25/2024 4:05 PM EDT [facility] RDW 12.5 11.5 - 14.5 % LAB HEMATOLOGY METHOD 11/25/2024 4:05 PM EDT [facility] MPV 8.7(L) 8.8 - 12.5 fL LAB HEMATOLOGY METHOD 11/25/2024 4:05 PM EDT [facility] nRBC 0.0 <=0.0 per 100 WBCs LAB HEMATOLOGY METHOD 11/25/2024 4:05 PM EDT [facility] Differential Type Automated LAB HEMATOLOGY METHOD 11/25/2024 4:05 PM EDT [facility] Neutrophils % 46 % LAB HEMATOLOGY METHOD 11/25/2024 4:05 PM EDT [facility] Lymphocytes % 43 % LAB HEMATOLOGY METHOD 11/25/2024 4:05 PM EDT [facility] Monocytes % 10 % LAB HEMATOLOGY METHOD 11/25/2024 4:05 PM EDT [facility] Eosinophils % 1 % LAB HEMATOLOGY METHOD 11/25/2024 4:05 PM EDT [facility] Basophils % 0 % LAB HEMATOLOGY METHOD 11/25/2024 4:05 PM EDT [facility] Immature Granulocytes % 0 % LAB HEMATOLOGY METHOD 11/25/2024 4:05 PM EDT [facility] Neutrophils Absolute 3.75 1.60 - 6.10 10*3/uL LAB HEMATOLOGY METHOD 11/25/2024 4:05 PM EDT [facility] Lymphocytes Absolute 3.50 1.20 - 3.90 10*3/uL LAB HEMATOLOGY METHOD 11/25/2024 4:05 PM EDT [facility] Monocytes Absolute 0.78 0.30 - 0.90 10*3/uL LAB HEMATOLOGY METHOD 11/25/2024 4:05 PM EDT [facility] Eosinophils Absolute 0.07 0.00 - 0.50 10*3/uL LAB HEMATOLOGY METHOD 11/25/2024 4:05 PM EDT [facility] Basophils Absolute 0.03 0.00 - 0.10 10*3/uL LAB HEMATOLOGY METHOD 11/25/2024 4:05 PM EDT [facility] Immature Granulocytes Absolute 0.02 0.00 - 0.06 10*3/uL LAB HEMATOLOGY METHOD 11/25/2024 4:05 PM EDT [facility] Blood Venous blood specimen / Unknown Venipuncture / Unknown 11/25/2024 2:59 PM EDT 11/25/2024 3:00 PM EDT Narrative [facility] - 11/25/2024 4:05 PM EDT Therapeutic decision making should be based on absolute values, rather than percentages. may Fletcher WATERSN LAB BLOOD ORDERABLES Final Result [facility] [address] [place] [address] * C-Reactive Protein, Plasma (11/25/2024 2:59 PM EDT) Pathologist [facility] CRP, Plasma <3.0 <=8.0 mg/L 11/25/2024 5:01 PM EDT [facility] Blood Venous blood specimen / Unknown Venipuncture / Unknown 11/25/2024 2:59 PM EDT 11/25/2024 3:00 PM EDT Narrative [facility] - 11/25/2024 5:01 PM EDT This CRP test is appropriate for assessment of infection, systemic inflammation and/or tissue injury. To assess cardiovascular disease risk order high sensitivity CRP (CRPH). us May Fletcher SUBASSEMBLY SUPERVISOR LAB BLOOD ORDERABLES Final Result Performing Organization Address City/[facility]/ZIP Co de Phone Number [facility] [address] [place] [address] * (ABNORMAL) Hepatic Function Panel (11/25/2024 2:59 PM EDT) Direct Bilirubin, Plasma <0.2 <=0.3 mg/dL 11/25/2024 5:01 PM EDT [facility] Alkaline Phosphatase, Plasma 102 46 - 142 U/L 11/25/2024 5:01 PM EDT [facility] Total Bilirubin, Plasma 0.2 0.2 - 1.1 mg/dL 11/25/2024 5:01 PM EDT [facility] Albumin, Plasma 4.2 3.5 - 5.2 g/dL 11/25/2024 5:01 PM EDT [facility] Total Protein 8.1(H) 6.3 - 7.9 g/dL 11/25/2024 5:01 PM EDT [facility] ALT, Plasma 18 10 - 35 U/L 11/25/2024 5:01 PM EDT [facility] AST, Plasma 20 10 - 35 U/L 11/25/2024 5:01 PM EDT [facility] Blood Venous blood specimen / Unknown Venipuncture / Unknown 11/25/2024 2:59 PM EDT 11/25/2024 3:00 PM EDT us May Fletcher SUBASSEMBLY SUPERVISOR LAB BLOOD ORDERABLES Final Result Performing Organization Address City/[facility]/ZIP Co de Phone Number [facility] [address] [place] [address] * (ABNORMAL) Hemoglobin A1c (08/14/2023 10:16 AM EDT) Hemoglobin A1c 5.7(H) <5.7 % 08/14/2023 12:51 PM EDT [facility] Blood Venous blood specimen / Unknown [...] Adults <6.0% Children and Adolescents <7.5% Source: [place] [employer]. Standards of medical care in diabetes,2017. Diabetes Care.2017:40 (suppl 1):S1-S135. HbA1c assay performed by an ion-exchange chromatography method that is certified traceable to the DCCT. us Kristal Carpenter DO LAB BLOOD ORDERABLES Final Res ult [facility] [address] [place] [address] * Pap Test (11/17/2022 9:27 AM EDT) Case Report Cytology Case: [id number] Authorizing Provider: Kristal Carpenter DO Collected: 11/17/2022 0927 Ordering Location: [facility] Received: 11/18/2022 1109 Internal Medicine First Screen: Alberta Quiroz Specimen: ThinPrep Pap Test, Liquid-Based Cervical/Vaginal 11/29/2022 11:35 AM EDT [facility] Interpretation NEGATIVE FOR INTRAEPITHELIAL LESION OR MALIGNANCY 11/29/2022 11:35 AM EDT [facility] at 1135 EDT Specimen Adequacy Satisfactory for evaluation; endocervical/alcantar sformation zone component present. Slide scanned and imaged by ThinPrep Imaging System with manual review of all selected farah. 11/29/2022 11:35 AM EDT [facility] Cervical cytology is a screening test [...] results is suggested (please call Microbiology at [phone] for results). 11/29/2022 11:35 AM EDT [facility] Menstrual Status Post-Menopausal 05/2022 11:35 AM EDT [facility] Contraceptive History Not Applicable 11/29/2022 11:35 AM EDT [facility] Screening Type Routine Screen 2022 11:35 AM EDT [facility] High Risk? No 11/29/2022 11:35 AM EDT [facility] HPV Testing Requested? Request HPV Testing Regardless of Pap Test Findings 11/29/2022 11:35 AM EDT [facility] Previous Cancer History No 11/29/2022 11:35 AM EDT [facility] Clinical Information Z00.00 - Medicare annual wellness visit, subsequent [ICD-10-CM] Z00.00 - Healthcare maintenance [ICD-10-CM] Z12.4 - Encounter for Papanicolaou smear for cervical cancer screening [ICD-10-CM] 11/29/2022 11:35 AM EDT [facility] Swab Vaginal and cervical cytologic material / Unknown Non-blood Collection / Unknown 11/17/2022 9:27 AM EDT 11/18/2022 11:09 AM EDT Kristal Carpenter DO LAB CYTOLOGY ORDERABLES Final Result [facility] [address] [place] [address] * CT Chest Lung Cancer Screening (09/21/2022 2:30 PM EDT) Anatomical Region Laterality Modality Chest Computed Tomogra phy Addenda Addendum by Markell Mary MD on 09/27/2022 8:25 AM EDT ADDENDUM: Please note there is a half backer error in the original Recommendations section that [...] Positive( A) Negative 05/24/2022 5:38 PM EST [facility] Comment:This specimen is leonel ng sent for confirmation by RT-PCR. Blood Venous blood specimen / Unknown Venipuncture / Unknown 05/24/2022 1:18 PM EST 05/24/2022 1:20 PM EST us Marlen Berry DO LAB BLOOD ORDERABLES Final Re sult [facility] [address] [place] [id number] * Mammography Breast Screening Tomosynthesis Bilateral (07/16/2021 [...] to: 01/21/2010 Mammography Outside Images Upload at [facility] 01/27/2011 Mammography Outside Images Upload at [facility] 07/10/2012 Mammography Outside Images Upload at [facility] 07/19/2012 Mammography Outside Images Upload at [facility] 10/28/2016 Mammography Outside Images Upload at [facility] BREAST COMPOSITION: The breasts are almost entirely [...] Recently Relevant to Health Maintenance [place] [id number] [employer] MEDICARE Care Teams Thermo Cementing Folder Operator Relationship Specialty Start Date End Date Preston Man DO [address] [place] [address] [place] [address] PCP - General 05/27/24
--- OUTSIDE RECORDS SUMMARY | 2025-02-13 09:25 | XMS_ITS | Encounter Summary ---
Author Organization Healthcare Address [address] [place] [address] Care Team Providers Care Overnight Babysitter Name Role Phone DonovanPreston yancey Briseyda JENKINS Primary Care Provider Encounter Details Date Type Department Care Team (Late Contact Info) Description 09/02/2024 Orders Only External Location [address] [place] [address] Jonas Roper, DO [address] [place] [address] [place] [address] Social History Tobacco Use Types Packs/Day Years [...] Description 05/26/2025 2:00 PM EST Office Visit [facility] [address] [place] [address] Fletcher, May R, GUT SORTER [address] [place] [address] documented as of this encounter [...] documented as of this encounter Care Teams Overnight Babysitter Relationship Specialty Start Date End Date Preston Man DO [address] [place] [address] [place] [address] PCP - General 05/27/24 documented as of this encounter
--- OUTSIDE RECORDS SUMMARY | 2025-02-13 09:25 | XMS_ITS | Clinical Summary ---
Author Organization [facility] Address [address] [place] [address] Care Team Providers Care Paper Cutter Name Role Phone System, Provider Not In [...] COLORECTAL CANCER SCREENING 07/24/2030 Insurance MEDICAID [place] [facility] MEDICARE ADVANTAGE Care Teams Paper Cutter Relationship Specialty Start Date End Date System, [place] [address] PCP - General 05/25/21
== END 2025-02-12 23:59 | disposition home or self-care (01) ==
LOC: LAB.DROPOF 02-13 09:16
PROVIDERS: PCP Obstetrics & Gynecology; Visit Provider Obstetrics & Gynecology
DX: N89.8 Other specified noninflammatory disorders of vagina (principal)
CPT/HCPCS: 87491; 87529; 87591; 87661; 87798; 87801

== ENCOUNTER 2025-02-19 14:14 | Outpatient (CLI) | payer MEDICARE, MEDICAID, SELFPAY ==
[2025-02-19 14:53] LABS: Blood Urea Nitrogen 18 mg/dl (7-17); Creatinine,Serum 1.00 mg/dl (0.52-1.04); Estimated Glomerular Filt Rate 55 ml/min (>60); GFR (African American) 67 ML/MIN (>60)
--- OUTSIDE RECORDS SUMMARY | 2025-02-19 15:01 | XMS_ITS | Clinical Summary ---
Author Organization [facility] Address [address] [place] [address] Care Team Providers Care Ctrs Name Role Phone Preston Man Primary Care Provider [phone] Allergies Active Allergy Reactions Criticality Noted Date [...] Influenza, seasonal, injectable, preservative free 03/20/2014, 05/19/2016 ReplyBuy COVID-19 Vaccine (Purple Cap) 12+ 06/30/2020, 07/21/2020 [...] has been counseled on tobacco cessation: Yes. termite treater helper effects of continued use such as but not limited to lung cancer, oral cavity cancer, CAD, PAD, ASCVD etc were discussed with the patient. Time spent in counseling was between 3-10 mins ([id number]). The following tobacco cessation resources were provided [...] patient would like second opinion; referred to [facility] 06/2022. Assessment & Plan (07/24/2022 [...] patient would like second opinion; referred to [facility] 06/2022. Assessment & Plan (04/22/2021 [...] with sleep medicine at , referred to [facility] 06/2022. Seropositive rheumatoid arthritis of multiple rosie [...] - 12/11/2024 11:59 PM EDT Hospital Encounter [facility] X-Ray [address], [address] [place] [address] Acute pain of left knee Discharge Disposition: Home or Self Care 12/11/2024 10:20 AM EDT Office Visit [facility] Orthopaedic Surgery & Sports Medicine [address], [address] [place] [id number] Yoana Whitney MD Acute pain of left knee (Primary Dx) 12/11/2024 Travel 12/04/2024 Travel 11/25/2024 3:02 PM EDT - 11/25/2024 11:59 PM EDT Hospital Encounter [facility] Radiology [address], 1st [place] [address] Seropositive rheumatoid arthritis of multiple sites ([facility]/HCC) Discharge Disposition: Home or Self Care 11/25/2024 2:00 PM EDT Office Visit [facility] Medicine Specialties [address] [place] [address] Hemalatha Bynum R, CLOTH MEASURER Seropositive rheumatoid arthritis of multiple sites ([facility]) (Primary Dx); High risk medication use; Chronic pain of left knee 11/25/2024 Refill [facility] Medicine Specialties [address] [place] [address] Sandor Guzmán, PharmD Seropositive rheumatoid arthritis of multiple sites ([facility]/HCC) (Primary Dx) 11/25/2024 Travel from Last 3 Months Immunizations Immunization Administration Dates Next Due Hep A, Adult 11/22/2017,10/11/2016 Hep A, Unspecified 10/11/2016 Influenza, injectable, MDCK, preservative free, quadrivalent 02/10/2022,01/24/2020 Influenza, injectable, quadrivalent 02/13/2017 Influenza, injectable, quadr ivalent, preservative free 03/17/2023,01/16/2019,01/18/2018 Influenza, seasonal, injectable 02/19/2020 Influenza, seasonal, injecta ble, preservative free 05/19/2016,03/20/2014 ReplyBuy COVID-19 Vac cine (Purple Cap) 12+ 07/21/2020,06/30/2020 [...] Visit [facility] [address] [place] [address] Fletcher, May R, CLOTH MEASURER [address] [place] [address] Health Maintenance Due Date Last Done Comments [facility]-Bone Density Scan 1959 [facility]-/Child/Adol SDOH Screenings 1959 [facility]- SDOH Screenings 1977 [facility]-Adult SDOH Screenings 1977 CT Colonography 02/07/2004 FIT-DNA 02/07/2004 FIT 02/07/2004 FOBT 02/07/2004 Sigmoidoscopy 02/07/2004 Lung Cancer Screening Shared Decision Making 2009 [facility]-RSV Vaccine: 60+ Years or (1 - Risk 60-74 years 1-dose series) 2019 [facility]-Breast Cancer Screening 07/17/2023 07/16/2021, 0 07/16/2021 [facility]-Lung Cancer Screening 09/22/20232022, 08/06/2021, 11/20/2019, Additional history exists [facility]-Medicare Annual Wellness (AWV) 11/18/2023 11/17/2022 [id number] Vaccine ( season) 2024 07/21/2020, 06/30/2020 [facility]-Influenza [...] show medial compartment joint space narrowing with hjxr-ji-kurd articulation and tricompartmental osteophyte formation. Chondrocalcinosis. Moderate [...] knee show medial compartment joint space narrowingwith [id number]-kj-[id number] articulation and tricompartmental osteophyte formation.Chondrocalcinosis. Moderate effusion. [...] show medial compartment joint space narrowing with zlty-rq-afvb articulation and tricompartmental osteophyte formation. Chondrocalcinosis. Moderate [...] knee show medial compartment joint space narrowingwith fcyv-kt-[id number] articulation and tricompartmental osteophyte formation.Chondrocalcinosis. Moderate effusion. [...] on 11/25/2024 3:52 PM May R Fletcher CLOTH MEASURER IMG XR PROCEDURES Final Res ult * [...] on 11/25/2024 3:52 PM May R Fletcher CLOTH MEASURER IMG XR PROCEDURES Final Res ult * [...] Pitt MD on 11/25/2024 3:52 PM May Fletcher FRAZIER IMG XR PROCEDURES Final Res ult * Creatinine, Plasma (11/25/2024 2:59 PM EDT) Creatinine, Plasma 0.77 0.60 - 1.10 mg/dL 11/25/2024 5:01 PM EDT [facility] eGFRcr 85.7 mL/min/1.7 3m*2 11/25/2024 5:01 PM EDT [facility] Comment:Reported eGFRcr in m L/min/1.73m2 is based the CKD-EPI 2020 equation that does not use a race coefficient. Blood Venous blood specimen / Unknown Venipuncture / Unknown 11/25/2024 2:59 PM EDT 11/25/2024 3:00 PM EDT May Fletcher FRAZIER LAB BLOOD ORDERABLES Final Result [facility] [address] [place] [address] * (ABNORMAL) CBC and Differential (11/25/2024 2:59 PM EDT) WBC Count 8.15 3.70 - 10.30 10*3/uL LAB HEMATOLOGY METHOD 11/25/2024 4:05 PM EDT [facility] RBC Count 4.30 3.90 - 5.20 10*6/uL LAB HEMATOLOGY METHOD 11/25/2024 4:05 PM EDT [facility] HGB 13.3 11.2 - 15.7 g/dL LAB HEMATOLOGY METHOD 11/25/2024 4:05 PM EDT [facility] HCT 39.0 34.0 - 45.0 % LAB HEMATOLOGY METHOD 11/25/2024 4:05 PM EDT [facility] Platelet Count 360 155 - 369 10*3/uL LAB HEMATOLOGY METHOD 11/25/2024 4:05 PM EDT [facility] MCV 91 79 - 98 fL LAB HEMATOLOGY METHOD 11/25/2024 4:05 PM EDT [facility] MCH 30.9 26.0 - 32.0 pg LAB HEMATOLOGY METHOD 11/25/2024 4:05 PM EDT [facility] MCHC 34.1 30.7 - 35.5 g/dL LAB HEMATOLOGY METHOD 11/25/2024 4:05 PM EDT [facility] RDW 12.5 11.5 - 14.5 % LAB HEMATOLOGY METHOD 11/25/2024 4:05 PM EDT [facility] MPV 8.7(L) 8.8 - 12.5 fL LAB HEMATOLOGY METHOD 11/25/2024 4:05 PM EDT [facility] nRBC 0.0 <=0.0 per 100 WBCs LAB HEMATOLOGY METHOD 11/25/2024 4:05 PM EDT [facility] Differential Type Automated LAB HEMATOLOGY METHOD 11/25/2024 4:05 PM EDT [facility] Neutrophils % 46 % LAB HEMATOLOGY METHOD 11/25/2024 4:05 PM EDT [facility] Lymphocytes % 43 % LAB HEMATOLOGY METHOD 11/25/2024 4:05 PM EDT [facility] Monocytes % 10 % LAB HEMATOLOGY METHOD 11/25/2024 4:05 PM EDT [facility] Eosinophils % 1 % LAB HEMATOLOGY METHOD 11/25/2024 4:05 PM EDT [facility] Basophils % 0 % LAB HEMATOLOGY METHOD 11/25/2024 4:05 PM EDT [facility] Immature Granulocytes % 0 % LAB HEMATOLOGY METHOD 11/25/2024 4:05 PM EDT [facility] Neutrophils Absolute 3.75 1.60 - 6.10 10*3/uL LAB HEMATOLOGY METHOD 11/25/2024 4:05 PM EDT [facility] Lymphocytes Absolute 3.50 1.20 - 3.90 10*3/uL LAB HEMATOLOGY METHOD 11/25/2024 4:05 PM EDT [facility] Monocytes Absolute 0.78 0.30 - 0.90 10*3/uL LAB HEMATOLOGY METHOD 11/25/2024 4:05 PM EDT [facility] Eosinophils Absolute 0.07 0.00 - 0.50 10*3/uL LAB HEMATOLOGY METHOD 11/25/2024 4:05 PM EDT [facility] Basophils Absolute 0.03 0.00 - 0.10 10*3/uL LAB HEMATOLOGY METHOD 11/25/2024 4:05 PM EDT [facility] Immature Granulocytes Absolute 0.02 0.00 - 0.06 10*3/uL LAB HEMATOLOGY METHOD 11/25/2024 4:05 PM EDT [facility] Blood Venous blood specimen / Unknown Venipuncture / Unknown 11/25/2024 2:59 PM EDT 11/25/2024 3:00 PM EDT Narrative [facility] - 11/25/2024 4:05 PM EDT Therapeutic decision making should be based on absolute values, rather than percentages. may Fletcher CLOTH MEASURER LAB BLOOD ORDERABLES Final Result [facility] [address] [place] [address] * C-Reactive Protein, Plasma (11/25/2024 2:59 PM EDT) CRP, Plasma <3.0 <=8.0 mg/L 11/25/2024 5:01 PM EDT [facility] Blood Venous blood specimen / Unknown Venipuncture / Unknown 11/25/2024 2:59 PM EDT 11/25/2024 3:00 PM EDT Narrative [facility] - 11/25/2024 5:01 PM EDT This CRP test is appropriate for assessment of infection, systemic inflammation and/or tissue injury. To assess cardiovascular disease risk order high sensitivity CRP (CRPH). us May Fletcher CLOTH MEASURER LAB BLOOD ORDERABLES Final Result [facility] [address] [place] [address] * (ABNORMAL) Hepatic Function Panel (11/25/2024 2:59 PM EDT) Direct Bilirubin, Plasma <0.2 <=0.3 mg/dL 11/25/2024 5:01 PM EDT [facility] Alkaline Phosphatase, Plasma 102 46 - 142 U/L 11/25/2024 5:01 PM EDT [facility] Total Bilirubin, Plasma 0.2 0.2 - 1.1 mg/dL 11/25/2024 5:01 PM EDT [facility] Albumin, Plasma 4.2 3.5 - 5.2 g/dL 11/25/2024 5:01 PM EDT [facility] Total Protein 8.1(H) 6.3 - 7.9 g/dL 11/25/2024 5:01 PM EDT [facility] ALT, Plasma 18 10 - 35 U/L 11/25/2024 5:01 PM EDT [facility] AST, Plasma 20 10 - 35 U/L 11/25/2024 5:01 PM EDT [facility] Blood Venous blood specimen / Unknown Venipuncture / Unknown 11/25/2024 2:59 PM EDT 11/25/2024 3:00 PM EDT us May Fletcher CLOTH MEASURER LAB BLOOD ORDERABLES Final Result Performing Organization Address City/[facility]/ZIP Co de Phone Number [facility] [address] [place] [address] * (ABNORMAL) Hemoglobin A1c (08/14/2023 10:16 AM EDT) Hemoglobin A1c 5.7(H) <5.7 % 08/14/2023 12:51 PM EDT [facility] Blood Venous blood specimen / Unknown [...] Adults <6.0% Children and Adolescents <7.5% Source: [place] [employer]. Standards of medical care in diabetes,2017. Diabetes Care.2017:40 (suppl 1):S1-S135. HbA1c assay performed by an ion-exchange chromatography method that is certified traceable to the DCCT. us Kristal Carpenter DO LAB BLOOD ORDERABLES Final Res ult [facility] [address] [place] [address] * Pap Test (11/17/2022 9:27 AM EDT) Case Report Cytology Case: [id number] Authorizing Provider: Kristal Carpenter DO Collected: 11/17/2022 0927 Ordering Location: [facility] Received: 11/18/2022 1109 Internal Medicine First Screen: Alberta Quiroz Specimen: ThinPrep Pap Test, Liquid-Based Cervical/Vaginal 11/29/2022 11:35 AM EDT [facility] Interpretation NEGATIVE FOR INTRAEPITHELIAL LESION OR MALIGNANCY 11/29/2022 11:35 AM EDT [facility] at 1135 EDT Specimen Adequacy Satisfactory for evaluation; endocervical/alcantar sformation zone component present. Slide scanned and imaged by [employer] System with manual review of all selected farah. 11/29/2022 11:35 AM EDT [facility] Cervical cytology is a screening [...] results is suggested (please call Microbiology at [phone] for results). 11/29/2022 11:35 AM EDT [facility] Menstrual Status Post-Menopausal 05/2022 11:35 AM EDT [facility] Contraceptive History Not Applicable 11/29/2022 11:35 AM EDT [facility] Screening Type Routine Screen 2022 11:35 AM EDT [facility] High Risk? No 11/29/2022 11:35 AM EDT [facility] HPV Testing Requested? Request HPV Testing Regardless of Pap Test Findings 11/29/2022 11:35 AM EDT [facility] Previous Cancer History No 11/29/2022 11:35 AM EDT [facility] Clinical Information Z00.00 - Medicare annual wellness visit, subsequent [ICD-10-CM] Z00.00 - Healthcare maintenance [ICD-10-CM] Z12.4 - Encounter for Papanicolaou smear for cervical cancer screening [ICD-10-CM] 11/29/2022 11:35 AM EDT [facility] Swab Vaginal and cervical cytologic material / Unknown Non-blood Collection / Unknown 11/17/2022 9:27 AM EDT 11/18/2022 11:09 AM EDT us Kristal Carpenter DO LAB CYTOLOGY ORDERABLES Final Result [facility] [address] [place] [address] * CT Chest Lung Cancer Screening (09/21/2022 2:30 PM EDT) Anatomical Region Laterality Modality Chest Computed Tomogra phy Addenda Addendum by Markell Mary MD on 09/27/2022 8:25 AM EDT ADDENDUM: Please note there is a certified emergency vehicle technician error in the original Recommendations section that [...] Per this written report. Drafted by Markell Mayr MD on 09/21/2022 3:45 PM Final report [...] A) Negative 05/24/2022 5:38 PM EST [facility] Comment:This specimen is leonel ng sent for confirmation by RT-PCR. Blood Venous blood specimen / Unknown Venipuncture / Unknown 05/24/2022 1:18 PM EST 05/24/2022 1:20 PM EST us Marlen Berry DO LAB BLOOD ORDERABLES Final Re sult [facility] [address] [place] [address] * Mammography Breast Screening Tomosynthesis Bilateral (07/16/2021 [...] to: 01/21/2010 Mammography Outside Images Upload at [facility] 01/27/2011 Mammography Outside Images Upload at [facility] 07/10/2012 Mammography Outside Images Upload at [facility] 07/19/2012 Mammography Outside Images Upload at [facility] 10/28/2016 Mammography Outside Images Upload at [facility] BREAST COMPOSITION: The breasts are almost entirely [...] Maintenance Insurance [place]ICAID-[place] MEDICARE Care Teams Ctrs Relationship Specialty Start Date End Date Preston Man DO [address] [place] [address] [place] [address] PCP - General 05/27/24
--- OUTSIDE RECORDS SUMMARY | 2025-02-19 15:01 | XMS_ITS | Clinical Summary ---
Author Organization [facility] Address [address] [place] [address] Care Team Providers Care Yeast Supervisor Name Role Phone System, Provider Not In [...] COLORECTAL CANCER SCREENING 07/24/2030 Insurance MEDICAID [facility] [facility] MEDICARE ADVANTAGE Care Teams Yeast Supervisor Relationship Specialty Start Date End Date System, [place] [address] PCP - General 05/25/21
--- OUTSIDE RECORDS SUMMARY | 2025-02-19 15:02 | XMS_ITS | Encounter Summary ---
Author Organization [facility] Address [address] [place] [address] Care Team Providers Care Relocation Director Name Role Phone Sofia Nguyen MD Primary Care Provider [phone] Tk Garg MD Primary Care Provider [phone] Lisseth Palacios APRN Primary Care Provider + Kristal Carpenter DO Primary Care Provider [phone] Preston Man DO Primary Care Provider [phone] Preston Man DO Primary Care Provider [phone] Reason for Visit * Reason Onset Date Comments Appointment 10/10/2020 Patient difficul t to keep awake. Encounter Details Date Type Department Care Team (Late st Contact Info) Description 10/10/2020 [facility] [address] [place] [address] Marlen Owens MD [address] [place] [address] Social History Tobacco Use Types [...] patient keeps drifting in andout of sleep. 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 of the [...] Description 05/26/2025 2:00 PM EST Office Visit [facility] [address] [place] [address] Fletcher, May R, EIGHT ARM OPERATOR [address] [place] [address] documented as of this encounter Visit Diagnoses Not on filedocumented in this encounter Additional Health Concerns Infection Onset Date Last Indicated Resolved Time COVID-19 Rule-Out 03/27/2021 03/27/2021 03/27/2021 11:29 AM EST COVID-19 Rule-Out 05/24/2022 05/24/2022 05/24/2022 2:20 PM EST COVID 19 (Confirmed) 05/24/2022 05/24/2022 023 5:23 AM EST documented as of this encounter Care Teams Relocation Director Relationship Specialty Start Date End Date Sofia Nguyen MD [address] [facility] [address] [place] [address] PCP - General 09/11/20 10/15/20 Tk Garg MD [address] [place] [address] [address] [place], [place] [id number] PCP - General Family Medicine 10/16/20 03/27/22 Lisseth Palacios S, EIGHT ARM OPERATOR [facility] [place] [address] PCP - General 03/28/22 07/13/22 Kristal Carpenter DO [address] [place] [address] PCP - General Internal Medicine 07/14/22 08/13/23 Preston Man DO [address] [place], [place] [address] PCP - General 08/14/23 10/26/23 Preston Man DO [address] [place], [place] [address] PCP - General 05/27/24 documented as of this encounter
--- OUTSIDE RECORDS SUMMARY | 2025-02-19 15:03 | XMS_ITS | Encounter Summary ---
Author Organization [facility] Address [address] [place] [address] Care Team Providers Care Library Attendant Name Role Phone DonovanPreston yancey Briseyda JENKINS Primary Care Provider [phone] Encounter Details Date Type Department Care Team (Late Contact Info) Description 09/02/2024 Orders Only External Location [address] [place] [address] Jonas Roper, DO [address] [place] [address] Social History Tobacco Use Types Packs/Day Years [...] Description 05/26/2025 2:00 PM EST [facility] [address] [place] [address] Fletcher, May R, CEMENT SPRAYER HELPER [address] [place] [address] documented as of this encounter [...] documented as of this encounter Care Teams Library Attendant Relationship Specialty Start Date End Date Preston Man DO [address] [place] [address] PCP - General 05/27/24 documented as of this encounter
--- OUTSIDE RECORDS SUMMARY | 2025-02-19 16:00 | XMS_ITS | CCD ---
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 Name Role Phone Unavailable Primary Care Provider Unavailabl e Unavailable Chronic Care Management Unavaila ble Summary Purpose DataExchange Insurance Providers Payer name Policy type / Coverage type Covered democrat ID Effective Begin Date Effective End Date [employer] [facility] [id number] Unknown Unknown Family history Father Diagnosis Age [...] cessation counseling) 12/19/[address]: 079717973 Never drinks alco hol 12/19/2023 Illegal/Recreational drug [...] 12/19/2023 No Inactive Date Active Biaxin RxNorm: 518263 07/29/2013 No Inactive Da te Active Problems [...] Suboxone 8 mg-2 mg sublingual film RxNorm: 8929799 Take 1 Tablet(s) Sublingual every day 4 01/17/20 24 Inactive Stiolto Respimat 2.5 mcg-2.5 mcg/actuation solution for inhalation RxNorm: 6922496 Inhale 2 Puff(s) Inhalation every day 4 03/17/20 24 Inactive Vraylar 3 mg capsule RxNorm: 6322218 Administer 1 Capsule(s) Oral every day 4 03/17/20 24 Inactive Enbrel 50 mg/mL (1 mL) subcutaneous syringe RxNorm: 881260 Inject 1 Unit(s) Subcutaneous 1 time a week 4 01/17/20 24 Inactive calcium 600 mg-D3 20 mcg-magnesium 40 [id number] inc chew tablet RxNorm: Take 1 Tablet(s) Oral two times a day 4 03/17/20 24 Inactive fluticasone (FLONASE) 50 MCG/ACT nasal spray RxNorm: 3010962 nasl 2 No Stop Date Active Ventolin HFA 108 (90 Base) MCG/ACT inhaler RxNorm: 793503 inhl 1 No Stop Date Active lamoTRIgine (LaMICtal) 150 MG tablet RxNorm: 085501 oral 1 No Stop Date Active ibuprofen (ADVIL,MOTRIN) 800 MG tablet RxNorm: 910073 Take 1,600 mg by mouth 2 (Two) Times a Day. 1 No Stop Date Active Medication Administered No Medication Administered data Results Observation Observation Code Item Item Code Result Date Service Location No Orders UA NoOrdersUA NO ORDERS UA 0.00 26/06 024 [facility] [address] [place] [address] Urine Culture and Sensitivity Reflexed from [facility] Urine Culture & Sensitivity SEE COMMENT 024 [facility] [address] [place] [address] URINALYSIS AUTO W/SCOPE 48099 Glucose 2345-7 Negative mg/dL 024 [facility] [address] [place] [address] URINALYSIS AUTO W/SCOPE 87383 Protein Negative mg/dL 024 [facility] [address] [place] [address] URINALYSIS AUTO W/SCOPE 21065 Bilirubin Negative mg/dL 024 [facility] [address] [place] [address] URINALYSIS AUTO W/SCOPE 79853 Urobilinogen Negative mg/dL 024 [facility] [address] [place] [address] URINALYSIS AUTO W/SCOPE 08102 Ph 6.50 024 [facility] [address] [place] [address] URINALYSIS AUTO W/SCOPE 71833 Blood Negative mg/dL 024 [facility] [address] [place] [address] URINALYSIS AUTO W/SCOPE 47149 Ketones Negative mg/dL 024 [facility] [address] [place] [address] URINALYSIS AUTO W/SCOPE 15215 Nitrite Negative 024 [facility] [address] [place] [address] URINALYSIS AUTO W/SCOPE 47696 Leukocytes Negative Praneeth/uL 024 [facility] [address] [place] [address] URINALYSIS AUTO W/SCOPE 52979 Clarity Clear 024 [facility] [address] [place] [address] URINALYSIS AUTO W/SCOPE 05685 Specific [place] 1.019 024 [facility] [address] [place] [address] URINALYSIS AUTO W/SCOPE 67847 Color Light-Yello w 024 [facility] [address] [place] [address] URINALYSIS AUTO W/SCOPE 88615 Red Blood Cell <1 /HPF #/HPF 024 [facility] [address] [place] [address] URINALYSIS AUTO W/SCOPE 89927 SQUAMOUS EPITHELIAL <1 /HPF #/HPF 024 [facility] [address] [place] [address] URINALYSIS AUTO W/SCOPE 01769 White Blood Cell 3 /HPF #/HPF 024 [facility] [address] [place] [address] URINALYSIS AUTO W/SCOPE 49016 Bacteria Trace graded/HPF 024 [facility] [address] [place] [address] URINALYSIS AUTO W/SCOPE 17002 Calcium Oxalate Crystal MANY graded/HPF 024 [facility] [address] [place] [address] URINALYSIS AUTO W/SCOPE 33720 Mucous RARE grades/LPF 024 [facility] [address] [place] [address] Manual Diff MDIFF Neutrophils 43751-7 64.0 % 024 [facility] [address] [place] [address] Manual Diff MDIFF Lymphocytes 59542-9 30.0 % 024 [facility] [address] [place] [address] Manual Diff MDIFF Monocytes 99802-3 3.0 % 024 [facility] [address] [place] [address] Manual Diff MDIFF Eosinophils 82509-7 2.0 % 024 [facility] [address] [place] [address] Manual Diff MDIFF Basophils 74147-0 1.0 % 024 [facility] [address] [place] [address] Manual Diff MDIFF Absolute Neut 44742-6 4416 /ul 11/30 07/31 024 [facility] [address] [place] [address] Manual Diff MDIFF Absolute Lymph 89694-2 2070 /ul 24/06 024 [facility] [address] [place] [address] Manual Diff MDIFF Absolute [place] 44768-4 207 /ul 08/07/31 024 [facility] [address] [place] [address] Manual Diff MDIFF Platelet Estimate 9317-9 Normal 024 [facility] [address] [place] [address] Manual Diff MDIFF Absolute Eos 98919-6 138 /ul 12/22 024 [facility] [address] [place] [address] Manual Diff MDIFF Echinocytes 7790-9 2+ 024 [facility] [address] [place] [address] Manual Diff MDIFF Poikilocytosis 779-9 2+ 24/06 024 [facility] [address] [place] [address] Manual Diff MDIFF Absolute Baso 57294-3 69 /ul 11/30 07/31 024 [facility] [address] [place] [address] COMPLETE CBC W/ DIFF WBC 90728 WBC 6690-2 6.9 K/ul 024 [facility] [address] [place] [address] COMPLETE CBC W/ DIFF WBC 63928 RBC 789-8 4.29 M/uL 024 [facility] [address] [place] [address] COMPLETE CBC W/ DIFF WBC 33338 Hemoglobin 718-7 13.3 g/dL 024 [facility] [address] [place] [address] COMPLETE CBC W/ DIFF WBC 07605 Hematocrit 4544-3 41.0 % 024 [facility] [address] [place] [address] COMPLETE CBC W/ DIFF WBC 82136 MCV 787-2 95.7 fL 024 [facility] [address] [place] [address] COMPLETE CBC W/ DIFF WBC 12210 MCH 785-6 31.1 pg 024 [facility] [address] [place] [address] COMPLETE CBC W/ DIFF WBC 38701 MCHC 786-4 32.5 g/dL 024 [facility] [address] [place] [address] COMPLETE CBC W/ DIFF WBC 44044 RDW 788-0 14.2 % 024 [facility] [address] [place] [address] COMPLETE CBC W/ DIFF WBC 38437 Platelet Count 777-3 311 K/uL 024 [facility] [address] [place] [address] COMPLETE CBC W/ DIFF WBC 67771 MPV 89422-0 8.0 fL 024 [facility] [address] [place] [address] No Orders No Orders No Orders 0 024 [facility] [address] [place] [address] TRIGLYCERIDES 51252 Triglycerides 2571-8 173 mg/dL 024 [facility] [address] [place] [address] TRIGLYCERIDES 81326 VLDL 12008-3 35 mg/dL 024 [facility] [address] [place] [address] 33349 VITAMIN D 09044 Vitamin D 12933-2 27.0 ng/mL [facility] [address] [place] [address]251 CHOLESTEROL 52859 Cholesterol 2093-3 165 mg/dL 024 [facility] [address] [place] [address] 46413 Direct LDL 15874 LDL-Direct 35145-5 96 mg/dL [facility] [address] [place] [address] 40928 FREE T-4 57553 FT4 3024-7 1.05 ng/dL 024 [facility] [address] [place] [address] 33705 HDL - CHOL 06449 HDL 2085-9 41 mg/dL 024 [facility] [address] [place] [address] 94906 HDL - CHOL 32149 CHD 84176-1 25 % 024 [facility] [address] [place] [address] Urine Culture and Sensitivity Reflexed from [facility] Urine Culture & Sensitivity SEE COMMENT 024 [facility] [address] [place] [address] 49328 FREE T-3 96104 FT3 3051-0 2.78 pg/mL 024 [facility] [address] [place] [address] URINALYSIS AUTO W/SCOPE 14426 Glucose 2345-7 NO SPECIMEN RECEIVED mg/dL 024 [facility] [address] [place] [address] URINALYSIS AUTO W/SCOPE 16238 Protein NO SPECIMEN RECEIVED mg/dL 024 [facility] [address] [place] [address] URINALYSIS AUTO W/SCOPE 83470 Bilirubin NO SPECIMEN RECEIVED mg/dL 024 [facility] [address] [place] [address] URINALYSIS AUTO W/SCOPE 27110 Urobilinogen NO SPECIMEN RECEIVED mg/dL 024 [facility] [address] [place] [address] URINALYSIS AUTO W/SCOPE 08396 Ph NO SPECIMEN RECEIVED 024 [facility] [address] [place] [address] URINALYSIS AUTO W/SCOPE 11664 Blood NO SPECIMEN RECEIVED mg/dL 024 [facility] [address] [place] [address] URINALYSIS AUTO W/SCOPE 48847 Ketones NO SPECIMEN RECEIVED mg/dL 024 [facility] [address] [place] [address] URINALYSIS AUTO W/SCOPE 87723 Nitrite NO SPECIMEN RECEIVED 024 [facility] [address] [place] [address] URINALYSIS AUTO W/SCOPE 01448 Leukocytes NO SPECIMEN RECEIVED Praneeth/uL 024 [facility] [address] [place] [address]83[address] URINALYSIS AUTO W/SCOPE 17671 Clarity NO SPECIMEN RECEIVED 024 [facility] [address] [place] [address] URINALYSIS AUTO W/SCOPE 40167 Specific [place] NO SPECIMEN RECEIVED 024 [facility] [address] [place] [address] URINALYSIS AUTO W/SCOPE 05380 Color NO SPECIMEN RECEIVED 024 [facility] [address] [place] [address] CHEM 14 (METABOLIC PANEL) 65160 Glucose 2345-7 144 mg/dL 024 [facility] [address] [place] [address] CHEM 14 (METABOLIC PANEL) 04642 BUN 3094-0 13 mg/dL 024 [facility] [address] [place] [address] CHEM 14 (METABOLIC PANEL) 14437 Creatinine 2160-0 0.9 mg/dL 024 [facility] [address] [place] [address]671 CHEM 14 (METABOLIC PANEL) 19128 BUN/Creat Ratio 3097-3 14.1 024 [facility] [address] [place] [address] CHEM 14 (METABOLIC PANEL) 57122 GFR Estimated 25388-8 69 mL/min/1.73 m2 024 [facility] [address] [place] [address] CHEM 14 (METABOLIC PANEL) 97646 Sodium 2951-2 139 mmol/L 024 [facility] [address] [place] [address] CHEM 14 (METABOLIC PANEL) 75435 Potassium 2823-3 4.0 mmol/L [facility] [address] [place] [address] CHEM 14 (METABOLIC PANEL) 95614 Chloride 2075-0 104 mmol/L 024 [facility] [address] [place] [address] CHEM 14 (METABOLIC PANEL) 34853 Total CO2 2028-9 30 mmol/L [facility] [address] [place] [address] CHEM 14 (METABOLIC PANEL) 26505 Anion Gap 1863-0 9.0 mEq/L 024 [facility] [address] [place] [address] 28333 CHEM 14 (METABOLIC PANEL) 40933 Calculated Serum Osmolality 90661-5 291 mOsm/kg 024 [facility] [address] [place] [address]607 CHEM 14 (METABOLIC PANEL) 45236 Albumin 88274-0 4.0 g/dL 024 [facility] [address] [place] [address] 56750 CHEM 14 (METABOLIC PANEL) 33553 Total Protein 2885-2 7.9 g/dL 024 [facility] [address] [place] [address]113 CHEM 14 (METABOLIC PANEL) 66640 Globulin 2336-6 3.9 g/dL 024 [facility] [address] [place] [address] CHEM 14 (METABOLIC PANEL) 30863 Albumin/Globulin Ratio 1759-0 1.0 024 [facility] [address] [place] [address]507 CHEM 14 (METABOLIC PANEL) 94856 ALK PHOS 6768-6 80.00 U/L 024 [facility] [address] [place] [address] CHEM 14 (METABOLIC PANEL) 39155 SGOT/AST 1920-8 17 U/L 024 [facility] [address] [place] [address] CHEM 14 (METABOLIC PANEL) 08184 SGPT/ALT 1743-4 24 U/L 024 [facility] [address] [place] [address] CHEM 14 (METABOLIC PANEL) 22202 Total Bilirubin 1975-2 0.3 mg/dL 024 [facility] [address] [place] [address] CHEM 14 (METABOLIC PANEL) 32499 Calcium 32838-7 9.2 mg/dL 024 [facility] [address] [place] [address] CHEM 14 (METABOLIC PANEL) 14351 Corrected Calcium 10570-6 9.4 mg/dL 024 [facility] [address] [place] [address] [id number] BIN 4548-4 Glyco HGB A1C 20510-2 5.7 % 024 [facility] [address] [place] [address] [id number] BIN 4548-4 eAG 10649-9 117 mg/dL 024 [facility] [address] [place] [address] TSH 28584 TSH 48552-9 2.760 uIU/mL 024 [facility] [address] [place] [address] 41517 MICROALBUMIN (URINE) 82220 Microalbumin 69472-4 2.1 mg/dL 024 [facility] [address] [place] [address] 37680 MICROALBUMIN (URINE) 00212 Microalbumin/Crea tinine Ratio 50185-6 27 MCG/MGCREAT 024 [facility] [address] [place] [address] 98210 MICROALBUMIN (URINE) 07176 Urine Creatinine 2161-8 77.70 mg/dL 024 [facility] [address] [place] [address]4629 Procedures Procedure Codes Date Most recent A1c < 7.0% CPT-4: 3044F 5 Most recent A1c < 7.0% CPT-4: 3044F 4 Most recent A1c < 7.0% CPT-4: 3044F 4 MED LIST DOCD IN [facility] CPT-4: 1159F 12/19/2023 RVW MEDS BY RX/DR IN [facility] CPT-4: 1160F 2023 Amnt pain noted; pain prsnt CPT-4: 1125F 11/30 LOW RISK FOR RETINOPATHY CPT-4: 3072F 024 Screening for clinical depre ssion is negative, follow-up plan not required CPT-4: G8510 12/19/2023 [id number] CPT-4: 96711 Unknown Vital Signs Date Vital 12/19/2023 Blood Pressure 1: 120/79 Code: 8480-6 BMI: 25.6 Code: 39036-7 Heart Rate 1: 76 bpm Height: 5'2 Code: 8302-2 Respiratory Rate: 16 bpm SpO2: 95% Temperature: 36.7 (C) / 98.0 (F) Weight: 140 lbs 2 oz Code: 69134-5 Reason For Visit Reason For Visit Effective Dates Notes new patient welcome visit 12/19/2023 Encounters Encounter Performer Location Location Address Codes Date (61089) Other Reason/Patient not seen Diagnosis: Patient not seen[ICD10: UXZ.01] [facility] [place] [address] CPT-4: 01181 05/23/2024 (07376) No answer/Patient not seen Diagnosis: Patient not seen[ICD10: UXZ.01] [facility] Office [address] [place] [address] CPT-4: 77894 04/19/2024 (IND) Independent Lab Draw Diagnosis: Patient not seen[ICD10: UXZ.01] [facility] [place] [address] CPT-4: IND 12/22/2023 (17245) Home or Residence Visit SALESPERSON BOOKS - Moderate Level, 60 mins Diagnosis: Encounter for general adult medical examination without abnormal findings[ICD10: Z00.00] Diagnosis: Bipolar 2 disorder[ICD10: F31.81] Diagnosis: Chronic obstructive pulmonary disease, unspecified COPD type[ICD10: J44.9] Diagnosis: Generalized anxiety disorder[ICD10: F41.1] Diagnosis: Opioid dependence in remission[ICD10: F11.21] Diagnosis: Osteopenia, unspecified location[ICD10: M85.80] Diagnosis: Rheumatoid arthritis with positive rheumatoid factor, involving unspecified site[ICD10: M05.9] Marci Hilldeena [facility] [address] [address] CPT-4: 49737 12/19/2023 Plan of Care Planned Activity Notes Codes Status Date Appointment: Marci Swan WPtel: [address] [place], [place] [id number] 05/23/2024 Patient Education: Patient Medication Summary Completed 05/23/2024 Appointment: Beny Marci WPtel: [address] [place], [place] [id number] 04/19/2024 Patient Education: Patient Medication Summary Completed 04/19/2024 Appointment: TERESA, NOTE Follow Up Appointment: TERESA, NOTE CHW - Referra 12/25/2023 Appointment: TERESA, NOTE Phone Call Patient Education: Patient Medication Summary Completed 12/25/2023 Patient Education: Patient Medication Summary Completed 12/25/2023 Appointment: Office, [place] [address] 12/22/2023 Patient Education: Patient Medication Summary Completed [...] care. 12/19/2023 Appointment: Marci Swan WPtel: [address] [place], [place] [id number] [facility] 12/19/2023 Patient Education: Patient Medication Summary Completed 12/19/2023 Patient Education: Obesity Completed 12/19/2023 Care Plan: eGFR KHE Pending Care Plan: Microalbumin (Urine) KHE Pending 12/19/2023 Referral: Food Insecurity Referral Initiated Referral: [facility] W[facility]el: [address] [place] [address] Counseling & Psychiatry [address] [place] [address] Order Faxed Instructions Comment Date v. Encounter [...]
== END 2025-02-19 23:59 | disposition home or self-care (01) ==
LOC: LAB 14:15
PROVIDERS: PCP Internal Medicine; Visit Provider Nurse Practitioner Family
DX: R93.89 Abnormal findings on diagnostic imaging of other specified body structures (principal); R91.1 Solitary pulmonary nodule
CPT/HCPCS: 36415; 82565; 84520

== ENCOUNTER 2025-02-19 15:00 | Outpatient (RCR) | payer MEDICARE, MEDICAID, SELFPAY | END 2025-02-26 15:00 | disposition home or self-care (01) | LOC: PT 15:00 | PROVIDERS: Visit Provider Orthopaedic Surgery | DX: M25.562 Pain in left knee (principal) | CPT/HCPCS: 97110; 97163 ==

== ENCOUNTER 2025-02-26 13:00 | Outpatient (RCR) | payer MEDICARE, MEDICAID, SELFPAY ==
--- NOTE | 2025-02-21 16:31 | HMH.RHREAS ---
Rehab Reassessment Rehab OP Re-assessment Start: 01/29/25 13:36 Freq: Status: Active Protocol: Document 02/21/25 16:21 PHORNE (Rec: 02/21/25 16:31 PHORNE [id number]) E-signed By Néstor Cerda, PT Rehab Re-assessment Subjective Subjective Pt reports she continues to have significant pain from her L knee which limits her ability to exercise and ambulate. She does report feels some decreased edema, but she remains tender to palpation in the L lower leg. It feels so much better when I get the treatment for this swelling like this. Objective Objective Notes Circumferential measurements: L LE total is 151.4 cm which is -5.5 cm since IE. TTP: 2/4 L lower leg Erythema: Moderate erythema noted to L lower leg in the gaiter area. Edema: 1+ pitting edema noted to L lower leg from mid- calf distally. LLIS score: 49 Assessment Progress Assessment Progressing as Expected Assessment Notes Pt has been present for 3 treatment session since her initial evaluation was performed. She has shown significant overall edema reduction in the L LE despite pain from her L knee that limits her mobility. Skilled therapy services are indicated in order to aid improvement of discomfort and improve edema in order to aid pt improvement in overall QOL and performance of all ADLs. Lymphedema Patient Goals Lymphedema Short In 2 wks pt will: (All goals remain active at this time Term Patient Goals .) 1) Decrease edema to NO pitting in L lower leg 2) Decrease pain in L LE to 0/10 Lymphedema Development Chemist In 4 wks Pt will: (All goals remain active at this time Patient Goals , goal #3 is a new goal this date.) 1) Be independent with home lymphedema management via HEP. 2) Show MINIMAL erythema noted to L lower leg 3) Decrease total circumferential measurements in L LE by 10 cm. Plan Plan Updated POC sent to provider for their continued input and approval. Continued pt treatment may include any or all of the following interventions in order to improve functional outcomes and aid pt improvement in QOL: Frequency of Therapy 2 x/wk Duration of Therapy 4 wks Therapeutic Exercise Yes Including Home Exercise Program Manual Therapy Yes Techniques Neuromuscular Re- Yes education Therapeutic Yes Activities to Return to Previous Functional/Work Level ADL/Self Care Yes Education Manual Lymphatic Yes Drainage Eval/Re-Eval Yes Time and Billing Re-Eval Time 16 Re-Eval Billing 0 Units Charge for PT No reassessment? PHYSICIAN CERTIFICATION: I certify the specified therapy services for Irlanda Rios Fab are required, authorized, and reviewed every 30 days.
== END 2025-02-26 23:59 | disposition home or self-care (01) ==
LOC: PT 13:00
PROVIDERS: Visit Provider Internal Medicine
DX: I89.0 Lymphedema, not elsewhere classified (principal)
CPT/HCPCS: 97140

== ENCOUNTER 2025-02-27 12:57 | Outpatient (CLI) | payer MEDICARE, MEDICAID, SELFPAY ==
--- NOTE | 2025-02-27 13:00 | CT_ITS ---
FINAL REPORT CLINICAL HISTORY: abnormal cxr COMPARISON: Chest x-ray dated 02/10/2025, chest CT dated 10/21/2024 FINDINGS: CT CHEST WITH AND WITHOUT CONTRAST TECHNIQUE: Axial images through the chest were performed by computed tomography before and after the administration of IV contrast. This study was performed with techniques to keep radiation doses as low as reasonably achievable, (ALARA). Individualized dose reduction techniques using automated exposure control or adjustment of mA and/or kV according to the patient's size were employed. FINDINGS: Precontrast imaging demonstrate calcified granulomas in the left lower lobe. Postcontrast images demonstrate mediastinal mass or adenopathy. There is no pulmonary artery filling defect. The heart size is normal. There is no pericardial or pleural effusion. Lung windows demonstrate no significant pulmonary mass. There is scarring in the right midlung and lingula. Limited images of the upper abdomen are unremarkable. IMPRESSION: Scarring in the right midlung and lingula. Reviewed, Interpreted and Dictated by Shun Gregorio MD Transcribed by Lissa Gibson Authenticated and [facility]
--- OUTSIDE RECORDS SUMMARY | 2025-02-27 13:04 | XMS_ITS | Clinical Summary ---
Author Organization [facility] Address [address] [place] [address] Care Team Providers Care Driver Starting Gate Name Role Phone Preston Man Primary Care Provider Allergies Active Allergy Reactions Criticality Noted Date [...] Influenza, seasonal, injectable, preservative free 03/20/2014, 05/19/2016 [employer] COVID-19 Vaccine (Purple Cap) 12+ 06/30/2020, 07/21/2020 [...] has been counseled on tobacco cessation: Yes. network associate effects of continued use such as but not limited to lung cancer, oral cavity cancer, CAD, PAD, ASCVD etc were discussed with the patient. Time spent in counseling was between 3-10 mins ([id number]). The following tobacco cessation resources were provided [...] patient would like second opinion; referred to [facility] 06/2022. Assessment & Plan (07/24/2022 [...] patient would like second opinion; referred to [facility] 06/2022. Assessment & Plan (04/22/2021 [...] with sleep medicine at , referred to [facility] 06/2022. Seropositive rheumatoid arthritis of multiple rosie [...] - 12/11/2024 11:59 PM EDT Hospital Encounter [facility] [address], [address] [place] [address] Acute pain of left knee Discharge Disposition: Home or Self Care 12/11/2024 10:20 AM EDT Office Visit [facility] [address], [address] [place] [address] Yoana Whitney MD Acute pain of left knee (Primary Dx) 12/11/2024 Travel 12/04/2024 Travel from Last 3 Months Immunizations Immunization Administration Dates Next Due Hep A, Adult 11/22/2017,10/11/2016 Hep A, Unspecified 10/11/2016 Influenza, injectable, MDCK, preservative free, quadrivalent 02/10/2022,01/24/2020 Influenza, injectable, quadrivalent 02/13/2017 Influenza, injectable, quadr ivalent, preservative free 03/17/2023,01/16/2019,01/18/2018 Influenza, seasonal, injectable 02/19/2020 Influenza, seasonal, injecta ble, preservative free 05/19/2016,03/20/2014 [employer] COVID-19 Vac cine (Purple Cap) 12+ 07/21/2020,06/30/2020 Pneumococcal 20-ekyana Conj Vaccine 02/10/2022 Pneumococcal Polysaccharide PPV23 09/08/2021, [...] Description 05/26/2025 2:00 PM EST [facility] Visit [facility] [address] [place] [address] Fletcher, May R, STEAM FITTER SUPERVISOR MAINTENANCE [address] [place] [address] Health Maintenance Due Date Last Done Comments [...] exists [facility] Annual Wellness (AWV) 11/18/2023 11/17/2022 [id number] Vaccine ( season) 2024 07/21/2020, 06/30/2020 [facility]-Influenza [...] AM EDT Acute pain of left knee HEMOGLOBIN A1C Routine 08/14/2023 10:16 AM EDT [...] show medial compartment joint space narrowing with vodn-sz-cbal articulation and tricompartmental osteophyte formation. Chondrocalcinosis. Moderate [...] knee show medial compartment joint space narrowingwith gorr-yl-pnjw articulation and tricompartmental osteophyte formation.Chondrocalcinosis. Moderate effusion. [...] show medial compartment joint space narrowing with zoyz-cm-owik articulation and tricompartmental osteophyte formation. Chondrocalcinosis. Moderate [...] knee show medial compartment joint space narrowingwith gujz-iz-gcrt articulation and tricompartmental osteophyte formation.Chondrocalcinosis. Moderate effusion. No fracture or osteonecrosis. IMPRESSION: 1.Severe osteoarthritis of the left knee. 2.Mild degenerative changes of the right patellofemoral joint. CRITICAL RESULT: No. COMMUNICATION: Per this written report. Drafted by Bartolo Pitt MD on 12/11/2024 11:30 AM Final report signed by Bartolo Pitt MD on 12/11/2024 11:31 AM Yoana Whitney MD IMG XR PROCEDURES Final Result * (ABNORMAL) Hemoglobin A1c (08/14/2023 10:16 AM EDT) Hemoglobin A1c 5.7(H) <5.7 % 08/14/2023 12:51 PM EDT [facility] Blood Venous blood specimen / Unknown Venipuncture / Unknown 08/14/2023 10:16 AM EDT 08/14/2023 10:16 AM EDT Narrative [facility] - 08/14/2023 12:51 PM EDT HA1C Interpretive Data: Diagnosis of Diabetes: Diabetic > or = 6.5% Pre-diabetic 5.7 to 6.4% Non-diabetic < or = 5.6% Glycemic Targets for Type I and Type II Diabetics: Non- Adults <7.0% Adults <6.0% Children and Adolescents <7.5% Source: [place] [employer]. Standards of medical care in diabetes,2017. Diabetes Care.2017:40 (suppl 1):S1-S135. HbA1c assay performed by an ion-exchange chromatography method that is certified traceable to the DCCT. us Kristal Carpenter DO LAB BLOOD ORDERABLES Final Res ult [facility] [address] [place] [address] * Pap Test (11/17/2022 9:27 AM EDT) Case Report Cytology Case: [id number] Authorizing Provider: Kristal Carpenter DO Collected: 11/17/2022 0927 Ordering Location: [facility] Received: 11/18/2022 1109 Internal Medicine First Screen: Alberta Quiroz Specimen: ThinPrep Pap Test, Liquid-Based Cervical/Vaginal 11/29/2022 11:35 AM EDT [facility] Interpretation NEGATIVE FOR INTRAEPITHELIAL LESION OR MALIGNANCY 11/29/2022 11:35 AM EDT [facility] at 1135 EDT Specimen Adequacy Satisfactory for evaluation; endocervical/alcantar sformation zone component present. Slide scanned and imaged by [employer] System with manual review of all selected farah. 11/29/2022 11:35 AM EDT [facility] Cervical cytology is a screening test [...] results is suggested (please call Microbiology at [phone] for results). 11/29/2022 11:35 AM EDT [facility] Menstrual Status Post-Menopausal 05/2022 11:35 AM EDT [facility] Contraceptive History Not Applicable 11/29/2022 11:35 AM EDT [facility] Screening Type Routine Screen 2022 11:35 AM EDT [facility] High Risk? No 11/29/2022 11:35 AM EDT [facility] HPV Testing Requested? Request HPV Testing Regardless of Pap Test Findings 11/29/2022 11:35 AM EDT [facility] Previous Cancer History No 11/29/2022 11:35 AM EDT [facility] Clinical Information Z00.00 - Medicare annual wellness visit, subsequent [ICD-10-CM] Z00.00 - Healthcare maintenance [ICD-10-CM] Z12.4 - Encounter for Papanicolaou smear for cervical cancer screening [ICD-10-CM] 11/29/2022 11:35 AM EDT [facility] Swab Vaginal and cervical cytologic material / Unknown Non-blood Collection / Unknown 11/17/2022 9:27 AM EDT 11/18/2022 11:09 AM EDT Kristal Carpenter DO LAB CYTOLOGY ORDERABLES Final Result [facility] [address] [place] [address] * CT Chest Lung Cancer Screening (09/21/2022 2:30 PM EDT) Anatomical Region Laterality Modality Chest Computed Tomogra phy Addenda Addendum by Markell Mary MD on 09/27/2022 8:25 AM EDT ADDENDUM: Please note there is a rap artist error in the original Recommendations section that [...] Positive( A) Negative 05/24/2022 5:38 PM EST [facility] Comment:This specimen is leonel ng sent for confirmation by RT-PCR. Blood Venous blood specimen / Unknown Venipuncture / Unknown 05/24/2022 1:18 PM EST 05/24/2022 1:20 PM EST Marlen Berry DO LAB BLOOD ORDERABLES Final Re sult [facility] [address] [place] [address] * Mammography Breast Screening Tomosynthesis Bilateral (07/16/2021 [...] to: 01/21/2010 Mammography Outside Images Upload at [facility] 01/27/2011 Mammography Outside Images Upload at [facility] 07/10/2012 Mammography Outside Images Upload at [facility] 07/19/2012 Mammography Outside Images Upload at [facility] 10/28/2016 Mammography Outside Images Upload at [facility] BREAST COMPOSITION: The breasts are almost entirely [...] Recently Relevant to Health Maintenance Insurance [place] Care Teams Driver Starting Gate Relationship Specialty Start Date End Date Preston Man DO [address] [place] [address] [place] [address] PCP - General 05/27/24
--- OUTSIDE RECORDS SUMMARY | 2025-02-27 13:04 | XMS_ITS | Encounter Summary ---
Author Organization [facility] Address [address] [place] [address] Care Team Providers Care Interpreter Name Role Phone DonovanPreston yancey Briseyda JENKINS Primary Care Provider [phone] Encounter Details Date Type Department Care Team (Late Contact Info) Description 09/02/2024 Orders Only External Location [address] [place] [address] Jonas Roper, DO [address] [place] [address] Social History Tobacco Use Types Packs/Day Years [...] Description 05/26/2025 2:00 PM EST Office Visit [facility] [address] [place] [address] Fletcher, May R, VETERINARY TOXICOLOGIST [address] [place] [address] documented as of this encounter [...] documented as of this encounter Care Teams Interpreter Relationship Specialty Start Date End Date Preston Man DO [address] [place] [address] PCP - General 05/27/24 documented as of this encounter
--- OUTSIDE RECORDS SUMMARY | 2025-02-27 13:04 | XMS_ITS | Encounter Summary ---
Author Organization [facility] Address [address] [place] [address] Care Team Providers Care Degreasing Wheel Operator Name Role Phone Sofia Nguyen MD Primary Care Provider [phone] Tk Garg MD Primary Care Provider [phone] Lisseth Palacios APRN Primary Care Provider + Kristal Carpenter DO Primary Care Provider [phone] Preston Man DO Primary Care Provider [phone] Preston Man DO Primary Care Provider [phone] Reason for Visit * Reason Onset Date Comments Appointment 10/10/2020 Patient difficul t to keep awake. Encounter Details Date Type Department Care Team (Late st Contact Info) Description 10/10/2020 [facility] [address] [place] [address] Marlen Owens MD [address] [place] [address] Social History Tobacco Use Types [...] patient keeps drifting in andout of sleep. 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 [...] Description 05/26/2025 2:00 PM EST Office Visit [place] [facility] [address] [place] [address] Fletcher, May R, VENEER CLIPPER HELPER [address] [place] [address] documented as of this encounter Visit Diagnoses Not on filedocumented in this encounter Additional Health Concerns Infection Onset Date Last Indicated Resolved Time COVID-19 Rule-Out 03/27/2021 03/27/2021 03/27/2021 11:29 AM EST COVID-19 Rule-Out 05/24/2022 05/24/2022 05/24/2022 2:20 PM EST COVID 19 (Confirmed) 05/24/2022 05/24/2022 023 5:23 AM EST documented as of this encounter Care Teams Degreasing Wheel Operator Relationship Specialty Start Date End Date Sofia Nguyen MD [address] [facility] [address] [place] [address] PCP - General 09/11/20 10/15/20 Tk Garg MD [address] [place] [address] [address] [place], [place] [id number] PCP - General Family Medicine 10/16/20 03/27/22 Lisseth Palacios S, VENEER CLIPPER HELPER [facility] [place] [address] PCP - General 03/28/22 07/13/22 Kristal Carpenter DO [address] [place] [address] PCP - General Internal Medicine 07/14/22 08/13/23 Preston Man DO [address] [place], [place] [address] PCP - General 08/14/23 10/26/23 Preston Man DO [address] [place], [place] [address] PCP - General 05/27/24 documented as of this encounter
--- OUTSIDE RECORDS SUMMARY | 2025-02-27 13:04 | XMS_ITS | Clinical Summary ---
Author Organization [facility] Address [address] [place] [address] Care Team Providers Care Adhesive Sprayer Name Role Phone System, Provider Not In [...] SCREENING 07/24/2030 Insurance MEDICAID [place] [facility] MEDICARE ADVANTAGE Care Teams Adhesive Sprayer Relationship Specialty Start Date End Date System, [place] [address] PCP - General 05/25/21
--- OUTSIDE RECORDS SUMMARY | 2025-02-27 14:03 | XMS_ITS | CCD ---
Author Name Beny BLANTON, Marci Address [address] [facility] [address] [place] [address] Phone Organization [facility] Phone Care Team Providers Care Pump Tester Name Role Phone Unavailable Primary Care Provider Unavailabl e Unavailable Chronic Care Management Unavaila ble Summary Purpose DataExchange Insurance Providers Payer name Policy type / Coverage type Covered democrat ID Effective Begin Date Effective End Date [employer] [facility] [id number] Unknown Unknown Family history Father Diagnosis Age [...] cessation counseling) 12/19/[address]: 318119561 Never drinks alco hol 12/19/2023 Illegal/Recreational drug [...] 12/19/2023 No Inactive Date Active Biaxin RxNorm: 192099 07/29/2013 No Inactive Da te Active Problems [...] Suboxone 8 mg-2 mg sublingual film RxNorm: 9187958 Take 1 Tablet(s) Sublingual every day 4 01/17/20 24 Inactive Stiolto Respimat 2.5 mcg-2.5 mcg/actuation solution for inhalation RxNorm: 3087867 Inhale 2 Puff(s) Inhalation every day 4 03/17/20 24 Inactive Vraylar 3 mg capsule RxNorm: 1983971 Administer 1 Capsule(s) Oral every day 4 03/17/20 24 Inactive Enbrel 50 mg/mL (1 mL) subcutaneous syringe RxNorm: 536406 Inject 1 Unit(s) Subcutaneous 1 time a week 4 01/17/20 24 Inactive calcium 600 mg-D3 20 mcg-magnesium 40 pm-oqwlwc-osek-z inc chew tablet RxNorm: Take 1 Tablet(s) Oral two times a day 4 03/17/20 24 Inactive fluticasone (FLONASE) 50 MCG/ACT nasal spray RxNorm: 7414493 nasl 2 No Stop Date Active Ventolin HFA 108 (90 Base) MCG/ACT inhaler RxNorm: 132027 inhl 1 No Stop Date Active lamoTRIgine (LaMICtal) 150 MG tablet RxNorm: 803976 oral 1 No Stop Date Active ibuprofen (ADVIL,MOTRIN) 800 MG tablet RxNorm: 677246 Take 1,600 mg by mouth 2 (Two) Times a Day. 1 No Stop Date Active Medication Administered No Medication Administered data Results Observation Observation Code Item Item Code Result Date Service Location No Orders UA NoOrdersUA NO ORDERS UA 0.00 26/06 024 [facility] [address] [place] [address] URINALYSIS AUTO W/SCOPE 51735 Glucose 2345-7 Negative mg/dL 024 [facility] [address] [place] [address] URINALYSIS AUTO W/SCOPE 67422 Protein Negative mg/dL 024 [facility] [address] [place] [address] URINALYSIS AUTO W/SCOPE 54077 Bilirubin Negative mg/dL 024 [facility] [address] [place] [address] URINALYSIS AUTO W/SCOPE 11881 Urobilinogen Negative mg/dL 024 [facility] [address] [place] [address] URINALYSIS AUTO W/SCOPE 70545 Ph 6.50 024 [facility] [address] [place] [address] 15927 URINALYSIS AUTO W/SCOPE 91319 Blood Negative mg/dL 024 [facility] [address] [place] [address] URINALYSIS AUTO W/SCOPE 09423 Ketones Negative mg/dL 024 [facility] [address] [place] [address] URINALYSIS AUTO W/SCOPE 59073 Nitrite Negative 024 [facility] [address] [place] [address] URINALYSIS AUTO W/SCOPE 90573 Leukocytes Negative Praneeth/uL 024 [facility] [address] [place] [address] URINALYSIS AUTO W/SCOPE 32807 Clarity Clear 024 [facility] [address] [place] [address] URINALYSIS AUTO W/SCOPE 05353 Specific [place] 1.019 024 [facility] [address] [place] [address] URINALYSIS AUTO W/SCOPE 85374 Color Light-Yello w 024 [facility] [address] [place] [address] URINALYSIS AUTO W/SCOPE 56971 Red Blood Cell <1 /HPF #/HPF 024 [facility] [address] [place] [address] URINALYSIS AUTO W/SCOPE 84913 SQUAMOUS EPITHELIAL <1 /HPF #/HPF 024 [facility] [address] [place] [address] URINALYSIS AUTO W/SCOPE 78362 White Blood Cell 3 /HPF #/HPF 024 [facility] [address] [place] [address] URINALYSIS AUTO W/SCOPE 41637 Bacteria Trace graded/HPF 024 [facility] [address] [place] [address] URINALYSIS AUTO W/SCOPE 78311 Calcium Oxalate Crystal MANY graded/HPF 024 [facility] [address] [place] [address] URINALYSIS AUTO W/SCOPE 03473 Mucous RARE grades/LPF 024 [facility] [address] [place] [address] [facility] and [facility] Culture & Sensitivity SEE COMMENT 024 [facility] [address] [place] [address] Manual Diff MDIFF Neutrophils 57432-1 64.0 % 024 [facility] [address] [place] [address] Manual Diff MDIFF Lymphocytes 49109-0 30.0 % 024 [facility] [address] [place] [address] Manual Diff MDIFF Monocytes 87510-6 3.0 % 024 [facility] [address] [place] [address] Manual Diff MDIFF Eosinophils 68284-9 2.0 % 024 [facility] [address] [place] [address] Manual Diff MDIFF Basophils 35482-6 1.0 % 024 [facility] [address] [place] [address] Manual Diff MDIFF Absolute Neut 23727-8 4416 /ul 11/30 07/31 024 [facility] [address] [place] [address] Manual Diff MDIFF Absolute Lymph 29056-3 2070 /ul 24/06 024 [facility] [address] [place] [address] Manual Diff MDIFF Absolute Ward 64677-9 207 /ul 08/07/31 024 [facility] [address] [place] [address] Manual Diff MDIFF Platelet Estimate 9317-9 Normal 024 [facility] [address] [place] [address] Manual Diff MDIFF Absolute Eos 25545-6 138 /ul 12/22 024 [facility] [address] [place] [address] Manual Diff MDIFF Echinocytes 7790-9 2+ 024 [facility] [address] [place] [address] Manual Diff MDIFF Poikilocytosis 779-9 2+ 24/06 024 [facility] [address] [place] [address] Manual Diff MDIFF Absolute Baso 66053-7 69 /ul 11/30 07/31 024 [facility] [address] [place] [address] COMPLETE CBC W/ DIFF WBC 52141 WBC 6690-2 6.9 K/ul 024 [facility] [address] [place] [address] COMPLETE CBC W/ DIFF WBC 09466 RBC 789-8 4.29 M/uL 024 [facility] [address] [place] [address] COMPLETE CBC W/ DIFF WBC 90711 Hemoglobin 718-7 13.3 g/dL 024 [facility] [address] [place] [address] COMPLETE CBC W/ DIFF WBC 83556 Hematocrit 4544-3 41.0 % 024 [facility] [address] [place] [address] COMPLETE CBC W/ DIFF WBC 99737 MCV 787-2 95.7 fL 024 [facility] [address] [place] [address] COMPLETE CBC W/ DIFF WBC 61462 MCH 785-6 31.1 pg 024 [facility] [address] [place] [address] COMPLETE CBC W/ DIFF WBC 84456 MCHC 786-4 32.5 g/dL 024 [facility] [address] [place] [address] COMPLETE CBC W/ DIFF WBC 46680 RDW 788-0 14.2 % 024 [facility] [address] [place] [address] COMPLETE CBC W/ DIFF WBC 51013 Platelet Count 777-3 311 K/uL 024 [facility] [address] [place] [address] COMPLETE CBC W/ DIFF WBC 54003 MPV 65162-7 8.0 fL 024 [facility] [address] [place] [address] 17274 No Orders No Orders No Orders 0 024 [facility] [address] [place] [address] TRIGLYCERIDES 61593 Triglycerides 2571-8 173 mg/dL 024 [facility] [address] [place] [address] TRIGLYCERIDES 29389 VLDL 28443-9 35 mg/dL 024 [facility] [address] [place] [address] VITAMIN D 85746 Vitamin D 16462-4 27.0 ng/mL 0[address] [facility] [address] [place] [address] MICROALBUMIN (URINE) 76625 Microalbumin 72873-4 2.1 mg/dL 024 [facility] [address] [place] [address] 91118 MICROALBUMIN (URINE) 06693 Microalbumin/Crea tinine Ratio 29715-8 27 MCG/MGCREAT 024 [facility] [address] [place] [address] 22736 MICROALBUMIN (URINE) 20352 Urine Creatinine 2161-8 77.70 mg/dL 024 [facility] [address] [place] [address] 58143 CHOLESTEROL 18908 Cholesterol 2093-3 165 mg/dL 024 [facility] [address] [place] [address] 28666 Direct LDL 39450 LDL-Direct 07142-5 96 mg/dL 024 [facility] [address] [place] [address] 02896 FREE T-4 47289 FT4 3024-7 1.05 ng/dL 024 [facility] [address] [place] [address] 42562 HDL - CHOL 30817 HDL 2085-9 41 mg/dL 024 [facility] [address] [place] [address] 35160 HDL - CHOL 66995 [facility] 67026-5 25 % 024 [facility] [address] [place] [address] Urine Culture and Sensitivity [facility] Urine Culture & Sensitivity SEE COMMENT 024 [facility] [address] [place] [address] FREE T-3 01126 FT3 3051-0 2.78 pg/mL 024 [facility] [address] [place] [address] URINALYSIS AUTO W/SCOPE 43667 Glucose 2345-7 NO SPECIMEN RECEIVED mg/dL 024 [facility] [address] [place] [address] URINALYSIS AUTO W/SCOPE 08520 Protein NO SPECIMEN RECEIVED mg/dL 024 [facility] [address] [place] [address] URINALYSIS AUTO W/SCOPE 72589 Bilirubin NO SPECIMEN RECEIVED mg/dL 024 [facility] [address] [place] [address] URINALYSIS AUTO W/SCOPE 62006 Urobilinogen NO SPECIMEN RECEIVED mg/dL 024 [facility] [address] [place] [address] URINALYSIS AUTO W/SCOPE 42670 Ph NO SPECIMEN RECEIVED 024 [facility] [address] [place] [address] 184[address] URINALYSIS AUTO W/SCOPE 32139 Blood NO SPECIMEN RECEIVED mg/dL 024 [facility] [address] [place] [address] URINALYSIS AUTO W/SCOPE 71038 Ketones NO SPECIMEN RECEIVED mg/dL 024 [facility] [address] [place] [address] 265[address] URINALYSIS AUTO W/SCOPE 08614 Nitrite NO SPECIMEN RECEIVED 024 [facility] [address] [place] [address] URINALYSIS AUTO W/SCOPE 58422 Leukocytes NO SPECIMEN RECEIVED Praneeth/uL 024 [facility] [address] [place] [address] URINALYSIS AUTO W/SCOPE 47402 Clarity NO SPECIMEN RECEIVED 024 [facility] [address] [place] [address] URINALYSIS AUTO W/SCOPE 19525 Specific [place] NO SPECIMEN RECEIVED 024 [facility] [address] [place] [address] URINALYSIS AUTO W/SCOPE 39357 Color NO SPECIMEN RECEIVED [facility] [address] [place] [address] 56359 CHEM 14 (METABOLIC PANEL) 18818 Glucose 2345-7 144 mg/dL [facility] [address] [place] [address] 43713 CHEM 14 (METABOLIC PANEL) 99922 BUN 3094-0 13 mg/dL 024 [facility] [address] [place] [address] 77181 CHEM 14 (METABOLIC PANEL) 37064 Creatinine 2160-0 0.9 mg/dL [facility] [address] [place] [address] 51828 CHEM 14 (METABOLIC PANEL) 60858 BUN/Creat Ratio 3097-3 14.1 [facility] [address] [place] [address] 23290 CHEM 14 (METABOLIC PANEL) 36435 GFR Estimated 47161-0 69 mL/min/1.73 m2 [facility] [address] [place] [address] 60107 CHEM 14 (METABOLIC PANEL) 26881 Sodium 2951-2 139 mmol/L [facility] [address] [place] [address] 86105 CHEM 14 (METABOLIC PANEL) 70040 Potassium 2823-3 4.0 mmol/L [facility] [address] [place] [address] 15354 CHEM 14 (METABOLIC PANEL) 43274 Chloride 2075-0 104 mmol/L [facility] [address] [place] [address] 11238 CHEM 14 (METABOLIC PANEL) 34639 Total CO2 2028-9 30 mmol/L [facility] [address] [place] [address] 58547 CHEM 14 (METABOLIC PANEL) 01300 Anion Gap 1863-0 9.0 mEq/L [facility] [address] [place] [address] 34689 CHEM 14 (METABOLIC PANEL) 54781 Calculated Serum Osmolality 71445-5 291 mOsm/kg [facility] [address] [place] [address] 08048 CHEM 14 (METABOLIC PANEL) 75344 Albumin 33161-3 4.0 g/dL [facility] [address] [place] [address] 75430 CHEM 14 (METABOLIC PANEL) 60169 Total Protein 2885-2 7.9 g/dL 024 [facility] [address] [place] [address] CHEM 14 (METABOLIC PANEL) 02650 Globulin 2336-6 3.9 g/dL 024 [facility] [address] [place] [address] CHEM 14 (METABOLIC PANEL) 96073 Albumin/Globulin Ratio 1759-0 1.0 024 [facility] [address] [place] [address] CHEM 14 (METABOLIC PANEL) 45341 ALK PHOS 6768-6 80.00 U/L 024 [facility] [address] [place] [address] CHEM 14 (METABOLIC PANEL) 75916 SGOT/AST 1920-8 17 U/L 024 [facility] [address] [place] [address] CHEM 14 (METABOLIC PANEL) 81287 SGPT/ALT 1743-4 24 U/L 024 [facility] [address] [place] [address] 44029 CHEM 14 (METABOLIC PANEL) 02632 Total Bilirubin 1975-2 0.3 mg/dL 024 [facility] [address] [place] [address] 63509 CHEM 14 (METABOLIC PANEL) 57139 Calcium 36804-7 9.2 mg/dL 024 [facility] [address] [place] [address] CHEM 14 (METABOLIC PANEL) 17732 Corrected Calcium 56190-8 9.4 mg/dL 024 [facility] [address] [place] [address] [id number] BIN 4548-4 Glyco HGB A1C 45108-0 5.7 % 024 [facility] [address] [place] [address] 21876 [id number] BIN 4548-4 eAG 26325-3 117 mg/dL 024 [facility] [address] [place] [address] TSH 93934 TSH 87480-9 2.760 uIU/mL 024 [facility] [address] [place] [address] Procedures Procedure Codes Date Most recent A1c < 7.0% CPT-4: 3044F 5 Most recent A1c < 7.0% CPT-4: 3044F 4 Most recent A1c < 7.0% CPT-4: 3044F 4 MED LIST DOCD IN [facility] CPT-4: 1159F 12/19/2023 RVW MEDS BY RX/DR IN [facility] CPT-4: 1160F 2023 Amnt pain noted; pain prsnt CPT-4: 1125F 11/30 LOW RISK FOR RETINOPATHY CPT-4: 3072F 024 Screening for clinical depre ssion is negative, follow-up plan not required CPT-4: G8510 12/19/2023 [id number] CPT-4: 18856 Unknown Vital Signs Date Vital 12/19/2023 Blood Pressure 1: 120/79 Code: 8480-6 BMI: 25.6 Code: 56704-1 Heart Rate 1: 76 bpm Height: 5'2 Code: 8302-2 Respiratory Rate: 16 bpm SpO2: 95% Temperature: 36.7 (C) / 98.0 (F) Weight: 140 lbs 2 oz Code: 89847-8 Reason For Visit Reason For Visit Effective Dates Notes new patient welcome visit 12/19/2023 Encounters Encounter Performer Location Location Address Codes Date (60436) Other Reason/Patient not seen Diagnosis: Patient not seen[ICD10: UXZ.01] [facility] [place] [address] CPT-4: 41443 05/23/2024 ([id number]) No answer/Patient not seen Diagnosis: Patient not seen[ICD10: UXZ.01] [facility] [address] [place] [address] CPT-4: 60575 04/19/2024 (IND) Independent Lab Draw Diagnosis: Patient not seen[ICD10: UXZ.01] [facility] [place] [address] CPT-4: IND 12/22/2023 ([id number]) Home or Residence Visit DOCTOR OF RADIOLOGY - Moderate Level, 60 mins Diagnosis: Encounter for general adult medical examination without abnormal findings[ICD10: Z00.00] Diagnosis: Bipolar 2 disorder[ICD10: F31.81] Diagnosis: Chronic obstructive pulmonary disease, unspecified COPD type[ICD10: J44.9] Diagnosis: Generalized anxiety disorder[ICD10: F41.1] Diagnosis: Opioid dependence in remission[ICD10: F11.21] Diagnosis: Osteopenia, unspecified location[ICD10: M85.80] Diagnosis: Rheumatoid arthritis with positive rheumatoid factor, involving unspecified site[ICD10: M05.9] Marci Hilldeena [facility] [address] [address] CPT-4: 36434 12/19/2023 Plan of Care Planned Activity Notes Codes Status Date Appointment: Marci Swan WPtel: [address] [place], [place] [id number] 05/23/2024 Patient Education: Patient Medication Summary Completed 05/23/2024 Appointment: Beny Marci WPtel: [address] [place], [place] [id number] 04/19/2024 Patient Education: Patient Medication Summary Completed 04/19/2024 Appointment: TERESA, NOTE Follow Up Appointment: TERESA, NOTE CHW - Referra 12/25/2023 Appointment: TERESA, NOTE Phone Call Patient Education: Patient Medication Summary Completed 12/25/2023 Patient Education: Patient Medication Summary Completed 12/25/2023 Appointment: Office, [place] [id number] 12/22/2023 Patient Education: Patient Medication Summary Completed [...] of care. 12/19/2023 Appointment: Marci Swan WPtel: [address] [place], [place] [phone] [facility] 12/19/2023 Patient Education: Patient Medication Summary Completed 12/19/2023 Patient Education: Obesity Completed 12/19/2023 Care Plan: eGFR KHE Pending Care Plan: Microalbumin (Urine) KHE Pending 12/19/2023 Referral: Food Insecurity Referral Initiated Referral: [facility] WPtel: [address] [place] [address] Counseling [facility] Psych[facility] [address] [place] [address] Order Faxed Instructions Comment Date v. Encounter [...]
--- OUTSIDE RECORDS SUMMARY | 2025-02-27 14:04 | XMS_ITS | CCD ---
Author Name Beny BLANTON, Marci Address [address] [facility] [address] [place] [address] Phone Organization [facility] Phone Care Team Providers Care Deputy Felony Clerk Name Role Phone Unavailable Primary Care Provider Unavailabl e Unavailable Chronic Care Management Unavaila ble Summary Purpose DataExchange Insurance Providers Payer name Policy type / Coverage type Covered libertarian ID Effective Begin Date Effective End Date [employer] [facility] [id number] Unknown Unknown Family history Father Diagnosis Age [...] cessation counseling) 12/19/[address]: [id number] Never drinks alco hol 12/19/2023 Illegal/Recreational drug [...] 12/19/2023 No Inactive Date Active Biaxin RxNorm: 126644 07/29/2013 No Inactive Da te Active Problems [...] Suboxone 8 mg-2 mg sublingual film RxNorm: 0560948 Take 1 Tablet(s) Sublingual every day 4 01/17/20 24 Inactive Stiolto Respimat 2.5 mcg-2.5 mcg/actuation solution for inhalation RxNorm: 5065193 Inhale 2 Puff(s) Inhalation every day 4 03/17/20 24 Inactive Vraylar 3 mg capsule RxNorm: 1339017 Administer 1 Capsule(s) Oral every day 4 03/17/20 24 Inactive Enbrel 50 mg/mL (1 mL) subcutaneous syringe RxNorm: 235663 Inject 1 Unit(s) Subcutaneous 1 time a week 4 01/17/20 24 Inactive calcium 600 mg-D3 20 mcg-magnesium 40 yt-rucmca-opxk-z inc chew tablet RxNorm: Take 1 Tablet(s) Oral two times a day 4 03/17/20 24 Inactive fluticasone (FLONASE) 50 MCG/ACT nasal spray RxNorm: 0657515 nasl 2 No Stop Date Active Ventolin HFA 108 (90 Base) MCG/ACT inhaler RxNorm: 964967 inhl 1 No Stop Date Active lamoTRIgine (LaMICtal) 150 MG tablet RxNorm: 063641 oral 1 No Stop Date Active ibuprofen (ADVIL,MOTRIN) 800 MG tablet RxNorm: 951400 Take 1,600 mg by mouth 2 (Two) Times a Day. 1 No Stop Date Active Medication Administered No Medication Administered data Results Observation Observation Code Item Item Code Result Date Service Location No Orders UA NoOrdersUA NO ORDERS UA 0.00 26/06 024 [facility] [address] [place] [address] URINALYSIS AUTO W/SCOPE 91677 Glucose 2345-7 Negative mg/dL 024 [facility] [address] [place] [address] URINALYSIS AUTO W/SCOPE 79284 Protein Negative mg/dL 024 [facility] [address] [place] [address] URINALYSIS AUTO W/SCOPE 57162 Bilirubin Negative mg/dL 024 [facility] [address] [place] [address] URINALYSIS AUTO W/SCOPE 53174 Urobilinogen Negative mg/dL 024 [facility] [address] [place] [address]40[address] URINALYSIS AUTO W/SCOPE 34819 Ph 6.50 024 [facility] [address] [place] [address] 24057 URINALYSIS AUTO W/SCOPE 45127 Blood Negative mg/dL 024 [facility] [address] [place] [address] URINALYSIS AUTO W/SCOPE 45033 Ketones Negative mg/dL 024 [facility] [address] [place] [address] URINALYSIS AUTO W/SCOPE 18070 Nitrite Negative 024 [facility] [address] [place] [address] URINALYSIS AUTO W/SCOPE 88286 Leukocytes Negative Praneeth/uL 024 [facility] [address] [place] [address] 624[address] URINALYSIS AUTO W/SCOPE 32193 Clarity Clear 024 [facility] [address] [place] [address] URINALYSIS AUTO W/SCOPE 40477 Specific Headrick 1.019 024 [facility] [address] [place] [address] URINALYSIS AUTO W/SCOPE 16651 Color Light-Yello w 024 [facility] [address] [place] [address] URINALYSIS AUTO W/SCOPE 12953 Red Blood Cell <1 /HPF #/HPF 024 [facility] [address] [place] [address] URINALYSIS AUTO W/SCOPE 15729 SQUAMOUS EPITHELIAL <1 /HPF #/HPF 024 [facility] [address] [place] [address] URINALYSIS AUTO W/SCOPE 18495 White Blood Cell 3 /HPF #/HPF 024 [facility] [address] [place] [address] URINALYSIS AUTO W/SCOPE 71899 Bacteria Trace graded/HPF 024 [facility] [address] [place] [address] URINALYSIS AUTO W/SCOPE 68334 Calcium Oxalate Crystal MANY graded/HPF 024 [facility] [address] [place] [address] URINALYSIS AUTO W/SCOPE 80962 Mucous RARE grades/LPF 024 [facility] [address] [place] [address] Urine Culture and Sensitivity [facility] Urine Culture & Sensitivity SEE COMMENT 024 [facility] [address] [place] [address] Manual Diff MDIFF Neutrophils 67511-6 64.0 % 024 [facility] [address] [place] [address] Manual Diff MDIFF Lymphocytes 05933-7 30.0 % 024 [facility] [address] [place] [address] Manual Diff MDIFF Monocytes 85998-3 3.0 % 024 [facility] [address] [place] [address] Manual Diff MDIFF Eosinophils 58569-8 2.0 % 024 [facility] [address] [place] [address] Manual Diff MDIFF Basophils 07167-4 1.0 % 024 [facility] [address] [place] [address] Manual Diff MDIFF Absolute Neut 12509-6 4416 /ul 11/30 07/31 024 [facility] [address] [place] [address] Manual Diff MDIFF Absolute Lymph 52081-9 2070 /ul 24/06 024 [facility] [address] [place] [address] Manual Diff MDIFF Absolute [place] 59895-8 207 /ul 08/07/31 024 [facility] [address] [place] [address] Manual Diff MDIFF Platelet Estimate 9317-9 Normal 024 [facility] [address] [place] [address] Manual Diff MDIFF Absolute Eos 50369-3 138 /ul 12/22 024 [facility] [address] [place] [address] Manual Diff MDIFF Echinocytes 7790-9 2+ 024 [facility] [address] [place] [address] Manual Diff MDIFF Poikilocytosis 779-9 2+ 24/06 024 [facility] [address] [place] [address] Manual Diff MDIFF Absolute Baso 93690-8 69 /ul 11/30 07/31 024 [facility] [address] [place] [address] COMPLETE CBC W/ DIFF WBC 87571 WBC 6690-2 6.9 K/ul 024 [facility] [address] [place] [address] COMPLETE CBC W/ DIFF WBC 58769 RBC 789-8 4.29 M/uL 024 [facility] [address] [place] [address] COMPLETE CBC W/ DIFF WBC 00470 Hemoglobin 718-7 13.3 g/dL 024 [facility] [address] [place] [address] COMPLETE CBC W/ DIFF WBC 48940 Hematocrit 4544-3 41.0 % 024 [facility] [address] [place] [address] COMPLETE CBC W/ DIFF WBC 19596 MCV 787-2 95.7 fL 024 [facility] [address] [place] [address] COMPLETE CBC W/ DIFF WBC 60182 MCH 785-6 31.1 pg 024 [facility] [address] [place] [address] COMPLETE CBC W/ DIFF WBC 53829 MCHC 786-4 32.5 g/dL 024 [facility] [address] [place] [address] COMPLETE CBC W/ DIFF WBC 95066 RDW 788-0 14.2 % 024 [facility] [address] [place] [address] COMPLETE CBC W/ DIFF WBC 56508 Platelet Count 777-3 311 K/uL 024 [facility] [address] [place] [address] 52689 COMPLETE CBC W/ DIFF WBC 14865 MPV 29096-5 8.0 fL 024 [facility] [address] [place] [address] 99183 No Orders No Orders No Orders 0 024 [facility] [address] [place] [address] TRIGLYCERIDES 67974 Triglycerides 2571-8 173 mg/dL 024 [facility] [address] [place] [address] TRIGLYCERIDES 37977 VLDL 35551-8 35 mg/dL 024 [facility] [address] [place] [address] 89437 VITAMIN D 45089 Vitamin D 60205-8 27.0 ng/mL 024 [facility] [address] [place] [address] 81820 MICROALBUMIN (URINE) 65597 Microalbumin 52818-1 2.1 mg/dL 024 [facility] [address] [place] [address] 34476 MICROALBUMIN (URINE) 40494 Microalbumin/Crea tinine Ratio 04875-4 27 MCG/MGCREAT 024 [facility] [address] [place] [address] 76315 MICROALBUMIN (URINE) 05026 Urine Creatinine 2161-8 77.70 mg/dL 024 [facility] [address] [place] [address] 79881 CHOLESTEROL 99558 Cholesterol 2093-3 165 mg/dL 024 [facility] [address] [place] [address] 41072 Direct LDL 24061 LDL-Direct 01698-2 96 mg/dL 024 [facility] [address] [place] [address] 78896 FREE T-4 41803 FT4 3024-7 1.05 ng/dL 024 [facility] [address] [place] [address] 86097 HDL - CHOL 79141 HDL 2085-9 41 mg/dL 024 [facility] [address] [place] [address] 62528 HDL - CHOL 25779 [facility] 87362-4 25 % 024 [facility] [address] [place] [address] Urine Culture and Sensitivity Reflexed from [facility] Urine Culture & Sensitivity SEE COMMENT 024 [facility] [address] [place] [address] FREE T-3 77944 FT3 3051-0 2.78 pg/mL 024 [facility] [address] [place] [address] URINALYSIS AUTO W/SCOPE 84244 Glucose 2345-7 NO SPECIMEN RECEIVED mg/dL 024 [facility] [address] [place] [address] URINALYSIS AUTO W/SCOPE 64638 Protein NO SPECIMEN RECEIVED mg/dL 024 [facility] [address] [place] [address] URINALYSIS AUTO W/SCOPE 54794 Bilirubin NO SPECIMEN RECEIVED mg/dL 024 [facility] [address] [place] [address] 239[address] URINALYSIS AUTO W/SCOPE 60894 Urobilinogen NO SPECIMEN RECEIVED mg/dL 024 [facility] [address] [place] [address] 75379 URINALYSIS AUTO W/SCOPE 69131 Ph NO SPECIMEN RECEIVED 024 [facility] [address] [place] [address] 08803 URINALYSIS AUTO W/SCOPE 69929 Blood NO SPECIMEN RECEIVED mg/dL 024 [facility] [address] [place] [address] 23935 URINALYSIS AUTO W/SCOPE 14739 Ketones NO SPECIMEN RECEIVED mg/dL 024 [facility] [address] [place] [address] 20029 URINALYSIS AUTO W/SCOPE 71871 Nitrite NO SPECIMEN RECEIVED 024 [facility] [address] [place] [address] 09651 URINALYSIS AUTO W/SCOPE 58433 Leukocytes NO SPECIMEN RECEIVED Praneeth/uL 024 [facility] [address] [place] [address] 50104 URINALYSIS AUTO W/SCOPE 56094 Clarity NO SPECIMEN RECEIVED 024 [facility] [address] [place] [address] URINALYSIS AUTO W/SCOPE 20748 Specific Headrick NO SPECIMEN RECEIVED 024 [facility] [address] [place] [address] 518[address] URINALYSIS AUTO W/SCOPE 23244 Color NO SPECIMEN RECEIVED [facility] [address] [place] [address] 29848 CHEM 14 (METABOLIC PANEL) 46367 Glucose 2345-7 144 mg/dL [facility] [address] [place] [address] 33519 CHEM 14 (METABOLIC PANEL) 25945 BUN 3094-0 13 mg/dL 024 [facility] [address] [place] [address] 63858 CHEM 14 (METABOLIC PANEL) 61134 Creatinine 2160-0 0.9 mg/dL [facility] [address] [place] [address] 09727 CHEM 14 (METABOLIC PANEL) 78565 BUN/Creat Ratio 3097-3 14.1 [facility] [address] [place] [address] 42834 CHEM 14 (METABOLIC PANEL) 28465 GFR Estimated 66681-5 69 mL/min/1.73 m2 [facility] [address] [place] [address] 48078 CHEM 14 (METABOLIC PANEL) 26417 Sodium 2951-2 139 mmol/L [facility] [address] [place] [address] 65258 CHEM 14 (METABOLIC PANEL) 46090 Potassium 2823-3 4.0 mmol/L [facility] [address] [place] [address] 98481 CHEM 14 (METABOLIC PANEL) 77477 Chloride 2075-0 104 mmol/L [facility] [address] [place] [address] 91882 CHEM 14 (METABOLIC PANEL) 83348 Total CO2 2028-9 30 mmol/L [facility] [address] [place] [address] 65337 CHEM 14 (METABOLIC PANEL) 53691 Anion Gap 1863-0 9.0 mEq/L [facility] [address] [place] [address] 52129 CHEM 14 (METABOLIC PANEL) 35166 Calculated Serum Osmolality 06265-8 291 mOsm/kg [facility] [address] [place] [address] 42684 CHEM 14 (METABOLIC PANEL) 28056 Albumin 67362-4 4.0 g/dL [facility] [address] [place] [address] 27941 CHEM 14 (METABOLIC PANEL) 57252 Total Protein 2885-2 7.9 g/dL 024 [facility] [address] [place] [address] CHEM 14 (METABOLIC PANEL) 30661 Globulin 2336-6 3.9 g/dL 024 [facility] [address] [place] [address] CHEM 14 (METABOLIC PANEL) 17585 Albumin/Globulin Ratio 1759-0 1.0 024 [facility] [address] [place] [address] CHEM 14 (METABOLIC PANEL) 42834 ALK PHOS 6768-6 80.00 U/L 024 [facility] [address] [place] [address] CHEM 14 (METABOLIC PANEL) 30586 SGOT/AST 1920-8 17 U/L 024 [facility] [address] [place] [address] CHEM 14 (METABOLIC PANEL) 04664 SGPT/ALT 1743-4 24 U/L 024 [facility] [address] [place] [address] 47718 CHEM 14 (METABOLIC PANEL) 81935 Total Bilirubin 1975-2 0.3 mg/dL 024 [facility] [address] [place] [address] 06060 CHEM 14 (METABOLIC PANEL) 07408 Calcium 60768-4 9.2 mg/dL 024 [facility] [address] [place] [address] CHEM 14 (METABOLIC PANEL) 62021 Corrected Calcium 81653-8 9.4 mg/dL 024 [facility] [address] [place] [address] [id number] BIN 4548-4 Glyco HGB A1C 62913-9 5.7 % 024 [facility] [address] [place] [address] 92769 [id number] BIN 4548-4 eAG 33505-5 117 mg/dL 024 [facility] [address] [place] [address] TSH 26653 TSH 00631-3 2.760 uIU/mL 024 [facility] [address] [place] [address] Procedures Procedure Codes Date Most recent A1c < 7.0% CPT-4: 3044F 5 Most recent A1c < 7.0% CPT-4: 3044F 4 Most recent A1c < 7.0% CPT-4: 3044F 4 MED LIST DOCD IN [facility] CPT-4: 1159F 12/19/2023 RVW MEDS BY RX/DR IN [facility] CPT-4: 1160F 2023 Amnt pain noted; pain prsnt CPT-4: 1125F 11/30 LOW RISK FOR RETINOPATHY CPT-4: 3072F 024 Screening for clinical depre ssion is negative, follow-up plan not required CPT-4: G8510 12/19/2023 [id number] CPT-4: 11603 Unknown Vital Signs Date Vital 12/19/2023 Blood Pressure 1: 120/79 Code: 8480-6 BMI: 25.6 Code: 64968-9 Heart Rate 1: 76 bpm Height: 5'2 Code: 8302-2 Respiratory Rate: 16 bpm SpO2: 95% Temperature: 36.7 (C) / 98.0 (F) Weight: 140 lbs 2 oz Code: 57496-5 Reason For Visit Reason For Visit Effective Dates Notes new patient welcome visit 12/19/2023 Encounters Encounter Performer Location Location Address Codes Date ([id number]) Other Reason/Patient not seen Diagnosis: Patient not seen[ICD10: UXZ.01] [facility] [place] [address] CPT-4: 99391 05/23/2024 (87663) No answer/Patient not seen Diagnosis: Patient not seen[ICD10: UXZ.01] [facility] Office [address] [place] [address] CPT-4: 54108 04/19/2024 (IND) Independent Lab Draw Diagnosis: Patient not seen[ICD10: UXZ.01] [facility] [place] [address] CPT-4: IND 12/22/2023 ([id number]) Home or Residence Visit [employer] - Moderate Level, 60 mins Diagnosis: Encounter for general adult medical examination without abnormal findings[ICD10: Z00.00] Diagnosis: Bipolar 2 disorder[ICD10: F31.81] Diagnosis: Chronic obstructive pulmonary disease, unspecified COPD type[ICD10: J44.9] Diagnosis: Generalized anxiety disorder[ICD10: F41.1] Diagnosis: Opioid dependence in remission[ICD10: F11.21] Diagnosis: Osteopenia, unspecified location[ICD10: M85.80] Diagnosis: Rheumatoid arthritis with positive rheumatoid factor, involving unspecified site[ICD10: M05.9] Marci Hilldeena [facility] [address] [address] CPT-4: 61898 12/19/2023 Plan of Care Planned Activity Notes Codes Status Date Appointment: Marci Swan WPtel: [address] [place], [place] [id number] 05/23/2024 Patient Education: Patient Medication Summary Completed 05/23/2024 Appointment: Beny Marci WPtel: [address] [place], [place] [id number] 04/19/2024 Patient Education: Patient Medication Summary Completed 04/19/2024 Appointment: TERESA, NOTE Follow Up Appointment: TERESA, NOTE CHW - Referra 12/25/2023 Appointment: TERESA, NOTE Phone Call Patient Education: Patient Medication Summary Completed 12/25/2023 Patient Education: Patient Medication Summary Completed 12/25/2023 Appointment: Office, [place] [address] 12/22/2023 Patient Education: Patient Medication Summary Completed [...] of care. 12/19/2023 Appointment: Marci Swan WPtel: [address] [place], [place] [phone] [facility] 12/19/2023 Patient Education: Patient Medication Summary Completed 12/19/2023 Patient Education: Obesity Completed 12/19/2023 Care Plan: eGFR KHE Pending Care Plan: Microalbumin (Urine) KHE Pending 12/19/2023 Referral: Food Insecurity Referral Initiated Referral: [facility] WPtel: [address] [place] [address] Counseling & Psychiatry [address] [place] [address] Order Faxed Instructions Comment Date v. Encounter [...]
== END 2025-02-27 23:59 | disposition home or self-care (01) ==
LOC: RAD 12:57
PROVIDERS: PCP Internal Medicine; Visit Provider Nurse Practitioner Family
DX: J98.4 Other disorders of lung (principal); R93.89 Abnormal findings on diagnostic imaging of other specified body structures; R91.1 Solitary pulmonary nodule
CPT/HCPCS: 71270

== ENCOUNTER 2025-03-05 12:51 | Outpatient (RCR) | payer MEDICARE, MEDICAID, SELFPAY | END 2025-03-05 23:59 | disposition home or self-care (01) | LOC: PT 12:51 | PROVIDERS: PCP Internal Medicine; Visit Provider Internal Medicine | DX: I89.0 Lymphedema, not elsewhere classified (principal); M25.562 Pain in left knee; M54.50 Low back pain, unspecified; M54.6 Pain in thoracic spine | CPT/HCPCS: 97140 ==

== ENCOUNTER 2025-03-07 07:52 | Outpatient (CLI) | payer MEDICARE, MEDICAID, SELFPAY ==
--- OUTSIDE RECORDS SUMMARY | 2025-03-07 07:54 | XMS_ITS | Clinical Summary ---
Author Organization [facility] Address [address] [place] [address] Care Team Providers Care Field Supervisor Name Role Phone Preston Man Primary Care Provider [phone] Allergies Active Allergy Reactions Criticality Noted Date [...] Influenza, seasonal, injectable, preservative free 03/20/2014, 05/19/2016 Kleo COVID-19 Vaccine (Purple Cap) 12+ 06/30/2020, 07/21/2020 [...] has been counseled on tobacco cessation: Yes. superintendent terminal effects of continued use such as but not limited to lung cancer, oral cavity cancer, CAD, PAD, ASCVD etc were discussed with the patient. Time spent in counseling was between 3-10 mins (29305). The following tobacco cessation resources were provided [...] - 12/11/2024 11:59 PM EDT Hospital Encounter [facility] X-[facility] [address], [address] [place] [address] Acute pain of left knee Discharge Disposition: Home or Self Care 12/11/2024 10:20 AM EDT Office Visit [facility] [address], [address] [place] [address] Yoana Whitney MD Acute pain of left knee (Primary Dx) 12/11/2024 Travel from Last 3 Months Immunizations Immunization Administration Dates Next Due Hep A, Adult 11/22/2017,10/11/2016 Hep A, Unspecified 10/11/2016 Influenza, injectable, MDCK, preservative free, quadrivalent 02/10/2022,01/24/2020 Influenza, injectable, quadrivalent 02/13/2017 Influenza, injectable, quadr ivalent, preservative free 03/17/2023,01/16/2019,01/18/2018 Influenza, seasonal, injectable 02/19/2020 Influenza, seasonal, injecta ble, preservative free 05/19/2016,03/20/2014 [employer] COVID-19 Vac cine (Purple Cap) 12+ 07/21/2020,06/30/2020 [...] Visit [facility] [address] [place] [id number] Fletcher, May R, 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 Chondrocalcinosis. Moderate [...] knee show medial compartment joint space narrowingwith dbzw-ss-bhnk articulation and tricompartmental osteophyte formation.Chondrocalcinosis. Moderate effusion. [...] show medial compartment joint space narrowing with nnaj-yv-yspb articulation and tricompartmental osteophyte formation. Chondrocalcinosis. Moderate [...] knee show medial compartment joint space narrowingwith kbfw-ns-uoxz articulation and tricompartmental osteophyte formation.Chondrocalcinosis. Moderate effusion. [...] Adults <6.0% Children and Adolescents <7.5% Source: [place] [employer]. Standards of medical care in diabetes,2017. Diabetes Care.2017:40 (suppl 1):S1-S135. HbA1c assay performed by an ion-exchange chromatography method that is certified traceable to the DCCT. us Kristal Carpenter DO LAB BLOOD ORDERABLES Final Res ult [facility] [address] [place] [address] * Pap Test (11/17/2022 9:27 AM EDT) Case Report Cytology Case: [id number] Authorizing Provider: Kristal Carpenter DO Collected: 11/17/2022 0927 Ordering Location: [facility] Received: 11/18/2022 1109 Internal Medicine First Screen: Alberta Quiroz Specimen: ThinPrep Pap Test, Liquid-Based Cervical/Vaginal 11/29/2022 11:35 AM EDT [facility] Interpretation NEGATIVE FOR INTRAEPITHELIAL LESION OR MALIGNANCY 11/29/2022 11:35 AM EDT [facility] at 1135 EDT Specimen Adequacy Satisfactory for evaluation; endocervical/alcantar sformation zone component present. Slide scanned and imaged by ThinPrep Imaging System with manual review of all selected farah. 11/29/2022 11:35 AM EDT [facility] Cervical cytology is a screening [...] results is suggested (please call Microbiology at [phone] for results). 11/29/2022 11:35 AM EDT [facility] Menstrual Status Post-Menopausal 05/2022 11:35 AM EDT [facility] Contraceptive History Not Applicable 11/29/2022 11:35 AM EDT [facility] Screening Type Routine Screen 2022 11:35 AM EDT [facility] High Risk? No 11/29/2022 11:35 AM EDT [facility] HPV Testing Requested? Request HPV Testing Regardless of Pap Test Findings 11/29/2022 11:35 AM EDT [facility] Previous Cancer History No 11/29/2022 11:35 AM EDT [facility] Clinical Information Z00.00 - Medicare annual wellness visit, subsequent [ICD-10-CM] Z00.00 - Healthcare maintenance [ICD-10-CM] Z12.4 - Encounter for Papanicolaou smear for cervical cancer screening [ICD-10-CM] 11/29/2022 11:35 AM EDT [facility] Swab Vaginal and cervical cytologic material / Unknown Non-blood Collection / Unknown 11/17/2022 9:27 AM EDT 11/18/2022 11:09 AM EDT Kristal Carpenter DO LAB CYTOLOGY ORDERABLES Final Result [facility] [address] [place] [address] * CT Chest Lung Cancer Screening (09/21/2022 2:30 PM EDT) Anatomical Region Laterality Modality Chest Computed Tomogra phy Addenda Addendum by Markell Mary MD on 09/27/2022 8:25 AM EDT ADDENDUM: Please note there is a biofuels production associate error in the original Recommendations section that [...] Positive( A) Negative 05/24/2022 5:38 PM EST [facility] Comment:This specimen is leonel ng sent for confirmation by RT-PCR. Blood Venous blood specimen / Unknown Venipuncture / Unknown 05/24/2022 1:18 PM EST 05/24/2022 1:20 PM EST us Marlen Berry DO LAB BLOOD ORDERABLES Final Re sult [facility] [address] [place] [address] * Mammography Breast Screening Tomosynthesis Bilateral (07/16/2021 [...] to: 01/21/2010 Mammography Outside Images Upload at [employer] 01/27/2011 Mammography Outside Images Upload at [facility] 07/10/2012 Mammography Outside Images Upload at [facility] 07/19/2012 Mammography Outside Images Upload at [facility] 10/28/2016 Mammography Outside Images Upload at [facility] BREAST COMPOSITION: The breasts are almost entirely [...] Maintenance Insurance [place]ICAID[place]ET[place] MEDICARE Care Teams Field Supervisor Relationship Specialty Start Date End Date Preston Man DO [address] [place] [address] [place] [address] PCP - General 05/27/24
--- OUTSIDE RECORDS SUMMARY | 2025-03-07 07:54 | XMS_ITS | Clinical Summary ---
Author Organization [facility] Address [address] [place] [address] Care Team Providers Care Document Imaging Manager Name Role Phone System, Provider Not [...] COLORECTAL CANCER SCREENING 07/24/2030 Insurance MEDICAID [place] [facility] MEDICARE ADVANTAGE Care Teams Document Imaging Manager Relationship Specialty Start Date End Date System, [place] [address] PCP - General 05/25/21
--- OUTSIDE RECORDS SUMMARY | 2025-03-07 07:54 | XMS_ITS | CCD ---
Author Name Beny BLANTON, Marci Address [address] [place] [address] Phone Organization [facility] Phone Care Team Providers Care Industrial/Organizational Psychologist Name Role Phone Unavailable Primary Care Provider Unavailabl e Unavailable Chronic Care Management Unavaila ble Summary Purpose DataExchange Insurance Providers Payer name Policy type / Coverage type Covered democrat ID Effective Begin Date Effective End Date ELEVANCE BCBS [facility] [id number] Unknown Unknown Family history Father Diagnosis Age [...] cessation counseling) 12/19/[address]: 106921170 Never drinks alco hol 12/19/2023 Illegal/Recreational drug [...] 12/19/2023 No Inactive Date Active Biaxin RxNorm: 282225 07/29/2013 No Inactive Da te Active Problems [...] Suboxone 8 mg-2 mg sublingual film RxNorm: 1166118 Take 1 Tablet(s) Sublingual every day 4 01/17/20 24 Inactive Stiolto Respimat 2.5 mcg-2.5 mcg/actuation solution for inhalation RxNorm: 0877412 Inhale 2 Puff(s) Inhalation every day 4 03/17/20 24 Inactive Vraylar 3 mg capsule RxNorm: 2274132 Administer 1 Capsule(s) Oral every day 4 03/17/20 24 Inactive Enbrel 50 mg/mL (1 mL) subcutaneous syringe RxNorm: 606453 Inject 1 Unit(s) Subcutaneous 1 time a week 4 01/17/20 24 Inactive calcium 600 mg-D3 20 mcg-magnesium 40 nz-sojmhd-iczb-[id number] inc chew tablet RxNorm: Take 1 Tablet(s) Oral two times a day 4 03/17/20 24 Inactive fluticasone (FLONASE) 50 MCG/ACT nasal spray RxNorm: 1194298 nasl 2 No Stop Date Active Ventolin HFA 108 (90 Base) MCG/ACT inhaler RxNorm: 955563 inhl 1 No Stop Date Active lamoTRIgine (LaMICtal) 150 MG tablet RxNorm: 590273 oral 1 No Stop Date Active ibuprofen (ADVIL,MOTRIN) 800 MG tablet RxNorm: 147414 Take 1,600 mg by mouth 2 (Two) Times a Day. 1 No Stop Date Active Medication Administered No Medication Administered data Results Observation Observation Code Item Item Code Result Date Service Location No Orders UA NoOrdersUA NO ORDERS UA 0.00 26/06 024 [facility] [address] [place] [address] URINALYSIS AUTO W/SCOPE 93146 Glucose 2345-7 Negative mg/dL 024 [facility] [address] [place] [address] URINALYSIS AUTO W/SCOPE 72798 Protein Negative mg/dL 024 [facility] [address] [place] [address] URINALYSIS AUTO W/SCOPE 09174 Bilirubin Negative mg/dL 024 [facility] [address] [place] [address] URINALYSIS AUTO W/SCOPE 53828 Urobilinogen Negative mg/dL 024 [facility] [address] [place] [address] URINALYSIS AUTO W/SCOPE 91764 Ph 6.50 024 [facility] [address] [place] [address] URINALYSIS AUTO W/SCOPE 76901 Blood Negative mg/dL 024 [facility] [address] [place] [address] URINALYSIS AUTO W/SCOPE 16759 Ketones Negative mg/dL 024 [facility] [address] [place] [address] URINALYSIS AUTO W/SCOPE 08374 Nitrite Negative 024 [facility] [address] [place] [address] URINALYSIS AUTO W/SCOPE 40071 Leukocytes Negative Praneeth/uL 024 [facility] [address] [place] [address] URINALYSIS AUTO W/SCOPE 52698 Clarity Clear 024 [facility] [address] [place] [address] URINALYSIS AUTO W/SCOPE 22330 Specific [place] 1.019 024 [facility] [address] [place] [address] URINALYSIS AUTO W/SCOPE 44924 Color Light-Yello w 024 [facility] [address] [place] [address] URINALYSIS AUTO W/SCOPE 09102 Red Blood Cell <1 /HPF #/HPF 024 [facility] [address] [place] [address] URINALYSIS AUTO W/SCOPE 33325 White Blood Cell 3 /HPF #/HPF 024 [facility] [address] [place] [address] URINALYSIS AUTO W/SCOPE 96680 SQUAMOUS EPITHELIAL <1 /HPF #/HPF 024 [facility] [address] [place] [address] URINALYSIS AUTO W/SCOPE 16092 Bacteria Trace graded/HPF 024 [facility] [address] [place] [address] URINALYSIS AUTO W/SCOPE 45295 Calcium Oxalate Crystal MANY graded/HPF 024 [facility] [address] [place] [address] URINALYSIS AUTO W/SCOPE 37572 Mucous RARE grades/LPF 024 [facility] [address] [place] [address] [facility] and [facility] Culture & Sensitivity SEE COMMENT 024 [facility] [address] [place] [address] Manual Diff MDIFF Neutrophils 48230-0 64.0 % 024 [facility] [address] [place] [address] Manual Diff MDIFF Lymphocytes 72590-3 30.0 % 024 [facility] [address] [place] [address] Manual Diff MDIFF Monocytes 55382-8 3.0 % 024 [facility] [address] [place] [address] Manual Diff MDIFF Eosinophils 90949-5 2.0 % 024 [facility] [address] [place] [address] Manual Diff MDIFF Basophils 88382-1 1.0 % 024 [facility] [address] [place] [address] Manual Diff MDIFF Absolute Neut 76938-3 4416 /ul 11/30 07/31 024 [facility] [address] [place] [address] Manual Diff MDIFF Absolute Lymph 85818-7 2070 /ul 24/06 024 [facility] [address] [place] [address] Manual Diff MDIFF Absolute Hemphill 61770-8 207 /ul 11/30 07/31 024 [facility] [address] [place] [address] Manual Diff MDIFF Platelet Estimate 9317-9 Normal 024 [facility] [address] [place] [address] Manual Diff MDIFF Absolute Eos 24377-0 138 /ul 12/22 024 [facility] [address] [place] [address] Manual Diff MDIFF Poikilocytosis 779-9 2+ 24/06 024 [facility] [address] [place] [address] Manual Diff MDIFF Echinocytes 7790-9 2+ 024 [facility] [address] [place] [address] Manual Diff MDIFF Absolute Baso 34476-3 69 /ul 11/30 07/31 024 [facility] [address] [place] [address] COMPLETE CBC W/ DIFF WBC 26187 WBC 6690-2 6.9 K/ul 024 [facility] [address] [place] [address] COMPLETE CBC W/ DIFF WBC 65782 RBC 789-8 4.29 M/uL 024 [facility] [address] [place] [address] 22049 COMPLETE CBC W/ DIFF WBC 49250 Hemoglobin 718-7 13.3 g/dL 024 [facility] [address] [place] [address] 25471 COMPLETE CBC W/ DIFF WBC 56352 Hematocrit 4544-3 41.0 % 024 [facility] [address] [place] [address] COMPLETE CBC W/ DIFF WBC 84550 MCV 787-2 95.7 fL 024 [facility] [address] [place] [address] COMPLETE CBC W/ DIFF WBC 04339 MCH 785-6 31.1 pg 024 [facility] [address] [place] [address] 15469 COMPLETE CBC W/ DIFF WBC 00132 MCHC 786-4 32.5 g/dL 024 [facility] [address] [place] [address] 16159 COMPLETE CBC W/ DIFF WBC 30517 RDW 788-0 14.2 % 024 [facility] [address] [place] [address] 16626 COMPLETE CBC W/ DIFF WBC 97051 Platelet Count 777-3 311 K/uL 024 [facility] [address] [place] [address] 98077 COMPLETE CBC W/ DIFF WBC 41725 MPV 93852-1 8.0 fL 024 [facility] [address] [place] [address] 44620 No Orders No Orders No Orders 0 024 [facility] [address] [place] [address] TRIGLYCERIDES 45019 Triglycerides 2571-8 173 mg/dL 024 [facility] [address] [place] [address] TRIGLYCERIDES 93971 VLDL 41391-6 35 mg/dL 024 [facility] [address] [place] [address] 13133 VITAMIN D 53765 Vitamin D 38187-5 27.0 ng/mL 024 [facility] [address] [place] [address] 57547 MICROALBUMIN (URINE) 13318 Microalbumin 41898-9 2.1 mg/dL 024 [facility] [address] [place] [address] 47827 MICROALBUMIN (URINE) 39543 Microalbumin/Crea tinine Ratio 46219-2 27 MCG/MGCREAT 024 [facility] [address] [place] [address] 55727 MICROALBUMIN (URINE) 76817 Urine Creatinine 2161-8 77.70 mg/dL 024 [facility] [address] [place] [address] 89413 CHOLESTEROL 51530 Cholesterol 2093-3 165 mg/dL 024 [facility] [address] [place] [address] 38988 Direct LDL 42860 LDL-Direct 94554-2 96 mg/dL 024 [facility] [address] [place] [address] 15112 FREE T-4 55887 FT4 3024-7 1.05 ng/dL 024 [facility] [address] [place] [address] 35653 HDL - CHOL 89815 HDL 2085-9 41 mg/dL 024 [facility] [address] [place] [address] 44613 HDL - CHOL 35886 [facility] 90650-0 25 % 024 [facility] [address] [place] [address] Urine Culture and Sensitivity [facility] Urine Culture & Sensitivity SEE COMMENT 024 [facility] [address] [place] [address] FREE T-3 89670 FT3 3051-0 2.78 pg/mL 024 [facility] [address] [place] [address] URINALYSIS AUTO W/SCOPE 92391 Glucose 2345-7 NO SPECIMEN RECEIVED mg/dL 024 [facility] [address] [place] [address] URINALYSIS AUTO W/SCOPE 46306 Protein NO SPECIMEN RECEIVED mg/dL 024 [facility] [address] [place] [address] URINALYSIS AUTO W/SCOPE 79075 Bilirubin NO SPECIMEN RECEIVED mg/dL 024 [facility] [address] [place] [address] URINALYSIS AUTO W/SCOPE 61578 Urobilinogen NO SPECIMEN RECEIVED mg/dL 024 [facility] [address] [place] [address] 67512 URINALYSIS AUTO W/SCOPE 97501 Ph NO SPECIMEN RECEIVED 024 [facility] [address] [place] [address]57[address] URINALYSIS AUTO W/SCOPE 79977 Blood NO SPECIMEN RECEIVED mg/dL 024 [facility] [address] [place] [address]09[address] URINALYSIS AUTO W/SCOPE 96814 Ketones NO SPECIMEN RECEIVED mg/dL 024 [facility] [address] [place] [address] 64266 URINALYSIS AUTO W/SCOPE 81158 Nitrite NO SPECIMEN RECEIVED 024 [facility] [address] [place] [address] 48820 URINALYSIS AUTO W/SCOPE 08301 Leukocytes NO SPECIMEN RECEIVED Praneeth/uL 024 [facility] [address] [place] [address] 17016 URINALYSIS AUTO W/SCOPE 30004 Clarity NO SPECIMEN RECEIVED 024 [facility] [address] [place] [address]26[address] URINALYSIS AUTO W/SCOPE 23967 Specific [place] NO SPECIMEN RECEIVED 024 [facility] [address] [place] [address] URINALYSIS AUTO W/SCOPE 13893 Color NO SPECIMEN RECEIVED [facility] [address] [place] [address] 58974 CHEM 14 (METABOLIC PANEL) 39926 Glucose 2345-7 144 mg/dL [facility] [address] [place] [address] 86475 CHEM 14 (METABOLIC PANEL) 50867 BUN 3094-0 13 mg/dL 024 [facility] [address] [place] [address] 71533 CHEM 14 (METABOLIC PANEL) 13320 Creatinine 2160-0 0.9 mg/dL [facility] [address] [place] [address] 30915 CHEM 14 (METABOLIC PANEL) 63959 BUN/Creat Ratio 3097-3 14.1 [facility] [address] [place] [address] 92468 CHEM 14 (METABOLIC PANEL) 01239 GFR Estimated 00993-2 69 mL/min/1.73 m2 [facility] [address] [place] [address] 18371 CHEM 14 (METABOLIC PANEL) 50905 Sodium 2951-2 139 mmol/L [facility] [address] [place] [address] 34965 CHEM 14 (METABOLIC PANEL) 47662 Potassium 2823-3 4.0 mmol/L [facility] [address] [place] [address] 09487 CHEM 14 (METABOLIC PANEL) 82288 Chloride 2075-0 104 mmol/L [facility] [address] [place] [address] 92965 CHEM 14 (METABOLIC PANEL) 68535 Total CO2 2028-9 30 mmol/L [facility] [address] [place] [address] 08695 CHEM 14 (METABOLIC PANEL) 68382 Anion Gap 1863-0 9.0 mEq/L [facility] [address] [place] [address] 45614 CHEM 14 (METABOLIC PANEL) 00400 Calculated Serum Osmolality 27190-4 291 mOsm/kg [facility] [address] [place] [address] 04129 CHEM 14 (METABOLIC PANEL) 48176 Albumin 06742-1 4.0 g/dL [facility] [address] [place] [address] 85008 CHEM 14 (METABOLIC PANEL) 64437 Total Protein 2885-2 7.9 g/dL 024 [facility] [address] [place] [address] CHEM 14 (METABOLIC PANEL) 08404 Globulin 2336-6 3.9 g/dL 024 [facility] [address] [place] [address] CHEM 14 (METABOLIC PANEL) 58922 Albumin/Globulin Ratio 1759-0 1.0 024 [facility] [address] [place] [address] CHEM 14 (METABOLIC PANEL) 73620 ALK PHOS 6768-6 80.00 U/L 024 [facility] [address] [place] [address] CHEM 14 (METABOLIC PANEL) 65691 SGOT/AST 1920-8 17 U/L 024 [facility] [address] [place] [address] CHEM 14 (METABOLIC PANEL) 65255 SGPT/ALT 1743-4 24 U/L 024 [facility] [address] [place] [address] 43747 CHEM 14 (METABOLIC PANEL) 49585 Total Bilirubin 1975-2 0.3 mg/dL 024 [facility] [address] [place] [address] 91580 CHEM 14 (METABOLIC PANEL) 03483 Calcium 41456-7 9.2 mg/dL 024 [facility] [address] [place] [address] CHEM 14 (METABOLIC PANEL) 35700 Corrected Calcium 31592-1 9.4 mg/dL 024 [facility] [address] [place] [address] [id number] BIN 4548-4 Glyco HGB A1C 49969-9 5.7 % 024 [facility] [address] [place] [address] 39994 [id number] BIN 4548-4 eAG 48667-8 117 mg/dL 024 [facility] [address] [place] [address] TSH 36817 TSH 88329-2 2.760 uIU/mL 024 [facility] [address] [place] [address] Procedures Procedure Codes Date Most recent A1c < 7.0% CPT-4: 3044F 5 Most recent A1c < 7.0% CPT-4: 3044F 4 Most recent A1c < 7.0% CPT-4: 3044F 4 MED LIST DOCD IN [facility] CPT-4: 1159F 12/19/2023 RVW MEDS BY RX/DR IN [facility] CPT-4: 1160F 2023 Amnt pain noted; pain prsnt CPT-4: 1125F 11/30 LOW RISK FOR RETINOPATHY CPT-4: 3072F 024 Screening for clinical depre ssion is negative, follow-up plan not required CPT-4: G8510 12/19/2023 [id number] CPT-4: 46677 Unknown Vital Signs Date Vital 12/19/2023 Blood Pressure 1: 120/79 Code: 8480-6 BMI: 25.6 Code: 28504-7 Heart Rate 1: 76 bpm Height: 5'2 Code: 8302-2 Respiratory Rate: 16 bpm SpO2: 95% Temperature: 36.7 (C) / 98.0 (F) Weight: 140 lbs 2 oz Code: 52679-5 Reason For Visit Reason For Visit Effective Dates Notes new patient welcome visit 12/19/2023 Encounters Encounter Performer Location Location Address Codes Date (81961) Other Reason/Patient not seen Diagnosis: Patient not seen[ICD10: UXZ.01] [facility] [place] [address] CPT-4: 41537 05/23/2024 (47338) No answer/Patient not seen Diagnosis: Patient not seen[ICD10: UXZ.01] [facility] [address] [place] [address] CPT-4: 60706 04/19/2024 (IND) Independent Lab Draw Diagnosis: Patient not seen[ICD10: UXZ.01] [place] [facility] [place] [place] [address] CPT-4: IND 12/22/2023 (39237) Home or Residence Visit RN HOSPICE - Moderate Level, 60 mins Diagnosis: Encounter for general adult medical examination without abnormal findings[ICD10: Z00.00] Diagnosis: Bipolar 2 disorder[ICD10: F31.81] Diagnosis: Chronic obstructive pulmonary disease, unspecified COPD type[ICD10: J44.9] Diagnosis: Generalized anxiety disorder[ICD10: F41.1] Diagnosis: Opioid dependence in remission[ICD10: F11.21] Diagnosis: Osteopenia, unspecified location[ICD10: M85.80] Diagnosis: Rheumatoid arthritis with positive rheumatoid factor, involving unspecified site[ICD10: M05.9] Marci Hilldeena [place] [facility] [address] [address] CPT-4: 18789 12/19/2023 Plan of Care Planned Activity Notes Codes Status Date Appointment: Marci Swan WPtel: [address] [place], [place] [id number] 05/23/2024 Patient Education: Patient Medication Summary Completed 05/23/2024 Appointment: Beny Marci WPtel: [address] [place], [place] [id number] E031 04/19/2024 Patient Education: Patient Medication Summary Completed 04/19/2024 Appointment: TERESA, NOTE Follow Up Appointment: TERESA, NOTE CHW - Referra 12/25/2023 Appointment: TERESA, NOTE Phone Call Patient Education: Patient Medication Summary Completed 12/25/2023 Patient Education: Patient Medication Summary Completed 12/25/2023 Appointment: Office, [place] [id number] 12/22/2023 Patient Education: Patient Medication Summary Completed [...] of care. 12/19/2023 Appointment: Marci Swan WPtel: [address] [place], [place] [id number] [facility] 12/19/2023 Patient Education: Patient Medication Summary Completed 12/19/2023 Patient Education: Obesity Completed 12/19/2023 Care Plan: eGFR KHE Pending Care Plan: Microalbumin (Urine) KHE Pending 12/19/2023 Referral: Food Insecurity Referral Initiated Referral: [facility] WPtel: [address] [place] [address] Counseling & Psychiatry [address] [place] [address] Order Faxed Instructions Comment Date v. Encounter [...]
--- OUTSIDE RECORDS SUMMARY | 2025-03-07 07:54 | XMS_ITS | Encounter Summary ---
Author Organization [facility] Address [address] [place] [address] Care Team Providers Care Silk Spotter Name Role Phone Sofia Nguyen MD Primary Care Provider [phone] Tk Garg MD Primary Care Provider [phone] Lisseth Palacios APRN Primary Care Provider + Kristal Carpenter DO Primary Care Provider [phone] Preston Man DO Primary Care Provider [phone] Preston Man DO Primary Care Provider [phone] Reason for Visit * Reason Onset Date Comments Appointment 10/10/2020 Patient difficul t to keep awake. Encounter Details Date Type Department Care Team (Late st Contact Info) Description 10/10/2020 [facility] [address] , [address] [place] [address] Marlen Owens MD [address] [place] [address] Social History Tobacco Use Types [...] patient keeps drifting in andout of sleep. senior caregiver did not know the name of the [...] Visit [facility] [address] [place] [address] Fletcher, May R, TURNING AND BEADING MACHINE OPERATOR [address] [place] [address] documented as of this encounter Visit Diagnoses Not on filedocumented in this encounter Additional Health Concerns Infection Onset Date Last Indicated Resolved Time COVID-19 Rule-Out 03/27/2021 03/27/2021 03/27/2021 11:29 AM EST COVID-19 Rule-Out 05/24/2022 05/24/2022 05/24/2022 2:20 PM EST COVID 19 (Confirmed) 05/24/2022 05/24/2022 023 5:23 AM EST documented as of this encounter Care Teams Silk Spotter Relationship Specialty Start Date End Date Sofia Nguyen MD [address] [facility] [address] [place] [address] PCP - General 09/11/20 10/15/20 Tk Garg MD [address] [place] [address] [address] [place], [place] [id number] PCP - General Family Medicine 10/16/20 03/27/22 Lisseth Palacios S, TURNING AND BEADING MACHINE OPERATOR [facility] [place] [address] PCP - General 03/28/22 07/13/22 Kristal Carpenter DO [address] [place] [address] PCP - General Internal Medicine 07/14/22 08/13/23 Preston Man DO [address] [place] [address] [place], [place] [address] PCP - General 08/14/23 10/26/23 Preston Man DO [address] [place] [address] [place], [place] [address] PCP - General 05/27/24 documented as of this encounter
--- OUTSIDE RECORDS SUMMARY | 2025-03-07 07:54 | XMS_ITS | Encounter Summary ---
Author Organization Healthcare Address [address] [place] [address] Care Team Providers Care Counter Person Name Role Phone DonovanPreston yancey Briseyda JENKINS Primary Care Provider [phone] Encounter Details Date Type Department Care Team (Late Contact Info) Description 09/02/2024 Orders Only External Location [address] [place] [address] Jonas Roper, DO [address] [place] [address] [place] [address] Social History Tobacco Use Types Packs/Day Years [...] Visit [facility] [address] [place] [address] Fletcher, May R, SPOOL CLEANER HAND [address] [place] [address] documented as of this encounter [...] documented as of this encounter Care Teams Counter Person Relationship Specialty Start Date End Date Preston Man DO [address] [place] [address] [place] [address] PCP - General 05/27/24 documented as of this encounter
[2025-03-07] MEDS: ALBUTEROL 0.083% 2.5 MG/3 ML NEB IH (08:38)
--- NOTE | 2025-03-07 09:30 | CA_ITS ---
APPROVED REPORT EXAM: Comprehensive 2D, Doppler, and color-flow Echocardiogram Polysom Tech: Amena Graves RT(R) Ht: 5 ft 2 in Wt: 165lbs BSA: 1.76 BP: 136/76 mmHg Indications: dyspnea, COPD, smoker, fatigue 2D Dimensions LA Volume 15.60 mL LA Volume Index 8.86 mL/m2 (M/F) 16-34 EF AP4 64.00 % GL Strain -25.2 % M-Mode Dimensions RVDd 2.36 cm (0.9-2.6) LA Diam 2.98 cm (1.9-4.0) LVDd 4.32 cm (3.5-5.7) LVDs 3.22 cm (3.5-5.7) IVSd 0.75 cm (0.6-1.1) PWd 0.79 cm (0.6-1.1) EF (Teich) 50.50% FS 25.50% EDV (Teich) 84.00 mL ESV (Teich) 41.60 mL LV Diastology E Decel Time 150 (160-240 msec) E/A Ratio 0.8 Mitral Valve MV E Max Ady. 76.0 (40-130 cm/s) MV A Velocity 90.0 (40-130 cm/s) E/A Ratio 0.84 MV PHT 44.0 ms Left Ventricle The left ventricle is normal size. Left ventricular systolic function is normal. The left ventricular ejection fraction is within the normal range. There is normal left ventricular wall thickness. There is normal LV segmental wall motion. The left ventricular diastolic function is normal. LVEF is 55% Right Ventricle The right ventricle is normal size. The right ventricular systolic function is normal. Atria The left atrium size is normal. The right atrium size is normal. There is no color Doppler evidence of interatrial shunt. Aortic Valve The aortic valve opens well. There is no hemodynamically significant aortic valvular stenosis. Trace aortic regurgitation is present. Mitral Valve The mitral valve is normal in structure. No evidence of mitral valve stenosis. Trace mitral regurgitation is present. Tricuspid Valve The tricuspid valve leaflets are thin and pliable. Trace tricuspid regurgitation. There is insufficient TR jet to estimate RVSP. Pulmonic Valve The pulmonary valve is grossly normal in structure. Trace pulmonic valve regurgitation is present. Great Vessels The aortic root is normal in size. IVC is normal in size and collapses >50% with inspiration. Pericardium There is no pericardial effusion. Other Information Study Quality: Fair Conclusion Normal biventricular systolic function. No significant valvular stenosis or regurgitation. Electronically signed by : Vernell Victoria MD 03/13/2025 03:50:30
== END 2025-03-07 23:59 | disposition home or self-care (01) ==
LOC: RT 07:52
PROVIDERS: PCP Internal Medicine; Visit Provider Nurse Practitioner Family
DX: J44.9 Chronic obstructive pulmonary disease, unspecified (principal); F17.200 Nicotine dependence, unspecified, uncomplicated; R94.2 Abnormal results of pulmonary function studies; R91.1 Solitary pulmonary nodule; R93.89 Abnormal findings on diagnostic imaging of other specified body structures; R60.0 Localized edema; R53.83 Other fatigue
CPT/HCPCS: 93306; 94010

== ENCOUNTER 2025-03-13 09:50 | Outpatient (CLI) | payer MEDICARE, MEDICAID, SELFPAY ==
--- OUTSIDE RECORDS SUMMARY | 2025-03-13 09:55 | XMS_ITS | CCD ---
Author Name Beny BLANTON, Marci Address [address] [facility] [address] [place] [address] Phone Organization [facility] Phone Care Team Providers Care Mixing Machine Attendant Name Role Phone Unavailable Primary Care Provider Unavailabl e Unavailable Chronic Care Management Unavaila ble Summary Purpose DataExchange Insurance Providers Payer name Policy type / Coverage type Covered democrat ID Effective Begin Date Effective End Date [employer] BC[employer] [facility] [id number] Unknown Unknown Family history Father Diagnosis Age [...] cessation counseling) 12/19/[address]: [id number] Never drinks alco hol 12/19/2023 Illegal/Recreational drug [...] 12/19/2023 No Inactive Date Active Biaxin RxNorm: 605523 07/29/2013 No Inactive Da te Active Problems [...] Suboxone 8 mg-2 mg sublingual film RxNorm: 5312642 Take 1 Tablet(s) Sublingual every day 4 01/17/20 24 Inactive Stiolto Respimat 2.5 mcg-2.5 mcg/actuation solution for inhalation RxNorm: 7195119 Inhale 2 Puff(s) Inhalation every day 4 03/17/20 24 Inactive Vraylar 3 mg capsule RxNorm: 0459781 Administer 1 Capsule(s) Oral every day 4 03/17/20 24 Inactive Enbrel 50 mg/mL (1 mL) subcutaneous syringe RxNorm: 572420 Inject 1 Unit(s) Subcutaneous 1 time a week 4 01/17/20 24 Inactive calcium 600 mg-D3 20 mcg-magnesium 40 bm-rkrnzx-czkv-z inc chew tablet RxNorm: Take 1 Tablet(s) Oral two times a day 4 03/17/20 24 Inactive fluticasone (FLONASE) 50 MCG/ACT nasal spray RxNorm: 5769746 nasl 2 No Stop Date Active Ventolin HFA 108 (90 Base) MCG/ACT inhaler RxNorm: 511627 inhl 1 No Stop Date Active lamoTRIgine (LaMICtal) 150 MG tablet RxNorm: 824877 oral 1 No Stop Date Active ibuprofen (ADVIL,MOTRIN) 800 MG tablet RxNorm: 034969 Take 1,600 mg by mouth 2 (Two) Times a Day. 1 No Stop Date Active Medication Administered No Medication Administered data Results Observation Observation Code Item Item Code Result Date Service Location No Orders UA NoOrdersUA NO ORDERS UA 0.00 26/06 024 [facility] [address] [place] [address] URINALYSIS AUTO W/SCOPE 91023 Glucose 2345-7 Negative mg/dL 024 [facility] [address] [place] [address] URINALYSIS AUTO W/SCOPE 16819 Protein Negative mg/dL 024 [facility] [address] [place] [address] URINALYSIS AUTO W/SCOPE 25793 Bilirubin Negative mg/dL 024 [facility] [address] [place] [address] URINALYSIS AUTO W/SCOPE 45512 Urobilinogen Negative mg/dL 024 [facility] [address] [place] [address] URINALYSIS AUTO W/SCOPE 79428 Ph 6.50 024 [facility] [address] [place] [address]402 URINALYSIS AUTO W/SCOPE 00390 Blood Negative mg/dL 024 [facility] [address] [place] [address] URINALYSIS AUTO W/SCOPE 17690 Ketones Negative mg/dL 024 [facility] [address] [place] [address] URINALYSIS AUTO W/SCOPE 01671 Nitrite Negative 024 [facility] [address] [place] [address] URINALYSIS AUTO W/SCOPE 81693 Leukocytes Negative Praneeth/uL 024 [facility] [address] [place] [address] 09210 URINALYSIS AUTO W/SCOPE 11591 Clarity Clear 024 [facility] [address] [place] [address] URINALYSIS AUTO W/SCOPE 23664 Specific [place] 1.019 024 [facility] [address] [place] [address] URINALYSIS AUTO W/SCOPE 09398 Color Light-Yello w 024 [facility] [address] [place] [address] URINALYSIS AUTO W/SCOPE 91363 Red Blood Cell <1 /HPF #/HPF 024 [facility] [address] [place] [address] URINALYSIS AUTO W/SCOPE 61545 SQUAMOUS EPITHELIAL <1 /HPF #/HPF 024 [facility] [address] [place] [address] URINALYSIS AUTO W/SCOPE 42700 White Blood Cell 3 /HPF #/HPF 024 [facility] [address] [place] [address] URINALYSIS AUTO W/SCOPE 01234 Bacteria Trace graded/HPF 024 [facility] [address] [place] [address] URINALYSIS AUTO W/SCOPE 27547 Calcium Oxalate Crystal MANY graded/HPF 024 [facility] [address] [place] [address] URINALYSIS AUTO W/SCOPE 48688 Mucous RARE grades/LPF 024 [facility] [address] [place] [address] U[facility] and [facility] Urine Culture & Sensitivity SEE COMMENT 024 [facility] [address] [place] [address] Manual Diff MDIFF Neutrophils 78885-6 64.0 % 024 [facility] [address] [place] [address] Manual Diff MDIFF Lymphocytes 04321-8 30.0 % 024 [facility] [address] [place] [address] Manual Diff MDIFF Monocytes 23684-6 3.0 % 024 [facility] [address] [place] [address] Manual Diff MDIFF Eosinophils 23139-1 2.0 % 024 [facility] [address] [place] [address] Manual Diff MDIFF Basophils 91246-0 1.0 % 024 [facility] [address] [place] [address] Manual Diff MDIFF Absolute Neut 32889-4 4416 /ul 11/30 07/31 024 [facility] [address] [place] [address] Manual Diff MDIFF Absolute Lymph 81686-2 2070 /ul 24/06 024 [facility] [address] [place] [address] Manual Diff MDIFF Absolute Ashley 97263-1 207 /ul 08/07/31 024 [facility] [address] [place] [address] Manual Diff MDIFF Platelet Estimate 9317-9 Normal 024 [facility] [address] [place] [address] Manual Diff MDIFF Absolute Eos 74830-4 138 /ul 12/22 024 [facility] [address] [place] [address] Manual Diff MDIFF Echinocytes 7790-9 2+ 024 [facility] [address] [place] [address] Manual Diff MDIFF Poikilocytosis 779-9 2+ 24/06 024 [facility] [address] [place] [address] Manual Diff MDIFF Absolute Baso 24157-8 69 /ul 11/30 07/31 024 [facility] [address] [place] [address] COMPLETE CBC W/ DIFF WBC 03607 WBC 6690-2 6.9 K/ul 024 [facility] [address] [place] [address] COMPLETE CBC W/ DIFF WBC 43141 RBC 789-8 4.29 M/uL 024 [facility] [address] [place] [address]57 COMPLETE CBC W/ DIFF WBC 34736 Hemoglobin 718-7 13.3 g/dL 024 [facility] [address] [place] [address] COMPLETE CBC W/ DIFF WBC 94971 Hematocrit 4544-3 41.0 % 024 [facility] [address] [place] [address] COMPLETE CBC W/ DIFF WBC 22387 MCV 787-2 95.7 fL 024 [facility] [address] [place] [address] COMPLETE CBC W/ DIFF WBC 29585 MCH 785-6 31.1 pg 024 [facility] [address] [place] [address] COMPLETE CBC W/ DIFF WBC 42777 MCHC 786-4 32.5 g/dL 024 [facility] [address] [place] [address] COMPLETE CBC W/ DIFF WBC 21331 RDW 788-0 14.2 % 024 [facility] [address] [place] [address] COMPLETE CBC W/ DIFF WBC 70667 Platelet Count 777-3 311 K/uL 024 [facility] [address] [place] [address]0742 COMPLETE CBC W/ DIFF WBC 51861 MPV 00010-9 8.0 fL 024 [facility] [address] [place] [address] 19351 No Orders No Orders No Orders 0 024 [facility] [address] [place] [address] TRIGLYCERIDES 68470 Triglycerides 2571-8 173 mg/dL 024 [facility] [address] [place] [address]168 TRIGLYCERIDES 00242 VLDL 91409-5 35 mg/dL 024 [facility] [address] [place] [address] VITAMIN D 06920 Vitamin D 29316-8 27.0 ng/mL 024 [facility] [address] [place] [address] 27135 MICROALBUMIN (URINE) 62084 Microalbumin 28591-1 2.1 mg/dL 024 [facility] [address] [place] [address] 12099 MICROALBUMIN (URINE) 49359 Microalbumin/Crea tinine Ratio 55321-7 27 MCG/MGCREAT 024 [facility] [address] [place] [address] 08043 MICROALBUMIN (URINE) 95397 Urine Creatinine 2161-8 77.70 mg/dL 024 [facility] [address] [place] [address] 92050 CHOLESTEROL 51916 Cholesterol 2093-3 165 mg/dL 024 [facility] [address] [place] [address] 18674 Direct LDL 30202 LDL-Direct 62313-7 96 mg/dL 024 [facility] [address] [place] [address] 64804 FREE T-4 69696 FT4 3024-7 1.05 ng/dL 024 [facility] [address] [place] [address] 78312 HDL - CHOL 49063 HDL 2085-9 41 mg/dL 024 [facility] [address] [place] [address] 96895 HDL - CHOL 96543 [facility] 85767-1 25 % 024 [facility] [address] [place] [address] Urine Culture and Sensitivity [facility] Urine Culture & Sensitivity SEE COMMENT 024 [facility] [address] [place] [address] FREE T-3 76749 FT3 3051-0 2.78 pg/mL 024 [facility] [address] [place] [address] URINALYSIS AUTO W/SCOPE 45374 Glucose 2345-7 NO SPECIMEN RECEIVED mg/dL 024 [facility] [address] [place] [address] URINALYSIS AUTO W/SCOPE 84047 Protein NO SPECIMEN RECEIVED mg/dL 024 [facility] [address] [place] [address] URINALYSIS AUTO W/SCOPE 47297 Bilirubin NO SPECIMEN RECEIVED mg/dL 024 [facility] [address] [place] [address] 645[address] URINALYSIS AUTO W/SCOPE 24222 Urobilinogen NO SPECIMEN RECEIVED mg/dL 024 [facility] [address] [place] [address] URINALYSIS AUTO W/SCOPE 02564 Ph NO SPECIMEN RECEIVED 024 [facility] [address] [place] [address] 12536 URINALYSIS AUTO W/SCOPE 73861 Blood NO SPECIMEN RECEIVED mg/dL 024 [facility] [address] [place] [address] 37532 URINALYSIS AUTO W/SCOPE 08341 Ketones NO SPECIMEN RECEIVED mg/dL 024 [facility] [address] [place] [address] 98424 URINALYSIS AUTO W/SCOPE 76847 Nitrite NO SPECIMEN RECEIVED 024 [facility] [address] [place] [address] 55840 URINALYSIS AUTO W/SCOPE 13862 Leukocytes NO SPECIMEN RECEIVED Praneeth/uL 024 [facility] [address] [place] [address] 09315 URINALYSIS AUTO W/SCOPE 68573 Clarity NO SPECIMEN RECEIVED 024 [facility] [address] [place] [address] 85506 URINALYSIS AUTO W/SCOPE 14163 Specific [place] NO SPECIMEN RECEIVED 024 [facility] [address] [place] [address] 25485 URINALYSIS AUTO W/SCOPE 76741 Color NO SPECIMEN RECEIVED [facility] [address] [place] [address] 68123 CHEM 14 (METABOLIC PANEL) 88977 Glucose 2345-7 144 mg/dL [facility] [address] [place] [address] 68050 CHEM 14 (METABOLIC PANEL) 29772 BUN 3094-0 13 mg/dL 024 [facility] [address] [place] [address] 65176 CHEM 14 (METABOLIC PANEL) 78159 Creatinine 2160-0 0.9 mg/dL [facility] [address] [place] [address] 45543 CHEM 14 (METABOLIC PANEL) 93719 BUN/Creat Ratio 3097-3 14.1 [facility] [address] [place] [address] 73431 CHEM 14 (METABOLIC PANEL) 81027 GFR Estimated 53597-1 69 mL/min/1.73 m2 [facility] [address] [place] [address] 02589 CHEM 14 (METABOLIC PANEL) 05547 Sodium 2951-2 139 mmol/L [facility] [address] [place] [address] 15871 CHEM 14 (METABOLIC PANEL) 89482 Potassium 2823-3 4.0 mmol/L [facility] [address] [place] [address] 58461 CHEM 14 (METABOLIC PANEL) 33897 Chloride 2075-0 104 mmol/L [facility] [address] [place] [address] 82630 CHEM 14 (METABOLIC PANEL) 21688 Total CO2 2028-9 30 mmol/L [facility] [address] [place] [address] 71866 CHEM 14 (METABOLIC PANEL) 17358 Anion Gap 1863-0 9.0 mEq/L [facility] [address] [place] [address] 49274 CHEM 14 (METABOLIC PANEL) 89824 Calculated Serum Osmolality 52840-2 291 mOsm/kg [facility] [address] [place] [address] 63591 CHEM 14 (METABOLIC PANEL) 29777 Albumin 81323-2 4.0 g/dL [facility] [address] [place] [address] 79601 CHEM 14 (METABOLIC PANEL) 59373 Total Protein 2885-2 7.9 g/dL 024 [facility] [address] [place] [address] CHEM 14 (METABOLIC PANEL) 02272 Globulin 2336-6 3.9 g/dL 024 [facility] [address] [place] [address] CHEM 14 (METABOLIC PANEL) 40002 Albumin/Globulin Ratio 1759-0 1.0 024 [facility] [address] [place] [address] CHEM 14 (METABOLIC PANEL) 06836 ALK PHOS 6768-6 80.00 U/L 024 [facility] [address] [place] [address] CHEM 14 (METABOLIC PANEL) 21881 SGOT/AST 1920-8 17 U/L 024 [facility] [address] [place] [address] CHEM 14 (METABOLIC PANEL) 06397 SGPT/ALT 1743-4 24 U/L 024 [facility] [address] [place] [address] 88989 CHEM 14 (METABOLIC PANEL) 44834 Total Bilirubin 1975-2 0.3 mg/dL 024 [facility] [address] [place] [address] 64319 CHEM 14 (METABOLIC PANEL) 43824 Calcium 54341-5 9.2 mg/dL 024 [facility] [address] [place] [address] CHEM 14 (METABOLIC PANEL) 21144 Corrected Calcium 26058-4 9.4 mg/dL 024 [facility] [address] [place] [address] [id number] BIN 4548-4 Glyco HGB A1C 49145-1 5.7 % 024 [facility] [address] [place] [address] 41266 I7Z-[id number] BIN 4548-4 eAG 08098-1 117 mg/dL 024 [facility] [address] [place] [address] TSH 21095 TSH 30473-5 2.760 uIU/mL 024 [facility] [address] [place] [address] Procedures Procedure Codes Date Most recent A1c < 7.0% CPT-4: 3044F 5 Most recent A1c < 7.0% CPT-4: 3044F 4 Most recent A1c < 7.0% CPT-4: 3044F 4 MED LIST DOCD IN [facility] CPT-4: 1159F 12/19/2023 RVW MEDS BY RX/DR IN [facility] CPT-4: 1160F 2023 Amnt pain noted; pain prsnt CPT-4: 1125F 11/30 LOW RISK FOR RETINOPATHY CPT-4: 3072F 024 Screening for clinical depre ssion is negative, follow-up plan not required CPT-4: G8510 12/19/2023 [id number] CPT-4: 80753 Unknown Vital Signs Date Vital 12/19/2023 Blood Pressure 1: 120/79 Code: 8480-6 BMI: 25.6 Code: 32687-6 Heart Rate 1: 76 bpm Height: 5'2 Code: 8302-2 Respiratory Rate: 16 bpm SpO2: 95% Temperature: 36.7 (C) / 98.0 (F) Weight: 140 lbs 2 oz Code: 45347-1 Reason For Visit Reason For Visit Effective Dates Notes new patient welcome visit 12/19/2023 Encounters Encounter Performer Location Location Address Codes Date (02642) Other Reason/Patient not seen Diagnosis: Patient not seen[ICD10: UXZ.01] [facility] [place] [address] CPT-4: 70878 05/23/2024 (14249) No answer/Patient not seen Diagnosis: Patient not seen[ICD10: UXZ.01] [facility] [address] [place] [address] CPT-4: 83933 04/19/2024 (IND) Independent Lab Draw Diagnosis: Patient not seen[ICD10: UXZ.01] [facility] [place] [address] CPT-4: IND 12/22/2023 (73016) Home or Residence 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, 60 mins Diagnosis: Encounter for general adult medical examination without abnormal findings[ICD10: Z00.00] Diagnosis: Bipolar 2 disorder[ICD10: F31.81] Diagnosis: Chronic obstructive pulmonary disease, unspecified COPD type[ICD10: J44.9] Diagnosis: Generalized anxiety disorder[ICD10: F41.1] Diagnosis: Opioid dependence in remission[ICD10: F11.21] Diagnosis: Osteopenia, unspecified location[ICD10: M85.80] Diagnosis: Rheumatoid arthritis with positive rheumatoid factor, involving unspecified site[ICD10: M05.9] [facility] Hilldeena [facility] [address] [address] CPT-4: 02291 12/19/2023 Plan of Care Planned Activity Notes Codes Status Date Appointment: Marci Swan WPtel: [address] [place], [place] [id number] 05/23/2024 Patient Education: Patient Medication Summary Completed 05/23/2024 Appointment: Beny Marci WPtel: [address] [place], [place] [id number] E031 04/19/2024 Patient Education: Patient Medication Summary Completed 04/19/2024 Appointment: TERESA, NOTE Follow Up Appointment: TERESA, NOTE CHW - Referra 12/25/2023 Appointment: TERESA, NOTE Phone Call Patient Education: Patient Medication Summary Completed 12/25/2023 Patient Education: Patient Medication Summary Completed 12/25/2023 Appointment: Office, [place] [address] 12/22/2023 Patient Education: Patient Medication Summary Completed [...] of care. 12/19/2023 Appointment: Marci Swan WPtel: [address] [place], [place] [id number] [facility] 12/19/2023 Patient Education: Patient Medication Summary Completed 12/19/2023 Patient Education: Obesity Completed 12/19/2023 Care Plan: eGFR KHE Pending Care Plan: Microalbumin (Urine) KHE Pending 12/19/2023 Referral: Food Insecurity Referral Initiated Referral: [facility] W[facility]el: [address] [place] [address] [facility] [address] [place] [address] Order Faxed Instructions Comment Date v. Encounter [...]
--- OUTSIDE RECORDS SUMMARY | 2025-03-13 09:56 | XMS_ITS | Clinical Summary ---
Author Organization [facility] Address [address] [place] [address] Care Team Providers Care Delivery Helper Name Role Phone System, Provider Not In [...] COLORECTAL CANCER SCREENING 07/24/2030 Insurance MEDICAID [place] [facility] MEDICARE ADVANTAGE Care Teams Delivery Helper Relationship Specialty Start Date End Date System, [place] [address] PCP - General 05/25/21
--- OUTSIDE RECORDS SUMMARY | 2025-03-13 09:56 | XMS_ITS | Encounter Summary ---
Author Organization [facility] Address [address] [place] [address] Care Team Providers Care Warranty Administrator Name Role Phone Sofia Nguyen MD Primary Care Provider [phone] Tk Garg MD Primary Care Provider [phone] Lisseth Palacios APRN Primary Care Provider + Kristal Carpenter DO Primary Care Provider Preston Man DO Primary Care Provider [phone] Preston Man DO Primary Care Provider [phone] Reason for Visit * Reason Onset Date Comments Appointment 10/10/2020 Patient difficul t to keep awake. Encounter Details Date Type Department Care Team (Late st Contact Info) Description 10/10/2020 [facility] [address] [place] [address] Marlen Owens MD [address] [place] [address] Social History Tobacco Use Types [...] patient keeps drifting in andout of sleep. special needs child caregiver did not know the name of [...] Description 05/26/2025 2:00 PM EST Office Visit [facility] [address] [place] [address] Fletcher, May R, PLANT MAINTENANCE TECHNICIAN [address] [place] [address] documented as of this encounter Visit Diagnoses Not on filedocumented in this encounter Additional Health Concerns Infection Onset Date Last Indicated Resolved Time COVID-19 Rule-Out 03/27/2021 03/27/2021 03/27/2021 11:29 AM EST COVID-19 Rule-Out 05/24/2022 05/24/2022 05/24/2022 2:20 PM EST COVID 19 (Confirmed) 05/24/2022 05/24/2022 023 5:23 AM EST documented as of this encounter Care Teams Warranty Administrator Relationship Specialty Start Date End Date Sofia Nguyen MD [address] [facility] [address] [place] [address] PCP - General 09/11/20 10/15/20 Tk Garg MD [address] [place] [address] [address] [place], [place] [id number] PCP - General Family Medicine 10/16/20 03/27/22 Lisseth Palacios S, PLANT MAINTENANCE TECHNICIAN [facility] [place] [address] PCP - General 03/28/22 07/13/22 Kristal Carpenter DO [address] [place] [address] PCP - General Internal Medicine 07/14/22 08/13/23 Preston Man DO [address] [place] [address] [place], [place] [address] PCP - General 08/14/23 10/26/23 Preston Man DO [address] [place] [address] [place], [place] [address] PCP - General 05/27/24 documented as of this encounter
--- OUTSIDE RECORDS SUMMARY | 2025-03-13 09:56 | XMS_ITS | CCD ---
Author Name Beny BLANTON, Marci Address [address] [facility] [address] [place] [address] Phone Organization [facility] Phone Care Team Providers Care Architectural Intern Name Role Phone Unavailable Primary Care Provider Unavailabl e Unavailable Chronic Care Management Unavaila ble Summary Purpose DataExchange Insurance Providers Payer name Policy type / Coverage type Covered libertarian ID Effective Begin Date Effective End Date [place] [employer] [facility] [id number] Unknown Unknown Family history Father Diagnosis Age [...] cessation counseling) 12/19/[address]: [id number] Never drinks alco hol 12/19/2023 Illegal/Recreational drug [...] 12/19/2023 No Inactive Date Active Biaxin RxNorm: 352223 07/29/2013 No Inactive Da te Active Problems [...] Suboxone 8 mg-2 mg sublingual film RxNorm: 5506671 Take 1 Tablet(s) Sublingual every day 4 01/17/20 24 Inactive Stiolto Respimat 2.5 mcg-2.5 mcg/actuation solution for inhalation RxNorm: 2468372 Inhale 2 Puff(s) Inhalation every day 4 03/17/20 24 Inactive Vraylar 3 mg capsule RxNorm: 9716260 Administer 1 Capsule(s) Oral every day 4 03/17/20 24 Inactive Enbrel 50 mg/mL (1 mL) subcutaneous syringe RxNorm: 315776 Inject 1 Unit(s) Subcutaneous 1 time a week 4 01/17/20 24 Inactive calcium 600 mg-D3 20 mcg-magnesium 40 cn-cdvcld-jjjt-z inc chew tablet RxNorm: Take 1 Tablet(s) Oral two times a day 4 03/17/20 24 Inactive fluticasone (FLONASE) 50 MCG/ACT nasal spray RxNorm: 4588368 nasl 2 No Stop Date Active Ventolin HFA 108 (90 Base) MCG/ACT inhaler RxNorm: 873390 inhl 1 No Stop Date Active lamoTRIgine (LaMICtal) 150 MG tablet RxNorm: 841384 oral 1 No Stop Date Active ibuprofen (ADVIL,MOTRIN) 800 MG tablet RxNorm: 902860 Take 1,600 mg by mouth 2 (Two) Times a Day. 1 No Stop Date Active Medication Administered No Medication Administered data Results Observation Observation Code Item Item Code Result Date Service Location No Orders UA NoOrdersUA NO ORDERS UA 0.00 26/06 024 [facility] [address] [place] [address] URINALYSIS AUTO W/SCOPE 13624 Glucose 2345-7 Negative mg/dL 024 [facility] [address] [place] [address] URINALYSIS AUTO W/SCOPE 37250 Protein Negative mg/dL 024 [facility] [address] [place] [address] URINALYSIS AUTO W/SCOPE 95119 Bilirubin Negative mg/dL 024 [facility] [address] [place] [address] URINALYSIS AUTO W/SCOPE 39129 Urobilinogen Negative mg/dL 024 [facility] [address] [place] [address] URINALYSIS AUTO W/SCOPE 87019 Ph 6.50 024 [facility] [address] [place] [address] 42879 URINALYSIS AUTO W/SCOPE 83039 Blood Negative mg/dL 024 [facility] [address] [place] [address] URINALYSIS AUTO W/SCOPE 94651 Ketones Negative mg/dL 024 [facility] [address] [place] [address] URINALYSIS AUTO W/SCOPE 75008 Nitrite Negative 024 [facility] [address] [place] [address] URINALYSIS AUTO W/SCOPE 34930 Leukocytes Negative Praneeth/uL 024 [facility] [address] [place] [address] URINALYSIS AUTO W/SCOPE 42620 Clarity Clear 024 [facility] [address] [place] [address] URINALYSIS AUTO W/SCOPE 58662 Specific Jackman 1.019 024 [facility] [address] [place] [address] URINALYSIS AUTO W/SCOPE 03628 Color Light-Yello w 024 [facility] [address] [place] [address] URINALYSIS AUTO W/SCOPE 02924 Red Blood Cell <1 /HPF #/HPF 024 [facility] [address] [place] [address] URINALYSIS AUTO W/SCOPE 82522 SQUAMOUS EPITHELIAL <1 /HPF #/HPF 024 [facility] [address] [place] [address] URINALYSIS AUTO W/SCOPE 22942 White Blood Cell 3 /HPF #/HPF 024 [facility] [address] [place] [address] URINALYSIS AUTO W/SCOPE 87409 Bacteria Trace graded/HPF 024 [facility] [address] [place] [address] URINALYSIS AUTO W/SCOPE 45947 Calcium Oxalate Crystal MANY graded/HPF 024 [facility] [address] [place] [address] URINALYSIS AUTO W/SCOPE 35835 Mucous RARE grades/LPF 024 [facility] [address] [place] [address] U[facility] and [facility] U[facility] Culture & Sensitivity SEE COMMENT 024 [facility] [address] [place] [address] Manual Diff MDIFF Neutrophils 80756-4 64.0 % 024 [facility] [address] [place] [address] Manual Diff MDIFF Lymphocytes 22746-1 30.0 % 024 [facility] [address] [place] [address] Manual Diff MDIFF Monocytes 10846-5 3.0 % 024 [facility] [address] [place] [address] Manual Diff MDIFF Eosinophils 16886-2 2.0 % 024 [facility] [address] [place] [address] Manual Diff MDIFF Basophils 54717-0 1.0 % 024 [facility] [address] [place] [address] Manual Diff MDIFF Absolute Neut 84765-4 4416 /ul 11/30 07/31 024 [facility] [address] [place] [address] Manual Diff MDIFF Absolute Lymph 02757-1 2070 /ul 24/06 024 [facility] [address] [place] [address] Manual Diff MDIFF Absolute [place] 80389-1 207 /ul 08/07/31 024 [facility] [address] [place] [address] Manual Diff MDIFF Platelet Estimate 9317-9 Normal 024 [facility] [address] [place] [address] Manual Diff MDIFF Absolute Eos 03106-7 138 /ul 12/22 024 [facility] [address] [place] [address] Manual Diff MDIFF Echinocytes 7790-9 2+ 024 [facility] [address] [place] [address] Manual Diff MDIFF Poikilocytosis 779-9 2+ 24/06 024 [facility] [address] [place] [address] Manual Diff MDIFF Absolute Baso 58749-7 69 /ul 11/30 07/31 024 [facility] [address] [place] [address] COMPLETE CBC W/ DIFF WBC 77837 WBC 6690-2 6.9 K/ul 024 [facility] [address] [place] [address] COMPLETE CBC W/ DIFF WBC 48009 RBC 789-8 4.29 M/uL 024 [facility] [address] [place] [address] COMPLETE CBC W/ DIFF WBC 84621 Hemoglobin 718-7 13.3 g/dL 024 [facility] [address] [place] [address] COMPLETE CBC W/ DIFF WBC 79279 Hematocrit 4544-3 41.0 % 024 [facility] [address] [place] [address] COMPLETE CBC W/ DIFF WBC 87824 MCV 787-2 95.7 fL 024 [facility] [address] [place] [address] COMPLETE CBC W/ DIFF WBC 01538 MCH 785-6 31.1 pg 024 [facility] [address] [place] [address] COMPLETE CBC W/ DIFF WBC 67568 MCHC 786-4 32.5 g/dL 024 [facility] [address] [place] [address] COMPLETE CBC W/ DIFF WBC 91433 RDW 788-0 14.2 % 024 [facility] [address] [place] [address] COMPLETE CBC W/ DIFF WBC 23698 Platelet Count 777-3 311 K/uL 024 [facility] [address] [place] [address]409 COMPLETE CBC W/ DIFF WBC 67568 MPV 20864-2 8.0 fL 024 [facility] [address] [place] [address] 67737 No Orders No Orders No Orders 0 024 [facility] [address] [place] [address] TRIGLYCERIDES 14876 Triglycerides 2571-8 173 mg/dL 024 [facility] [address] [place] [address] 32080 TRIGLYCERIDES 33875 VLDL 29496-4 35 mg/dL 024 [facility] [address] [place] [address]287 VITAMIN D 59927 Vitamin D 67283-7 27.0 ng/mL 024 [facility] [address] [place] [address] 92032 MICROALBUMIN (URINE) 70375 Microalbumin 34704-2 2.1 mg/dL 024 [facility] [address] [place] [address] 89268 MICROALBUMIN (URINE) 80096 Microalbumin/Crea tinine Ratio 93864-4 27 MCG/MGCREAT 024 [facility] [address] [place] [address] 10610 MICROALBUMIN (URINE) 46520 Urine Creatinine 2161-8 77.70 mg/dL 024 [facility] [address] [place] [address] 53782 CHOLESTEROL 17781 Cholesterol 2093-3 165 mg/dL 024 [facility] [address] [place] [address] 25664 Direct LDL 10203 LDL-Direct 82887-4 96 mg/dL 024 [facility] [address] [place] [address] 50219 FREE T-4 84660 FT4 3024-7 1.05 ng/dL 024 [facility] [address] [place] [address] 24660 HDL - CHOL 77238 HDL 2085-9 41 mg/dL 024 [facility] [address] [place] [address] 97672 HDL - CHOL 98972 [facility] 04169-3 25 % 024 [facility] [address] [place] [address] Urine Culture and Sensitivity [facility] Urine Culture & Sensitivity SEE COMMENT 024 [facility] [address] [place] [address] FREE T-3 06566 FT3 3051-0 2.78 pg/mL 024 [facility] [address] [place] [address] URINALYSIS AUTO W/SCOPE 31819 Glucose 2345-7 NO SPECIMEN RECEIVED mg/dL 024 [facility] [address] [place] [address] URINALYSIS AUTO W/SCOPE 72605 Protein NO SPECIMEN RECEIVED mg/dL 024 [facility] [address] [place] [address] URINALYSIS AUTO W/SCOPE 14456 Bilirubin NO SPECIMEN RECEIVED mg/dL 024 [facility] [address] [place] [address] URINALYSIS AUTO W/SCOPE 19437 Urobilinogen NO SPECIMEN RECEIVED mg/dL 024 [facility] [address] [place] [address] 64127 URINALYSIS AUTO W/SCOPE 92203 Ph NO SPECIMEN RECEIVED 024 [facility] [address] [place] [address] 85321 URINALYSIS AUTO W/SCOPE 98640 Blood NO SPECIMEN RECEIVED mg/dL 024 [facility] [address] [place] [address] 39713 URINALYSIS AUTO W/SCOPE 61958 Ketones NO SPECIMEN RECEIVED mg/dL 024 [facility] [address] [place] [address] 55870 URINALYSIS AUTO W/SCOPE 26390 Nitrite NO SPECIMEN RECEIVED 024 [facility] [address] [place] [address] 55695 URINALYSIS AUTO W/SCOPE 31471 Leukocytes NO SPECIMEN RECEIVED Praneeth/uL 024 [facility] [address] [place] [address]1057 URINALYSIS AUTO W/SCOPE 07941 Clarity NO SPECIMEN RECEIVED 024 [facility] [address] [place] [address]684 URINALYSIS AUTO W/SCOPE 26913 Specific Jackman NO SPECIMEN RECEIVED 024 [facility] [address] [place] [address] 85321 URINALYSIS AUTO W/SCOPE 29800 Color NO SPECIMEN RECEIVED [facility] [address] [place] [address] 74389 CHEM 14 (METABOLIC PANEL) 66310 Glucose 2345-7 144 mg/dL [facility] [address] [place] [address] 10116 CHEM 14 (METABOLIC PANEL) 81063 BUN 3094-0 13 mg/dL 024 [facility] [address] [place] [address] 03412 CHEM 14 (METABOLIC PANEL) 30238 Creatinine 2160-0 0.9 mg/dL [facility] [address] [place] [address] 77077 CHEM 14 (METABOLIC PANEL) 07815 BUN/Creat Ratio 3097-3 14.1 [facility] [address] [place] [address] 86977 CHEM 14 (METABOLIC PANEL) 03696 GFR Estimated 39911-4 69 mL/min/1.73 m2 [facility] [address] [place] [address] 96516 CHEM 14 (METABOLIC PANEL) 78524 Sodium 2951-2 139 mmol/L [facility] [address] [place] [address] 58703 CHEM 14 (METABOLIC PANEL) 06315 Potassium 2823-3 4.0 mmol/L [facility] [address] [place] [address] 21069 CHEM 14 (METABOLIC PANEL) 45929 Chloride 2075-0 104 mmol/L [facility] [address] [place] [address] 24921 CHEM 14 (METABOLIC PANEL) 82388 Total CO2 2028-9 30 mmol/L [facility] [address] [place] [address] 43460 CHEM 14 (METABOLIC PANEL) 74305 Anion Gap 1863-0 9.0 mEq/L [facility] [address] [place] [address] 13424 CHEM 14 (METABOLIC PANEL) 58355 Calculated Serum Osmolality 21781-6 291 mOsm/kg [facility] [address] [place] [address] 63144 CHEM 14 (METABOLIC PANEL) 90976 Albumin 86654-7 4.0 g/dL [facility] [address] [place] [address] 09635 CHEM 14 (METABOLIC PANEL) 69994 Total Protein 2885-2 7.9 g/dL 024 [facility] [address] [place] [address] CHEM 14 (METABOLIC PANEL) 99342 Globulin 2336-6 3.9 g/dL 024 [facility] [address] [place] [address] CHEM 14 (METABOLIC PANEL) 30809 Albumin/Globulin Ratio 1759-0 1.0 024 [facility] [address] [place] [address] CHEM 14 (METABOLIC PANEL) 16092 ALK PHOS 6768-6 80.00 U/L 024 [facility] [address] [place] [address] CHEM 14 (METABOLIC PANEL) 60132 SGOT/AST 1920-8 17 U/L 024 [facility] [address] [place] [address] CHEM 14 (METABOLIC PANEL) 22872 SGPT/ALT 1743-4 24 U/L 024 [facility] [address] [place] [address] 04937 CHEM 14 (METABOLIC PANEL) 80821 Total Bilirubin 1975-2 0.3 mg/dL 024 [facility] [address] [place] [address] 09648 CHEM 14 (METABOLIC PANEL) 97211 Calcium 25250-0 9.2 mg/dL 024 [facility] [address] [place] [address] CHEM 14 (METABOLIC PANEL) 15017 Corrected Calcium 75627-4 9.4 mg/dL 024 [facility] [address] [place] [address] [id number] BIN 4548-4 Glyco HGB A1C 79859-7 5.7 % 024 [facility] [address] [place] [address] 64409 [id number] BIN 4548-4 eAG 03389-0 117 mg/dL 024 [facility] [address] [place] [address] TSH 23192 TSH 94214-1 2.760 uIU/mL 024 [facility] [address] [place] [address] Procedures Procedure Codes Date Most recent A1c < 7.0% CPT-4: 3044F 5 Most recent A1c < 7.0% CPT-4: 3044F 4 Most recent A1c < 7.0% CPT-4: 3044F 4 MED LIST DOCD IN [facility] CPT-4: 1159F 12/19/2023 RVW MEDS BY RX/DR IN [facility] CPT-4: 1160F 2023 Amnt pain noted; pain prsnt CPT-4: 1125F 11/30 LOW RISK FOR RETINOPATHY CPT-4: 3072F 024 Screening for clinical depre ssion is negative, follow-up plan not required CPT-4: G8510 12/19/2023 [id number] CPT-4: 45061 Unknown Vital Signs Date Vital 12/19/2023 Blood Pressure 1: 120/79 Code: 8480-6 BMI: 25.6 Code: 57933-0 Heart Rate 1: 76 bpm Height: 5'2 Code: 8302-2 Respiratory Rate: 16 bpm SpO2: 95% Temperature: 36.7 (C) / 98.0 (F) Weight: 140 lbs 2 oz Code: 44152-5 Reason For Visit Reason For Visit Effective Dates Notes new patient welcome visit 12/19/2023 Encounters Encounter Performer Location Location Address Codes Date ([id number]) Other Reason/Patient not seen Diagnosis: Patient not seen[ICD10: UXZ.01] [facility] Office [facility] [place] [address] CPT-4: 04305 05/23/2024 (17971) No answer/Patient not seen Diagnosis: Patient not seen[ICD10: UXZ.01] [facility] Office [address] [place] [address] CPT-4: 04998 04/19/2024 (IND) Independent Lab Draw Diagnosis: Patient not seen[ICD10: UXZ.01] [facility] [place] [address] CPT-4: IND 12/22/2023 ([id number]) Home or Residence Visit MECHANICAL FITTER - Moderate Level, 60 mins Diagnosis: Encounter for general adult medical examination without abnormal findings[ICD10: Z00.00] Diagnosis: Bipolar 2 disorder[ICD10: F31.81] Diagnosis: Chronic obstructive pulmonary disease, unspecified COPD type[ICD10: J44.9] Diagnosis: Generalized anxiety disorder[ICD10: F41.1] Diagnosis: Opioid dependence in remission[ICD10: F11.21] Diagnosis: Osteopenia, unspecified location[ICD10: M85.80] Diagnosis: Rheumatoid arthritis with positive rheumatoid factor, involving unspecified site[ICD10: M05.9] Marci Hilldeena [facility] [address] [address] CPT-4: 01563 12/19/2023 Plan of Care Planned Activity Notes Codes Status Date Appointment: Marci Swan WPtel: [address] [place], [place] [id number] 05/23/2024 Patient Education: Patient Medication Summary Completed 05/23/2024 Appointment: Beny Marci WPtel: [address] [place], [place] [id number] 04/19/2024 Patient Education: Patient Medication Summary Completed 04/19/2024 Appointment: TERESA, NOTE Follow Up Appointment: TERESA, NOTE CHW - Referra 12/25/2023 Appointment: TERESA, NOTE Phone Call Patient Education: Patient Medication Summary Completed 12/25/2023 Patient Education: Patient Medication Summary Completed 12/25/2023 Appointment: Office, [place] [address] 12/22/2023 Patient Education: Patient Medication Summary Completed [...] of care. 12/19/2023 Appointment: Marci Swan WPtel: [address] [place], [place] [phone] [facility] 12/19/2023 Patient Education: Patient Medication Summary Completed 12/19/2023 Patient Education: Obesity Completed 12/19/2023 Care Plan: eGFR KHE Pending Care Plan: Microalbumin (Urine) KHE Pending 12/19/2023 Referral: Food Insecurity Referral Initiated Referral: [facility] WPtel: [address] [place] [address] Counseling & Psychiatry [address] [place] [address] Order Faxed Instructions Comment Date v. Encounter [...]
--- OUTSIDE RECORDS SUMMARY | 2025-03-13 09:56 | XMS_ITS | Clinical Summary ---
Author Organization [facility] Address [address] [place] [address] Care Team Providers Care Automatic Serging Machine Operator Name Role Phone Preston Man Primary Care Provider [phone] Allergies Active Allergy Reactions Criticality Noted Date [...] Influenza, seasonal, injectable, preservative free 03/20/2014, 05/19/2016 [employer] COVID-19 Vaccine (Purple Cap) 12+ 06/30/2020, 07/21/2020 [...] has been counseled on tobacco cessation: Yes. assistant terminal manager effects of continued use such as but not limited to lung cancer, oral cavity cancer, CAD, PAD, ASCVD etc were discussed with the patient. Time spent in counseling was between 3-10 mins (00594). The following tobacco cessation resources were provided [...] patient would like second opinion; referred to [facility] 06/2022. Assessment & Plan (07/24/2022 [...] patient would like second opinion; referred to [facility] 06/2022. Assessment & Plan (04/22/2021 [...] with sleep medicine at , referred to [facility] 06/2022. Seropositive rheumatoid arthritis of multiple rosie [...] - 12/11/2024 11:59 PM EDT Hospital Encounter [facility] X-Ray [address], [address] [place] [address] Acute pain of left knee Discharge Disposition: Home or Self Care 12/11/2024 10:20 AM EDT Office Visit [facility] [address], [address] [place] [address] Yoana Whitney MD Acute pain of left knee (Primary Dx) 12/11/2024 Travel from Last 3 Months Immunizations Immunization Administration Dates Next Due Hep A, Adult 11/22/2017,10/11/2016 Hep A, Unspecified 10/11/2016 Influenza, injectable, MDCK, preservative free, quadrivalent 02/10/2022,01/24/2020 Influenza, injectable, quadrivalent 02/13/2017 Influenza, injectable, quadr ivalent, preservative free 03/17/2023,01/16/2019,01/18/2018 Influenza, seasonal, injectable 02/19/2020 Influenza, seasonal, injecta ble, preservative free 05/19/2016,03/20/2014 [employer] COVID-19 Vac cine (Purple Cap) 12+ 07/21/2020,06/30/2020 [...] Date Smoking Tobacco: Every Day Cigarettes 1 50.9 Started: 1975 Passive Smoke Exposure: Past Smokeless [...] Visit [facility] [address] [place] [phone] Fletcher, May R, JOY LOADER [address] [place] [address] Health Maintenance Due Date Last Done Comments [...] exists [facility] Annual Wellness (AWV) 11/18/2023 11/17/2022 [id number] Vaccine ( season) 2024 07/21/2020, 06/30/2020 [facility]-Influenza [...] show medial compartment joint space narrowing with xohq-dr-sgvy articulation and tricompartmental osteophyte formation. Chondrocalcinosis. Moderate [...] knee show medial compartment joint space narrowingwith jdet-ix-wmdh articulation and tricompartmental osteophyte formation.Chondrocalcinosis. Moderate effusion. [...] show medial compartment joint space narrowing with hkoq-pb-cpoa articulation and tricompartmental osteophyte formation. Chondrocalcinosis. Moderate [...] knee show medial compartment joint space narrowingwith avny-ez-cvvt articulation and tricompartmental osteophyte formation.Chondrocalcinosis. Moderate effusion. [...] Adults <6.0% Children and Adolescents <7.5% Source: [place] [employer]. Standards of medical care in diabetes,2017. Diabetes Care.2017:40 (suppl 1):S1-S135. HbA1c assay performed by an ion-exchange chromatography method that is certified traceable to the DCCT. us Kristal Carpenter DO LAB BLOOD ORDERABLES Final Res ult [facility] [address] [place] [address] * Pap Test (11/17/2022 9:27 AM EDT) Case Report Cytology Case: [id number] Authorizing Provider: Kristal Carpenter DO Collected: 11/17/2022 0927 Ordering Location: [facility] Received: 11/18/2022 1109 Internal Medicine First Screen: Alberta Quiroz Specimen: ThinPrep Pap Test, Liquid-Based Cervical/Vaginal 11/29/2022 11:35 AM EDT [facility] Interpretation NEGATIVE FOR INTRAEPITHELIAL LESION OR MALIGNANCY 11/29/2022 11:35 AM EDT [facility] at 1135 EDT Specimen Adequacy Satisfactory for evaluation; endocervical/alcantar sformation zone component present. Slide scanned and imaged by ThinPrep Imaging System with manual review of all selected farah. 11/29/2022 11:35 AM EDT [facility] Cervical cytology is a screening test [...] results is suggested (please call Microbiology at [phone] for results). 11/29/2022 11:35 AM EDT [facility] Menstrual Status Post-Menopausal 05/2022 11:35 AM EDT [facility] Contraceptive History Not Applicable 11/29/2022 11:35 AM EDT [facility] Screening Type Routine Screen 2022 11:35 AM EDT [facility] High Risk? No 11/29/2022 11:35 AM EDT [facility] HPV Testing Requested? Request HPV Testing Regardless of Pap Test Findings 11/29/2022 11:35 AM EDT [facility] Previous Cancer History No 11/29/2022 11:35 AM EDT [facility] Clinical Information Z00.00 - Medicare annual wellness visit, subsequent [ICD-10-CM] Z00.00 - Healthcare maintenance [ICD-10-CM] Z12.4 - Encounter for Papanicolaou smear for cervical cancer screening [ICD-10-CM] 11/29/2022 11:35 AM EDT [facility] Swab Vaginal and cervical cytologic material / Unknown Non-blood Collection / Unknown 11/17/2022 9:27 AM EDT 11/18/2022 11:09 AM EDT Kristal Carpenter DO LAB CYTOLOGY ORDERABLES Final Result [facility] [address] [place] [address] * CT Chest Lung Cancer Screening (09/21/2022 2:30 PM EDT) Anatomical Region Laterality Modality Chest Computed Tomogra phy Addenda Addendum by Markell Mary MD on 09/27/2022 8:25 AM EDT ADDENDUM: Please note there is a die filer error in the original Recommendations section that [...] Positive( A) Negative 05/24/2022 5:38 PM EST [facility] Comment:This specimen is leonel ng sent for confirmation by RT-PCR. Blood Venous blood specimen / Unknown Venipuncture / Unknown 05/24/2022 1:18 PM EST 05/24/2022 1:20 PM EST us Marlen Berry DO LAB BLOOD ORDERABLES Final Re sult [facility] [address] [place] [address] * Mammography Breast Screening Tomosynthesis Bilateral (07/16/2021 [...] to: 01/21/2010 Mammography Outside Images Upload at Pressable 01/27/2011 Mammography Outside Images Upload at Pressable 07/10/2012 Mammography Outside Images Upload at Pressable 07/19/2012 Mammography Outside Images Upload at Pressable 10/28/2016 Mammography Outside Images Upload at [employer] BREAST COMPOSITION: The breasts are almost entirely fatty. FINDINGS: There are no suspicious masses, calcifications, or areas of architectural distortion in either breast. Naatlie Anaya MD IMG BI PROCEDURES Final Re sult * COLONOSCOPY (07/24/2020) Anatomical Region Laterality Modality Endoscopy Narrative 07/24/2020 Ordered by an unspecified provider. Historical Provider GI PROCEDURE ORDERABLES Anastasia l Result from Last 3 Months or Most Recently Relevant to Health Maintenance Insurance [place]ICA[place] MEDICARE Care Teams Automatic Serging Machine Operator Relationship Specialty Start Date End Date Preston Man DO [address] [place] [address] [place] [phone] PCP - General 05/27/24
--- OUTSIDE RECORDS SUMMARY | 2025-03-13 09:56 | XMS_ITS | Encounter Summary ---
Author Organization [facility] Address [address] [place] [address] Care Team Providers Care Joinery Patternmaker Name Role Phone DonovanPreston yancey Briseyda JENKINS Primary Care Provider [phone] Encounter Details Date Type Department Care Team (Late Contact Info) Description 09/02/2024 Orders Only External Location [address] [place] [address] Jonas Roper, DO [address] [place] [address] Social History Tobacco Use Types Packs/Day Years [...] Description 05/26/2025 2:00 PM EST Office Visit [facility] [address] [place] [address] Fletcher, May R, DESIGN RELEASE ENGINEER [address] [place] [address] documented as of this encounter [...] documented as of this encounter Care Teams Joinery Patternmaker Relationship Specialty Start Date End Date Preston Man DO [address] [place] [address] PCP - General 05/27/24 documented as of this encounter
== END 2025-03-13 23:59 | disposition home or self-care (01) ==
LOC: RT 09:51
PROVIDERS: PCP Internal Medicine; Visit Provider Nurse Practitioner
DX: I49.1 Atrial premature depolarization (principal); I47.19 Other supraventricular tachycardia; I49.3 Ventricular premature depolarization; R29.810 Facial weakness
CPT/HCPCS: 93270

== ENCOUNTER 2025-04-03 07:19 | Outpatient (CLI) | payer MEDICARE, MEDICAID, SELFPAY ==
--- NOTE | 2025-04-03 | CA_ITS ---
APPROVED REPORT Exam: Lexisccholo Technologist: Theresa Fisher Stress Nurse: Elijah Sanon PA-C Ht: 5 ft 2 in Wt: 166 lbs BSA: 1.77 m2 HR: 87 bpm BP: 159/83 mmHg Rhythm: Normal Sinus Rhythm Indications: Chest pain, Arm Heaviness, Shortness of Breath Stress Test Details Test: Lexiscan HR Resting HR: 87 bpm Max Heart Rate (APMHR): 154.026688 bpm Max HR Achieved: 106 bpm Target HR (85% APMHR): 130.198378 bpm % of APMHR: 68.83 Recovery HR: 102 bpm BP Resting BP: 159.0/83.0 mmHg Max BP: 156.0/79.0 mmHg Recovery BP: 151.0/83.0 mmHg ECG Resting ECG: Normal Sinus Rhythm Stress ECG Conclusion No complaints of chest pain. No arrythmias noted. <1.[address] Segment changes. Non Diagnostic Lexiscan Stress. Electronically signed by : Vernell Victoria MD 04/08/2025 13:07:16
--- OUTSIDE RECORDS SUMMARY | 2025-04-03 07:22 | XMS_ITS | Encounter Summary ---
Author Organization Healthcare Address [address] [place] [address] Care Team Providers Care Spectrographer Name Role Phone DonovanPreston yancey Briseyda JENKINS Primary Care Provider Encounter Details Date Type Department Care Team (Late Contact Info) Description 09/02/2024 Orders Only External Location [address] [place] [address] Jonas Roper, DO [address] [place] [address] Social History Tobacco Use Types Packs/Day Years [...] Visit [facility] [address] [place] [address] Fletcher, May R, TIMBER DEADENER [address] [place] [address] documented as of this encounter [...] documented as of this encounter Care Teams Spectrographer Relationship Specialty Start Date End Date Preston Man DO [address] [place] [address] PCP - General 05/27/24 documented as of this encounter
--- OUTSIDE RECORDS SUMMARY | 2025-04-03 07:22 | XMS_ITS | Encounter Summary ---
Author Organization [facility] Address [address] [place] [address] Care Team Providers Care Retail Stocker Name Role Phone Sofia Nguyen MD Primary Care Provider [phone] Tk Garg MD Primary Care Provider [phone] Lisseth Palacios APRN Primary Care Provider [phone] Kristal Carpenter DO Primary Care Provider [phone] Preston Man DO Primary Care Provider [phone] Preston Man DO Primary Care Provider [phone] Reason for Visit * Reason Onset Date Comments Appointment 10/10/2020 Patient difficul t to keep awake. Encounter Details Date Type Department Care Team (Late Contact Info) Description 10/10/2020 [facility] [address] , [address] [place] [address] Marlen Owens MD [address] [place] [address] Social History Tobacco Use Types [...] patient keeps drifting in andout of sleep. adult caregiver did not know the name of [...] Description 05/26/2025 2:00 PM EST Office Visit [facility] [address] [place] [address] Fletcher, Hemalatha R, ICE PLATFORM SUPERVISOR [address] [place] [address] documented as of this encounter Visit Diagnoses Not on filedocumented in this encounter Additional Health Concerns Infection Onset Date Last Indicated Resolved Time COVID-19 Rule-Out 03/27/2021 03/27/2021 03/27/2021 11:29 AM EST COVID-19 Rule-Out 05/24/2022 05/24/2022 05/24/2022 2:20 PM EST COVID 19 (Confirmed) 05/24/2022 05/24/2022 023 5:23 AM EST documented as of this encounter Care Teams Retail Stocker Relationship Specialty Start Date End Date Sofia Nguyen MD [address] [facility] [address] [place] [address] PCP - General 09/11/20 10/15/20 Tk Garg MD [address] [place] [address] [place] [address] PCP - General Family Medicine 10/16/20 03/27/22 Lisseth Palacios, ICE PLATFORM SUPERVISOR [id number] PCP - General 03/28/22 07/13/22 Kristal Carpenter DO [address] [place] [id number] PCP - General Internal Medicine 07/14/22 08/13/23 Preston Man DO [address] [place] [address] PCP - General 08/14/23 10/26/23 Preston Man DO [address] [place] [address] PCP - General 05/27/24 documented as of this encounter
--- OUTSIDE RECORDS SUMMARY | 2025-04-03 07:22 | XMS_ITS | Clinical Summary ---
Author Organization [facility] Address [address] [place] [address] Care Team Providers Care Support Dba Name Role Phone System, Provider Not In [...] COLORECTAL CANCER SCREENING 07/24/2030 Insurance MEDICAID [place] [facility] MEDICARE ADVANTAGE Care Teams Support Dba Relationship Specialty Start Date End Date System, [place] [address] PCP - General 05/25/21
--- OUTSIDE RECORDS SUMMARY | 2025-04-03 07:22 | XMS_ITS | Clinical Summary ---
Author Organization [facility] Address [address] [place] [address] Care Team Providers Care Well Shooter Name Role Phone Preston Man Primary Care Provider [phone] Allergies Active Allergy Reactions Criticality Noted Date [...] Influenza, seasonal, injectable, preservative free 03/20/2014, 05/19/2016 [employer] COVID-19 Vaccine (Purple Cap) 12+ 06/30/2020, 07/21/2020 [...] has been counseled on tobacco cessation: Yes. watermelon inspector effects of continued use such as but not limited to lung cancer, oral cavity cancer, CAD, PAD, ASCVD etc were discussed with the patient. Time spent in counseling was between 3-10 mins ([id number]). The following tobacco cessation resources were provided [...] patient would like second opinion; referred to [facility] 06/2022. Assessment & Plan (07/24/2022 [...] patient would like second opinion; referred to [facility] 06/2022. Assessment & Plan (04/22/2021 [...] with sleep medicine at , referred to [facility] 06/2022. Seropositive rheumatoid arthritis of multiple rosie [...] Influenza, seasonal, injecta ble, preservative free 05/19/2016,03/20/2014 [employer] COVID-19 Vac cine (Purple Cap) 12+ 07/21/2020,06/30/2020 [...] Description 05/26/2025 2:00 PM EST Office Visit [facility] [address] [place] [address] Fletcher, May R, BORDER PATROL OFFICER [address] [place] [address] Health Maintenance Due Date Last [...] exists [facility]ic[facility] Annual Wellness (AWV) 11/18/2023 11/17/2022 [id number] Vaccine ( season) 2024 07/21/2020, 06/30/2020 [facility]-Influenza [...] <5.7 % 08/14/2023 12:51 PM EDT [facility] Blood Venous blood specimen / Unknown [...] Adults <6.0% Children and Adolescents <7.5% Source: [employer]. Standards of medical care in diabetes,2017. Diabetes Care.2017:40 (suppl 1):S1-S135. HbA1c assay performed by an ion-exchange chromatography method that is certified traceable to the DCCT. us Kristal Carpenter DO LAB BLOOD ORDERABLES Final Res ult [facility] [address] [place] [address] * Pap Test (11/17/2022 9:27 AM EDT) Case Report Cytology Case: [id number] Authorizing Provider: Kristal Carpenter DO Collected: 11/17/2022 0927 Ordering Location: [facility] Received: 11/18/2022 1109 Internal Medicine First Screen: Alberta Quiroz Specimen: ThinPrep Pap Test, Liquid-Based Cervical/Vaginal 11/29/2022 11:35 AM EDT [facility] Interpretation NEGATIVE FOR INTRAEPITHELIAL LESION OR MALIGNANCY 11/29/2022 11:35 AM EDT [facility] at 1135 EDT Specimen Adequacy Satisfactory for evaluation; endocervical/alcantar sformation zone component present. Slide scanned and imaged by ThinPrep Imaging System with manual review of all selected farah. 11/29/2022 11:35 AM EDT [facility] Cervical cytology is a screening test [...] results is suggested (please call Microbiology at [phone] for results). 11/29/2022 11:35 AM EDT [facility] Menstrual Status Post-Menopausal 05/2022 11:35 AM EDT [facility] Contraceptive History Not Applicable 11/29/2022 11:35 AM EDT [facility] Screening Type Routine Screen 2022 11:35 AM EDT [facility] High Risk? No 11/29/2022 11:35 AM EDT [facility] HPV Testing Requested? Request HPV Testing Regardless of Pap Test Findings 11/29/2022 11:35 AM EDT [facility] Previous Cancer History No 11/29/2022 11:35 AM EDT [facility] Clinical Information Z00.00 - Medicare annual wellness visit, subsequent [ICD-10-CM] Z00.00 - Healthcare maintenance [ICD-10-CM] Z12.4 - Encounter for Papanicolaou smear for cervical cancer screening [ICD-10-CM] 11/29/2022 11:35 AM EDT [facility] Swab Vaginal and cervical cytologic material / Unknown Non-blood Collection / Unknown 11/17/2022 9:27 AM EDT 11/18/2022 11:09 AM EDT Kristal Carpenter DO LAB CYTOLOGY ORDERABLES Final Result [facility] [address] [place] [id number] * CT Chest Lung Cancer Screening (09/21/2022 2:30 PM EDT) Anatomical Region Laterality Modality Chest Computed Tomogra phy Addenda Addendum by Markell Mary MD on 09/27/2022 8:25 AM EDT ADDENDUM: Please note there is a printing machine operator tape rules error in the original Recommendations section that [...] on 09/21/2022 3:46 PM Anel Valadez MD IM CT PROCEDURES Edited Result - Final * (ABNORMAL) Hepatitis C Antibody - ED (05/24/2022 1:18 PM EST) Hepatitis C Antibody Positive( A) Negative 05/24/2022 5:38 PM EST [facility] Comment:This specimen is leonel ng sent for confirmation by RT-PCR. Blood Venous blood specimen / Unknown Venipuncture / Unknown 05/24/2022 1:18 PM EST 05/24/2022 1:20 PM EST Marlen Berry LAB BLOOD ORDERABLES Final Re sult [facility] [address] [id number] * Mammography Breast Screening Tomosynthesis Bilateral (07/16/2021 [...] to: 01/21/2010 Mammography Outside Images Upload at [facility] 01/27/2011 Mammography Outside Images Upload at [facility] 07/10/2012 Mammography Outside Images Upload at [facility] 07/19/2012 Mammography Outside Images Upload at [facility] 10/28/2016 Mammography Outside Images Upload at [facility] BREAST COMPOSITION: The breasts are almost entirely fatty. FINDINGS: There are no suspicious masses, calcifications, or areas of architectural distortion in either breast. us Natalie Anaya MD IMG BI PROCEDURES Final Re sult * COLONOSCOPY (07/24/2020) Anatomical Region Laterality Modality Endoscopy Narrative 07/24/2020 Ordered by an unspecified provider. us Historical Provider GI PROCEDURE ORDERABLES Anastasia l Result from Last 3 Months or Most Recently Relevant to Health Maintenance Insurance MEDICAID-[place] [employer] MEDICARE Care Teams Well Shooter Relationship Specialty Start Date End Date Preston Man DO [address] [place] [id number] PCP - General 05/27/24
--- NOTE | 2025-04-03 07:30 | NM_ITS ---
APPROVED REPORT Exam: Nuclear Stress Test Indication: Chest pain, SOB, Fatigue, Tobacco use, Family history Patient Location: Outpatient Stress Tech: Theresa Fisher PATRICE Tech:Alecia AmayaKEIRY RT(R)(N) Ht: 5 ft 2 in Wt: 166 lbs Bra Size: 38D HR: 87 bpm BP: 159/83 mmHg BSA: 1.77 m2 TID: 0.87 BMI: 30.3 History: Chest pain, SOB, Fatigue, Tobacco use, Family history Procedure: Patient received 0.4 mg of intravenous Lexiscan, resting heart rate 87 bpm, resting blood pressure 159/83 mmHg, with Lexiscan maximum heart rate achieved was 108 bpm which is % of the maximum predicted heart rate and blood pressure was 152/78 mmHg. With Lexiscan, patient denied any complaint of chest pain. Cardiac Stress and Resting SPECT Images: Cardiac Stress and Resting SPECT images were obtained using technetium 99m Myoview 30.9 mCi stress and 10.26 mCi at rest. Resting and stress imaging in supine and prone positions demonstrate no evidence of fixed or reversible perfusion defects. Gated imaging demonstrates normal global LV systolic function. LVEF is calculated at 68%. Conclusion: No evidence of fixed or reversible perfusion defects. Gated imaging demonstrates normal global LV systolic function. LVEF is calculated at 68%. Electronically signed by : Vernell Victoria MD 04/08/2025 12:57:11
[2025-04-03 07:40] LABS: Blood Urea Nitrogen 19 mg/dl (7-17); Creatinine,Serum 0.90 mg/dl (0.52-1.04); Estimated Glomerular Filt Rate 63 ml/min (>60); GFR (African American) 76 ML/MIN (>60)
[2025-04-03] MEDS: SODIUM CHLORIDE 0.9% 10ML SYR (RAD ONLY) 10 ML IV ×3 (09:52→10:31)
[2025-04-03] MEDS: ISOTOPE MYOVIEW (PER STUDY) 1 DOSE IV (09:52)
--- NOTE | 2025-04-03 10:30 | CT_ITS ---
FINAL REPORT TECHNIQUE: NASCET technique utilized for stenosis evaluation. CLINICAL HISTORY: r/o CVA COMPARISON: None FINDINGS: There is mild biapical pleural and parenchymal scarring noted in the lung apices. RIGHT CAROTID: Mild calcification is present in the proximal right internal carotid artery. No significant stenosis is seen of the cervical common or internal carotid artery. LEFT CAROTID: Mild left internal carotid artery calcified plaque is present. No significant stenosis seen of the cervical common or internal carotid artery. VERTEBRALS: The vertebrals are patent. No significant stenosis is present. IMPRESSION: Mild plaque is present in the bilateral internal carotid arteries just distal to the bifurcations, which do not produce significant stenosis. Reviewed, Interpreted and Dictated by Shun Gregorio MD Transcribed by Zahraa Farah Authenticated and [facility]
[2025-04-03] MEDS: 0.9 % SODIUM CHLORIDE 50 ML VIAL 40 ML IV (10:31)
[2025-04-03] MEDS: IOPAMIDOL-370 (76%);100ML BOTTLE 100 ML IV (10:31)
== END 2025-04-03 23:59 | disposition home or self-care (01) ==
LOC: RAD 07:20
PROVIDERS: PCP Internal Medicine; Visit Provider Nurse Practitioner
DX: I65.23 Occlusion and stenosis of bilateral carotid arteries (principal); R06.02 Shortness of breath; R53.83 Other fatigue; R29.810 Facial weakness; R07.9 Chest pain, unspecified; Z72.0 Tobacco use
CPT/HCPCS: 36415; 70498; 78452; 82565; 84520; 93017; 93018; A9502; J2785; Q9967